=== PATIENT | female | born 2000 | race Caucasian/White ===

== ENCOUNTER 2021-08-20 14:26 | Outpatient (CLI) | payer OTHER, SELFPAY ==
--- NOTE | ~2021-08-20 | US_ITS ---
US breast LT complete INDICATION: Left breast lump TECHNIQUE: Dedicated complete left breast ultrasound including all 4 quadrants in the subareolar loca tion COMPARISON: No prior studies for comparison FINDINGS: The left breast is composed of normal heterogeneous echotexture without focal solid or cyst ic mass. IMPRESSION: 1: Normal left breast ultrasound. BI-RADS CATEGORY 1 - NEGATIVE Reviewed, dictated and finalized at location A.
== END 2021-08-20 14:27 ==
PROVIDERS: PCP Pediatrics; Visit Provider Nurse Practitioner Obstetrics & Gynecology
DX: N63.20 Unspecified lump in the left breast, unspecified quadrant (principal)
CPT/HCPCS: 76641

== ENCOUNTER 2021-12-15 11:55 | Emergency (ER) | payer OTHER, SELFPAY ==
--- NOTE | ~2021-12-15 | XR_ITS ---
EXAMINATION: XR foot RT min 3V DATE: 12/15/2021 12:15 INDICATION: Great toe injury. TECHNIQUE: 4 views of right foot were obtained. COMPARISON: None. FINDINGS: Bone alignment is normal. No fracture. Joint spaces are well maintained. IMPRESSION: 1. No fracture. Reviewed, dictated and finalized at location A. IMPRESSION: 1. No fracture.
--- NOTE | 2021-12-15 11:56 | ED.LOWEXIN ---
HPI - Extremity Injury (Lower) General Chief Complaint: Extremity Injury, Lower Stated Complaint: Right foot injury Time Seen by Provider: 12/15/21 12:06 Source: patient Mode of arrival: ambulatory Limitations: no limitations History of Present Illness HPI Narrative: Ms. Hunter is a 21-year-old female patient presenting to clinic today with complaints of right foot pain. She reports 2 weeks ago she dropped a heavy grill on the top of her foot. She complains of pain to great toe and to the first metatarsal. No bruising or swelling noted Related Data Home Medications Medication Instructions Recorded Confirmed medroxyprogesterone 150 mg/mL 150 mg IM DIRECTED 12/15/21 12/15/21 intramuscular syringe Allergies Allergy/AdvReac Type Severity Reaction Status Date / Time No Known Allergies Allergy Verified 12/15/21 11:58 Review of Systems Review of Systems: Pertinent positives per HPI. Patient denies any fever, chills, rash, headache, visual changes, dizziness, cough, runny nose, sore throat, shortness of breath, chest pain, palpitations, nausea, vomiting, diarrhea, constipation, abdominal pain, or any urinary issues. PMFSH Comments At the time of my signature, I reviewed and agree with the nursing past medical, surgical, social, and family history. There is no relevant family history pertinent to the patient complaint. Exam Narrative: General: Well-developed, well nourished, in no apparent distress Head: Normocephalic, atraumatic. Cardio: Regular rate and rhythm, s1 and s2 normal, no murmur appreciated. Resp: Clear to auscultation bilaterally, no rhonchi, rales, wheezing or rubs. Musculoskeletal: No deformity, mild tenderness to palpation over the left great toe and the left first metatarsal, pain with ambulation, grossly normal range of motion, muscle strength strong and equal, peripheral pulse strong, no edema, no cyanosis, normal gait and station Course Course Emergency Course: Portions of this record may have been created with voice recognition software. Level of Care: Express Care Visit Vital Signs Vital signs: Vital signs reviewed MDM - Extremity Injury (Lower) MDM Narrative Medical decision making narrative: At the time of visit patient is resting comfortably on exam table. X-ray was negative for any fracture or malalignment of the left foot. Supportive measures were discussed with the patient she voiced understanding of discharge instructions. Differential Diagnosis Differential diagnosis: Likely fracture of toe and other (Foot fracture, contusion, soft tissue injury) Discharge Plan Discharge Clinical Impression: Contusion of foot Patient Disposition: Home, Self-Care Condition: Stable Instructions: Antibiotic Form, Foot Contusion (ED) Additional Instructions: X-ray is negative for any fracture or malalignment of the left Rest, ice, and elevate left lower extremity Take Tylenol/Motrin as needed for pain May wrap with a loose Dereje wrap Follow-up with your PCP in 3 to 5 days if symptoms persist or sooner if they worsen Prescriptions: No Action medroxyprogesterone 150 mg/mL syringe 150 mg IM DIRECTED Rx Instructions: EVERY 3 MONTHS. Follow-up/Referrals: UNKNOWN,DOCTOR [Primary Care Provider] - Time of Disposition: 12:27 Quality NIHSS Nursing Documentation ED NIHSS nursing documentation: reviewed/agree
[2021-12-15 12:04] VITALS: BP 125/65; PULSE 99; RESP 16; TEMP 36.9; O2SAT 100
== END 2021-12-15 12:30 | disposition home or self-care (01) ==
PROVIDERS: Emergency Provider Nurse Practitioner Family
DX: S90.31XA Contusion of right foot, initial encounter (principal); W20.8XXA Other cause of strike by thrown, projected or falling object, initial encounter
CPT/HCPCS: 73630; 99213; G0463

== ENCOUNTER 2022-06-22 09:48 | Emergency (ER) | payer OTHER, SELFPAY ==
[2022-06-22 09:58] VITALS: BP 113/94; PULSE 107; RESP 16; TEMP 37.4; O2SAT 99
--- NOTE | 2022-06-22 10:31 | ED.WOUNDLAC ---
HPI - Wound/Laceration General Chief Complaint: Wound/Laceration Stated Complaint: spider bite Time Seen by Provider: 06/22/22 10:31 Source: patient Mode of arrival: ambulatory Limitations: no limitations History of Present Illness HPI narrative: 21-year-old female presenting for complaint of red tender wound to the right upper thigh, first noticed last night. States this started as an itchy area. She outlined the redness and states his spread a small amount. Endorses it is tender about 3 in surrounding the red area. She has concern for spider bite. She denies any other locations of skin changes. She denies changes to lotion, soap, detergent etc.. Related Data Home Medications Medication Instructions Recorded Confirmed medroxyprogesterone 150 mg/mL 150 mg IM DIRECTED 12/15/21 12/15/21 intramuscular syringe Allergies Allergy/AdvReac Type Severity Reaction Status Date / Time No Known Allergies Allergy Verified 06/22/22 10:00 Review of Systems Review of Systems: CONSTITUTIONAL: Denies body aches, fever, chills, or sweats. EYES: Denies visual changes, redness, or discharge. ENT: Denies rhinorrhea, congestion CARDIOVASCULAR: Denies chest pain, palpitations, or edema. RESPIRATORY: Denies cough or dyspnea. GASTROINTESTINAL: Denies abdominal pain, nausea, vomiting, or diarrhea. SKIN: Per HPI MUSCULOSKELETAL: Denies back pain, joint pain, or myalgia. NEUROLOGIC: Denies headache, numbness, tingling, or weakness. [facility] Past Medical History Medical History (Updated 06/22/22 @ 10:40 by Patsy Rudolph, JOSSELINE) No pertinent past medical history Comments At time of signature, I have reviewed and agree with nursing past medical, surgical, social and family history unless otherwise noted. Please see nursing chart for further information. There is no relevant family history pertinent to the presenting complaint Exam Narrative: GENERAL: Well-appearing HEAD: Normocephalic, atraumatic. EYES: conjunctivae clear, and EOMI. ENT: Mucous membranes moist. Oropharynx without edema, erythema or lesions. NECK: Supple. No lymphadenopathy CHEST: Clear to auscultation. HEART: Regular rate and rhythm. SKIN: Warm, dry. Right upper lateral thigh with irregular erythematous area approximately 3 cm, pinpoint white center. Site is firm and nonfluctuant, no active drainage; tender. NEURO: Alert and oriented x3. Course Course Emergency Course: Patient is aware of diagnosis, understands and agrees to treatment plan. Anticipatory guidance given. Patient agrees to follow-up as directed and is aware of reasons to seek care at the emergency department. Portions of this record may have been created with voice recognition software Level of Care: Express Care Visit Vital Signs Vital signs: Vital Signs Temperature 99.4 F 06/22/22 09:58 Pulse Rate 107 H 06/22/22 09:58 Respiratory Rate 16 06/22/22 09:58 Blood Pressure 113/94 H 06/22/22 09:58 Pulse Oximetry 99 06/22/22 09:58 Oxygen Delivery Room Air 06/22/22 09:58 Temperature 99.4 F 06/22/22 09:58 Pulse Rate 107 H 06/22/22 09:58 Respiratory Rate 16 06/22/22 09:58 Blood Pressure 113/94 H 06/22/22 09:58 Pulse Oximetry 99 06/22/22 09:58 Oxygen Delivery Room Air 06/22/22 09:58 Reviewed MDM - Wound/Laceration MDM Narrative Medical decision making narrative: Erythematous area to the right upper thigh is nonfluctuant, and at this time is unable to I&D. Patient understands, she will take antibiotics as directed. Advised supportive measures and signs/symptoms to go to the ER. Pt is appropriate for outpt treatment and f/u. Differential Diagnosis Differential diagnosis: Likely abscess, avulsion of skin and other (cellulitis, dermatitis, eczematous rash) Discharge Plan Discharge Clinical Impression: Abscess Patient Disposition: Home, Self-Care Condition: Stable Instructions: Antibiotic Form, Folliculitis (ED), Abscess (ED
== END 2022-06-22 10:39 | disposition home or self-care (01) ==
PROVIDERS: Emergency Provider Nurse Practitioner Family; PCP Pediatrics
DX: L02.415 Cutaneous abscess of right lower limb (principal)
CPT/HCPCS: 99213; G0463

== ENCOUNTER 2022-08-22 18:00 | Emergency (ER) | payer OTHER, SELFPAY ==
--- NOTE | ~2022-08-22 | CT_ITS ---
EXAMINATION: CT brain wo con DATE: 08/22/2022 20:44 INDICATION: Migraine headache. Tingling in the arms. TECHNIQUE: Computed tomography (CT) of the head was performed without intravenous contrast. The mA wa s adjusted according to patient size. Iterative reconstruction technique was employed. The dose-lengt h product was 605.33 mGy-cm. COMPARISON: None FINDINGS: There is no intracranial hemorrhage, acute infarction, or abnormal intracranial mass lesion . The ventricles are normal in size. There is mild mucosal thickening in frontal sinus. The orbits ar e normal. The mastoid air cells are normal. IMPRESSION: 1. Normal brain. Reviewed, dictated and finalized at location E. IMPRESSION: 1. Normal brain.
[2022-08-22 18:35] VITALS: BP 111/92; PULSE 84; RESP 16; TEMP 36.9; O2SAT 100
[2022-08-22 19:36] VITALS: BP 129/65; PULSE 77; RESP 18; O2SAT 98
--- NOTE | 2022-08-22 20:13 | PC.NURSE ---
Pt reports migraine onset 1600 today. She's had atypical migraines in the past. She describes experiencing numbness/tingling in her arms and legs, nausea, sensitivity to light, and dizziness. She c/o those symptoms today, but she also has pain across her forehead which is unusual for her migraines. Pain rated 5/10 at this time. She took ibuprofen at 1800.
--- NOTE | 2022-08-22 20:40 | ED.HA ---
HPI - Headache General Chief Complaint: Headache Stated Complaint: migraine and jessika arm tingling Time Seen by Provider: 08/22/22 19:59 Source: patient Mode of arrival: ambulatory Limitations: no limitations History of Present Illness HPI Narrative: Patient is a 21-year-old female who presents ED with report of migraine headache. Patient reports she has a history of migraines, which consist of disorientation, tingling of her extremities, aura of either white spots in her vision or tunnel vision. She states she has migraines when she is stressed, dehydrated, when she tries to quit vaping, or after receiving her Depo-Provera shot. She noticed some slight tingling in her left arm yesterday, but did not think much of it. Today around 4:30 PM while at work, she noticed white spots in her vision and began having pain in her head. She states she does not usually have a headache associated with her definition of migraines. She does report photophobia and difficulty focusing, denies any vision loss or blurry vision. Reports nausea, but denies vomiting. Denies dizziness, weakness, abdominal pain, fevers, neck pain. Related Data Home Medications Medication Instructions Recorded Confirmed medroxyprogesterone 150 mg/mL 150 mg IM DIRECTED 12/15/21 12/15/21 intramuscular syringe Allergies Allergy/AdvReac Type Severity Reaction Status Date / Time No Known Allergies Allergy Verified 08/22/22 18:38 Review of Systems Review of Systems: CONSTITUTIONAL: Denies fever, chills, or sweats. EYES: See HPI. CARDIOVASCULAR: Denies chest pain. RESPIRATORY: Denies dyspnea. GASTROINTESTINAL: See HPI. GENITOURINARY: Denies dysuria or hematuria. SKIN: Denies rash or itching. MUSCULOSKELETAL: Denies back pain, neck pain. NEUROLOGIC: See HPI. All systems reviewed & are unremarkable except as noted in HPI and below PMFSH Past Medical History Medical History Migraines Surgical History Surgical History (Updated 08/22/22 @ 20:43 by Sona Rocha PA-C) No pertinent past surgical history Social History Social History (Updated 08/23/22 @ 01:33 by Sona Rocha PA-C) Smoking status: Current every day smoker Tobacco type: e-cigarettes/vaping Exam Narrative: GENERAL: Well appearing, well-nourished, non-toxic, in no acute distress. HEAD: Normocephalic, atraumatic. EYES: PERRLA/EOMI, conjunctiva clear. No nystagmus. NECK: Supple. No adenopathy, no masses. No meningeal signs. RESPIRATORY: Airway patent, respirations nonlabored. Clear to auscultation bilaterally, no rales, rhonchi, wheezing. CARDIOVASCULAR: Regular rate and rhythm without murmurs, rubs, or gallops. Radial pulses 2+ and equal bilaterally. ABDOMINAL: Soft, nontender, nondistended, no hepatosplenomegaly. Normoactive BS. MUSCULOSKELETAL: Moves all extremities. Strength/ROM intact without gross deformities. SKIN: Warm, dry, normal color. No rashes. NEURO: A&O X3. Speech clear. Cranial nerves II-XII grossly intact. Steady gait. No ataxic movements. 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 No focal deficits. Sensation intact to upper extremities. PSYCHIATRIC: Appropriate mood and affect. Normal interaction. Course Vital Signs Vital signs: Vital Signs Temperature 98.4 F 08/22/22 18:35 Pulse Rate 84 08/22/22 18:35 Respiratory Rate 16 08/22/22 18:35 Blood Pressure 111/92 H 08/22/22 18:35 Pulse Oximetry 100 08/22/22 18:35 Oxygen Delivery Room Air 08/22/22 18:35 Temperature 98.4 F 08/22/22 18:35 Pulse Rate 85 08/22/22 22:11 Respiratory Rate 16 08/22/22 22:11 Blood Pressure 116/76 08/22/22 22:11 Pulse Oximetry 98 08/22/22 22:11 Oxygen Delivery Room Air 08/22/22 18:35 MDM - Headache MDM Narrative Medical decision making narrative: Patient's headache was not sudden in onset or maximal in severity. There are no focal neurological deficits on exam.
[2022-08-22] MEDS: diphenhydrAMINE HCl INJ 50 MG/ML VIAL 25 MG IV PUSH (20:51)
[2022-08-22] MEDS: SODIUM CHLORIDE 0.9% IV 1,000 ML 999 ML IV CONT (20:51)
[2022-08-22] MEDS: METOCLOPRAMIDE HCL INJ 10 MG/2 ML VIAL IV PUSH (20:51)
[2022-08-22] MEDS: KETOROLAC 30 MG/ML VIAL (*BKC) IV PUSH (20:51)
--- NOTE | 2022-08-22 21:10 | PC.NURSE ---
Pt reports feeling very anxious after receiving reglan. Reassured pt that this is a temporary side effect and should resolve soon. Pt states I feel better, I just want to go home . Asked if she wanted the decadron and pt refused. Sona GODDARD notified.
--- NOTE | 2022-08-22 21:24 | PC.NURSE ---
Anxiety has resolved and pt feels better. Sona GODDARD at bedside.
[2022-08-22 22:11] VITALS: BP 116/76; PULSE 85; RESP 16; O2SAT 98
== END 2022-08-22 22:12 | disposition home or self-care (01) ==
PROVIDERS: Emergency Provider Physician Assistant
DX: G43.909 Migraine, unspecified, not intractable, without status migrainosus (principal); R20.2 Paresthesia of skin; F17.290 Nicotine dependence, other tobacco product, uncomplicated
CPT/HCPCS: 70450; 96365; 96375; 99284; J0131; J1200; J1885; J2765; J7030

== ENCOUNTER 2024-01-18 17:57 | Emergency (ER) | payer OTHER, SELFPAY ==
--- NOTE | ~2024-01-18 | CT_ITS ---
CT of the Abdomen and Pelvis: Indication: Pelvic pain Technique: 2.5 mm axial scans were obtained through the abdomen and pelvis following intravenous adm inistration of 100 cc of Omnipaque 350. Dose reduction technique was used on this scan by utilizing a utomated exposure control and iterative reconstruction technique. The dose-length product (DLP) was 8 47.14 mGy-cm. Findings: Scans through the lung bases are unremarkable. The liver, spleen, pancreas, gallbladder, adrenals and kidneys are within normal limits. No evidence of aortic aneurysm. No lymphadenopathy. No bowel obstruction or bowel wall thickening. There is no evidence to suggest acute appendicitis. Images through the pelvis were performed. Urinary bladder unremarkable. No pelvic mass evident. No as cites. Impression: No significant abnormalities seen. Reviewed, dictated and finalized at location . Impression: No significant abnormalities seen.
[2024-01-18 18:13] VITALS: BP 136/75; PULSE 89; RESP 18; TEMP 36.5; O2SAT 100
[2024-01-18 18:41] LABS: Basophils Percent Auto 0.4 % (0.2-1.2); Eosinophils Absolute Auto 0.1 K/mm3 (0-0.3); Eosinophils Percent Auto 0.9 % (0-4.4); Hematocrit 43.4 % (37.0-47.0); Hemoglobin 14.7 g/dL (12.0-15.0); Immature Granulocyte Absolute 0.02 K/mm3 (0.00-0.031); Immature Granulocyte Percent A 0.2 % (0-0.5); Lymphocytes Absolute Auto 3.04 K/mm3 (0.9-3.2); Lymphocytes Percent Auto 29.3 % (18.3-44.2); Mean Corpuscular HGB Conc 33.9 g/dl (32-36); Mean Corpuscular Volume 85.6 fl (80-100); Mean Platelet Volume 10.3 fl (7.4-10.4); Monocytes Absolute Auto 0.8 K/mm3 (0.1-0.6); Monocytes Percent Auto 7.5 % (2.6-8.5); Neutrophils Absolute Auto 6.4 K/mm3 (1.3-6.7); Neutrophils Percent Auto 61.7 % (45.5-73.1); Platelet Count Result 278 k/mm3 (150-375); Red Blood Count 5.07 M/mm3 (4.2-5.4); Red Cell Distribution Width 12.7 % (11.5-14.5); White Blood Count 10.4 K/mm3 (4.5-10.0)
[2024-01-18 18:48] LABS: Add Urine Microscopic? NO; Appearance Urine Clear (Clear); Bilirubin Urine Negative (Negative); Blood Urine Negative (Negative); Color Urine Yellow (Yellow); Glucose Urine UA Negative (Negative); Ketones Urine Negative (Negative); Leukocyte Esterase Ur Negative LEU/UL (Negative); Nitrate Urine Negative (Negative); Protein Urine Negative (Negative); Specific Grav Ur 1.013 (1.001-1.035); Urobilinogen Urine 0.2 mg/dL (<2.0); pH Urine 7.5 (5.0-9.0)
[2024-01-18 18:51] LABS: Alanine Aminotransferase 23 U/L (6-35); Albumin Level 4.5 g/dL (3.5-5.1); Alkaline Phosphatase 91 U/L (38-126); Anion Gap 11 mmol/L (4-12); Aspartate Amino Transferase 27 U/L (14-36); Bilirubin,Total 0.3 mg/dL (0.2-1.3); Blood Urea Nitrogen 10 mg/dL (7-17); Calcium 9.4 mg/dL (8.4-10.2); Carbon Dioxide 21 mmol/L (22-30); Chloride 107 mmol/L (98-107); Estimated CRCL calculation 133 ml/min; Estimated Glomerular Filt Rate > 60; Glucose 94 mg/dL (65-110); Lipase 56 U/L (23-300); Potassium 3.8 mmol/L (3.4-5.0); Sodium 139 mmol/L (137-145)
[2024-01-18 20:42] VITALS: BP 127/81; PULSE 90; RESP 18; O2SAT 100
[2024-01-18 21:00] LABS: Pregnancy On Board Control Positive; Urine Pregnancy Test Negative
--- NOTE | 2024-01-18 23:35 | ED.GENADULT ---
HPI - General Adult General Chief complaint: Abdominal Pain Stated complaint: abd pain Time Seen by Provider: 01/18/24 20:41 History of Present Illness HPI narrative: Patient is a 23-year-old female who presents emergency department with chief complaint right lower quadrant abdominal pain. The patient reports that she has pain worse with movement reports that it started after she was having intercourse. The patient reports no vomiting reports the pain is worse with movement improved with rest. Related Data Home Medications Medication Instructions Recorded Confirmed drospirenone 3 mg-estetrol 14.2 mg 1 tablet PO 01/18/24 (28) tablet (Nextstellis) Allergies Allergy/AdvReac Type Severity Reaction Status Date / Time No Known Allergies Allergy Verified 08/22/22 18:38 Review of Systems Review of Systems: A 10 system review of systems was completed on the patient and is negative except for what is stated in the HPI. Nursing and ancillary documentation was reviewed. PMFSH Past Medical History Medical History Migraines Surgical History Surgical History No pertinent past surgical history Social History Social History Smoking status: Current every day smoker Tobacco type: e-cigarettes/vaping Exam Narrative: GENERAL: Well-appearing, well-nourished, and in no acute distress. HEAD: Normocephalic, atraumatic. EYES: PERRLA and EOMI. ENT: Nares clear, no rhinorrhea or epistaxis. Mucous membranes moist. NECK: Supple. CHEST: Clear to auscultation. No respiratory distress. HEART: Regular rate and rhythm. No murmur heard. Normal peripheral pulses. ABDOMEN: Soft, mild tenderness to palpation throughout the abdomen, no guarding no rebound, nondistended, normal active bowel sounds. EXTREMITIES: Normal range of motion. No edema. SKIN: Warm, dry, no rash. NEURO: No focal deficits. Alert and oriented x3. PSYCH: Normal mood and affect. Course Vital Signs Vital signs: Vital Signs Temperature 36.5 C 01/18/24 18:13 Pulse Rate 89 01/18/24 18:13 Respiratory Rate 18 01/18/24 18:13 Blood Pressure 136/75 01/18/24 18:13 Pulse Oximetry 100 01/18/24 18:13 Temperature 36.6 C 01/19/24 01:26 Pulse Rate 80 01/19/24 01:26 Respiratory Rate 18 01/19/24 01:26 Blood Pressure 130/80 01/19/24 01:26 Pulse Oximetry 97 01/19/24 01:26 Medical Decision Making MDM Narrative Medical decision making narrative: Differential diagnosis includes appendicitis, diverticulitis, colitis, ruptured ovarian cyst, urinary tract infection, pyelonephritis, ureterolithiasis, constipation Laboratory studies were obtained on the patient showed a normal CBC normal CMP urinalysis showed no evidence UTI CT scan of the abdomen pelvis showed evidence of constipation Vital Signs Vital Signs: Vital Signs Temperature 36.5 C 01/18/24 18:13 Pulse Rate 89 01/18/24 18:13 Respiratory Rate 18 01/18/24 18:13 Blood Pressure 136/75 01/18/24 18:13 Pulse Oximetry 100 01/18/24 18:13 Temperature 36.6 C 01/19/24 01:26 Pulse Rate 80 01/19/24 01:26 Respiratory Rate 18 01/19/24 01:26 Blood Pressure 130/80 01/19/24 01:26 Pulse Oximetry 97 01/19/24 01:26 Lab Data 01/18/24 18:30 01/18/24 18:30 Labs: Lab Results 01/18/24 Range/Units 18:30 WBC 10.4 H (4.5-10.0) K/mm3 RBC 5.07 (4.2-5.4) M/mm3 Hgb 14.7 (12.0-15.0) g/dL Hct 43.4 (37.0-47.0) % MCV 85.6 (80-100) fl MCH 29.0 (26-34) pg MCHC 33.9 (32-36) g/dl RDW 12.7 (11.5-14.5) % Plt Count 278 (150-375) k/mm3 MPV 10.3 (7.4-10.4) fl Immature Gran % (Auto) 0.2 (0-0.5) % Neut % (Auto) 61.7 (45.5-73.1) % Lymph % (Auto) 29.3 (18.3-44.2) % [place] % (Auto) 7.5 (2.6-8.5)
[2024-01-19 01:26] VITALS: BP 130/80; PULSE 80; RESP 18; TEMP 36.6; O2SAT 97
== END 2024-01-19 02:40 | disposition home or self-care (01) ==
PROVIDERS: Emergency Medicine; Emergency Provider Emergency Medicine
DX: R10.31 Right lower quadrant pain (principal); K59.00 Constipation, unspecified; F17.290 Nicotine dependence, other tobacco product, uncomplicated
CPT/HCPCS: 36415; 74177; 80053; 81003; 81025; 83690; 85025; 99284; Q9967

== ENCOUNTER 2024-03-05 08:41 | Emergency (ER) | payer OTHER, SELFPAY ==
--- NOTE | ~2024-03-05 | XR_ITS ---
EXAMINATION: XR chest 2V DATE: 03/05/2024 09:28 INDICATION: Chest congestion. Fever. TECHNIQUE: Frontal and lateral views of the chest were obtained. COMPARISON: CT abdomen and pelvis 01/18/2024 FINDINGS: There is no pneumonia, pleural effusion, or pneumothorax. The heart size is normal. IMPRESSION: 1. No acute cardiopulmonary disease. Reviewed, dictated and finalized at location A. LUTE PROFESSIONAL
--- NOTE | 2024-03-05 08:56 | ED_ITS ---
HPI - URI/Sore Throat General Chief Complaint: Upper Respiratory Infection Stated Complaint: Congestion Time Seen by Provider: 03/05/24 08:58 Source: patient, RN notes reviewed and old records reviewed Mode of arrival: ambulatory Limitations: no limitations History of Present Illness HPI Narrative: 23-year-old female to Express Care with complaint of nasal congestion, headache, bilateral jaw discomfort and fever up to 100.4? since yesterday. Patient denies shortness of breath, difficulty swallowing, dental fractures, carries, pain , allergies, pertinent medical history. Patient able to tolerate fluids by mouth. Patient has not attempted to treat symptoms at home. 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 Patient is sitting comfortably in exam room in no acute distress. Respirations even and nonlabored. Related Data Home Medications Medication Instructions Recorded Confirmed No Home Medications 03/05/24 03/05/24 Allergies Allergy/AdvReac Type Severity Reaction Status Date / Time No Known Allergies Allergy Verified 03/05/24 09:00 Review of Systems Review of Systems: All systems reviewed & are unremarkable except as noted in HPI and below Constitutional: Constitutional: Reports as per HPI, Reports fever(s) and Reports headache(s) Eyes: Eyes: Reports no additional eye complaints ENT: Reports as per HPI, Reports facial pain ( Bilateral jaw) and Reports nasal congestion Cardiovascular: Cardiovascular: Reports no additional cardiovascular complaints, Denies chest pain and Denies dyspnea Respiratory: Respiratory: Reports no additional respiratory complaints, Denies cough and Denies dyspnea Musculoskeletal: Musculoskeletal: Reports no additional musculoskeletal complaints Neurologic: Reports system reviewed and no additional complaints, except as documented Psychiatric: Psychiatric: Reports no additional psychiatric complaints [facility] Past Medical History Medical History Migraines Surgical History Surgical History No pertinent past surgical history Social History Social History Smoking status: Current every day smoker Tobacco type: e-cigarettes/vaping Comments At the time of my signature, I reviewed and agree with the nursing past medical, surgical, social, and family history. There is no relevant family history pertinent to the patient complaint. Exam Const: General: cooperative, healthy appearing, no acute distress, alert, tired appearing and well nourished Nutritional Appearance: well nourished Orientation/consciousness: patient oriented x3 Limitations: no limitations HENMT: Head: normal to inspection Ears: external ears normal Face/Nose/Sinus: Normal external nose present, Normal nares present, normal facial exam, No erythema and No edema Face and sinus: normal facial exam, no erythema and no edema Mouth: Yes Normal oral and palatal mucosa present Eyes: General: appearance normal, both eyes and all related structures Neck: Neck: normal visual inspection, full ROM and no meningeal signs Lymphatic: no lymphadenopathy noted and no lymphedema noted Chest: Chest palpation & inspection: normal inspection of the chest Resp: Effort & Inspection: normal respiratory effort and able to speak in complete sentences Auscultation: clear to auscultation bilaterally Cardio: Jugular venous distension: no JVD Rate: regular rate Rhythm: regular rhythm Back/Spine/Pelvis: Cervical Spine: cervical ROM normal Skin: General skin exam: normal color, no rashes or lesions noted and turgor normal Neuro: General: patient oriented x3, gait normal, moves all extremities and no meningeal signs Speech: normal speech Gait exam (Neuro): Normal gait present Extrem: General: normal to inspection, full ROM and capillary refill normal Psych: Appearance: grossly normal and well kempt Course Course Emergency Course: Some parts of this dictation were generated by voice recognition software and may contain typographical and/or grammatical inaccuracies. Level of Care: Express Care Visit Vital Signs Vital signs: Vital Signs Temperature 37.1 C 03/05/24 09:03 Pulse Rate 99 03/05/24 09:03 Respiratory Rate 18 03/05/24 09:03 Blood Pressure 133/84 03/05/24 09:03 Pulse Oximetry 99 03/05/24 09:03 Oxygen Delivery Room Air 03/05/24 09:03 Temperature 37.1 C 03/05/24 09:03 Pulse Rate 99 03/05/24 09:03 Respiratory Rate 18 03/05/24 09:03 Blood Pressure 133/84 03/05/24 09:03 Pulse Oximetry 99 03/05/24 09:03 Oxygen Delivery Room Air 03/05/24 09:03 reviewed MDM - URI/Sore Throat MDM Narrative Medical decision making narrative: 23-year-old female to Express Care with complaint of nasal congestion, headache, bilateral jaw discomfort and fever up to 100.4? since yesterday. Patient denies shortness of breath, difficulty swallowing, dental fractures, carries, pain , allergies, pertinent medical history. Patient able to tolerate fluids by mouth. Patient has not attempted to treat symptoms at home. 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 Patient is sitting comfortably in exam room in no acute distress. Respirations even and nonlabored. on exam, patient appears tired. Physical exam otherwise negative. Patient tested negative for influenza and COVID in clinic. Patient is sitting comfortably in exam room nontoxic in appearance. Patient appropriate for outpatient treatment and follow-up. Discharge instructions reviewed with patient, as well as provided in writing per nursing staff. The instructions also include specific and strict return/GO TO THE ER as well as f/u information. All questions have been answered, and the patient deny any further questions with discharge and discharge plan. Some parts of this dictation were generated by voice recognition software and may contain typographical and/or grammatical inaccuracies. Differential Diagnosis Differential diagnosis: Likely upper respiratory infection, croup, otitis media, sinusitis, viral infection, bronchitis, influenza and pharyngitis Lab Data Labs: Lab Results 03/05/24 Range/Units 09:17 POC Influenza A Ag Negative (Negative) POC Influenza B Ag Negative (Negative) POC SARS CoV-2 Ag Negative (Negative) Discharge Plan Discharge Clinical Impression: Viral infection Patient Disposition: Home, Self-Care Condition: Stable Instructions: Viral Syndrome (ED) Additional Instructions: Your rapid strep swab was negative today at [facility]. A throat culture will be sent to the laboratory for further testing. If the test is positive, you will receive a phone call within 48 hours and an appropriate antibiotic will be initiated at that time. Your symptoms are likely due to a viral illness, which is not treated with antibiotics. Viral symptoms can be present for up to a few weeks. -Alternate Tylenol and Motrin per package directions for fever or pain. -Antihistamine medication such as Benadryl at night and Zyrtec/Claritin/Yareli during the day can help improve symptoms. -Use Flonase twice a day for 5 days then daily to help reduce the inflammation and dry up your sinuses. -You can also use Sudafed or Mucinex. Be sure to drink plenty of water with these medications at least 8 ounces with every dose and it is important to drink 8 to 10 glasses of water per day. Water is a natural decongestant -Eat and drink things that are easy to swallow, like tea or soup, or popsicles. -Oral rinses such as: Salt water gargles and/or may use topical anesthetic (eg. Chloraseptic spray) or lozenges to relieve dryness or throat pain). -Frequent hand washing or hand clinical statistics manager is one of the best ways to prevent spread of infection. -Using a vaporizer or humidifier at night will also help thin secretions and help with coughing up phlegm. -Follow up with primary care provider in 2-3 days if condition is not improving; or seek ER visit if you have trouble breathing, cannot drink enough fluids, have muffled voice, difficulty opening your mouth, or severe swelling. Prescriptions: No Action No Home Medications Follow-up/Referrals: UNKNOWN,DOCTOR [Primary Care Provider] - Stand Alone Forms: Work/School Release IP
[2024-03-05 09:03] VITALS: BP 133/84; PULSE 99; RESP 18; TEMP 37.1; O2SAT 99
[2024-03-05 09:19] LABS: EDCOVIDSCREEN Negative (Negative); EDINFLUASCREEN Negative (Negative); EDINFLUBSCREEN Negative (Negative)
== END 2024-03-05 09:54 | disposition home or self-care (01) ==
PROVIDERS: Emergency Provider Nurse Practitioner Family
DX: B34.9 Viral infection, unspecified (principal); Z20.822 Contact with and (suspected) exposure to COVID-19; F17.290 Nicotine dependence, other tobacco product, uncomplicated
CPT/HCPCS: 71046; 87426; 87804; 99213; G0463

== ENCOUNTER 2025-01-27 10:33 | Outpatient (RCR) | payer OTHER, SELFPAY ==
[2025-01-27 10:45] VITALS: BMI 35.9
--- NOTE | 2025-01-27 13:18 | PCDIET ---
MNT consult completed due to GDM. Note faxed to referring provider.
== END 2025-04-25 12:40 | disposition home or self-care (01) ==
LOC: ANHDMC 10:33
PROVIDERS: Visit Provider Obstetrics & Gynecology
DX: O24.410 Gestational diabetes mellitus in pregnancy, diet controlled (principal); Z3A.00 Weeks of gestation of pregnancy not specified; Z71.3 Dietary counseling and surveillance
CPT/HCPCS: 97802

== ENCOUNTER 2025-03-18 15:04 | Outpatient (RCR) | payer OTHER, SELFPAY ==
[2025-03-10 16:15] VITALS: BP 126/72; PULSE 98
--- NOTE | ~2025-03-18 | US_ITS ---
EXAMINATION: US OB follow up w BPP DATE: 03/10/2025 16:21 INDICATION: Maternal gestational diabetes during third trimester . TECHNIQUE: Real-time pelvic ultrasound was performed. The interpreting radiologist was not present for the study. COMPARISON: None. FINDINGS: There is a single living fetus in vertex presentation. The placenta is anterior and not low-lying. heart rate is 136 beats per minute (bpm). Normal amniotic fluid index of 16.6 cm (5th%-95%: 7.9-24.9 cm at 35 weeks estimated gestational age). The following biometric data were obtained: BPD: 8.3 cm -> 33 weeks 2 days Head circumference: 33.3 cm -> 38 weeks 0 days Abdominal circumference: 31.1 cm -> 35 weeks 0 days Femur length: 6.6 cm -> 33 weeks 6 days Dolichocephaly with decreased cephalic index of 66.2 (normal range 70-86). These measurements are otherwise concordant. Head circumference to abdominal circumference ratio: 1.07 (normal range 0.93-1.11). Estimated weight: 2530 g (+/-) 380 g, 5 lbs 9 oz (+/-) 13oz Biophysical profile performed by the technologist: breathing (30 sec sustained breathing in 30 minutes): 2 out of 2 movement (3 gross body movements in 30 minutes): 2 out of 2 tone (one episode of qjamary-ybqbbuapg-wmupvzy limb movement): 2 out of 2 Amniotic fluid pocket (2 cm): 2 out of 2 Total score: 8 out of 8 IMPRESSION: 1. Single living fetus in vertex presentation with heart rate of 136 bpm. 2. Biophysical profile 8 out of 8. 3. Normal amniotic fluid index of 16.6 cm 4. Gestational age by ultrasound of 35 weeks 0 day(s) +/- 2 weeks and 3 days with ultrasound estimated date of delivery (RUDY) of 04/14/2025. Estimated weight is 42nd percentile by Hadlock criteria when 04/14/2025 is used as the RUDY. Please correlate with clinical information or earlier ultrasounds for most accurate URDY. 5. Dolichocephaly with decreased cephalic index of 66.2 Reviewed, dictated and finalized at location A. ER DEVELOPMENT SPECIALIST IMPRESSION: 1. Single living fetus in vertex presentation with heart rate of 136 bpm. 2. Biophysical profile 8 out of 8. 3. Normal amniotic fluid index of 16.6 cm 4. Gestational age by ultrasound of 35 weeks 0 day(s) +/- 2 weeks and 3 days wi th ultrasound estimated date of delivery (RUYD) of 04/14/2025. Estimated w eight is 42nd percentile by Hadlock criteria when 04/14/2025 is used as the RUDY . Please correlate with clinical information or earlier ultrasounds for most ac curate RUDY. 5. Dolichocephaly with decreased cephalic index of 66.2
--- NOTE | ~2025-03-18 | US_ITS ---
EXAM/PROCEDURE: US OB BPP wo non-stress HISTORY: BPP, TANESHA, decels in the office, COMPARISON: March 10, 2025 TECHNIQUE: Directed biophysical profile score performed. FINDINGS: A single viable intrauterine gestation is present with heart rate of 141 bpm. Presentation: Breech Placenta: Anterior with no gross previa or abruption. TANESHA: 13.04 cm. EGA by dates 36 weeks 1 day EDC by dates: April 14, 2025 BIOPHYSICAL PROFILE SCORE: 8/8. IMPRESSION: Directed exam demonstrating single viable intrauterine gestation with heart rate of 141 bpm. Biophysical profile score is 8/8. Reviewed, dictated and finalized at location A. INE RIVETER IMPRESSION: Directed exam demonstrating single viable intrauterine gestation with heart rat e of 141 bpm. Biophysical profile score is 8/8.
[2025-03-18 16:33] VITALS: BP 125/72; PULSE 105
== END 2025-04-16 11:37 | disposition other institution (70) ==
LOC: ANHOBOP 15:04
PROVIDERS: Visit Provider Obstetrics & Gynecology
DX: O24.419 Gestational diabetes mellitus in pregnancy, unspecified control (principal); Z3A.35 35 weeks gestation of pregnancy; Z3A.36 36 weeks gestation of pregnancy
CPT/HCPCS: 59025; 76816; 76819

== ENCOUNTER 2025-04-07 08:41 | Outpatient (CLI) | payer OTHER, SELFPAY ==
[2025-04-07 09:12] LABS: Hematocrit 42.2 % (37.0-47.0); Hemoglobin 13.8 g/dL (12.0-15.0); Mean Corpuscular HGB Conc 32.7 g/dl (32-36); Mean Corpuscular Hemoglobin 28.2 pg (26-34); Mean Corpuscular Volume 86.1 fl (80-100); Platelet Count Result 278 k/mm3 (150-375); Red Blood Count 4.90 M/mm3 (4.2-5.4); White Blood Count 11.2 K/mm3 (4.5-10.0)
[2025-04-07 10:07] LABS: Syphilis IgG/IgM Antibody Non-Reactive (Nonreactive)
== END 2025-04-07 08:42 | disposition home or self-care (01) ==
PROVIDERS: Visit Provider Obstetrics & Gynecology
DX: Z01.818 Encounter for other preprocedural examination (principal)
CPT/HCPCS: 36415; 85027; 86593; 86850; 86900; 86901

== ENCOUNTER 2025-04-08 09:29 | Inpatient (IN) | payer OTHER, SELFPAY ==
[2025-04-08] VITALS (69 sets, daily range): BP systolic 110–134; BP diastolic 48–84; PULSE 61–114; RESP 14–20; TEMP 36.6–37.1; O2SAT 95–100; BMI 35.9
[2025-04-08] MEDS: ACETAMINOPHEN 500 MG TABLET 1000 MG PO ×3 (09:51→22:13)
[2025-04-08] MEDS: LACTATED RINGERS 1,000 ML 125 ML IV CONT ×3 (09:55→13:09)
--- NOTE | 2025-04-08 10:06 | LDADM ---
This patient, Norma Hunter, was admitted to Labor/Delivery/Recovery 119 on 04/08/25 at 09:29. Plans for labor, pain management and were discussed with patient. Patient/family oriented to hospital policies and general routines including ID bracelet, bed and alarms, visiting hours, pain management, procedures, bathroom and other care routines, personal items, smoking policy, room service/diet and guest tray routines, infant security routines, and visiting hours. Patient/Family are encouraged to report perceived risks to care and to ask questions if they do not understand what they are told or what they should do. See OBIX for further documentation.
[2025-04-08 10:29] LABS: Alanine Aminotransferase 30 U/L (6-35); Albumin Level 3.4 g/dL (3.5-5.1); Alkaline Phosphatase 156 U/L (38-126); Anion Gap 5 mmol/L (4-12); Aspartate Amino Transferase 25 U/L (14-36); Bilirubin,Total 0.4 mg/dL (0.2-1.3); Blood Urea Nitrogen 6 mg/dL (7-17); Calcium 9.0 mg/dL (8.4-10.2); Carbon Dioxide 18 mmol/L (22-30); Chloride 112 mmol/L (98-107); Estimated CRCL calculation 160 ml/min; Estimated Glomerular Filt Rate > 60; Glucose 179 mg/dL (65-110); Potassium 3.7 mmol/L (3.4-5.0); Sodium 135 mmol/L (137-145); Total Protein 6.8 g/dL (6.3-8.2)
--- NOTE | 2025-04-08 10:35 | WPDANESEPPF ---
Anes - Initial Pre Proc Eval Procedure: Operation Date: 04/08/25 11:30 Proposed Procedures p Section - Jama Park MD Date/Time: 04/08/25 10:35 Surgeon: Jama Park MD Pre Op Diagnosis: C Section Patient Data Age: 24 Gender: F Height: 1.63 m Weight: 95 kg Last Vital Signs Temp 37.0 C 04/08/25 09:51 Pulse 91 04/08/25 10:30 BP 122/69 04/08/25 10:30 Pulse Ox 99 04/08/25 10:33 O2 Del Method Room Air 04/08/25 10:06 Allergies Allergy/AdvReac Type Severity Reaction Status Date / Time No Known Allergies Allergy Verified 04/08/25 10:06 Home Medications ?Medication ?Instructions ?Recorded ?Confirmed ?Type famotidine 20 mg tablet (Pepcid) 20 mg PO BID PRN heartburn 03/10/25 04/08/25 History vit no.95-ferrous 1 tablet PO DAILY 03/10/25 04/08/25 History fumarate 28 mg-folic acid 800 mcg tablet () Laboratory Tests 04/08/25 04/08/25 09:41 09:53 Sodium 135 L mmol/L (137-145) Potassium 3.7 mmol/L (3.4-5.0) Chloride 112 H mmol/L (98-107) Carbon Dioxide 18 L mmol/L (22-30) Anion Gap 5 mmol/L (4-12) BUN 6 L mg/dL (7-17) Creatinine 0.51 L mg/dL (0.7-1.0) Estim Creat Clear Calc 160 ml/min Estimated GFR > 60 (59 - ) Glucose 179 H mg/dL (65-110) Calcium 9.0 mg/dL (8.4-10.2) Total Bilirubin 0.4 mg/dL (0.2-1.3) AST 25 U/L (14-36) ALT 30 U/L (6-35) Alkaline Phosphatase 156 H U/L (38-126) Total Protein 6.8 g/dL (6.3-8.2) Albumin 3.4 L g/dL (3.5-5.1) HIV 1&2 Ab/P24 Ag 4thGn Pending Results Review: All pre-operative results and documents have been reviewed as part of the pre-operative evaluation. [facility] Past Medical History Medical History Migraines Surgical History Surgical History No pertinent past surgical history Family History Family History (Updated 03/18/25 @ 13:37 by Jennifer Lancaster RN) Father Hypertension Acute myocardial infarction Social History Social History Smoking status: Former smoker Tobacco type: e-cigarettes/vaping Second hand tobacco smoke exposure: No Smoking end date: 06/26/24 Substance use: never Lack of Transportation: No Lack of Food: Never True Current Housing: I Have Housing Concerned About Future Housing: No Difficulty Paying Gas/Electric Bills: No Difficulty Paying for Meds: No Currently Unemployed: No Education: High School Diploma/GED Difficulty w/ Childcare or Family Care: No Spiritual care concerns: No Anes - Eval Final PreProcedure Day of Procedure 04/08/25 10:35 Patient weight: obese Heart: regular rate and rhythm Lungs: clear to auscultation and normal air movement Airway: Mallampati scale class II Neurological: alert and oriented Last oral intake: >/= 8 hours ASA classification: III Emergent: no Anesthetic plan: proceed Anesthesia type and monitoring: regional spinal and standard monitoring Results Review: All pre-operative results and documents have been reviewed as part of the pre-operative evaluation. Informed Consent: The patient's anesthetic plan and its attendant risks and benefits were discussed with the patient/family/POA. Questions were solicited and answers provided to the satisfaction of the patient/family/POA.
[2025-04-08] MEDS: FAMOTIDINE 20 MG/2 ML VIAL IV PUSH (11:06)
[2025-04-08] MEDS: ONDANSETRON INJ 4 MG/2 ML VIAL IV PUSH (11:06)
[2025-04-08 11:08] LABS: HIV 1/2 Ab P24 Ag Result Negative (Negative)
--- NOTE | 2025-04-08 11:53 | P.HP_ITS ---
H&P: HPI History of Present Illness Date/Time: 04/08/25 11:53 Chief Complaint: Term Narrative: This was a 24-year-old primiparous female at term with a breech . We have agreed to perform delivery. She understands risks, benefits, and alternatives. She has completed informed consent process is ready to proceed. The patient understands the details of the procedure. The procedure has been explained in detail. She understands the risks. She understands that injuries may occur that result in hospitalization, more surgery, and severe illness. She understands risk of hemorrhage and infection. She denies any chest pain or shortness of breath. She denies any nausea, vomiting, fever, chills. Review of Systems Review of Systems: All systems reviewed & are unremarkable except as noted in HPI and below Constitutional: Constitutional: Denies chills, Denies fatigue, Denies fever(s) and Denies weakness Eyes: Eyes: Denies blurry vision, Denies change in vision, Denies loss of peripheral vision, Denies loss of vision, Denies other visual disturbances and Denies eye pain ENT: Denies vertigo, Denies dizziness, Denies hearing loss, Denies mouth pain, Denies nasal obstruction, Denies neck mass and Denies neck pain Cardiovascular: Cardiovascular: Denies chest pain, Denies diaphoresis, Denies syncope, Denies leg edema and Denies dyspnea Respiratory: Respiratory: Denies chest congestion, Denies cough, Denies hemoptysis, Denies dyspnea and Denies wheezing Gastrointestinal: Gastrointestinal: Denies abdominal pain, Denies constipation, Denies diarrhea, Denies nausea and Denies vomiting Genitourinary: Genitourinary: Denies hematuria, Denies change in libido, Denies nocturia, Denies genital lesions, Denies flank pain and Denies urinary urgency Musculoskeletal: Musculoskeletal: Denies abnormal gait, Denies back pain, Denies myalgias, Denies arthralgias, Denies joint swelling, Denies muscle weakness and Denies neck pain Integumentary/Breasts: Skin/Breast: Denies swelling, Denies breast pain, Denies breast mass, Denies dry skin, Denies nipple discharge, Denies unusual bruising and Denies jaundice Neurologic: Denies Neuro-related abnormal movements, Denies Abnormal speech present, Denies abnormal gait, Denies behavioral changes, Denies confusion, Denies vertigo, Denies dizziness, Denies syncope, Denies loss of vision, Denies memory loss, Denies convulsions and Denies weakness Psychiatric: Psychiatric: Denies abnormal sleep pattern, Denies behavioral changes, Denies change in libido, Denies confusion, Denies depression, Denies anhedonia and Denies memory loss Endocrine: Endocrine: Reports no additional endocrine complaints, Denies change in libido and Denies fatigue Hematologic/Lymphatic: Hematologic/Lymphatic: Reports no additional hematologic/lymphatic complaints Allergic/Immunologic: Allergic/Immunologic: Reports no additional allergic/immunologic complaints and Denies wheezing PMFSH Past Medical History Medical History Migraines Surgical History Surgical History No pertinent past surgical history Family History Family History (Updated 03/18/25 @ 13:37 by Jennifer Lancaster RN) Father Hypertension Acute myocardial infarction Social History Social History Smoking status: Former smoker Tobacco type: e-cigarettes/vaping Second hand tobacco smoke exposure: No Smoking end date: 06/26/24 Substance use: never Lack of Transportation: No Lack of Food: Never True Current Housing: I Have Housing Concerned About Future Housing: No Difficulty Paying Gas/Electric Bills: No Difficulty Paying for Meds: No Currently Unemployed: No Education: High School Diploma/GED Difficulty w/ Childcare or Family Care: No Spiritual care concerns: No Meds Home Medications and Allergies Home Medications ?Medication ?Instructions ?Recorded ?Confirmed ?Type famotidine 20 mg tablet (Pepcid) 20 mg PO BID PRN hear tburn 03/10/25 04/08/25 History vit no.95-ferrous 1 tablet PO DAILY 03/10/25 04/08/25 History fumarate 28 mg-folic acid 800 mcg tablet () Allergies Allergy/AdvReac Type Severity Reaction Status Date / Time No Known Allergies Allergy Verified 04/08/25 10:06 Vital Signs Vital Signs - 24 hr 04/08/25 09:42 04/08/25 09:45 04/08/25 09:47 Temperature 98.6 F Pulse Rate Blood Pressure Pulse Oximetry 97 97 Oxygen Delivery 04/08/25 09:50 04/08/25 09:51 04/08/25 09:54 Temperature 98.6 F Pulse Rate 100 Blood Pressure 134/75 Pulse Oximetry 99 Oxygen Delivery 04/08/25 09:55 04/08/25 10:00 04/08/25 10:05 Temperature Pulse Rate 102 H Blood Pressure 128/84 Pulse Oximetry 98 97 99 Oxygen Delivery 04/08/25 10:06 04/08/25 10:10 04/08/25 10:15 Temperature Pulse Rate 100 Blood Pressure 127/69 Pulse Oximetry 99 99 Oxygen Delivery Room Air 04/08/25 10:15 04/08/25 10:20 04/08/25 10:23 Temperature Pulse Rate Blood Pressure Pulse Oximetry 97 98 98 Oxygen Delivery 04/08/25 10:28 04/08/25 10:30 04/08/25 10:33 Temperature Pulse Rate 91 Blood Pressure 122/69 Pulse Oximetry 99 99 Oxygen Delivery 04/08/25 10:38 Temperature Pulse Rate Blood Pressure Pulse Oximetry 98 Oxygen Delivery Exam Const: General: cooperative, healthy appearing, comfortable and no acute distress Orientation/consciousness: oriented to person, oriented to place and oriented to time HENMT: Head: normal to inspection Ears: external ears normal Face/Nose/Sinus: Normal external nose present and normal facial exam Face and sinus: normal facial exam Eyes: General: appearance normal, both eyes and all related structures Neck: Neck: normal visual inspection, trachea midline and supple Resp: Auscultation: clear to auscultation bilaterally, no crackles, no rales, no rhonchi and no wheezes Cardio: Rate: regular rate Rhythm: regular rhythm Heart sounds: no click, no murmurs and no rubs GI: GI Palp: No abdominal tenderness, No Soft to palpation, No Tenderness to palpation present (GI) and No Palpable mass present Auscultation: normal bowel sounds Skin: General skin exam: normal color and no rashes or lesions noted Neuro: General: oriented to person, oriented to place and oriented to time Extrem: General: normal to inspection, no joint enlargement, no clubbing, cyanosis or edema, no pedal edema and no calf tenderness Psych: Appearance: grossly normal Mental Status: mental status grossly normal Speech and movement: Normal speech and movement present Results Labs Labs: [facility] 04/08/25 09:41 Sodium 135 L Potassium 3.7 Chloride 112 H Carbon Dioxide 18 L BUN 6 L Creatinine 0.51 L Glucose 179 H Calcium 9.0 Liver Function 04/08/25 Range/Units 09:41 Total Bilirubin 0.4 (0.2-1.3) mg/dL AST 25 (14-36) U/L ALT 30 (6-35) U/L Alkaline Phosphatase 156 H (38-126) U/L Albumin 3.4 L (3.5-5.1) g/dL Assessment and Plan Assessment and plan (1) Breech presentation: Code(s): O32.1XX0 - Maternal care for breech presentation, not applicable or unspecified Status: Acute (2) Term : Code(s): Z34.90 - Encounter for supervision of normal , unspecified, unspecified trimester Status: Acute Plan This was a 24-year-old primiparous female at term with a breech . We have agreed to perform delivery. She understands risks, benefits, and alternatives. She has completed informed consent process is ready to proceed.
[2025-04-08] MEDS: ceFAZolin 2 GM in SODIUM CHLORIDE 0.9% IV 50 ML 100 ML IVPB (11:55)
--- NOTE | 2025-04-08 11:56 | WPDHPUPDATE1 ---
History and Physical Update Update Date/Time: 04/08/25 11:56 History and Physical has been reviewed, including an updated exam of the patient. There are NO changes in the patient's condition. Risks, benefits, and alternatives have been discussed and questions answered. Patient agrees to proceed with procedure.
--- NOTE | 2025-04-08 12:49 | W.PM.OBCSD ---
OB - Delivery Note Procedure Delivery date: 04/08/25 Pre-op diagnosis: Breech Presentation Post-op Diagnosis: Same Procedure Performed: Primary Surgeon: Jama Park MD Anesthesia type: Spinal Description of Procedure/Findings: The patient was taken the operating room.? She was prepped and draped in dorsal supine position with a leftward tilt.? This was done after spinal anesthetic was applied.? A low-transverse skin incision was made and carried down till of the fascia with the knife.? The fascial incision was made with the knife.? The fascial incision was extended laterally with Maki scissors.? The fascia was tented upward superiorly and inferiorly the rectus muscles were dissected off bluntly.? The rectus muscles were the midline.? The preperitoneal fat and peritoneum were dissected open bluntly at the superior aspect of the rectus muscles.? The peritoneal incision was extended superior and inferior with good position of bladder.? The uterine incision was made with a scalpel down to the level of the amniotic cavity.? The amniotic cavity was entered bluntly.? The was delivered.? The cord was clamped and cut and the infant was handed off to waiting pediatric staff.? Cord bloods were obtained.? The placenta was removed manually.? The uterus was exteriorized.? The uterus was cleared of all clots, debris and membranes.? The uterus was closed in 0 Vicryl running lock fashion.? An imbricating over a was placed along the incision line as well.? The uterus was returned to the abdomen.? The gutters were cleared of all clots and debris.? The fascia was closed with 0 Vicryl running fashion.? The subcutaneous tissue was irrigated pinpoint bleeders were cauterized.? The skin was closed with subcuticular absorbable dewayne.? The skin incision line was covered with glue.? The patient tolerated the procedure well.? She has taken recovery room in stable condition.? Sponge lap and needle counts were correct x2.? Estimated Blood Loss: 140 Complications: No immediate complications Condition: Stable Disposition: Floor
[2025-04-08] MEDS: OXYTOCIN 30 UNITS/NS 500 ML 30 UNITS/500 ML BAG 125 UNITS IV CONT (13:32)
--- NOTE | 2025-04-08 15:23 | PC.NURSE ---
Patient transferred to post room #288 via stretcher. Support person present. Oriented to unit, room, information board, rooming in, admission packet and security measures. Patient verbalizes understanding.
[2025-04-08] MEDS: DOCUSATE SODIUM 100 MG CAPSULE PO (16:43)
[2025-04-08] MEDS: SIMETHICONE 80 MG TAB.CHEW PO (16:43)
[2025-04-08] MEDS: KETOROLAC 15 MG/ML VIAL (*BKC) IV PUSH ×2 (16:44→22:13)
[2025-04-08] MEDS: DEXTROSE 5%/0.45% SOD CHL 1,000 ML 125 ML IV CONT (19:30)
[2025-04-08] MEDS: LIDOCAINE 5% PATCH 1 PATCH TRANSDERM (20:37)
[2025-04-09] MEDS: ACETAMINOPHEN 500 MG TABLET 1000 MG PO ×4 (04:10→22:44)
[2025-04-09] MEDS: KETOROLAC 15 MG/ML VIAL (*BKC) IV PUSH (04:10)
[2025-04-09 04:48] VITALS: BP 115/74; PULSE 92; RESP 18; TEMP 36.9; O2SAT 100
[2025-04-09 05:15] LABS: Hematocrit 35.9 % (37.0-47.0); Hemoglobin 12.0 g/dL (12.0-15.0); Immature Granulocyte Percent A 0.4 % (0-0.5); Lymphocytes Absolute Auto 1.97 K/mm3 (0.9-3.2); Mean Corpuscular HGB Conc 33.4 g/dl (32-36); Mean Corpuscular Hemoglobin 28.9 pg (26-34); Mean Corpuscular Volume 86.5 fl (80-100); Nucleated Red Blood Cells Absolute Auto 0.000 K/mm3 (0.0-0.012); Nucleated Red Blood Cells Perc 0.0 % (0.0-0.2); Platelet Count Result 216 k/mm3 (150-375); Red Blood Count 4.15 M/mm3 (4.2-5.4); White Blood Count 11.3 K/mm3 (4.5-10.0)
[2025-04-09] MEDS: MULTIVIT/MIN/PREN/FOL AC/IRON TABLET 1 TAB PO ×2 (08:15)
[2025-04-09] MEDS: DOCUSATE SODIUM 100 MG CAPSULE PO ×2 (08:15→16:43)
[2025-04-09] MEDS: SIMETHICONE 80 MG TAB.CHEW PO ×2 (08:15→16:43)
[2025-04-09] MEDS: IBUPROFEN 600 MG TABLET PO ×3 (10:00→22:44)
[2025-04-09 12:00] VITALS: BP 118/86; PULSE 89; RESP 18; TEMP 36.6; O2SAT 99
--- NOTE | 2025-04-09 14:12 | P.PNOB_ITS ---
OB - PN: Subj Subjective Date/time seen: 04/09/25 14:12 Patient comments: no complaints, pain well controlled, tolerating diet and flatus present OB - PN: Obj Data Labs 04/09/25 04:56 04/08/25 09:41 Labs: Laboratory Results - last 24 hr 04/09/25 04:56 WBC 11.3 H RBC 4.15 L Hgb 12.0 Hct 35.9 L MCV 86.5 MCH 28.9 MCHC 33.4 RDW 13.9 Plt Count 216 MPV 10.9 H Immature Gran % (Auto) 0.4 Neut % (Auto) 72.7 Lymph % (Auto) 17.5 L Whitman % (Auto) 8.8 H Eos % (Auto) 0.4 Baso % (Auto) 0.2 Lymph # (Auto) 1.97 Whitman # (Auto) 1.0 H Eos # (Auto) 0.1 Baso # (Auto) 0.0 Abs Immat Gran (auto) 0.05 H Absolute Neuts (auto) 8.2 H Absolute Nucleated RBC 0.000 Nucleated RBC % 0.0 OB - PN A/P Plan day: 1 Comments: Post Op LTCS - no problems, routine recovery Time Spent With Patient Time: Total time spent is greater than 50% in coordination of care (as documented) at patient's floor/unit and/or counseling patient: Exam 2 Const: General: cooperative, healthy appearing, comfortable and no acute distress Resp: Auscultation: no crackles, no rales, no rhonchi and no wheezes Cardio: Rhythm: regular rhythm Heart sounds: no click and no murmurs GI: Inspection: non-distended Auscultation: normal bowel sounds Extrem: General: normal to inspection, no pedal edema and no calf tenderness
--- NOTE | 2025-04-09 14:13 | PM.OBPNVD ---
OB - PN: Subj Subjective Date/time seen: 04/09/25 14:13 Patient comments: no complaints, pain well controlled, incisional pain, tolerating diet and flatus present OB - PN: Obj Data Labs 04/09/25 04:56 04/08/25 09:41 Labs: Laboratory Results - last 24 hr 04/09/25 04:56 WBC 11.3 H RBC 4.15 L Hgb 12.0 Hct 35.9 L MCV 86.5 MCH 28.9 MCHC 33.4 RDW 13.9 Plt Count 216 MPV 10.9 H Immature Gran % (Auto) 0.4 Neut % (Auto) 72.7 Lymph % (Auto) 17.5 L Florence % (Auto) 8.8 H Eos % (Auto) 0.4 Baso % (Auto) 0.2 Lymph # (Auto) 1.97 [place] # (Auto) 1.0 H Eos # (Auto) 0.1 Baso # (Auto) 0.0 Abs Immat Gran (auto) 0.05 H Absolute Neuts (auto) 8.2 H Absolute Nucleated RBC 0.000 Nucleated RBC % 0.0 OB - PN A/P Plan day: 2 Plan: routine care Comments: POD#2 LTCS - no problems, Time Spent With Patient Time: Total time spent is greater than 50% in coordination of care (as documented) at patient's floor/unit and/or counseling patient: Exam Const: General: comfortable, no acute distress and alert Resp: Effort & Inspection: normal respiratory effort Auscultation: no crackles, no rales and no rhonchi Cardio: Rate: regular rate Heart sounds: no click, no murmurs and no rubs GI: Inspection: non-distended Auscultation: normal bowel sounds Other: Incision - CDI Extrem: General: normal to inspection, no pedal edema and no calf tenderness
--- NOTE | 2025-04-09 16:16 | WPDANLDPN2 ---
Anes-Prog Note L&D Date/Time: 04/09/25 16:16 Comfortable throughout: section Neuraxial method: spinal Epidural/Spinal procedure site: clean & non-tender Neuro status: Neuro function grossly intact. Cardiovascular status: normal Respiratory status: normal Airway patency: baseline Mental status: baseline Post-Op hydration status: normal Vital Signs: Last Vital Signs Temp 97.9 F 04/09/25 12:00 Pulse 89 04/09/25 12:00 Resp 18 04/09/25 12:00 BP 118/86 04/09/25 12:00 Pulse Ox 99 04/09/25 12:00 O2 Del Method Room Air 04/08/25 19:30 Pain score (VAS): 0 I/O: Intake & Output 04/09/25 04/09/25 04/09/25 07:59 15:59 23:59 Intake Total 1300 640 Output Total 675 800 Balance 625 -160 Post-procedural complaints: pruritis moderate, treatment effective Patient feedback: Patient satisfied with anesthetic care.
--- NOTE | 2025-04-09 16:17 | WPDANLDNPN2 ---
Anes-Prog Note L&D-Neuraxial Date/Time: 04/09/25 16:17 Neuraxial medications: intrathecal PF morphine Opiod-related complaints: pruritis Patient feedback: Patient satisfied with post-operative pain management.
--- NOTE | 2025-04-09 17:04 | PC.NURSE ---
1700. Patient with a scant amount of oozing from incision site after shower. Abd pad applied and taped. Ice pack applied. Mom resting comfortably in bed.
[2025-04-09 20:20] VITALS: BP 127/78; PULSE 88; RESP 16; TEMP 36.8; O2SAT 99
[2025-04-09] MEDS: LIDOCAINE 5% PATCH 1 PATCH TRANSDERM (20:30)
[2025-04-09 22:46] VITALS: BP 130/86; PULSE 92; RESP 16; O2SAT 98
[2025-04-09 23:21] VITALS: TEMP 36.8
[2025-04-10] MEDS: IBUPROFEN 600 MG TABLET PO ×2 (04:40→10:40)
[2025-04-10] MEDS: ACETAMINOPHEN 500 MG TABLET 1000 MG PO ×2 (04:41→10:40)
[2025-04-10 09:45] VITALS: BP 129/87; PULSE 90; RESP 16; TEMP 36.5; O2SAT 98
[2025-04-10] MEDS: DOCUSATE SODIUM 100 MG CAPSULE PO (09:45)
[2025-04-10] MEDS: SIMETHICONE 80 MG TAB.CHEW PO (09:45)
[2025-04-10] MEDS: MULTIVIT/MIN/PREN/FOL AC/IRON TABLET 1 TAB PO (09:45)
--- NOTE | 2025-04-10 12:53 | P.PNOB_ITS ---
OB - PN: Subj Subjective Date/time seen: 04/10/25 12:53 Patient comments: no complaints, pain well controlled and tolerating diet OB - PN: Obj Data Labs 04/09/25 04:56 04/08/25 09:41 OB - PN A/P Plan day: 2 Plan: routine care and discharge home Time Spent With Patient Time: Total time spent is greater than 50% in coordination of care (as documented) at patient's floor/unit and/or counseling patient: Exam 2 Const: General: comfortable and no acute distress Resp: Effort & Inspection: normal respiratory effort Auscultation: no rales, no rhonchi and no wheezes Cardio: Rate: regular rate Heart sounds: no click, no murmurs and no rubs GI: GI Palp: Yes Soft to palpation and No Tenderness to palpation present (GI) Auscultation: normal bowel sounds Extrem: General: normal to inspection, no pedal edema and no calf tenderness
--- NOTE | 2025-04-10 12:53 | PM.OBDSVD ---
DS: Admitting Diagnosis Discharge Date 04/10/2025 Admitting Diagnosis Term DS: Discharge Diagnosis Discharge Diagnosis (1) Term delivered: Code(s): O80 - Encounter for full-term uncomplicated delivery Status: Acute OB - DS: Summary OB Procedures : None OB Procedures Intrapartum: OB Procedures: : None Peripartum Data Procedures: Procedures Operation Date: 04/08/25 11:30 Actual Procedure Side Surgeon p Section Jama Park MD Time Spent with Patient Time attestation: Total time spent providing and/or coordinating discharge services: Discharge Plan Discharge Discharging Clinician: Jama Park Patient Disposition: Home Activity: pelvic rest Diet: regular Patient Instructions: Antibiotic Form Patient Language: Montenegrin Stand Alone Forms: General Discharge Information Follow-up/Referrals: Jama Park MD [Physician, GRAPHIC COORDINATOR] Discharge Medications: New hydrocodone-acetaminophen 5-325 mg tablet 1 tablet PO Q4H PRN (Reason: pain) Qty: 25 0RF Continued PNV no.95-ferrous fumarate-FA [] 28 mg iron- 800 mcg tablet 1 tablet PO DAILY famotidine [Pepcid] 20 mg tablet 20 mg PO BID PRN (Reason: heartburn) Date of admission: 04/08/25 09:29 Primary Care Provider: UNKNOWN,DOCTOR Admitting Provider: Jama Park Attending physician on admission: Jama Park Condition: Stable
== END 2025-04-10 13:30 | disposition home or self-care (01) | DRG 788 ==
LOC: ANHLDR 09:33 → ANHOB2 15:25
PROVIDERS: Admitting Provider Obstetrics & Gynecology; Referring Provider Advanced Practice Midwife; Visit Provider Obstetrics & Gynecology
PROC: 10D00Z1 Extraction of Products of Conception, Low, Open Approach (ICD-10-PCS; CPT 59514; principal; 2025-04-08 11:30)
DX: O32.1XX0 Maternal care for breech presentation, not applicable or unspecified (principal); Z3A.39 39 weeks gestation of pregnancy; Z37.0 Single live birth; O77.0 Labor and delivery complicated by meconium in amniotic fluid; O69.81X0 Labor and delivery complicated by cord around neck, without compression, not applicable or unspecified; O24.429 Gestational diabetes mellitus in childbirth, unspecified control
CPT/HCPCS: 36415; 80053; 82948; 85025; 86703; J0690; A9270; G0432; J1200; J1885; J2274; J2405; J2590; J7120

== ENCOUNTER 2025-04-15 19:33 | Outpatient (CLI) | payer OTHER, SELFPAY ==
[2025-04-15] VITALS (12 sets, daily range): BP systolic 126–134; BP diastolic 77–86; PULSE 59–72; RESP 18; TEMP 37.1; O2SAT 96–98; BMI 34.7
--- OUTSIDE RECORDS SUMMARY | 2025-04-15 19:41 | XMS_ITS | Continuity of Care Document ---
Author Organization [facility] Address [address] [place] [address] [place] [address] Care Team Providers Care Professor Of Art Name Role Phone ENDY HONORIO Primary Care Provider [phone] Assessment No assessment recorded. Plan of Treatment Reminders Order Date Submit Date Provider Last Modified By Organization Details Last Modified Time Details Appointments SURG POST OP 2024 01:15P Khloe MORENO MD Not available Not available Not available POST 2025 01:00P Khloe MORENO MD Not available Not available Not available Lab None recorded. Referral None recorded. Procedures None recorded. Surgeries None recorded. Imaging US, obstetric , follow-up 2024 [address], [address], [place], [address], 04/01/2025 20:42:37 US, obstetric , biophysic al profile + non-stres s test 2024 [address], [address], [place], [address], 04/01/2025 20:42:37 Medication Orders None recorded. Patient TargetsNo targets recorded. Patient InstructionsNo instructions recorded. Reason for Referral None Reported. Results Created Date Observation Date Name Description Value Unit Range Abnormal Flag Note LastModifiedBy Organization Detail LastModifiedTime 10/15/19 25 10/14/2024 [UNIT Y] ANEUP LOIDY NIPT fraction 7.0% normal Not Available [facility] [address], [place], [address], 10/14/2024 19:59:38 10/15/19 25 10/14/2024 [UNIT Y] ANEUP LOIDY NIPT 22Q11.2 microdeletio n LOW RISK <1 in 10,000 normal Not Available [facility] [address], [place], [address], 10/14/2024 19:59:38 10/15/19 25 10/14/2024 [UNIT Y] ANEUP LOIDY NIPT sex chromosome aneuploidy NOT DETECT ED normal Not Available [facility] [address], [place], [address], 10/14/2024 19:59:38 10/15/19 25 10/14/2024 [UNIT Y] 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 in 10,000 normal Not Available [facility] [address], [place], [address], 10/14/2024 19:59:38 10/15/19 25 10/14/2024 [UNIT Y] ANEUP LOIDY NIPT trisomy 13 LOW RISK <1 in 10,000 normal Not Available [facility] [address], [place], [address], 10/14/2024 19:59:38 10/15/19 25 10/14/2024 [UNIT Y] ANEUP LOIDY NIPT trisomy 18 LOW RISK <1 in 10,000 normal Not Available [facility] [address], [place], [address], 10/14/2024 19:59:38 10/15/19 25 10/14/2024 [UNIT Y] ANEUP LOIDY NIPT trisomy 21 LOW RISK <1 in 10,000 normal Not Available [facility] [address], [place], [address], 10/14/2024 19:59:38 10/15/19 25 10/14/2024 [UNIT Y] ANEUP LOIDY NIPT sex MALE normal Not Available [facility] [address], [place], [address], 10/14/2024 19:59:38 10/15/19 25 10/14/2024 [UNIT Y] ANEUP LOIDY NIPT gestation SINGLE TON normal Not Available [facility] [address], [place], [address], 10/14/2024 19:59:38 10/15/19 25 10/14/2024 [UNIT Y] ANEUP LOIDY NIPT for detailed report, see pdf See PDF normal Not Available [facility] [address], [place], [address], 10/14/2024 19:59:38 10/20/19 25 10/19/2024 [UNIT Y] ESPINOZA [place] sickle cell disease/beta -thalassemia /hemoglobino pathies carrier screen NEGATI VE normal Not Available [facility] [address], [place], [address], 10/19/2024 14:09:36 10/20/19 25 10/19/2024 [UNIT Y] ESPINOZA [place] alpha-thalas semia carrier screen NEGATI VE normal Not Available [facility] [address], [place], [address], 10/19/2024 14:09:36 10/20/19 25 10/19/2024 [UNIT Y] ESPINOZA [place] cystic fibrosis carrier screen NEGATI VE normal Not Available [facility] [address], [place], [address], 10/19/2024 14:09:36 10/20/19 25 10/19/2024 [UNIT Y] ESPINOZA [place] spinal muscular atrophy carrier screen NEGATI VE 2 SMN1 copies , SNP not presen t normal Not Available [facility] [address] [place], [address], 10/19/2024 14:09:36 10/20/19 25 10/19/2024 [UNIT Y] ESPINOZA NGUYỄN Miroslava for detailed report, see pdf See PDF normal Not Available [facility] [address], [place], [address], 10/19/2024 14:09:36 10/09/19 25 10/08/2024 CULTU RE: URINE result report SEE RESULT S BELOW Test: Cultu re: Urine Speci men Sourc e: Urine Voide d Speci men Type: Urine Speci men Date: 2024 1320 Resul t Date: 2024 0400 Resul t Statu s: Final resul t Abnor mal: No Resul ting Lab: [facility] [address] [facility] [place] [address] Tel: CULTU RE ----- ----- ----- --- No growt h in 1 day (dete ction level of 10,00 0 colon ies / ml.) Not Available [facility] (Lab) [address] [facility], [place], [address], 10/10/2024 05:04:31 10/09/19 25 10/08/2024 CBC W/DIF F WBC 9.1 10'3/ uL 3.5-10 .5 Not Available [facility] (Lab) [address] [facility], [place], [address], 10/11/2024 20:50:49 10/09/19 25 10/08/2024 CBC W/DIF F RBC 5.20 10'6/ uL (based on docume nted legal sex) 3.80-5 .20 Not Available [facility] (Lab) [address] [facility], [place], [address], 10/11/2024 20:50:49 10/09/19 25 10/08/2024 CBC W/DIF F HGB 14.7 g/dL (based on docume nted legal sex) 11.6-1 5.4 Not Available [facility] (Lab) [address], [place], [address], 10/11/2024 20:50:49 10/09/19 25 10/08/2024 CBC W/DIF F HCT 45.2 % (based on docume nted legal sex) 34.0-4 5.0 high Not Available [facility] (Lab) [address], [place], [address], 10/11/2024 20:50:49 10/09/19 25 10/08/2024 CBC W/DIF F MCV 86.9 fL 80.0-9 9.0 Not Available [facility] (Lab) [address], [place], [address], 10/11/2024 20:50:49 10/09/19 25 10/08/2024 CBC W/DIF F MCH 28.3 pg 27.0-3 4.0 Not Available [facility] (Lab) [address], [place], [address], 10/11/2024 20:50:49 10/09/19 25 10/08/2024 CBC W/DIF F MCHC 32.5 g/dL 32.0-3 5.5 Not Available [facility] (Lab) [address], [place], [address], 10/11/2024 20:50:49 10/09/19 25 10/08/2024 CBC W/DIF F RDW 13.2 % 11.0-1 5.0 Not Available [facility] (Lab) [address], [place], [address], 10/11/2024 20:50:49 10/09/19 25 10/08/2024 CBC W/DIF F plt 286 10'3/ uL 150-40 0 Not Available [facility] (Lab) [address], [place], [address], 10/11/2024 20:50:49 10/09/19 25 10/08/2024 CBC W/DIF F MPV 11.7 fL 8.8-12 .1 Not Available [facility] (Lab) [address] [facility], [place], [address], 10/11/2024 20:50:49 10/09/19 25 10/08/2024 CBC W/DIF F NRBC's 0.0 % 0.0 Not Available [facility] (Lab) [address] [facility], [place], [address], 10/11/2024 20:50:49 10/09/19 25 10/08/2024 CBC W/DIF F absolute NRBCs 0.0 10'3/ uL no refere nce range establ ished Not Available [facility] (Lab) [address] [facility], [place], [address], 10/11/2024 20:50:49 10/09/19 25 10/08/2024 CBC W/DIF F neutrophils 67.1 % 34.0-7 3.0 Not Available [facility] (Lab) [address] [facility], [place], [address], 10/11/2024 20:50:49 10/09/19 25 10/08/2024 CBC W/DIF F lymphocytes 25.1 % 15.0-5 0.0 Not Available [facility] (Lab) [address] [facility], [place], [address], 10/11/2024 20:50:49 10/09/19 25 10/08/2024 CBC W/DIF F monocytes 6.4 % 1.0-15 .0 Not Available [facility] (Lab) [address] [facility], [place], [address], 10/11/2024 20:50:49 10/09/19 25 10/08/2024 CBC W/DIF F eosinophils 0.9 % 0.0-8. 0 Not Available [facility] (Lab) [address], [place], [address], 10/11/2024 20:50:49 10/09/19 25 10/08/2024 CBC W/DIF F basophils 0.3 % 0.0-2. 0 Not Available [facility] (Lab) [address] [facility], [place], [address], 10/11/2024 20:50:49 10/09/19 25 10/08/2024 CBC W/DIF F immature granulocytes 0.2 % no define d refere nce range Immat ure Granu locyt es (IG) repre sents autom ated enume ratio n of Metam yeloc ytes, Myelo cytes and Promy elocy yenni when IG is < 5%. Blast s are not inclu ded in IG and repor adela separ ately if prese nt. Not Available [facility] (Lab) [address] [facility], [place], [address], 10/11/2024 20:50:49 10/09/19 25 10/08/2024 CBC W/DIF F absolute neutrophils 6.1 10'3/ uL 1.5-8. 0 Not Available [facility] (Lab) [address] [facility], [place], [address], 10/11/2024 20:50:49 10/09/19 25 10/08/2024 CBC W/DIF F absolute lymphocytes 2.3 10'3/ uL 1.0-4. 0 Not Available [facility] (Lab) [address] [facility], [place], [address], 10/11/2024 20:50:49 10/09/19 25 10/08/2024 CBC W/DIF F absolute monocytes 0.6 10'3/ uL 0.2-1. 0 Not Available [facility] (Lab) [address] [facility], [place], [address], 10/11/2024 20:50:49 10/09/19 25 10/08/2024 CBC W/DIF F absolute eosinophils 0.1 10'3/ uL 0.0-0. 6 Not Available [facility] (Lab) [address] [facility], [place], [address], 10/11/2024 20:50:49 10/09/1910/08/2024 CBC W/DIF F absolute basophils 0.0 10'3/ uL 0.0-0. 3 Not Available [facility] (Lab) [address] [facility], [place], [address], 10/11/2024 20:50:49 10/09/1910/08/2024 CBC W/DIF F absolute immature granulocytes 0.0 10'3/ uL 0.00-0 .10 Refer ence range s for nonbi nary/ inter sex or unspe cifie d gende r patie nts have not been estab lishe d. Pleas e refer to the follo wing table for range s estab lishe d for cisge nder patie nts and evalu ate in the clini hussein ej xt of the indiv idual patie nt: https ://lily and book. nm.or g/gen derx Not Available [facility] (Lab) [address] [facility], [place], [address], 10/11/2024 20:50:49 10/09/1910/08/2024 HIV 1/2 ANTIG EN/AN TIBOD Y, REFLE X CONFI RMATI ON HIV antigen/anti body Nonrea ctive nonrea ctive HIV-1 antig en and HIV-1 /HIV- 2 antib odies were not detec adela. No labor atory evide nce of HIV infec tion. Not Available [facility] (Lab) [address] [facility], [place], [address], 10/11/2024 20:50:49 10/09/1910/08/2024 HEPAT ITIS B SURFA CE ANTIG EN hepatitis B surface antigen Non-re active non-re active This assay was perfo rmed using [employer] ratio n reage nts and test kits. Value s obtai charles with other assay metho ds or kits canno t be used inter emanuel eably . Not Available [facility] (Lab) [address] [facility], [place], [address], 10/11/2024 20:50:50 10/09/19 25 10/08/2024 HEPAT ITIS C ANTIB NITA SCREE N, REFLE X TO CONFI RMATI ON hepatitis C antibody Non-re active non-re active Antib odies to HCV Not Detec adela, does not exclu de the possi bilit y of expos ure to HCV. Not Available [facility] (Lab) [address] [facility], [place], [address], 10/11/2024 20:50:50 10/09/19 25 10/08/2024 RUBEL LA IGG ANTIB NITA, QUANT rubella antibodies, IgG Reacti ve reacti ve Not Available [facility] (Lab) [address] [facility], [place], [address], 10/11/2024 20:50:50 10/09/19 25 10/08/2024 RUBEL LA IGG ANTIB NITA, QUANT rubella antibodies, IgG quant 24.1 IU/mL >=10 Non-r eacti ve (Non- Immun e) <10 IU/mL React alejandra (Immu ne) > or = 10 IU/mL Not Available [facility] (Lab) [address] [facility], [place], [address], 10/11/2024 20:50:50 10/09/19 25 10/08/2024 TYPE/ RH/SC REEN ABO/Rh type A POS Not Available [facility] (Lab) [address] [facility], [place], [address], 10/11/2024 20:50:51 10/09/1910/08/2024 TYPE/ RH/SC REEN antibody screen NEG Not Available [facility] (Lab) [address] [facility], [place], [address], 10/11/2024 20:50:51 10/09/19 25 10/08/2024 TYPE/ RH/SC REEN exp date 2024 23:59 Not Available [facility] (Lab) [address] [facility], [place], [address], 10/11/2024 20:50:51 10/09/19 25 10/08/2024 HEMOG LOBIN A1C hemoglobin A1C 5.2 % 4.0-5. 6 The Ameri can Diabe yenni [employer] iatio n recom mends that a prima ry goal of thera py shoul d be a HBA1C of < 7% and that physi cians shoul d reeva luate the treat ment regim en in patie nts with HBA1C value s consi stent ly > 8%. <5.7% Khloe l 5.7 - 6.4% Incre ased risk for diabe yenni >=6.5 % Diagn ostic of diabe yenni <7.0% Goal of thera py >8.0% Actio n sugge sted Not Available [facility] (Lab) [address], [place], [address], 10/11/2024 20:50:51 10/09/19 25 10/08/2024 RPR SCREE N, REFLE X TITER /CONF IRMAT ION RPR qualitative Nonrea ctive nonrea ctive Not Available [facility] (Lab) [address] [facility], [place], [address], 10/11/2024 20:50:51 10/09/19 25 10/08/2024 drug scree n, urine Amphetamines : negati ve Not Available [facility] [address], [place], [address], 10/08/2024 13:34:18 10/09/19 25 10/08/2024 drug scree n, urine Cannabinoids : negati ve Not Available [facility] [address], [place], [address], 10/08/2024 13:34:18 10/09/19 25 10/08/2024 drug scree n, urine Cocaine: negati ve Not Available [facility] [address], [place], [address], 10/08/2024 13:34:18 10/09/19 25 10/08/2024 drug scree n, urine Opiates: negati ve Not Available [facility] [address], [place], [address], 10/08/2024 13:34:18 10/09/19 25 10/08/2024 drug scree n, urine Barbiturates : negati ve Not Available [facility] [address], [place], [address], 10/08/2024 13:34:18 10/09/19 25 10/08/2024 drug scree n, urine Benzodiazepi dino: negati ve Not Available [facility] [address], [place], [address], 10/08/2024 13:34:18 01/22/20 25 01/21/2025 GTT - GESTA MARYANA L SCREE N, ACOG OB glucose, 1 hour screen 210 mg/dL 70-135 high Not Available [facility] (Lab) [address] [facility], [place], [address], 01/22/2025 12:46:27 01/22/20 25 01/21/2025 HIV 1/2 ANTIG EN/AN TIBOD Y, REFLE X CONFI RMATI ON HIV antigen/anti body Nonrea ctive nonrea ctive HIV-1 antig en and HIV-1 /HIV- 2 antib odies were not detec adela. No labor atory evide nce of HIV infec tion. Not Available [facility] (Lab) [address] [facility], [place], [address], 01/22/2025 12:46:28 01/22/20 25 01/21/2025 HEMOG LOBIN (HGB) HGB 13.3 g/dL (based on docume nted legal sex) 11.6-1 5.4 Not Available [facility] (Lab) [address] [facility], [place], [address], 01/22/2025 12:46:28 01/22/20 25 01/21/2025 HEMAT OCRIT (HCT) HCT 40.3 % (based on docume nted legal sex) 34.0-4 5.0 Not Available [facility] (Lab) [address] [facility], [place], [address], 01/22/2025 12:46:28 01/22/20 25 01/21/2025 RPR SCREE N, REFLE X TITER /CONF IRMAT ION RPR qualitative Nonrea ctive nonrea ctive Not Available [facility] (Lab) [address] [facility], [place], [address], 01/22/2025 12:46:28 03/23/20 25 03/23/2025 CULTU RE: GROUP B STREP SCREE N, REFLE X SUSCE PTIBI LITY result report SEE RESULT S BELOW Test: Cultu re: Group B Strep , Refle x Susce ptibi lity ([facility]/ [facility] ) Speci men Sourc e: Vagin a/Rec jenny Speci men Type: Vagin al/Re ctal Speci men Date: 03/23 1715 Resul t Date: 03/26 1307 Resul t Statu s: Final resul t Abnor mal: No Resul ting Lab: [facility] [address] [facility] [place] [address] Tel: CULTU RE ----- ----- ----- --- No Group B strep isola adela at 2 days (byron ctive broth enhan cemen t) Not Available [facility] (Lab) [address] [facility], [place], [address], 03/26/2025 14:10:51 10/09/19 25 10/08/2024 US, obste tric, nucha l trans lucen cy No observ ation record ed. [facility] [address], [place], [address], 10/08/2024 18:39:08 10/09/1910/08/2024 US, obste tric, nucha l trans lucen cy No observ ation record ed. [facility] [address], [place], [address], 10/09/2024 23:09:07 11/25/19 25 11/24/2024 US, obste tric, 2nd or 3rd trime ster No observ ation record ed. [email or web address] [facility] [address], [place], [address], 12/01/2024 11:58:43 11/25/19 25 11/25/2024 US, obste tric, 2nd or 3rd trime ster No observ ation record ed. [email or web address], [place], [address], 11/25/2024 12:49:42 12/25/19 25 12/24/2024 US, obste tric, follo w-up No observ ation record ed. ELIN [facility] [address], [place], [address], 01/01/2025 17:08:59 12/25/19 25 12/24/2024 US, obste tric, follo w-up No observ ation record ed. [facility] [address], [place], [address], 12/24/2024 13:46:21 02/05/20 25 02/04/2025 US, obste tric, follo w-up No observ ation record ed. [facility] [address], [place], [address], 02/04/2025 13:02:03 1002/04/2025 US, obste tric, follo w-up No observ ation record ed. [email or web address] [facility] [address], [place], [address], 02/07/2025 16:14:11 03/03/20 25 03/03/2025 US, obste tric, follo w-up No observ ation record ed. [email or web address] [facility] [address], [place], [address], 03/03/2025 15:11:00 03/03/20 25 03/03/2025 US, obste tric, follo w-up No observ ation record ed. [email or web address] [facility] [address], [place], [address], 03/04/2025 12:00:47 03/10/20 25 03/10/2025 non-s tress test No observ ation record ed. [address], [place], [address], 03/14/2025 11:36:31 03/10/20 25 03/10/2025 US, obste tric, follo w-up No observ ation record ed. [email or web address], [place], [address], 03/11/2025 08:40:14 03/18/20 25 03/18/2025 non-s tress test No observ ation record ed. [facility] [address], [place], [address], 03/28/2025 10:44:01 03/18/20 25 03/18/2025 non-s tress test No observ ation record ed. [address], [place], [address], 04/15/2025 10:36:55 03/18/20 25 03/18/2025 US, obste tric, bioph ysica l profi le No observ ation record ed. [address], [place], [address], 03/23/2025 16:26:00 03/18/20 25 03/18/2025 US, obste tric, bioph ysica l profi le No observ ation record ed. [address], [place], [address], 03/23/2025 16:25:42 03/18/20 25 03/18/2025 non-s tress test No observ ation record ed. [address], [place], [address], 03/28/2025 11:00:24 03/23/20 25 03/23/2025 US, obste tric, bioph ysica l profi le + non-s tress test No observ ation record ed. [email or web address] [facility] [address], [place], [address], 03/23/2025 18:22:09 03/23/20 25 03/23/2025 US, obste tric, bioph ysica l profi le + non-s tress test No observ ation record ed. [email or web address] [facility] [address], [place], [address], 03/30/2025 11:20:06 03/23/2003/23/2025 non-s tress test No observ ation record ed. [facility] [address], [place], [address], 03/23/2025 17:56:30 03/23/20 non-s tress test No observ ation record ed. [facility] [address], [place], [address], 03/23/2025 17:23:26 04/01/20 25 04/01/2025 US, obste tric, follo w-up No observ ation record ed. [facility] [address], [place], [address], 04/01/2025 14:56:59 04/01/20 25 04/01/2025 US, obste tric, bioph ysica l profi le + non-s tress test No observ ation record ed. [facility] [address], [place], [address], 04/01/2025 14:57:12 04/01/20 25 04/01/2025 US, obste tric, follo w-up No observ ation record ed. [email or web address] [facility] [address], [place], [address], 04/04/2025 12:34:31 04/01/20 25 04/01/2025 non-s tress test No observ ation record ed. [address], [place], [address], 04/01/2025 16:35:28 04/01/20 non-s tress test No observ ation record ed. [email or web address] [place] [address] [address], [place], [address], 04/01/2025 16:40:02 Result Notes None recorded. Problems Name Problem SNOMED Code Status Onset Date Resolution Date Notes Provider Name and Address Organization Details Recorded Time SNOMED CT Concept Completed 201701/23/2021 Encntr for operations support professionals exam (general ) (routine ) w/o abn findings ;Practic e ID: 0001 Mile rasheed [place] - [facility] 17:28:[address] Concept Completed 201701/23/2021 Encntr for routine child health exam w/o abnormal findings ;Recorde d Elsewher e: No Locat ion: [facility] S ource: EHR Educational Programming Director junior: N Practi ce ID: [id number] Con lable Time: 01:00:00 PM Mile rasheed, [facility] 17:28:33 Surveill ance of contrace ption Completed 201701/23/2021 Encounte r for surveill ance of contrace ptives, unspecif ied;[place] rded Elsewher e: No Locat ion: [facility] S ource: EHR Educational Programming Director junior: N Practi ce ID: [id number] Con lable Time: 02:00:00 PM Mile rasheed, [facility] 17:28:49 Clinical finding Completed 201701/23/2021 Presence of (intraut erine) contrace ptive device;R ecorded Elsewher e: No Locat ion: [facility] S ource: EHR Educational Programming Director junior: N Practi ce ID: [id number] Con lable Time: 08:00:00 AM Mile rasheed, [facility] 17:28:39 Insertio n of intraute rine contrace ptive device Completed 201701/23/2021 Encounte r for insertio n of intraute rine contrace ptive device;R ecorded Elsewher e: No Locat ion: [facility] S ource: EHR Educational Programming Director junior: N Practi ce ID: [id number] Con lable Time: 08:00:00 AM Mile rasheed, [facility] 17:28:46 Pregnanc y test negative [id number] Completed 201701/23/2021 Encounte r for pregnanc y test, result negative ;Practic e ID: 0001 Mile rasheed, [facility] 17:28:25 Contrace ptive sheath status [id number] Completed 201701/23/2021 Encounte r for routine checking of intraute rine contrace p dev;Prac marco ID: 0001 [facility] 17:28:19 Pelvic and perineal pain [id number] Completed 201701/23/2021 Pelvic pain;Rec orded Elsewher e: No Locat ion: [facility] S ource: EHR Educational Programming Director junior: N Practi ce ID: [id number] Con lable Time: 04:00:00 PM Mile rasheed [facility] 17:28:31 Syphilis test finding [id number] Completed 201701/23/2021 Encntr screen for infectio ns w sexl mode of transmis s;Practi ce ID: 0001 Mile rasheed [facility] 17:28:42 Infectio n screenin g Completed 201701/23/2021 Encounte r for screenin g for oth infec/pa rastc diseases ;Practic e ID: [id number] Mile rasheed [facility] 17:27:55 Contrace ption care manageme nt Completed 201801/23/2021 Encounte r for contrace ptive manageme nt, unspecif ied;[place]in[place] rded Elsewher e: No Locat ion: [facility] S ource: EHR Educational Programming Director junior: N Practi ce ID: [id number] Con lable Time: 10:45:00 AM Mile rasheed [facility] 17:28:44 Blood leukocyt e number above referenc e range [id number] Completed 201801/23/2021 Elevated white blood cell count, unspecif ied;Prac marco ID: [id number] Mile rasheed [facility] 17:28:45 Acute vaginiti s [id number] Completed 201801/23/2021 Acute vaginiti s;Record ed Elsewher e: No [facility] S ource: EHR Educational Programming Director junior: N Marissati ce ID: [id number] Con lable Time: 10:45:00 AM Mile Paredes [facility] 17:28:21 Increase d frequenc y of urinatio n [id number] Completed 201801/23/2021 Urinary frequenc y;Record ed Elsewher e: No Locat ion: [facility] S ource: EHR Educational Programming Director junior: N Practi ce ID: [id number] Con lable Time: 10:45:00 AM Mile [facility] 17:27:54 Uses combined oral contrace ption [id number] Completed 201801/23/2021 Encounte r for initial prescrip tion of contrace ptive pills;Pr actice ID: [address] [facility] 17:28:27 Removal of intraute rine device Completed 201801/23/2021 Encounte r for removal of intraute rine contrace ptive device;P ractice ID: [address] [facility] 17:28:48 Pregnanc y [id number] Completed 202404/15/[address] [facility] 14:35:49 Gestatio nal diabetes mellitus 66984743 Completed 2024 Checking bs QID , serial growth us - DT referral faxed to [facility] 01/[address] [facility] 13:08:13 Breech presenta tion [id number] Completed 2024 Jama Moreno MD [address] [place], [address], [facility] 5 12:37:19 Problem Notes None recorded. Procedures Surgical History Date Name Laterality Status Provider Name and Address Organization Details Recorded Time 5 SECTION (SURG) completed Not Available [facility] 04/08/2025 13:53:03 4 Date of Last Pap Smear completed Zainab Weston [facility] 09/06/2024 12:53:25 1 extraction of wisdom tooth completed Leida Duenas [facility] 08/19/2023 16:44:18 Imaging Results None recorded. Procedure Notes None recorded. Medical Equipment None Reported. Allergies No known drug allergies Medications Name Sig Start Date Stop Date Status Note LastModified by Organization Details LastModified Time amoxicill in 500 mg capsule TAKE 1 CAPSULE BY MOUTH EVERY 8 HOURS UNTIL FINISHED 01/25 completed Not Available Not Available Not Available Mirena 21 mcg/24 hr (up to 8 years) 52 mg intrauter ine device 11/24 completed Prescrib ed Elsewher e: Yes Loca tion: Hilaria javier [facility] odify By: Encount er DateTime : 09/10/19 03:30:00 PM Not Available Not Available Not Available famotidin e 10 mg tablet Take 1 tablet every day by oral route. active Not Available Not Available No t Available benzonata te 200 mg capsule TAKE 1 CAPSULE BY MOUTH THREE TIMES A DAY NEEDED FOR COUGH 05/30 completed Not Available Not Available Not Available hydrocodo ne 5 mg-acetam inophen 325 mg tablet Take 1 tablet every 6 hours by oral route. 2024 active Not Available Not Available Not Avai lable sulfameth oxazole 800 mg-trimet hoprim 160 mg tablet TAKE 1 TABLET BY MOUTH EVERY 12 HOURS WITH MEALS FOR 5 DAYS 05/30 completed Not Available Not Available Not Available amoxicill in 500 mg tablet take 1 tablet by oral route 3 times every day for 10 days 12/17 completed Prescrib ed Elsewher e: No [facility] By: bchappel l Kolby archuleta DateTime : 12/09/19 11:49:30 AM Not Available Not Available Not Available Metrogel Vaginal 0.75 % (37.5 mg/5 gram) insert 1 applicat orful by vaginal route for 5 nights at bedtime 09/09 completed Prescrib ed Elsewher e: No [facility] odify By: amkjuhi morrisunter DateTime : 05/19/19 18 10:59:56 AM Not Available Not Available Not Available OneTouch Ultra Test strips TEST BLOOD SUGAR FOUR TIMES DAILY active Not Available Not Available No t Available phenazopy ridine 100 mg tablet TAKE 1 TABLET BY MOUTH THREE TIMES A DAY FOR 7 DAYS 05/30 completed Not Available Not Available Not Available cephalexi n 500 mg capsule TAKE 1 CAPSULE EVERY 12 HOURS FOR 5 DAYS 05/30 completed Not Available Not Available Not Available mupirocin 2 % topical ointment 1 APPLICAT ION TOPICALL Y TWICE A DAY FOR 14 DAYS 05/30 completed Not Available Not Available Not Available polyethyl marcela glycol 3350 17 gram/dose oral powder MIX 17GM IN LIQUID & DRINK EVERY DAY FOR 3 DAYS 03/23 completed Not Available Not Available Not Available methylpre dnisolone 4 mg tablets in a dose pack TAKE 6 TABLETS ON DAY 1 DIRECTED ON PACKAGE AND DECREASE BY 1 TAB EACH DAY FOR A TOTAL OF 6 DAYS 05/30 completed Not Available Not Available Not Available sertralin e 50 mg tablet take 1 tablet by oral route every day 01/23 completed Prescrib ed Elsewher e: Yes Loca tion: [facility]ilar[facility] odify By: serenity Javier ncounter DateTime : 05/14/19 18 01:00:00 PM Not Available Not Available Not Available medroxypr ogesteron e 150 mg/mL intramusc ular suspensio n INJECT 1 ML EVERY 3 MONTHS BY INTRAMUS CULAR ROUTE DIRECTED FOR 90 DAYS. 05/30 completed Not Available Not Available Not Available naproxen 500 mg tablet TAKE 1 TABLET BY MOUTH TWICE DAILY NEEDED 05/30 completed Not Available Not Available Not Available medroxypr ogesteron e 150 mg/mL intramusc ular syringe INJECT 1 ML INTRAMUS CULARLY EVERY 3 MONTHS 05/30 completed Not Available Not Available Not Available metaxalon e 800 mg tablet TAKE 1 TABLET BY MOUTH THREE TIMES DAILY NEEDED 05/30 completed Not Available Not Available Not Available nitrofura ntoin monohydra te/macroc rystals 100 mg capsule TAKE 1 CAPSULE BY MOUTH EVERY 12 HOURS FOR 7 DAYS 09/06 completed Not Available Not Available Not Available L norgest/E estradiol -E estrad 0.15 mg-30 mcg (84)/10 mcg(7) tabs,3mos 08/15 completed Not Available Not Available Not Available Lo Loestrin Fe 1 mg-10 mcg (24)/10 mcg (2) tablet take 1 tablet by oral route every day 09/09 completed Prescrib jennifer Mendez e: No Locat ion: Kathleentonio javier [facility] odify By: katelynn morrisuntanahi DateTime : 05/14/19 01:00:00 PM Not Available Not Available Not Available + DHA 2024 active Not Available Not Available Not Avai lable OneTouch Ultra2 Meter USE TO TEST BLOOD SUGAR active Not Available Not Available No t Available OneTouch Delica Plus Lancet 30 gauge TEST BLOOD SUGAR FOUR TIMES DAILY active Not Available Not Available No t Available EluRyng 0.12 mg-0.015 mg/24 hr vaginal ring INSERT 1 RING VAGINALL Y, LEAVE IN FOR 3 WEEKS THEN REMOVE FOR 1 WEEK 08/15 completed Not Available Not Available Not Available ID NOW COVID-19 Test Kit TEST DIRECTED TODAY 05/30 completed Not Available Not Available Not Available Nextstell is 3 mg-14.2 mg (28) tablet Take 1 tablet every day by oral route with meal(s) for 90 days. 03/23 completed Not Available Not Available Not Available Vitals Date Recorded Body weight Body mass index (BMI) Body height Body height Body mass index (BMI) Body weight Systolic And Diastolic Systolic And Diastolic Provider Name and Address Organization Details Last Updated DateTime 5 76625.8 0533 g 36.4 kg/m2 161.29 cm 161.29 cm 36.4 kg/m2 57380.8 1 g 134/83 mm[Hg] 134/83 mm[Hg] Bibidiane Buckner [facility] 16:27:23 Social History Question Answer Notes LastModified by Organizat ion Details LastModified Time Tobacco Smoking Status Never Smoker Zainab Enrico rasheed, [facility] 10/31/2022 17:02:19 Do You Have An Advance Directive? No Information n ot available 10/31/2022 Are You Blind Or Do You Have Difficulty Seeing? No Information n ot available 08/15/2021 What Is Your Level Of Caffeine Consumption? Moderate Information not available 08/15/2021 In The 14 Days Before Symptom Onset, Have You Had Close Contact With A Laboratory-confirm ed COVID-19 While That Case Was Ill? No Information n ot available 10/31/2022 In The 14 Days Before Symptom Onset, Have You Had Close Contact With A Person Who Is Under Investigation For COVID-19 While That Person Was Ill? No Information not available 10/31/2022 Have You Been To An Area Known To Be High Risk For COVID-19? No Information not available 10/31/2022 Are You Deaf Or Do You Have Serious Difficulty Hearing? No Information not available 08/15/2021 What Type Of Diet Are You Following? REGULAR Information n ot available 08/15/2021 What Is The Highest Grade Or Level Of School You Have Completed Or The Highest Degree You Have Received? KS36198-1 [email or web address] Information not available 02/17/2024 Are There Any Guns Present In Your Home? Yes [email or web address] Information not available 02/17/2024 Do You Use Protection During Sex? No Information not available 02/17/2024 Do You Use Your Seat Belt Or Car Seat Routinely? Yes Information not available 08/15/2021 Are You Sexually Active? Yes [email or web address] Information not available 02/04/2025 Do You Have Smoke And Carbon Monoxide Detectors In Your Home? Yes Information not available 08/15/2021 How Much Tobacco Do You Smoke? No Information not available 09/11/2021 Do You Use Sunscreen Routinely? Yes Information not available 08/15/2021 Has Tobacco Cessation Counseling Been Provided? No [email or web address] Information not available 02/04/2025 Have You Used IV Drugs? No Information not available 09/11/2021 Do You Have Difficulty Walking Or Climbing Stairs? No Information not available 10/31/2022 Sex: Unknown Functional Status Question Answer Note LastModified by Organizat ion Details LastModified Time Do you use any illicit or recreational drugs? No Information not available 08/15/2021 Do you or have you ever used any other forms of tobacco or nicotine? No [email or web address] Information not available 02/04/2025 What is your level of alcohol consumption? None [email or web address] Information not available 02/17/2024 Are you currently employed? Yes [email or web address] Information not available 02/04/2025 Are you able to walk independently without assistance or assistive devices? [email or web address] Information not available 08/15/2021 Are you able to care for yourself independently? 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 No Information not available 10/31/2022 What is your exercise level? Occasional [email or web address] Information not available 12/08/2019 Mental Status Question Answer Note LastModified by Organization D etails LastModified Time Do you feel stressed (tense, restless, nervous, or anxious, or unable to sleep at night)? [id number] Information not available 08/15/2021 Family History Relationship Description Onset Age of this Age Resolved Age Notes LastModified by Organization Details LastModified Time Maternal Grandmother Congenital heart disease [email or web address] Not available 2019 14:32:40 Medical History Condition Response Allergies (Food, seasonal, environmental ) N Other N Drug/Latex Allergies/Reactions N Breast Cancer N Blood Transfusion N Lung Disease N Dermatologic Disorders N Defects or Inherited Disease N Breast Problem N Gestational Diabetes N Hematologic disorders N Anesthesia Complications N History of STI N Deep Vein Thrombosis N Polycystic ovary syndrome N Anxiety Disorder N Autoimmune disease N Arthritis N Polyps N Infertility N History of abnormal pap N Acid Reflux (GERD) N Cancer N Varicosities N Stroke N Neurologic/Epilepsy N Endometriosis N High Cholesterol N Headaches N Fibromyalgia N Kidney Disease N Heart Problems N Thyroid Problems N Kidney or Bladder Problems N GI Problems N Eating Disorder N Anemia N Art (IVF or FET) N Psychiatric Illness N Ovarian Cancer N Diabetes N Pulmonary (TB, Asthma) N Hepatitis/Liver Disease N No Past Medical History N Eczema N Urinary Tract Infection N Abuse/Domestic Violence N Asthma N Trauma/Violence N Depression/ depression N Heart Disease N Pre-Eclampsia N Hypertension N Osteoporosis N Thrombophilias N Gynecological History Statement/Question Response Abnormal Pap N Date of Last Mammogram Flow Moderate Date of LMP 07/08/2024 Was last menstrual period normal Y STIs/STDs N HPV Vaccine N Duration of Flow (days) 5 Current Control Method None Are cycles usually normal Y Sexually Active? Y Menses Monthly Y Date of DEXA bone scan Age of first menstrual cycle 13 Date of Last Pap Smear 03/23/2024 Sexual Problems? N Desired Control Method N/A LMP Definite Obstetrics History GPAL:G 1 P 1 0 0 1 Type Value Full Term 1 Living 1 Total 1 Immunizations Vaccine Type Date Status Note Provider Nam e and Address Organization Details Recorded Time COVID-19, mRNA, LNP-S, PF, 30 mcg/0.3 mL dose, filippo-sucrose 06/05/2021 [facility]/15/2021 12:28:36 Past Encounters Encounter ID Performer Location Encounter Start Date Encounter Closed Date Diagnosis/Indication Diagnosis SNOMED-CT Code Diagnosis ICD10 Code Diagnosis IMO Codes Diagnosis Note [id number] Jama Moreno MD [facility] [address] [address] 03/03/2025 11:27:34 03/03/2025 12:15:05 Gestational diabetes mellitus 05553963 O24.410 Z3A.34 20604697 [id number] Jama Moreno MD [facility] [address] [place] [address] 03/03/2025 11:28:18 03/03/2025 13:32:46 Third trimester 86932468 Z34.03 [id number] Jama Moreno MD [facility] [address],[place] [address] 03/10/2025 17:29:33 03/11/2025 08:32:23 Third trimester 38640665 Z34.03 [id number] Bertha Alfonso [facility] [address],[place] [address] 03/18/2025 15:08:37 03/18/2025 16:25:03 Breech presentation [id number] O32.1XX0 [id number] Bertha Alfonso [facility] [address],[place] [address] 03/18/2025 15:09:06 03/18/2025 16:00:32 Gestation period, 36 weeks 64309508 Z3A.36 [id number] Jama Moreno MD [facility] [address],[place] [address] 03/23/2025 14:18:49 03/23/2025 15:00:55 Gestational diabetes mellitus 13527164 O24.410 Z3A.36 [id number] Bertha Alfonso [facility] [address],[place] [address] 03/23/2025 14:19:55 03/23/2025 17:36:35 Breech presentation [id number] O32.1XX0 [id number] Bertha Alfonso [facility] [address],[place] [address] 03/23/2025 14:20:05 03/23/2025 16:00:30 Gestation period, 36 weeks 84889141 Z3A.36 [id number] Breech presentation [id number] O32.1XX0 [id number] Jama Moreno MD [facility] [address],[place] [address] 04/01/2025 14:12:43 04/01/2025 15:22:59 Gestational diabetes mellitus 53624485 O24.410 Z3A.38 [id number] Bertha Alfonso CNM [facility] [address],[facility] [place] [address] 04/01/2025 14:14:05 04/01/2025 16:37:02 Breech presentation [id number] O32.1XX0 [id number] Bertha Alfonso CNM [facility] [address],[facility] [place] [address] 04/01/2025 14:14:19 04/01/2025 16:22:31 Gestation period, 38 weeks 30708670 Z3A.38 [id number] Health Concerns Section Related Observation LastModified by Organization Detai ls LastModified Time None Recorded Concern Status LastModified by Organization Details LastModified Time None Recorded Payers Encounter Date Sequence Insurance Name Policy Number Policy Young Covered Member ID Young Member ID Guarantor Name 04/01/2025 1 [facility] [id number] Norma Hunter [id number] Ninoska Hunter 04/01/2025 2 [facility] [id number] Ninoska Hunter [id number] Ninoska Hunter Notes Date Note Type Note Provider Name and Address Organization Details Recorded Time 04/01/2025 text/html Generic HPI TemplateReported by Patient Bertha Alfonso CNM [address], [place], [address], [place] [facility] 04/01/2025 15:49:51 OBGyn Episode Ob Episode Information Episode Created Date Number of Fetuses Patient Bloodtype Patient rh Status Prepregnancy Weight lbs Domestic Partner Domestic Partner Phone Father Name Manager Patient Status 10/09/19 25 1 A Positive 203 Adilson Wheat son CLOSED Fetus Data First Name Last Name Admitted to NICU Weight (g) Sex Living Outcome Pediatric Complications Fetus ID Race Codes Race Delivery Type true 3288.54 2 M true Full Term [id number] Primary Problems Problem Notes Problem Name Start Date End Date Resolution Snomed Code Not e Gestational diabetes mellitus 01/24/2025 [id number] Checking bs QID , serial growth us - DT referral faxed to [facility] 01/24 Breech presentation 03/03/2025 [id number] Boa Calculation Initial Bao Date Initial Exam Date Initial Exam Provider Initial Ultrasound Date Last Menstrual Period Date Ultra Sound Weeks Gestation 10/08/2024 09/06/2024 07/08/2024 8 Eighteen To Twenty Week Bao Update Ultra Sound Date Fundal Height At Umbil Quickening Date Ultra Sound Latest Weeks Gestation Final Bao Confirmed By Final Bao Confirmed Date Final Bao Date Ultra Sound Latest Days Gestation 0 04/14/20 25 0 Pre- Flowsheet Flowsheet Date 10/08/2024 Brown Score Blood Edema Fundus Height Fundus Units Glucose Ketones Leukocytes Nitrite Labor Signs Protein Cervic Dilation Cervic Effacement Cervic Station Type Weight in lbs Pre/Post Dialysis Refused Weight 195.516520543987 BP Diastolic BP Location Tested BP Systolic BP Type 86 L arm 122 sitting Fetus Heart Rate Present A Present Fetus Movement Comments Patient presents to [facility]. otherwise uncomplicated. No nausea or cramping. NT/NB wnl today, desires NIPT. Will draw today with new OB labs. RTC 4 weeks for routine care. Flowsheet Date 11/05/2024 Brown Score Blood Edema Fundus Height Fundus Units Glucose Ketones Leukocytes Nitrite Labor Signs Protein Cervic Dilation Cervic Effacement Cervic Station Type Weight in lbs Pre/Post Dialysis Refused 196.615257282376 BP Diastolic BP Location Tested BP Systolic BP Type 67 L arm 133 sitting Fetus Heart Rate Present Fetus Movement A No Comments doing well +FM, education an d precautions, gender reveal f/u 3 weeks anatomy Flowsheet Date 11/24/2024 Brown Score Blood Edema Fundus Height Fundus Units Glucose Ketones Leukocytes Nitrite Labor Signs Protein Cervic Dilation Cervic Effacement Cervic Station Type Weight in lbs Pre/Post Dialysis Refused BP Diastolic BP Location Tested BP Systolic BP Type Fetus Heart Rate Present Fetus Movement Comments Flowsheet Date 11/24/2024 Brown Score Blood Edema Fundus Height Fundus Units Glucose Ketones Leukocytes Nitrite Labor Signs Protein Cervic Dilation Cervic Effacement Cervic Station Type Weight in lbs Pre/Post Dialysis Refused 198.745096004962 BP Diastolic BP Location Tested BP Systolic BP Type 79 L arm 118 sitting Fetus Heart Rate Present Fetus Movement Comments anatomy incomplete precautio ns and education f/u 4 weeks +FM Flowsheet Date 12/24/2024 Brown Score Blood Edema Fundus Height Fundus Units Glucose Ketones Leukocytes Nitrite Labor Signs Protein Cervic Dilation Cervic Effacement Cervic Station Type Weight in lbs Pre/Post Dialysis Refused BP Diastolic BP Location Tested BP Systolic BP Type Fetus Heart Rate Present Fetus Movement Comments Flowsheet Date 12/24/2024 Brown Score Blood Edema Fundus Height Fundus Units Glucose Ketones Leukocytes Nitrite Labor Signs Protein Cervic Dilation Cervic Effacement Cervic Station Type Weight in lbs Pre/Post Dialysis Refused Weight 202.032552002277 BP Diastolic BP Location Tested BP Systolic BP Type 78 L arm 108 sitting Fetus Heart Rate Present Fetus Movement A Yes Comments +FM, f/u us reviewed efw 30% , plan gct at next visit discussed tdap after 28 weeks precautions and education f/u 4 weeks Flowsheet Date 01/21/2025 Brown Score Blood Edema Fundus Height Fundus Units Glucose Ketones Leukocytes Nitrite Labor Signs Protein Cervic Dilation Cervic Effacement Cervic Station Type Weight in lbs Pre/Post Dialysis Refused 207.372044742618 BP Diastolic BP Location Tested BP Systolic BP Type 89 L arm 140 sitting Fetus Heart Rate Present A 142 Present Fetus Movement A Yes Comments no complaints, no problems, routine care, no contractions, no vaginal bleeding, no loss of fluid, no cramping Flowsheet Date 02/04/2025 Brown Score Blood Edema Fundus Height Fundus Units Glucose Ketones Leukocytes Nitrite Labor Signs Protein Cervic Dilation Cervic Effacement Cervic Station Type Weight in lbs Pre/Post Dialysis Refused BP Diastolic BP Location Tested BP Systolic BP Type Fetus Heart Rate Present Fetus Movement Comments Flowsheet Date 02/04/2025 Brown Score Blood Edema Fundus Height Fundus Units Glucose Ketones Leukocytes Nitrite Labor Signs Protein Cervic Dilation Cervic Effacement Cervic Station Type Weight in lbs Pre/Post Dialysis Refused Weight 200.786123322196 BP Diastolic BP Location Tested BP Systolic BP Type 80 L arm 112 sitting Fetus Heart Rate Present Fetus Movement A Yes Comments doing well +FM, reviewed bs, borderline fastings call if they continue to go up. efw 26% ac 31% RX For rsv flu and tdap given, precautions and education f/u 2 weeks Flowsheet Date 02/18/2025 Brown Score Blood Edema Fundus Height Fundus Units Glucose Ketones Leukocytes Nitrite Labor Signs Protein Cervic Dilation Cervic Effacement Cervic Station Type Weight in lbs Pre/Post Dialysis Refused Weight 204.788153299893 BP Diastolic BP Location Tested BP Systolic BP Type 84 L arm 131 sitting Fetus Heart Rate Present A 154 Present Fetus Movement A Yes Comments doing well +FM, needs note f or sitting at work, will place copy in chart, call for preadmit, education and precautions f/u 2 weeks Flowsheet Date 03/03/2025 Brown Score Blood Edema Fundus Height Fundus Units Glucose Ketones Leukocytes Nitrite Labor Signs Protein Cervic Dilation Cervic Effacement Cervic Station Type Weight in lbs Pre/Post Dialysis Refused BP Diastolic BP Location Tested BP Systolic BP Type Fetus Heart Rate Present Fetus Movement Comments Flowsheet Date 03/03/2025 Brown Score Blood Edema Fundus Height Fundus Units Glucose Ketones Leukocytes Nitrite Labor Signs Protein Cervic Dilation Cervic Effacement Cervic Station Type Weight in lbs Pre/Post Dialysis Refused 207.433427758326 BP Diastolic BP Location Tested BP Systolic BP Type 83 L arm 126 sitting Fetus Heart Rate Present Fetus Movement A Yes Comments no complaints, no problems, routine care, no contractions, no vaginal bleeding, no loss of fluid, no cramping to start testing Weekly, did not have blood glucose records. To bring next week. She did resect some of her numbers. They seem pretty good. No fastings over 100, no post prandials over 140 Flowsheet Date 03/10/2025 Brown Score Blood Edema Fundus Height Fundus Units Glucose Ketones Leukocytes Nitrite Labor Signs Protein Cervic Dilation Cervic Effacement Cervic Station Type Weight in lbs Pre/Post Dialysis Refused Weight 208.437022212763 BP Diastolic BP Location Tested BP Systolic BP Type 86 L arm 128 sitting Fetus Heart Rate Present A 143 Fetus Movement A Yes Comments no complaints, no problems, routine care, no contractions, no vaginal bleeding, no loss of fluid, no cramping Flowsheet Date 03/18/2025 Brown Score Blood Edema Fundus Height Fundus Units Glucose Ketones Leukocytes Nitrite Labor Signs Protein Cervic Dilation Cervic Effacement Cervic Station Type Weight in lbs Pre/Post Dialysis Refused Weight 210.191264777590 BP Diastolic BP Location Tested BP Systolic BP Type 82 L arm 142 sitting Fetus Heart Rate Present Fetus Movement A Yes Comments Flowsheet Date 03/18/2025 Brown Score Blood Edema Fundus Height Fundus Units Glucose Ketones Leukocytes Nitrite Labor Signs Protein Cervic Dilation Cervic Effacement Cervic Station Type Weight in lbs Pre/Post Dialysis Refused BP Diastolic BP Location Tested BP Systolic BP Type Fetus Heart Rate Present Fetus Movement Comments to ld for monitoring, 3 min decel during nst Flowsheet Date 03/23/2025 Brown Score Blood Edema Fundus Height Fundus Units Glucose Ketones Leukocytes Nitrite Labor Signs Protein Cervic Dilation Cervic Effacement Cervic Station Type Weight in lbs Pre/Post Dialysis Refused BP Diastolic BP Location Tested BP Systolic BP Type Fetus Heart Rate Present Fetus Movement Comments Flowsheet Date 03/23/2025 Brown Score Blood Edema Fundus Height Fundus Units Glucose Ketones Leukocytes Nitrite Labor Signs Protein Cervic Dilation Cervic Effacement Cervic Station Type Weight in lbs Pre/Post Dialysis Refused Weight 208.210407535848 BP Diastolic BP Location Tested BP Systolic BP Type 89 L arm 135 sitting Fetus Heart Rate Present Fetus Movement A Yes Comments Flowsheet Date 03/23/2025 Brown Score Blood Edema Fundus Height Fundus Units Glucose Ketones Leukocytes Nitrite Labor Signs Protein Cervic Dilation Cervic Effacement Cervic Station Type Weight in lbs Pre/Post Dialysis Refused Weight [id number] BP Diastolic BP Location Tested BP Systolic BP Type 84 L arm 135 sitting Fetus Heart Rate Present Fetus Movement A Yes Comments reviewed blood sugars wnl, d oing well, breech, discussed ext version vs pt would like , will have dr moreno schedule precautions and education f/u one week gbs collected Flowsheet Date 04/01/2025 Brown Score Blood Edema Fundus Height Fundus Units Glucose Ketones Leukocytes Nitrite Labor Signs Protein Cervic Dilation Cervic Effacement Cervic Station Type Weight in lbs Pre/Post Dialysis Refused BP Diastolic BP Location Tested BP Systolic BP Type Fetus Heart Rate Present Fetus Movement Comments Flowsheet Date 04/01/2025 Brown Score Blood Edema Fundus Height Fundus Units Glucose Ketones Leukocytes Nitrite Labor Signs Protein Cervic Dilation Cervic Effacement Cervic Station Type Weight in lbs Pre/Post Dialysis Refused Weight 209.469368332226 BP Diastolic BP Location Tested BP Systolic BP Type 83 L arm 134 sitting Fetus Heart Rate Present Fetus Movement A Yes Comments Flowsheet Date 04/01/2025 Brown Score Blood Edema Fundus Height Fundus Units Glucose Ketones Leukocytes Nitrite Labor Signs Protein Cervic Dilation Cervic Effacement Cervic Station Type Weight in lbs Pre/Post Dialysis Refused [id number] BP Diastolic BP Location Tested BP Systolic BP Type 83 L arm 134 sitting Fetus Heart Rate Present Fetus Movement A Yes Comments bpp 10, doing well, revie wed process, recovery, call for blood sugars, education and precautions f/u c/s as scheduled Flowsheet Date 04/08/2025 Brown Score Blood Edema Fundus Height Fundus Units Glucose Ketones Leukocytes Nitrite Labor Signs Protein Cervic Dilation Cervic Effacement Cervic Station Type Weight in lbs Pre/Post Dialysis Refused BP Diastolic BP Location Tested BP Systolic BP Type Fetus Heart Rate Present Fetus Movement Comments Flowsheet Date 04/15/2025 Brown Score Blood Edema Fundus Height Fundus Units Glucose Ketones Leukocytes Nitrite Labor Signs Protein Cervic Dilation Cervic Effacement Cervic Station Type Weight in lbs Pre/Post Dialysis Refused Weight 201.648439335888 BP Diastolic BP Location Tested BP Systolic BP Type 94 L arm 141 sitting Fetus Heart Rate Present Fetus Movement Comments Menstrual History Last Menstrual Date Menses Monthly On Bcp Conception Prior Menses Frequency Hcg Plus Date Menarche Onset Age 0307/08/2024 Delivery Information Delivery Date Delivery Type Labor Anesthesia Weeks Gestation Incision Type Labor Labor Length Hrs Delivered By Post Complications Tubal Sterilization Discharge Date Comments 5 39.3 Low Transvers e false Discharge Information Feeding Method Contraceptive Method Maternal HG B and HCT Levels
--- OUTSIDE RECORDS SUMMARY | 2025-04-15 19:41 | XMS_ITS | Continuity of Care Document ---
Author Organization [facility] Address [address] [place] [address] [place] [address] Care Team Providers Care Barrel Marker Name Role Phone DEANDREDarlyn BARBARASHANTIPRINCE Primary Care Provider [phone] Assessment No assessment recorded. Plan of Treatment Reminders Order Date Submit Date Provider Last Modified By Organization Details Last Modified Time Details Appointments SURG POST OP 2024 01:15P Khloe PARK MD Not available Not available Not available POST 2025 01:00P Khloe PARK MD Not available Not available Not available Lab None recorded . Referral None recorded . Procedures None recorded . Surgeries None recorded . Imaging US, obstetri c, follow-u p 2024 025 [email or web address] [facility] [place], [facility] [address], [place], [address], 03/03/2025 16:21:32 Medication Orders None recorded . Patient TargetsNo targets recorded. Patient InstructionsNo instructions recorded. Reason for Referral None Reported. Results Created Date Observation Date Name Description Value Unit Range Abnormal Flag Note LastModifiedBy Organization Detail LastModifiedTime 10/15/1910/14/2024 [UNIT Y] ANEUP LOIDY NIPT fraction 7.0% normal Not Available [facility] [address], [place], [address], 10/14/2024 19:59:38 10/15/19 25 10/14/2024 [UNIT Y] ANEUP LOIDY NIPT 22Q11.2 microdeletio n LOW RISK <1 in 10,000 normal Not Available [facility] [address], [place], [address], 10/14/2024 19:59:38 10/15/19 25 10/14/2024 [UNIT Y] ANEUP LOIDY NIPT sex chromosome aneuploidy NOT DETECT ED normal Not Available [facility] [address], [place], [address], 10/14/2024 19:59:38 10/15/19 25 10/14/2024 [UNIT Y] 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 in 10,000 normal Not Available [facility] [address], [place], [address], 10/14/2024 19:59:38 10/15/19 25 10/14/2024 [UNIT Y] ANEUP LOIDY NIPT trisomy 13 LOW RISK <1 in 10,000 normal Not Available [facility] [address], [place], [address], 10/14/2024 19:59:38 10/15/19 25 10/14/2024 [UNIT Y] ANEUP LOIDY NIPT trisomy 18 LOW RISK <1 in 10,000 normal Not Available [facility] [address], [place], [address], 10/14/2024 19:59:38 10/15/19 25 10/14/2024 [UNIT Y] ANEUP LOIDY NIPT trisomy 21 LOW RISK <1 in 10,000 normal Not Available [facility] [address], [place], [address], 10/14/2024 19:59:38 10/15/19 25 10/14/2024 [UNIT Y] ANEUP LOIDY NIPT sex MALE normal Not Available [facility] [address], [place], [address], 10/14/2024 19:59:38 10/15/19 25 10/14/2024 [UNIT Y] ANEUP LOIDY NIPT gestation SINGLE TON normal Not Available [facility] [address], [place], [address], 10/14/2024 19:59:38 10/15/19 25 10/14/2024 [UNIT Y] ANEUP LOIDY NIPT for detailed report, see pdf See PDF normal Not Available [facility] [address], [place], [address], 10/14/2024 19:59:38 10/20/19 25 10/19/2024 [UNIT Y] ESPINO[place] sickle cell disease/beta -thalassemia /hemoglobino pathies carrier screen NEGATI VE normal Not Available [facility] [address], [place], [address], 10/19/2024 14:09:36 10/20/19 25 10/19/2024 [UNIT Y] ESP[place] alpha-thalas semia carrier screen NEGATI VE normal Not Available [facility] [address], [place], [address], 10/19/2024 14:09:36 10/20/19 25 10/19/2024 [UNIT Y] ESP[place] cystic fibrosis carrier screen NEGATI VE normal Not Available [facility] [address], [place], [address], 10/19/2024 14:09:36 10/20/19 25 10/19/2024 [UNIT Y] ESP[place] spinal muscular atrophy carrier screen NEGATI VE 2 SMN1 copies , SNP not presen t normal Not Available [facility] [address], [place], [address], 10/19/2024 14:09:36 10/20/19 25 10/19/2024 [UNIT Y] ESPINO[place] for detailed report, see pdf See PDF normal Not Available [facility] [address], [place], [address], 10/19/2024 14:09:36 10/09/1910/08/2024 CULTU RE: URINE result report SEE RESULT S BELOW Test: Cultu re: Urine Speci men Sourc e: Urine Voide d Speci men Type: Urine Speci men Date: 2024 1320 Resul t Date: 2024 0400 Resul t Statu s: Final resul t Abnor mal: No Resul ting Lab: [facility] [address] [facility] [address] Tel: [phone] CULTU RE ----- ----- ----- --- No growt h in 1 day (dete ction level of 10,00 0 colon ies / ml.) Not Available [facility] (Lab) [address] [place], [address], 10/10/2024 05:04:31 10/09/1910/08/2024 CBC W/DIF F WBC 9.1 10'3/ uL 3.5-10 .5 Not Available [facility] (Lab) [address] [facility], [place], [address], 10/11/2024 20:50:49 10/09/19 25 10/08/2024 CBC W/DIF F RBC 5.20 10'6/ uL (based on docume nted legal sex) 3.80-5 .20 Not Available [facility] (Lab) [address] [facility], [place], [address], 10/11/2024 20:50:49 10/09/19 25 10/08/2024 CBC W/DIF F HGB 14.7 g/dL (based on docume nted legal sex) 11.6-1 5.4 Not Available [facility] (Lab) [address] [facility], [place], [address], 10/11/2024 20:50:49 10/09/19 25 10/08/2024 CBC W/DIF F HCT 45.2 % (based on docume nted legal sex) 34.0-4 5.0 high Not Available [facility] (Lab) [address], [place], [address], 10/11/2024 20:50:49 10/09/19 25 10/08/2024 CBC W/DIF F MCV 86.9 fL 80.0-9 9.0 Not Available [facility] (Lab) [address], [place], [address], 10/11/2024 20:50:49 10/09/19 25 10/08/2024 CBC W/DIF F MCH 28.3 pg 27.0-3 4.0 Not Available [facility] (Lab) [address], [place], [address], 10/11/2024 20:50:49 10/09/19 25 10/08/2024 CBC W/DIF F MCHC 32.5 g/dL 32.0-3 5.5 Not Available [facility] (Lab) [address], [place], [address], 10/11/2024 20:50:49 10/09/19 25 10/08/2024 CBC W/DIF F RDW 13.2 % 11.0-1 5.0 Not Available [facility] (Lab) [address], [place], [address], 10/11/2024 20:50:49 10/09/19 25 10/08/2024 CBC W/DIF F plt 286 10'3/ uL 150-40 0 Not Available [facility] (Lab) [address], [place], [address], 10/11/2024 20:50:49 10/09/19 25 10/08/2024 CBC W/DIF F MPV 11.7 fL 8.8-12 .1 Not Available [facility] (Lab) [address], [place], [address], 10/11/2024 20:50:49 10/09/19 25 10/08/2024 CBC W/DIF F NRBC's 0.0 % 0.0 Not Available [facility] (Lab) [address] [facility], [place], [address], 10/11/2024 20:50:49 10/09/19 25 10/08/2024 CBC W/DIF F absolute NRBCs 0.0 10'3/ uL no refere nce range establ ished Not Available [facility] (Lab) [address] [facility], [place], [address], 10/11/2024 20:50:49 10/09/19 25 10/08/2024 CBC W/DIF F neutrophils 67.1 % 34.0-7 3.0 Not Available [facility] (Lab) [address] [facility], [place], [address], 10/11/2024 20:50:49 10/09/19 25 10/08/2024 CBC W/DIF F lymphocytes 25.1 % 15.0-5 0.0 Not Available [facility] (Lab) [address] [facility], [place], [address], 10/11/2024 20:50:49 10/09/19 25 10/08/2024 CBC W/DIF F monocytes 6.4 % 1.0-15 .0 Not Available [facility] (Lab) [address] [facility], [place], [address], 10/11/2024 20:50:49 10/09/19 25 10/08/2024 CBC W/DIF F eosinophils 0.9 % 0.0-8. 0 Not Available [facility] (Lab) [address] [place], [address], 10/11/2024 20:50:49 10/09/19 25 10/08/2024 CBC W/DIF F basophils 0.3 % 0.0-2. 0 Not Available [facility] (Lab) [address] [facility], [place], [address], 10/11/2024 20:50:49 10/09/19 25 10/08/2024 CBC W/DIF [...] separ ately if prese nt. Not Available [facility] (Lab) [address], [place], [address], 10/11/2024 20:50:49 10/09/19 25 10/08/2024 CBC W/DIF F absolute neutrophils 6.1 10'3/ uL 1.5-8. 0 Not Available [facility] (Lab) [address] [facility], [place], [address], 10/11/2024 20:50:49 10/09/19 25 10/08/2024 CBC W/DIF F absolute lymphocytes 2.3 10'3/ uL 1.0-4. 0 Not Available [facility] (Lab) [address] [facility], [place], [address], 10/11/2024 20:50:49 10/09/19 25 10/08/2024 CBC W/DIF F absolute monocytes 0.6 10'3/ uL 0.2-1. 0 Not Available [facility] (Lab) [address] [facility], [place], [address], 10/11/2024 20:50:49 10/09/19 25 10/08/2024 CBC W/DIF F absolute eosinophils 0.1 10'3/ uL 0.0-0. 6 Not Available [facility] (Lab) [address] [facility], [place], [address], 10/11/2024 20:50:49 10/09/19 25 10/08/2024 CBC W/DIF F absolute basophils 0.0 10'3/ uL 0.0-0. 3 Not Available [facility] (Lab) [address] [facility], [place], [address], 10/11/2024 20:50:49 10/09/1910/08/2024 CBC W/DIF F absolute immature granulocytes 0.0 10'3/ uL 0.00-0 .10 Refer ence range s for nonbi nary/ inter sex or unspe cifie d gende r patie nts have not been estab lishe d. [facility]as e [facility] for range s estab lishe d for cisge nder patie nts and evalu ate in the clini hussein ej xt of the indiv idual patie nt: https :[email or web address] emerson book. nm.or g/gen derx Not Available [facility] (Lab) [address] [facility], [place], [address], 10/11/2024 20:50:49 10/09/1910/08/2024 HIV 1/2 ANTIG EN/AN TIBOD Y, REFLE X CONFI RMATI ON HIV antigen/anti body Nonrea ctive nonrea ctive HIV-1 antig en and HIV-1 /HIV- 2 antib odies were not detec adela. No labor atory evide nce of HIV infec tion. Not Available [facility] (Lab) [address] [facility], [place], [address], 10/11/2024 20:50:49 10/09/1910/08/2024 HEPAT ITIS B SURFA CE ANTIG EN hepatitis B surface antigen Non-re active non-re active This assay was perfo rmed using [employer] ratio n reage nts and test kits. Value s obtai charles with other assay metho ds or kits canno t be used inter emanuel eably . Not Available [facility] (Lab) [address] [facility], [place], [address], 10/11/2024 20:50:50 10/09/1910/08/2024 HEPAT ITIS C ANTIB NITA SCREE N, REFLE X TO CONFI RMATI ON hepatitis C antibody Non-re active non-re active Antib odies to HCV Not Detec adela, does not exclu de the possi bilit y of expos ure to HCV. Not Available [facility] (Lab) [address] [facility], [place], [address], 10/11/2024 20:50:50 10/09/19 25 10/08/2024 RUBEL LA IGG ANTIB NITA, QUANT rubella antibodies, IgG Reacti ve reacti ve Not Available [facility] (Lab) [address] [facility], [place], [address], 10/11/2024 20:50:50 10/09/19 25 10/08/2024 RUBEL LA IGG ANTIB NITA, QUANT rubella antibodies, IgG quant 24.1 IU/mL >=10 Non-r eacti ve (Non- Immun e) <10 IU/mL React alejandra (Immu ne) > or = 10 IU/mL Not Available [facility] (Lab) [address] [facility], [place], [address], 10/11/2024 20:50:50 10/09/19 25 10/08/2024 TYPE/ RH/SC REEN ABO/Rh type A POS Not Available [facility] (Lab) [address] [facility], [place], [address], 10/11/2024 20:50:51 10/09/19 25 10/08/2024 TYPE/ RH/SC REEN antibody screen NEG Not Available [facility] (Lab) [address] [facility], [place], [address], 10/11/2024 20:50:51 10/09/1910/08/2024 TYPE/ RH/SC REEN exp date 2024 23:59 Not Available [facility] (Lab) [address] [facility], [place], [address], 10/11/2024 20:50:51 10/09/19 25 10/08/2024 HEMOG LOBIN A1C hemoglobin A1C 5.2 % 4.0-5. 6 The Ameri can Diabe yenni Assoc iatio n recom mends that a prima ry goal of thera py aneta d be a HBA1C of < 7% and that physi cians shoul d reeva luate the treat ment regim en in patie nts with HBA1C value s consi stent ly > 8%. <5.7% Khloe l 5.7 - 6.4% Incre ased risk for diabe yenni >=6.5 % Diagn ostic of diabe yenni <7.0% Goal of thera py >8.0% Actio n sugge sted Not Available [facility] (Lab) [address], [place], [address], 10/11/2024 20:50:51 10/09/19 25 10/08/2024 RPR SCREE N, REFLE X TITER /CONF IRMAT ION RPR qualitative Nonrea ctive nonrea ctive Not Available [facility] (Lab) [address], [place], [address], 10/11/2024 20:50:51 10/09/19 25 10/08/2024 drug scree n, urine Amphetamines : negati ve Not Available [facility] [address], [place], [address], 10/08/2024 13:34:18 10/09/19 25 10/08/2024 drug scree n, urine Cannabinoids : negati ve Not Available [facility] [address], [place], [address], 10/08/2024 13:34:18 10/09/19 25 10/08/2024 drug scree n, urine Cocaine: negati ve Not Available [facility] [address], [place], [address], 10/08/2024 13:34:18 10/09/19 25 10/08/2024 drug scree n, urine Opiates: negati ve Not Available [facility] [address], [place], [address], 10/08/2024 13:34:18 10/09/19 25 10/08/2024 drug scree n, urine Barbiturates : negati ve Not Available [facility] [address], [place], [address], 10/08/2024 13:34:18 10/09/19 25 10/08/2024 drug scree n, urine Benzodiazepi dino: negati ve Not Available [facility] [address], [place], [address], 10/08/2024 13:34:18 01/22/20 25 01/21/2025 GTT - GESTA MARYANA L SCREE N, ACOG OB glucose, 1 hour screen 210 mg/dL 70-135 high Not Available [facility] (Lab) [address], [place], [address], 01/22/2025 12:46:27 01/22/20 25 01/21/2025 HIV 1/2 ANTIG EN/AN TIBOD Y, REFLE X CONFI RMATI ON HIV antigen/anti body Nonrea ctive nonrea ctive HIV-1 antig en and HIV-1 /HIV- 2 antib odies were not detec adela. No labor atory evide nce of HIV infec tion. Not Available [facility] (Lab) [address] [place], [address], 01/22/2025 12:46:28 01/22/20 25 01/21/2025 HEMOG LOBIN (HGB) HGB 13.3 g/dL (based on docume nted legal sex) 11.6-1 5.4 Not Available [facility] (Lab) [address], [place], [address], 01/22/2025 12:46:28 01/22/20 25 01/21/2025 HEMAT OCRIT (HCT) HCT 40.3 % (based on docume nted legal sex) 34.0-4 5.0 Not Available [facility] (Lab) [address] [facility], [place], [address], 01/22/2025 12:46:28 01/22/20 25 01/21/2025 RPR SCREE N, REFLE X TITER /CONF IRMAT ION RPR qualitative Nonrea ctive nonrea ctive Not Available [facility] (Lab) [address] [facility], [place], [address], 01/22/2025 12:46:28 10/09/19 25 10/08/2024 US, obste tric, nucha l trans lucen cy No observ ation record ed. [email or web address] [facility] [address], [place], [address], 10/08/2024 18:39:08 10/09/19 25 10/08/2024 US, obste tric, nucha l trans lucen cy No observ ation record ed. [email or web address] [address], [place], [address], 10/09/2024 23:09:07 11/25/19 25 11/24/2024 US, obste tric, 2nd or 3rd trime ster No observ ation record ed. [email or web address] [address], [place], [address], 12/01/2024 11:58:43 11/25/19 25 11/25/2024 US, obste tric, 2nd or 3rd trime ster No observ ation record ed. [email or web address] [facility] [address], [place], [address], 11/25/2024 12:49:42 12/25/19 25 12/24/2024 US, obste tric, follo w-up No observ ation record ed. ELIN [address] [address], [place], [address], 01/01/2025 17:08:59 12/25/1912/24/2024 US, obste tric, follo w-up No observ ation record ed. [facility] [address], [place], [address], 12/24/2024 13:46:21 02/05/2002/04/2025 US, obste tric, follo w-up No observ ation record ed. [facility] [address], [place], [address], 02/04/2025 13:02:03 02/05/2002/04/2025 US, obste tric, follo w-up No observ ation record ed. [email or web address] [address], [place], [address], 02/07/2025 16:14:11 03/03/20 25 03/03/2025 US, obste tric, follo w-up No observ ation record ed. [email or web address] [facility] [address], [place], [address], 03/03/2025 15:11:00 03/03/20 25 03/03/2025 US, obste tric, follo w-up No observ ation record ed. [email or web address] [address] [address], [place], [address], 03/04/2025 12:00:47 03/10/2003/10/2025 non-s tress test No observ ation record ed. [address], [address], 03/14/2025 11:36:31 03/10/20 25 03/10/2025 US, obste tric, follo w-up No observ ation record ed. [email or web address] [place], [address], 03/11/2025 08:40:14 03/18/20 25 03/18/2025 non-s tress test No observ ation record ed. [facility] [address], [place], [address], 03/28/2025 10:44:01 03/18/20 25 03/18/2025 non-s tress test No observ ation record ed. [address], [place], [address], 04/15/2025 10:36:55 03/18/20 25 03/18/2025 US, obste tric, bioph ysica l profi le No observ ation record ed. [address] [facility], [place], [address], 03/23/2025 16:26:00 03/18/20 25 03/18/2025 US, obste tric, bioph ysica l profi le No observ ation record ed. [address] [facility], [place], [address], 03/23/2025 16:25:42 03/18/20 25 03/18/2025 non-s tress test No observ ation record ed. [address], [place], [address], 03/28/2025 11:00:24 03/23/20 25 03/23/2025 US, obste tric, bioph ysica l profi le + non-s tress test No observ ation record ed. [email or web address] [facility] [address], [place], [address], 03/23/2025 18:22:09 03/23/20 25 03/23/2025 US, obste tric, bioph ysica l profi le + non-s tress test No observ ation record ed. [email or web address] [facility] [address], [place], [address], 03/30/2025 11:20:06 03/23/20 25 03/23/2025 non-s tress test No observ ation record ed. [address], [place], [address], 03/23/2025 17:56:30 03/23/20 non-s tress test No observ ation record ed. [facility] [address], [place], [address], 03/23/2025 17:23:26 04/01/20 25 04/01/2025 US, paige tric, follo w-up No observ ation record ed. [facility] [address], [place], [address], 04/01/2025 14:56:59 04/01/20 25 04/01/2025 US, paige guerrero, bioph ysica l profi le + non-s tress test No observ ation record ed. [facility] [address], [place], [address], 04/01/2025 14:57:12 04/01/20 25 04/01/2025 US, paige tric, follo w-up No observ ation record ed. [email or web address] V[address], [place], [address], 04/04/2025 12:34:31 04/01/20 25 04/01/2025 non-s tress test No observ ation record ed. [address], [place], [address], 04/01/2025 16:35:28 04/01/20 non-s tress test No observ ation record ed. [email or web address] [facility] [address], [place], [address], 04/01/2025 16:40:02 Result Notes None recorded. 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:[address] Concept Completed 201701/23/2021 Encntr for routine child health exam w/o abnormal findings ;Recorde d Elsewher e: No Locat ion: [facility] S ource: [employer] Sales Representative junior: N Practi ce ID: [id number] Con lable Time: 01:00:00 PM Mile Paredes [facility] 17:28:33 Surveill ance of contrace ption Completed 201701/23/2021 Encounte r for surveill ance of contrace ptives, unspecif ied;Quincy rded Elsewher e: No Locat ion: [facility] S ource: [employer] Sales Representative junior: N Practi ce ID: [id number] Ocn lable Time: 02:00:00 PM Mile Paredes [facility] 17:28:49 Clinical finding Completed 201701/23/2021 Presence of (intraut erine) contrace ptive device;R ecorded Elsewher e: No Locat ion: [facility] S ource: [employer] Sales Representative junior: N Practi ce ID: [id number] Con lable Time: 08:00:00 AM [facility] 17:28:39 Insertio n of intraute rine contrace ptive device Completed 201701/23/2021 Encounte r for insertio n of intraute rine contrace ptive device;R ecorded Elsewher e: No Locat ion: [facility] S ource: [employer] Sales Representative junior: N Practi ce ID: [id number] Con lable Time: 08:00:00 AM Mile rasheed, [facility] 17:28:46 Pregnanc y test negative [id number] Completed 201701/23/2021 Encounte r for pregnanc y test, result negative ;Practic e ID: 0001 Mile rasheed, [facility] 17:28:25 Contrace ptive sheath status [id number] Completed 201701/23/2021 Encounte r for routine checking of intraute rine contrace p dev;Prac marco ID: 0001 Mile Paredes [facility], [facility] 17:28:19 Pelvic and perineal pain [id number] Completed 201701/23/2021 Pelvic pain;Rec orded Elsewher e: No Locat ion: [facility] S ource: [employer] Sales Representative junior: N Practi ce ID: [id number] Con lable Time: 04:00:00 PM Mile rasheed, [facility] 17:28:31 Syphilis test finding [id number] Completed 201701/23/2021 Encntr screen for infectio ns w sexl mode of transmis s;Practi ce ID: 0001 Mile rasheed, [facility] 17:28:42 Infectio n screenin g Completed 201701/23/2021 Encounte r for screenin g for oth infec/pa rastc diseases ;Practic e ID: 0001 Mile rasheed, [facility] 17:27:55 Contrace ption care manageme nt Completed 201801/23/2021 Encounte r for contrace ptive manageme nt, unspecif ied;Quincy rded Elsewher e: No [facility] [employer] Sales Representative junior: N Practi ce ID: [id number] Con lable Time: 10:45:00 AM Mile rasheed [facility] 17:28:44 Blood leukocyt e number above referenc e range [id number] Completed 201801/23/2021 Elevated white blood cell count, unspecif ied;Prac marco ID: 0001 Mile Paredes [facility] 17:28:45 Acute vaginiti s [id number] Completed 201801/23/2021 Acute vaginiti s;Record ed Elsewher e: No Locat ion: [facility] S ource: [employer] Sales Representative junior: N Practi ce ID: [id number] Con lable Time: 10:45:00 AM Mile Paredes [facility] 17:28:21 Increase d frequenc y of urinatio n [id number] Completed 201801/23/2021 Urinary frequenc y;Record ed Elsewher e: No Locat ion: [facility] S ource: [employer] Sales Representative junior: N Practi ce ID: [id number] Con lable Time: 10:45:00 AM Mile Paredes [facility] 17:27:54 Uses combined oral contrace ption [id number] Completed 201801/23/2021 Encounte r for initial prescrip tion of contrace ptive pills;Pr actice ID: [id number] Mile Paredes [facility] 17:28:27 Removal of intraute rine device Completed 201801/23/2021 Encounte r for removal of intraute rine contrace ptive device;P ractice ID: [id number] Mile rasheed, [facility] 1 17:28:48 Pregnanc y [id number] Completed 202404/15/2025 Zainab Weston [facility], [facility] 5 14:35:49 Gestatio nal diabetes mellitus [id number] Completed 2024 Checking bs QID , serial growth us - DT referral faxed to [facility] 01/24 Randi Aguiar [facility], [facility] 5 13:08:13 Breech presenta tion [id number] Completed 2024 Jama Park MD [address], [place], [address], [facility] 5 12:37:19 Problem Notes None recorded. Procedures Surgical History Date Name Laterality Status Provider Name and Address Organization Details Recorded Time 5 SECTION (SURG) completed Not Available [facility] 13:53:03 4 Date of Last Pap Smear completed Zainab Weston [facility] 09/06/2024 12:53:25 1 extraction of wisdom tooth completed Leida Duenas [facility] 08/19/2023 16:44:18 Imaging Results None recorded. [...] Elsewher e: Yes Loca tion: Hilaria javier [facility] M odify By: [email or web address] Encount er DateTime : 09/10/19 18 03:30:00 PM Not Available Not Available Not [...] Prescrib ed Elsewher e: No [facility] By: nadia archuleta DateTime : 12/09/19 18 11:49:30 AM Not Available Not Available Not Available Metrogel Vaginal 0.75 % (37.5 mg/5 gram) insert 1 applicat orful by vaginal route for 5 nights at bedtime 09/09 completed Prescrib ed Elsewher e: No Locat ion: [facility] odify By: katelynn hernandez DateTime : 05/19/19 18 10:59:56 AM Not [...] Prescrib ed Elsewher e: Yes Loca tion: [facility] odify By: serenity Javier ncounter DateTime [...] oral route every day 09/09 completed Prescrib ed Elsewher e: No Locat ion: [facility] odify By: [email or web address] Juan Miguel ncounter DateTime : 05/14/19 18 01:00:00 PM [...] Not Available Vitals Date Recorded Body weight Systolic And Diastolic Provider Name and Address Organization Details Last Updated DateTime 03/03/2025 00761.12981 g 126/83 mm[Hg] Zainab Weston [facility] 03/03/2025 12:21:26 Social History Question Answer Notes LastModified by Organizat ion Details LastModified Time Tobacco Smoking Status Never Smoker Zainab Weston [facility], [facility] 10/31/2022 17:02:19 Do You Have An [...] Or The Highest Degree You Have Received? [id number] [email or web address] Information not available 02/17/2024 Are There Any Guns Present In Your Home? Yes Information not available 02/17/2024 Do You Use Protection During Sex? No Information not available 02/17/2024 Do You Use Your Seat Belt Or Car Seat Routinely? Yes Information not available 08/15/2021 Are You Sexually Active? Yes [email or web address] Information not available 02/04/2025 Do You Have Smoke And Carbon Monoxide Detectors In Your Home? Yes Information not available 08/15/2021 How Much Tobacco Do You Smoke? No Information not available 09/11/2021 Do You Use Sunscreen Routinely? Yes Information not available 08/15/2021 Has Tobacco Cessation Counseling Been Provided? No [email or web address] Information not available 02/04/2025 Have You Used [...] other forms of tobacco or nicotine? No Information not available 02/04/2025 What is your level of alcohol consumption? None [email or web address] Information not available 02/17/2024 Are you currently employed? Yes [email or web address] Information not available 02/04/2025 Are you able to walk independently without assistance or assistive devices? [email or web address] Information not available 08/15/2021 Are you able to care for yourself independently? 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 No Information not available 10/31/2022 What is your exercise level? Occasional [email or web address] Information not available 12/08/2019 Mental Status Question Answer Note LastModified by Organization D etails LastModified Time Do you feel stressed (tense, restless, nervous, or anxious, or unable to sleep at night)? [id number] Information not available 08/15/2021 Family History Relationship Description Onset Age of this Age Resolved Age Notes LastModified by Organization Details LastModified Time Maternal Grandmother Congenital heart disease [email or web address] Not available 2019 14:32:40 Medical History Condition Response Allergies (Food, seasonal, environmental ) N Other N Drug/Latex Allergies/Reactions N Blood Transfusion N Breast Cancer N Dermatologic Disorders N Lung Disease N Defects or Inherited Disease N Breast Problem N Gestational Diabetes N Hematologic disorders N Anesthesia Complications N History of STI N Deep Vein Thrombosis N Polycystic ovary syndrome N Anxiety Disorder N Autoimmune disease N Arthritis N Polyps N Infertility N Acid Reflux (GERD) N History of abnormal pap N Cancer N Varicosities N Stroke N Neurologic/Epilepsy N Endometriosis N High Cholesterol N Fibromyalgia N Headaches N Kidney Disease N Heart Problems N [...] 30 mcg/0.3 mL dose, filippo-sucrose 06/05/2021 completed Olamide Shafer [facility] 08/15/2021 12:28:36 Past Encounters Encounter ID Performer Location Encounter Start Date Encounter Closed Date Diagnosis/Indication Diagnosis SNOMED-CT Code Diagnosis ICD10 Code Diagnosis IMO Codes Diagnosis Note [id number] Jama Park MD [facility] [address],[place] [address] 02/04/2025 12:11:20 02/04/2025 12:58:53 Gestational diabetes mellitus 51456073 O24.410 Z3A.[id number] [facility] [address],[place] [address] 02/04/2025 12:12:03 02/04/2025 14:24:39 Gestation period, 30 weeks 75189824 Z3A.30 [id number] Al[address]so [facility] [address],[place] [address] 02/18/2025 09:18:35 02/18/2025 09:53:48 Gestation period, 32 weeks 9257389 Z3A.32 [id number] Jama Park MD [facility] [address],[place] [address] 03/03/2025 11:27:34 03/03/2025 12:15:05 Gestational diabetes mellitus 87128039 O24.410 Z3A.34 [id number] Jama Park MD [facility] [address],[place] [address] 03/03/2025 11:28:18 03/03/2025 13:32:46 Third trimester 59445343 Z34.03 [id number] Health Concerns Section Related Observation LastModified by Organization Detai ls LastModified Time None Recorded Concern Status LastModified by Organization Details LastModified Time None Recorded Payers Encounter Date Sequence Insurance Name Policy Number Policy Young Covered Member ID Young Member ID Guarantor Name 03/03/2025 1 [facility] [id number] Norma Hunter [id number] Ninoska Hunter 03/03/2025 2 [facility] [id number] Ninoska Hunter [id number] Ninoska Hunter Notes Date Note Type Note Provider Name and Address Organization Details Recorded Time 03/03/2025 text/html Generic HPI TemplateReported by Patient Jama Park MD [address], [place], [address], [facility] 03/03/2025 13:19:35 OBGyn Episode Ob Episode Information Episode Created Date Number of Fetuses Patient Bloodtype Patient rh Status Prepregnancy Weight lbs Domestic Partner Domestic Partner Phone Father Name [employer] Consultant Status 10/09/19 25 1 A Positive 203 Adilson Wheat son CLOSED Fetus Data First Name Last Name Admitted to NICU Weight (g) Sex Living Outcome Pediatric Complications Fetus ID Race Codes Race Delivery Type true 3288.54 2 M true Full Term [id number] Primary Problems Problem Notes Problem Name Start Date End Date Resolution Snomed Code Not e Gestational diabetes mellitus 01/24/2025 [id number] Checking bs QID , serial growth us - DT referral faxed to [facility] 01/24 Breech presentation 03/03/2025 [id number] Bao Calculation Initial Bao Date Initial Exam Date [...] Latest Days Gestation 0 04/14/20 25 0 Pre-leonides Flowsheet Flowsheet Date 10/08/2024 Brown Score Blood Edema Fundus Height Fundus Units Glucose Ketones Leukocytes Nitrite Labor Signs Protein Cervic Dilation Cervic Effacement Cervic Station Type Weight in lbs Pre/Post Dialysis Refused Weight 195.291386653522 BP Diastolic BP Location Tested BP Systolic BP Type 86 L arm 122 sitting Fetus Heart Rate Present A Present Fetus Movement Comments Patient presents to [facility] care. otherwise uncomplicated. No nausea or cramping. NT/NB wnl today, desires NIPT. Will draw today with new OB labs. RTC 4 weeks for routine care. Flowsheet Date 11/05/2024 Brown Score Blood Edema Fundus Height Fundus Units Glucose Ketones Leukocytes Nitrite Labor Signs Protein Cervic Dilation Cervic Effacement Cervic Station Type Weight in lbs Pre/Post Dialysis Refused 196.070407993563 BP Diastolic BP Location Tested BP Systolic [...] Type Weight in lbs Pre/Post Dialysis Refused 198.479349953832 BP Diastolic BP Location Tested BP Systolic [...] Weight in lbs Pre/Post Dialysis Refused Weight 202.955467061518 BP Diastolic BP Location Tested BP Systolic [...] Type Weight in lbs Pre/Post Dialysis Refused 207.460058335757 BP Diastolic BP Location Tested BP Systolic [...] Weight in lbs Pre/Post Dialysis Refused Weight 200.821322190083 BP Diastolic BP Location Tested BP Systolic [...] Weight in lbs Pre/Post Dialysis Refused Weight 204.699465160632 BP Diastolic BP Location Tested BP Systolic [...] Type Weight in lbs Pre/Post Dialysis Refused 207.426276862895 BP Diastolic BP Location Tested BP Systolic [...] Weight in lbs Pre/Post Dialysis Refused Weight 208.300158980267 BP Diastolic BP Location Tested BP Systolic [...] Weight in lbs Pre/Post Dialysis Refused Weight 210.556316496461 BP Diastolic BP Location Tested BP Systolic [...] Weight in lbs Pre/Post Dialysis Refused Weight 208.400326784804 BP Diastolic BP Location Tested BP Systolic BP Type 89 L arm 135 sitting Fetus Heart Rate Present Fetus Movement A Yes Comments Flowsheet Date 03/23/2025 Brown Score Blood Edema Fundus Height Fundus Units Glucose Ketones Leukocytes Nitrite Labor Signs Protein Cervic Dilation Cervic Effacement Cervic Station Type Weight in lbs Pre/Post Dialysis Refused Weight 208.422530647075 BP Diastolic BP Location Tested BP Systolic BP Type 84 L arm 135 sitting Fetus Heart Rate Present Fetus Movement A Yes Comments reviewed blood sugars wnl, d oing well, breech, discussed ext version vs pt would like , will have dr beer schedule precautions and education f/u one week [...] Weight in lbs Pre/Post Dialysis Refused Weight 209.096707878007 BP Diastolic BP Location Tested BP Systolic BP Type 83 L arm 134 sitting Fetus Heart Rate Present Fetus Movement A Yes Comments Flowsheet Date 04/01/2025 Brown Score Blood Edema Fundus Height Fundus Units Glucose Ketones Leukocytes Nitrite Labor Signs Protein Cervic Dilation Cervic Effacement Cervic Station Type Weight in lbs Pre/Post Dialysis Refused 209.410567632185 BP Diastolic BP Location Tested BP Systolic BP Type 83 L arm 134 sitting Fetus Heart Rate Present Fetus Movement A Yes Comments bpp 10/10, doing well, revie wed process, recovery, call [...] Weight in lbs Pre/Post Dialysis Refused Weight 201.896534271286 BP Diastolic BP Location Tested BP Systolic [...]
--- OUTSIDE RECORDS SUMMARY | 2025-04-15 19:41 | XMS_ITS | Continuity of Care Document ---
Author Organization [facility] Address [address] [place] [address] Care Team Providers Care Accounting/Finance Tutor Name Role Phone HONORIO SCHUMACHER Primary Care Provider [phone] Assessment Encounter Date Assessment Date Assessment LastModified by Organization Details LastModified Time 02/04/2025 02/04/2025 Patient is 30___weeks . Discussed plan. Not available 02/04/2025 13:59:13 Plan of Treatment Reminders Order Date Submit Date Provider Last Modified By Organization Details Last Modified Time Details Appointments SURG POST OP 2024 01:15P Khloe MORENO MD Not available Not available Not available POST 2025 01:00P Khloe MORENO MD Not available Not available Not available Lab None recorded . Referral None recorded . Procedures None recorded . Surgeries None recorded . Imaging None recorded . Medication Orders None recorded . Patient TargetsNo targets recorded. Patient InstructionsNo instructions recorded. Reason for Referral None Reported. Results Created Date Observation Date Name Description Value Unit Range Abnormal Flag Note LastModifiedBy Organization Detail LastModifiedTime 10/15/1910/14/2024 [UNIT Y] ANEUP LOIDY NIPT fraction 7.0% normal Not Available [facility] [address], [place], [address], 10/14/2024 19:59:38 10/15/19 25 10/14/2024 [UNIT Y] ANEUP LOIDY NIPT 22Q11.2 microdeletio n LOW RISK <1 in 10,000 normal Not Available [facility] [address], [place], [address], 10/14/2024 19:59:38 10/15/19 25 10/14/2024 [UNIT Y] ANEUP LOIDY NIPT sex chromosome aneuploidy NOT DETECT ED normal Not Available [facility] [address], [place], [address], 10/14/2024 19:59:38 10/15/19 25 10/14/2024 [UNIT Y] 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 in 10,000 normal Not Available [facility] [address], [place], [address], 10/14/2024 19:59:38 10/15/19 25 10/14/2024 [UNIT Y] ANEUP LOIDY NIPT trisomy 13 LOW RISK <1 in 10,000 normal Not Available [facility] [address], [place], [address], 10/14/2024 19:59:38 10/15/19 25 10/14/2024 [UNIT Y] ANEUP LOIDY NIPT trisomy 18 LOW RISK <1 in 10,000 normal Not Available [facility] [address], [place], [address], 10/14/2024 19:59:38 10/15/19 25 10/14/2024 [UNIT Y] ANEUP LOIDY NIPT trisomy 21 LOW RISK <1 in 10,000 normal Not Available [facility] [address], [place], [address], 10/14/2024 19:59:38 10/15/19 25 10/14/2024 [UNIT Y] ANEUP LOIDY NIPT sex MALE normal Not Available [facility] [address], [place], [address], 10/14/2024 19:59:38 10/15/19 25 10/14/2024 [UNIT Y] ANEUP LOIDY NIPT gestation SINGLE TON normal Not Available [facility] [address], [place], [address], 10/14/2024 19:59:38 10/15/19 25 10/14/2024 [UNIT Y] ANEUP LOIDY NIPT for detailed report, see pdf See PDF normal Not Available [facility] [address], [place], [address], 10/14/2024 19:59:38 10/20/19 25 10/19/2024 [UNIT Y] ESP[place] sickle cell disease/beta -thalassemia /hemoglobino pathies carrier screen NEGATI VE normal Not Available [facility] [address], [place], [address], 10/19/2024 14:09:36 10/20/19 25 10/19/2024 [UNIT Y] ESP[place] alpha-thalas semia carrier screen NEGATI VE normal Not Available [facility] [address], [place], [address], 10/19/2024 14:09:36 10/20/19 25 10/19/2024 [UNIT Y] ESP[place] cystic fibrosis carrier screen NEGATI VE normal Not Available [facility] [address], [place], [address], 10/19/2024 14:09:36 10/20/19 25 10/19/2024 [UNIT Y] ESP[place] spinal muscular atrophy carrier screen NEGATI VE 2 SMN1 copies , SNP not presen t normal Not Available [facility] [address], [place], [address], 10/19/2024 14:09:36 10/20/19 25 10/19/2024 [UNIT Y] ESPINO[place] for detailed report, see pdf See PDF normal Not Available [facility] [address], [place], [address], 10/19/2024 14:09:36 10/09/1910/08/2024 CULTU RE: URINE result report SEE RESULT S BELOW Test: Cultu re: Urine Speci men Sourc e: Urine Voide d Speci men Type: Urine Speci men Date: 2024 1320 Resul t Date: 2024 0400 Resul t Statu s: Final resul t Abnor mal: No Resul ting Lab: [facility] [address] [facility] [address] Tel: CULTU RE ----- ----- ----- --- No growt h in 1 day (dete ction level of 10,00 0 colon ies / ml.) Not Available [facility] (Lab) [address] [facility], [place], [address], 10/10/2024 05:04:31 10/09/1910/08/2024 CBC W/DIF F WBC 9.1 10'3/ uL 3.5-10 .5 Not Available [facility] (Lab) [address] [place], [address], 10/11/2024 20:50:49 10/09/19 25 10/08/2024 CBC W/DIF F RBC 5.20 10'6/ uL (based on docume nted legal sex) 3.80-5 .20 Not Available [facility] (Lab) [address] [place], [address], 10/11/2024 20:50:49 10/09/19 25 10/08/2024 CBC W/DIF F HGB 14.7 g/dL (based on docume nted legal sex) 11.6-1 5.4 Not Available [facility] (Lab) [address] [place], [address], 10/11/2024 20:50:49 10/09/19 25 10/08/2024 CBC W/DIF F HCT 45.2 % (based on docume nted legal sex) 34.0-4 5.0 high Not Available [facility] (Lab) [address] [facility], [place], [address], 10/11/2024 20:50:49 10/09/19 25 10/08/2024 CBC W/DIF F MCV 86.9 fL 80.0-9 9.0 Not Available [facility] (Lab) [address] [facility], [place], [address], 10/11/2024 20:50:49 10/09/19 25 10/08/2024 CBC W/DIF F MCH 28.3 pg 27.0-3 4.0 Not Available [facility] (Lab) [address] [facility], [place], [address], 10/11/2024 20:50:49 10/09/19 25 10/08/2024 CBC W/DIF F MCHC 32.5 g/dL 32.0-3 5.5 Not Available [facility] (Lab) [address] [facility], [place], [address], 10/11/2024 20:50:49 10/09/19 25 10/08/2024 CBC W/DIF F RDW 13.2 % 11.0-1 5.0 Not Available [facility] (Lab) [address] [facility], [place], [address], 10/11/2024 20:50:49 10/09/19 25 10/08/2024 CBC W/DIF F plt 286 10'3/ uL 150-40 0 Not Available [facility] (Lab) [address] [facility], [place], [address], 10/11/2024 20:50:49 10/09/19 25 10/08/2024 CBC W/DIF F MPV 11.7 fL 8.8-12 .1 Not Available [facility] (Lab) [address] [facility], [place], [address], 10/11/2024 20:50:49 10/09/19 25 10/08/2024 CBC W/DIF F NRBC's 0.0 % 0.0 Not Available [facility] (Lab) [address] [facility], [place], [address], 10/11/2024 20:50:49 10/09/19 25 10/08/2024 CBC W/DIF F absolute NRBCs 0.0 10'3/ uL no refere nce range establ ished Not Available [facility] (Lab) [address] [facility], [place], [address], 10/11/2024 20:50:49 10/09/19 25 10/08/2024 CBC W/DIF F neutrophils 67.1 % 34.0-7 3.0 Not Available [facility] (Lab) [address] [facility], [place], [address], 10/11/2024 20:50:49 10/09/19 25 10/08/2024 CBC W/DIF F lymphocytes 25.1 % 15.0-5 0.0 Not Available [facility] (Lab) [address] [facility], [place], [address], 10/11/2024 20:50:49 10/09/19 25 10/08/2024 CBC W/DIF F monocytes 6.4 % 1.0-15 .0 Not Available [facility] (Lab) [address] [facility], [place], [address], 10/11/2024 20:50:49 10/09/19 25 10/08/2024 CBC W/DIF F eosinophils 0.9 % 0.0-8. 0 Not Available [facility] (Lab) [address] [facility], [place], [address], 10/11/2024 20:50:49 10/09/19 25 10/08/2024 CBC W/DIF F basophils 0.3 % 0.0-2. 0 Not Available [facility] (Lab) [address] [place], [address], 10/11/2024 20:50:49 10/09/19 25 10/08/2024 CBC W/DIF [...] separ ately if prese nt. Not Available [facility] (Lab) [address] [facility], [place], [address], 10/11/2024 20:50:49 10/09/19 25 10/08/2024 CBC W/DIF F absolute neutrophils 6.1 10'3/ uL 1.5-8. 0 Not Available [facility] (Lab) [address] [facility], [place], [address], 10/11/2024 20:50:49 10/09/19 25 10/08/2024 CBC W/DIF F absolute lymphocytes 2.3 10'3/ uL 1.0-4. 0 Not Available [facility] (Lab) [address] [facility], [place], [address], 10/11/2024 20:50:49 10/09/19 25 10/08/2024 CBC W/DIF F absolute monocytes 0.6 10'3/ uL 0.2-1. 0 Not Available [facility] (Lab) [address] [facility], [place], [address], 10/11/2024 20:50:49 10/09/19 25 10/08/2024 CBC W/DIF F absolute eosinophils 0.1 10'3/ uL 0.0-0. 6 Not Available [facility] (Lab) [address] [facility], [place], [address], 10/11/2024 20:50:49 10/09/19 25 10/08/2024 CBC W/DIF F absolute basophils 0.0 10'3/ uL 0.0-0. 3 Not Available [facility] (Lab) [address] [facility], [place], [address], 10/11/2024 20:50:49 10/09/1910/08/2024 CBC W/DIF F absolute immature granulocytes 0.0 10'3/ uL 0.00-0 .10 Refer ence range s for nonbi nary/ inter sex or unspe cifie d gende r patie nts have not been estab lishe d. Yael e refer to the mariaelenao wing table for range s estab lishe d for cisge nder patie nts and evalu ate in the clini hussein ej xt of the indiv idual patie nt: https ://la ki book. nm.or g/gen derx Not Available [facility] (Lab) [address] [facility], [place], [address], 10/11/2024 20:50:49 10/09/1910/08/2024 HIV 1/2 ANTIG EN/AN TIBOD Y, REFLE X CONFI RMATI ON HIV antigen/anti body Nonrea ctive nonrea ctive HIV-1 antig en and HIV-1 /HIV- 2 antib odies were not detec adela. No labor atory evide nce of HIV infec tion. Not Available [facility] (Lab) [address] [facility], [place], [address], 10/11/2024 20:50:49 10/09/1910/08/2024 HEPAT ITIS B SURFA CE ANTIG EN hepatitis B surface antigen Non-re active non-re active This assay was perfo rmed using [employer] ratio n reage nts and test kits. Value s obtai charles with other assay metho ds or kits canno t be used inter emanuel eably . Not Available [facility] (Lab) [address] [facility], [place], [address], 10/11/2024 20:50:50 10/09/19 25 10/08/2024 HEPAT ITIS C ANTIB NITA SCREE N, REFLE X TO CONFI RMATI ON hepatitis C antibody Non-re active non-re active Antib odies to HCV Not Detec adela, does not exclu de the possi bilit y of expos ure to HCV. Not Available [facility] (Lab) [address] [facility], [place], [address], 10/11/2024 20:50:50 10/09/19 25 10/08/2024 RUBEL LA IGG ANTIB NITA, QUANT rubella antibodies, IgG Reacti ve reacti ve Not Available [facility] (Lab) [address] [facility], [place], [address], 10/11/2024 20:50:50 10/09/19 25 10/08/2024 RUBEL LA IGG ANTIB NITA, QUANT rubella antibodies, IgG quant 24.1 IU/mL >=10 Non-r eacti ve (Non- Immun e) <10 IU/mL React alejandra (Immu ne) > or = 10 IU/mL Not Available [facility] (Lab) [address] [facility], [place], [address], 10/11/2024 20:50:50 10/09/19 25 10/08/2024 TYPE/ RH/SC REEN ABO/Rh type A POS Not Available [facility] (Lab) [address] [facility], [place], [address], 10/11/2024 20:50:51 10/09/19 25 10/08/2024 TYPE/ RH/SC REEN antibody screen NEG Not Available [facility] (Lab) [address] [facility], [place], [address], 10/11/2024 20:50:51 10/09/19 25 10/08/2024 TYPE/ RH/SC REEN exp date 2024 23:59 Not Available [facility] (Lab) [address] [facility], [place], [address], 10/11/2024 20:50:51 10/09/19 25 10/08/2024 HEMOG LOBIN A1C hemoglobin A1C 5.2 % 4.0-5. 6 The Ameri can [employer] [facility] [employer] iatio n recom mends that a prima ry goal of thera py aneta brooks be a HBA1C of < 7% and that physi cians shoul d reeva luate the treat ment regim en in patie nts with HBA1C value s consi stent ly > 8%. <5.7% Khloe l 5.7 - 6.4% Incre ased risk for diabe yenni >=6.5 % Diagn ostic of diabe yenni <7.0% Goal of thera py >8.0% Actio n sugge sted Not Available [facility] (Lab) [address], [place], [address], 10/11/2024 20:50:51 10/09/19 25 10/08/2024 RPR SCREE N, REFLE X TITER /CONF IRMAT ION RPR qualitative Nonrea ctive nonrea ctive Not Available [facility] (Lab) [address], [place], [address], 10/11/2024 20:50:51 10/09/19 25 10/08/2024 drug scree n, urine Amphetamines : negati ve Not Available [facility] [address], [place], [address], 10/08/2024 13:34:18 10/09/19 25 10/08/2024 drug scree n, urine Cannabinoids : negati ve Not Available [facility] [address], [place], [address], 10/08/2024 13:34:18 10/09/19 25 10/08/2024 drug scree n, urine Cocaine: negati ve Not Available [facility] [address], [place], [address], 10/08/2024 13:34:18 10/09/19 25 10/08/2024 drug scree n, urine Opiates: negati ve Not Available [facility] [address], [place], [address], 10/08/2024 13:34:18 10/09/19 25 10/08/2024 drug scree n, urine Barbiturates : negati ve Not Available [facility] [address], [place], [address], 10/08/2024 13:34:18 10/09/19 25 10/08/2024 drug scree n, urine Benzodiazepi dino: negati ve Not Available [facility] [address], [place], [address], 10/08/2024 13:34:18 01/22/20 25 01/21/2025 GTT - GESTA MARYANA L SCREE N, ACOG OB glucose, 1 hour screen 210 mg/dL 70-135 high Not Available [facility] (Lab) [address], [place], [address], 01/22/2025 12:46:27 01/22/20 25 01/21/2025 HIV 1/2 ANTIG EN/AN TIBOD Y, REFLE X CONFI RMATI ON HIV antigen/anti body Nonrea ctive nonrea ctive HIV-1 antig en and HIV-1 /HIV- 2 antib odies were not detec adela. No labor atory evide nce of HIV infec tion. Not Available [facility] (Lab) [address], [place], [address], 01/22/2025 12:46:28 01/22/20 25 01/21/2025 HEMOG LOBIN (HGB) HGB 13.3 g/dL (based on docume nted legal sex) 11.6-1 5.4 Not Available [facility] (Lab) [address], [place], [address], 01/22/2025 12:46:28 01/22/20 25 01/21/2025 HEMAT OCRIT (HCT) HCT 40.3 % (based on docume nted legal sex) 34.0-4 5.0 Not Available [facility] (Lab) [address], [place], [address], 01/22/2025 12:46:28 01/22/20 25 01/21/2025 RPR SCREE N, REFLE X TITER /CONF IRMAT ION RPR qualitative Nonrea ctive nonrea ctive Not Available [facility] (Lab) [address] [facility], [place], [address], 01/22/2025 12:46:28 10/09/19 25 10/08/2024 US, obste tric, nucha l trans lucen cy No observ ation [facility] ed. [facility] [address], [place], [address], 10/08/2024 18:39:08 10/09/19 25 10/08/2024 US, obste tric, nucha l trans lucen cy No observ ation record ed. [email or web address] [address], [place], [address], 10/09/2024 23:09:07 11/25/19 25 11/24/2024 US, obste tric, 2nd or 3rd trime ster No observ ation record ed. [email or web address] V[address]ana [address], [place], [address], 12/01/2024 11:58:43 11/25/19 25 11/25/2024 US, obste tric, 2nd or 3rd trime ster No observ ation record ed. [email or web address] [place] [address] [address], [place], [address], 11/25/2024 12:49:42 12/25/19 25 12/24/2024 US, obste tric, follo w-up No observ ation record ed. ELIN [facility], [place], [address], 01/01/2025 17:08:59 12/25/1912/24/2024 US, obste tric, follo w-up No observ ation record ed. [facility] [address], [place], [address], 12/24/2024 13:46:21 02/05/20 25 02/04/2025 US, obste tric, follo w-up No observ ation record ed. [facility] [address], [place], [address], 02/04/2025 13:02:03 02/05/2002/04/2025 US, obste tric, follo w-up No observ ation record ed. [email or web address] [facility], [place], [address], 02/07/2025 16:14:11 03/03/20 25 03/03/2025 US, obste tric, follo w-up No observ ation record ed. [email or web address] [facility] [address], [place], [address], 03/03/2025 15:11:00 03/03/20 25 03/03/2025 US, obste tric, follo w-up No observ ation record ed. [email or web address] [facility], [place], [address], 03/04/2025 12:00:47 03/10/20 25 03/10/2025 non-s tress test No observ ation record ed. [place] [id number] [facility] [address] [facility], [place], [address], 03/14/2025 11:36:31 03/10/20 25 03/10/2025 US, obste tric, follo w-up No observ ation record ed. [email or web address] [facility] [address], [place], [address], 03/11/2025 08:40:14 03/18/20 25 03/18/2025 non-s tress test No observ ation record ed. [email or web address] [facility] [address], [place], [address], 03/28/2025 10:44:01 03/18/20 25 03/18/2025 non-s tress test No observ ation record ed. [email or web address] [address], [place], [address], 04/15/2025 10:36:55 03/18/20 25 03/18/2025 US, obste tric, bioph ysica l profi le No observ ation record ed. [address] [facility], [place], [address], 03/23/2025 16:26:00 03/18/20 25 03/18/2025 US, obste tric, bioph ysica l profi le No observ ation record ed. [address] [facility], [place], [address], 03/23/2025 16:25:42 03/18/20 25 03/18/2025 non-s tress test No observ ation record ed. [address] [facility], [place], [address], 03/28/2025 11:00:24 03/23/20 25 03/23/2025 US, obste tric, bioph ysica l profi le + non-s tress test No observ ation record ed. [email or web address] [facility] [address], [place], [address], 03/23/2025 18:22:09 03/23/20 25 03/23/2025 US, obste tric, bioph ysica l profi le + non-s tress test No observ ation record ed. [email or web address] [address], [place], [address], 03/30/2025 11:20:06 03/23/2003/23/2025 non-s tress test No observ ation record ed. [address], [place], [address], 03/23/2025 17:56:30 03/23/20 non-s tress test No observ ation record ed. [address], [place], [address], 03/23/2025 17:23:26 04/01/2004/01/2025 US, paige tric, follo w-up No observ ation record ed. [facility] [address], [place], [address], 04/01/2025 14:56:59 04/01/20 25 04/01/2025 US, paige guerrero, bioph ysica l profi le + non-s tress test No observ ation record ed. [facility] [address], [place], [address], 04/01/2025 14:57:12 04/01/20 25 04/01/2025 US, paige tric, follo w-up No observ ation record ed. [email or web address] [address], [place], [address], 04/04/2025 12:34:31 04/01/20 25 04/01/2025 non-s tress test No observ ation record ed. [address], [place], [address], 04/01/2025 16:35:28 04/01/20 non-s tress test No observ ation record ed. [address], [place], [address], 04/01/2025 16:40:02 Result Notes None recorded. 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 17:28:[address] Concept Completed 201701/23/2021 Encntr for routine child health exam w/o abnormal findings ;Recorde d Elsewher e: No Locat ion: [facility] S ource: EHR Associate Counsel junior: N Practi ce ID: [id number] Con lable Time: 01:00:00 PM Mile Paredes [facility] 17:28:33 Surveill ance of contrace ption Completed 201701/23/2021 Encounte r for surveill ance of contrace ptives, unspecif ied;[place]cy rded Elsewher e: No Locat ion: [facility] S ource: EHR Associate Counsel junior: N Practi ce ID: [id number] Con lable Time: 02:00:00 PM Mile rasheed [facility] 17:28:49 Clinical finding Completed 201701/23/2021 Presence of (intraut erine) contrace ptive device;R ecorded Elsewher e: No Locat ion: [facility] S ource: EHR Associate Counsel junior: N Practi ce ID: [id number] Con lable Time: 08:00:00 AM [facility] 17:28:39 Insertio n of intraute rine contrace ptive device Completed 201701/23/2021 Encounte r for insertio n of intraute rine contrace ptive device;R ecorded Elsewher e: No Locat ion: [facility] S ource: EHR Associate Counsel junior: N Practi ce ID: [id number] Con lable Time: 08:00:00 AM Mile rasheed, [facility] 17:28:46 Pregnanc y test negative [id number] Completed 201701/23/2021 Encounte r for pregnanc y test, result negative ;Practic e ID: 0001 Mile rasheed, [facility] 17:28:25 Contrace ptive sheath status [id number] Completed 201701/23/2021 Encounte r for routine checking of intraute rine contrace p dev;Prac marco ID: 0001 Mile rasheed, [facility] 17:28:19 Pelvic and perineal pain [id number] Completed 201701/23/2021 Pelvic pain;Rec orded Elsewher e: No Locat ion: [facility] S ource: EHR Associate Counsel junior: N Practi ce ID: [id number] Con lable Time: 04:00:00 PM Mile rasheed, [facility] 17:28:31 Syphilis test finding [id number] Completed 201701/23/2021 Encntr screen for infectio ns w sexl mode of transmis s;Practi ce ID: 0001 Mile rasheed, [facility] 17:28:42 Infectio n screenin g Completed 201701/23/2021 Encounte r for screenin g for oth infec/pa rastc diseases ;Practic e ID: 0001 Mile rasheed, [facility] 17:27:55 Contrace ption care manageme nt Completed 201801/23/2021 Encounte r for contrace ptive manageme nt, unspecif ied;Quincy rded Elsewher e: No Locat ion: [facility] S ource: EHR Associate Counsel junior: N Practi ce ID: [id number] Con lable Time: 10:45:00 AM Mile rasheed [facility] 17:28:44 Blood leukocyt e number above referenc e range [id number] Completed 201801/23/2021 Elevated white blood cell count, unspecif ied;Prac marco ID: 0001 Mile Paredes [facility] 17:28:45 Acute vaginiti s [id number] Completed 201801/23/2021 Acute vaginiti s;Record ed Elsewher e: No Locat ion: [facility] S ource: EHR Associate Counsel junior: N Practi ce ID: [id number] Con lable Time: 10:45:00 AM Mile rasheed [facility] 17:28:21 Increase d frequenc y of urinatio n [id number] Completed 201801/23/2021 Urinary frequenc y;Record ed Elsewher e: No Locat ion: [facility] S ource: EHR Associate Counsel junior: N Practi ce ID: [id number] Con lable Time: 10:45:00 AM Mile rasheed [facility] 17:27:54 Uses combined oral contrace ption [id number] Completed 201801/23/2021 Encounte r for initial prescrip tion of contrace ptive pills;Pr actice ID: [id number] Mile Paredes [facility] 17:28:27 Removal of intraute rine device Completed 201801/23/2021 Encounte r for removal of intraute rine contrace ptive device;P ractice ID: [id number] Mile Paredes [facility] 1 17:28:48 Pregnanc y [id number] Completed 202404/15/2025 Zainab rasheed, [facility] 5 14:35:49 Gestatio nal diabetes mellitus [id number] Completed 2024 Checking bs QID , serial growth us - DT referral faxed to [facility] 01/24 Randi Cosme rasheed, [facility] 5 13:08:13 Breech presenta tion [id number] Completed 2024 Jama Moreno MD [address], [place], [address], [facility] 5 12:37:19 Problem Notes None recorded. Procedures Surgical History Date Name Laterality Status Provider Name and Address Organization Details Recorded Time 5 SECTION (SURG[facility] Not [facility] 13:53:03 4 Date of Last Pap Smear completed Zainab Weston [facility] 09/06/2024 12:53:25 1 extraction of wisdom tooth completed Leida Duenas [facility] 08/19/2023 16:44:18 Imaging Results None recorded. [...] ed Elsewher e: Yes Loca tion: [facility] M odify By: [email or web address] Encount er DateTime : 09/10/19 18 03:30:00 [...] Prescrib ed Elsewher e: No [facility]at [facility] odify By: nadia archuleta DateTime : 12/09/19 11:49:30 AM Not Available Not Available Not Available Metrogel Vaginal 0.75 % (37.5 mg/5 gram) insert 1 applicat orful by vaginal route for 5 nights at bedtime 09/09 completed Prescrib ed Elsewher e: No Locat ion: [facility] odify By: [email or web address] hernandez DateTime : 05/19/19 10:59:56 AM Not Available Not Available Not [...] Elsewher e: Yes Loca tion: [facility] odify By: serenity Javier ncounter DateTime : [...] Prescrib ed Elsewher e: No Locat ion: [facility] odify By: [email or web address] Juan Miguel ncounter DateTime [...] Available Not Available Vitals Date Recorded Body height Body mass index (BMI) Body weight Systolic And Diastolic Provider Name and Address Organization Details Last Updated DateTime 02/04/2025 161.29 cm 34.9 kg/m2 74169.47 g 112/80 mm[Hg] Lizett Huston [facility] 02/04/2025 13:08:55 Social History Question Answer Notes LastModified by Organizat ion Details LastModified Time Tobacco Smoking Status Never Smoker Zainab rasheed, [facility] 10/31/2022 17:02:19 Do You Have An [...] Or The Highest Degree You Have Received? FD17846-6 [email or web address] Information not available 02/17/2024 Are There Any Guns Present In Your Home? Yes Information not available 02/17/2024 Do You Use Protection During Sex? No [email or web address] Information not available 02/17/2024 Do You Use Your Seat Belt Or Car Seat Routinely? Yes Information not available 08/15/2021 Are You Sexually Active? Yes [email or web address] Information not available 02/04/2025 Do You Have Smoke And Carbon Monoxide Detectors In Your Home? Yes Information not available 08/15/2021 How Much Tobacco Do You Smoke? No Information not available 09/11/2021 Do You Use Sunscreen Routinely? Yes Information not available 08/15/2021 Has Tobacco Cessation Counseling Been Provided? No [email or web address] Information not available 02/04/2025 Have You Used [...] other forms of tobacco or nicotine? No [email or web address] Information not available 02/04/2025 What is your level of alcohol consumption? None [email or web address] Information not available 02/17/2024 Are you currently employed? Yes [email or web address] Information not available 02/04/2025 Are you able to walk independently without assistance or assistive devices? [email or web address] Information not available 08/15/2021 Are you able to care for yourself independently? 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 No Information not available 10/31/2022 What is your exercise level? Occasional [email or web address] Information not available 12/08/2019 Mental Status Question Answer Note LastModified by Organization D etails LastModified Time Do you feel stressed (tense, restless, nervous, or anxious, or unable to sleep at night)? [id number] Information not available 08/15/2021 Family History Relationship [...] mL dose, filippo-sucrose 06/05/2021 completed Olamide Shafer [facility] 08/15/2021 12:28:36 Past Encounters Encounter ID Performer Location Encounter Start Date Encounter Closed Date Diagnosis/Indication Diagnosis SNOMED-CT Code Diagnosis ICD10 Code Diagnosis IMO Codes Diagnosis Note [id number] Jama Moreno MD [facility] [address] [address] 01/21/2025 10:41:10 01/21/2025 15:27:22 Third trimester 01262875 Z34.03 [id number] Jama Moreno MD [facility] [address],[place] [address] 02/04/2025 12:11:20 02/04/2025 12:58:53 Gestational diabetes mellitus 72737144 O24.410 Z3A.30 [id number] Bertha Alfonso CNM [facility] [address],[place] [address] 02/04/2025 12:12:03 02/04/2025 14:24:39 Gestation period, 30 weeks 26424886 Z3A.30 2381177 Health Concerns Section Related Observation LastModified by Organization Detai ls LastModified Time None Recorded Concern Status LastModified by Organization Details LastModified Time None Recorded Payers Encounter Date Sequence Insurance Name Policy Number Policy Young Covered Member ID Young Member ID Guarantor Name 02/04/2025 1 [facility] [id number] Norma Hunter [id number] Ninoska Hunter 02/04/2025 2 [facility] [id number] Ninoska Hunter [id number] Ninoska Hunter Notes Date Note Type Note Provider Name and Address Organization Details Recorded Time 02/04/2025 text/html Generic HPI TemplateReported by Patient Bertha Alfonso CNM [address], [place], [address], [facility] 02/04/2025 14:16:34 OBGyn Episode Ob Episode Information Episode Created Date Number of Fetuses Patient Bloodtype Patient rh Status Prepregnancy Weight lbs Domestic Partner Domestic Partner Phone Father Name Animal Rescuer Status 10/09/19 25 1 A Positive 203 Adilson Wheat son CLOSED Fetus Data First Name Last Name Admitted to NICU Weight (g) Sex Living Outcome Pediatric Complications Fetus ID Race Codes Race Delivery Type true 3288.54 2 M true Full Term [id number] Primary Problems Problem Notes Problem Name Start Date End Date Resolution Snomed Code Not e Gestational diabetes mellitus 01/24/2025 23740141 Checking bs QID , serial growth us - DT referral faxed to [facility] 01/24 Breech presentation 03/03/2025 [id number] Bao Calculation Initial Bao Date Initial Exam [...] Weight in lbs Pre/Post Dialysis Refused Weight 195.842860752305 BP Diastolic BP Location Tested BP Systolic BP Type 86 L arm 122 sitting Fetus Heart Rate Present A Present Fetus Movement Comments Patient presents to [facility] care. otherwise uncomplicated. No nausea or cramping. NT/NB wnl today, desires NIPT. Will draw today with new OB labs. RTC 4 weeks for routine care. Flowsheet Date 11/05/2024 Brown Score Blood Edema Fundus Height Fundus Units Glucose Ketones Leukocytes Nitrite Labor Signs Protein Cervic Dilation Cervic Effacement Cervic Station Type Weight in lbs Pre/Post Dialysis Refused 196.794083602589 BP Diastolic BP Location Tested BP Systolic [...] Type Weight in lbs Pre/Post Dialysis Refused 198.621797280709 BP Diastolic BP Location Tested BP Systolic [...] Weight in lbs Pre/Post Dialysis Refused Weight 202.466674814939 BP Diastolic BP Location Tested BP Systolic [...] Type Weight in lbs Pre/Post Dialysis Refused 207.506684116064 BP Diastolic BP Location Tested BP Systolic [...] Weight in lbs Pre/Post Dialysis Refused Weight 200.247071126772 BP Diastolic BP Location Tested BP Systolic [...] Weight in lbs Pre/Post Dialysis Refused Weight 204.669352911123 BP Diastolic BP Location Tested BP Systolic [...] Type Weight in lbs Pre/Post Dialysis Refused 207.468331573586 BP Diastolic BP Location Tested BP Systolic [...] Weight in lbs Pre/Post Dialysis Refused Weight 208.127124046569 BP Diastolic BP Location Tested BP Systolic [...] Weight in lbs Pre/Post Dialysis Refused Weight 210.736568952586 BP Diastolic BP Location Tested BP Systolic [...] Weight in lbs Pre/Post Dialysis Refused Weight 208.524281557287 BP Diastolic BP Location Tested BP Systolic BP Type 89 L arm 135 sitting Fetus Heart Rate Present Fetus Movement A Yes Comments Flowsheet Date 03/23/2025 Brown Score Blood Edema Fundus Height Fundus Units Glucose Ketones Leukocytes Nitrite Labor Signs Protein Cervic Dilation Cervic Effacement Cervic Station Type Weight in lbs Pre/Post Dialysis Refused Weight 208.682567586824 BP Diastolic BP Location Tested BP Systolic [...] Weight in lbs Pre/Post Dialysis Refused Weight 209.055959515619 BP Diastolic BP Location Tested BP Systolic BP Type 83 L arm 134 sitting Fetus Heart Rate Present Fetus Movement A Yes Comments Flowsheet Date 04/01/2025 Brown Score Blood Edema Fundus Height Fundus Units Glucose Ketones Leukocytes Nitrite Labor Signs Protein Cervic Dilation Cervic Effacement Cervic Station Type Weight in lbs Pre/Post Dialysis Refused 209.992388168235 BP Diastolic BP Location Tested BP Systolic [...] Weight in lbs Pre/Post Dialysis Refused Weight 201.046756096264 BP Diastolic BP Location Tested BP Systolic [...]
--- OUTSIDE RECORDS SUMMARY | 2025-04-15 19:41 | XMS_ITS | Continuity of Care Document ---
Author Organization [facility] Address [address] [place] [address] Care Team Providers Care Policy Adviser Name Role Phone HONORIO SCHUMACHER Primary Care Provider [phone] Assessment Encounter Date Assessment Date Assessment LastModified by Organization Details LastModified Time 02/18/2025 02/18/2025 Patient is _32__weeks . Discussed plan. Not available 02/18/2025 09:51:24 Plan of Treatment Reminders Order Date Submit [...] Not Available [facility] [address], [place], [address], 10/14/2024 19:59:38 10/15/19 25 10/14/2024 [UNIT Y] ANEUP LOIDY NIPT 22Q11.2 microdeletio n LOW RISK <1 in 10,000 normal Not Available [facility] [address], [place], [address], 10/14/2024 19:59:38 10/15/19 25 10/14/2024 [UNIT Y] ANEUP LOIDY NIPT sex chromosome aneuploidy NOT DETECT ED normal Not Available [facility] [address], [place], [address], 10/14/2024 19:59:38 10/15/19 25 10/14/2024 [UNIT Y] 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 in 10,000 normal Not Available [facility] [address], [place], [address], 10/14/2024 19:59:38 10/15/19 25 10/14/2024 [UNIT Y] ANEUP LOIDY NIPT trisomy 13 LOW RISK <1 in 10,000 normal Not Available [facility] [address], [place], [address], 10/14/2024 19:59:38 10/15/19 25 10/14/2024 [UNIT Y] ANEUP LOIDY NIPT trisomy 18 LOW RISK <1 in 10,000 normal Not Available [facility] [address], [place], [address], 10/14/2024 19:59:38 10/15/19 25 10/14/2024 [UNIT Y] ANEUP LOIDY NIPT trisomy 21 LOW RISK <1 in 10,000 normal Not Available [facility] [address], [place], [address], 10/14/2024 19:59:38 10/15/19 25 10/14/2024 [UNIT Y] ANEUP LOIDY NIPT sex MALE normal Not Available [facility] [address], [place], [address], 10/14/2024 19:59:38 10/15/19 25 10/14/2024 [UNIT Y] ANEUP LOIDY NIPT gestation SINGLE TON normal Not Available [facility] [address], [place], [address], 10/14/2024 19:59:38 10/15/19 25 10/14/2024 [UNIT Y] ANEUP LOIDY NIPT for detailed report, see pdf See PDF normal Not Available [facility] [address], [place], [address], 10/14/2024 19:59:38 10/20/19 25 10/19/2024 [UNIT Y] ESPINOZA [place] sickle cell disease/beta -thalassemia /hemoglobino pathies carrier screen NEGATI VE normal Not Available [facility] [address], [place], [address], 10/19/2024 14:09:36 10/20/19 25 10/19/2024 [UNIT Y] ESPINOZA [place] alpha-thalas semia carrier screen NEGATI VE normal Not Available [facility] [address], [place], [address], 10/19/2024 14:09:36 10/20/19 25 10/19/2024 [UNIT Y] ESPINO[place] cystic fibrosis carrier screen NEGATI VE normal Not Available [facility] [address], [place], [address], 10/19/2024 14:09:36 10/20/19 25 10/19/2024 [UNIT Y] ESP[place] spinal muscular atrophy carrier screen NEGATI VE 2 SMN1 copies , SNP not presen t normal Not Available [facility] [address], [place], [address], 10/19/2024 14:09:36 10/20/19 25 10/19/2024 [UNIT Y] ESPINOZA [place] for detailed report, see pdf See PDF normal Not Available [facility] [address], [place], [address], 10/19/2024 14:09:36 10/09/1910/08/2024 CULTU RE: URINE result report SEE RESULT S BELOW Test: Cultu re: Urine Speci men Sourc e: Urine Voide d Speci men Type: Urine Speci men Date: 2024 1320 Resul t Date: 2024 0400 Resul t Statu s: Final resul t Abnor mal: No Resul ting Lab: [facility] [address] [facility] [address] Tel: CULTU RE ----- ----- ----- --- No growt h in 1 day (dete ction level of 10,00 0 colon ies / ml.) Not Available [facility] (Lab) [address] [facility], [place], [address], 10/10/2024 05:04:31 10/09/1910/08/2024 CBC W/DIF F WBC 9.1 10'3/ uL 3.5-10 .5 Not Available [facility] (Lab) [address] [place], [address], 10/11/2024 20:50:49 10/09/19 25 10/08/2024 CBC W/DIF F RBC 5.20 10'6/ uL (based on docume nted legal sex) 3.80-5 .20 Not Available [facility] (Lab) [address] [place], [address], 10/11/2024 20:50:49 10/09/19 25 10/08/2024 CBC W/DIF F HGB 14.7 g/dL (based on docume nted legal sex) 11.6-1 5.4 Not Available [facility] (Lab) [address] [place], [address], 10/11/2024 20:50:49 10/09/19 25 10/08/2024 CBC W/DIF F HCT 45.2 % (based on docume nted legal sex) 34.0-4 5.0 high Not Available [facility] (Lab) [address] [facility], [place], [address], 10/11/2024 20:50:49 10/09/19 25 10/08/2024 CBC W/DIF F MCV 86.9 fL 80.0-9 9.0 Not Available [facility] (Lab) [address] [facility], [place], [address], 10/11/2024 20:50:49 10/09/19 25 10/08/2024 CBC W/DIF F MCH 28.3 pg 27.0-3 4.0 Not Available [facility] (Lab) [address] [facility], [place], [address], 10/11/2024 20:50:49 10/09/19 25 10/08/2024 CBC W/DIF F MCHC 32.5 g/dL 32.0-3 5.5 Not Available [facility] (Lab) [address] [facility], [place], [address], 10/11/2024 20:50:49 10/09/19 25 10/08/2024 CBC W/DIF F RDW 13.2 % 11.0-1 5.0 Not Available [facility] (Lab) [address] [facility], [place], [address], 10/11/2024 20:50:49 10/09/19 25 10/08/2024 CBC W/DIF F plt 286 10'3/ uL 150-40 0 Not Available [facility] (Lab) [address] [facility], [place], [address], 10/11/2024 20:50:49 10/09/19 25 10/08/2024 CBC W/DIF F MPV 11.7 fL 8.8-12 .1 Not Available [facility] (Lab) [address] [facility], [place], [address], 10/11/2024 20:50:49 10/09/19 25 10/08/2024 CBC W/DIF F NRBC's 0.0 % 0.0 Not Available [facility] (Lab) [address] [facility], [place], [address], 10/11/2024 20:50:49 10/09/19 25 10/08/2024 CBC W/DIF F absolute NRBCs 0.0 10'3/ uL no refere nce range establ ished Not Available [facility] (Lab) [address] [facility], [place], [address], 10/11/2024 20:50:49 10/09/19 25 10/08/2024 CBC W/DIF F neutrophils 67.1 % 34.0-7 3.0 Not Available [facility] (Lab) [address] [facility], [place], [address], 10/11/2024 20:50:49 10/09/19 25 10/08/2024 CBC W/DIF F lymphocytes 25.1 % 15.0-5 0.0 Not Available [facility] (Lab) [address] [facility], [place], [address], 10/11/2024 20:50:49 10/09/19 25 10/08/2024 CBC W/DIF F monocytes 6.4 % 1.0-15 .0 Not Available [facility] (Lab) [address] [facility], [place], [address], 10/11/2024 20:50:49 10/09/19 25 10/08/2024 CBC W/DIF F eosinophils 0.9 % 0.0-8. 0 Not Available [facility] (Lab) [address] [facility], [place], [address], 10/11/2024 20:50:49 10/09/19 25 10/08/2024 CBC W/DIF F basophils 0.3 % 0.0-2. 0 Not Available [facility] (Lab) [address] [place], [address], 10/11/2024 20:50:49 10/09/19 25 10/08/2024 CBC W/DIF [...] separ ately if prese nt. Not Available [facility] (Lab) [address] [facility], [place], [address], 10/11/2024 20:50:49 10/09/19 25 10/08/2024 CBC W/DIF F absolute neutrophils 6.1 10'3/ uL 1.5-8. 0 Not Available [facility] (Lab) [address] [facility], [place], [address], 10/11/2024 20:50:49 10/09/19 25 10/08/2024 CBC W/DIF F absolute lymphocytes 2.3 10'3/ uL 1.0-4. 0 Not Available [facility] (Lab) [address] [facility], [place], [address], 10/11/2024 20:50:49 10/09/19 25 10/08/2024 CBC W/DIF F absolute monocytes 0.6 10'3/ uL 0.2-1. 0 Not Available [facility] (Lab) [address] [facility], [place], [address], 10/11/2024 20:50:49 10/09/19 25 10/08/2024 CBC W/DIF F absolute eosinophils 0.1 10'3/ uL 0.0-0. 6 Not Available [facility] (Lab) [address] [facility], [place], [address], 10/11/2024 20:50:49 10/09/19 25 10/08/2024 CBC W/DIF F absolute basophils 0.0 10'3/ uL 0.0-0. 3 Not Available [facility] (Lab) [address] [facility], [place], [address], 10/11/2024 20:50:49 10/09/1910/08/2024 CBC W/DIF F absolute [...] ki book. nm.or g/gen derx Not Available [facility] (Lab) [address] [facility], [place], [address], 10/11/2024 20:50:49 10/09/1910/08/2024 HIV 1/2 ANTIG EN/AN TIBOD Y, REFLE X CONFI RMATI ON HIV antigen/anti body Nonrea ctive nonrea ctive HIV-1 antig en and HIV-1 /HIV- 2 antib odies were not detec adela. No labor atory evide nce of HIV infec tion. Not Available [facility] (Lab) [address] [facility], [place], [address], 10/11/2024 20:50:49 10/09/1910/08/2024 HEPAT ITIS B SURFA CE ANTIG EN hepatitis B surface antigen Non-re active non-re active This assay was perfo rmed using [employer] ratio n reage nts and test kits. Value s obtai charles with other assay metho ds or kits canno t be used inter emanuel eably . Not Available [facility] (Lab) [address] [facility], [place], [address], 10/11/2024 20:50:50 10/09/19 25 10/08/2024 HEPAT ITIS C ANTIB NITA SCREE N, REFLE X TO CONFI RMATI ON hepatitis C antibody Non-re active non-re active Antib odies to HCV Not Detec adela, does not exclu de the possi bilit y of expos ure to HCV. Not Available [facility] (Lab) [address] [facility], [place], [address], 10/11/2024 20:50:50 10/09/19 25 10/08/2024 RUBEL LA IGG ANTIB NIAT, QUANT rubella antibodies, IgG Reacti ve reacti ve Not Available [facility] (Lab) [address] [facility], [place], [address], 10/11/2024 20:50:50 10/09/19 25 10/08/2024 RUBEL LA IGG ANTIB NITA, QUANT rubella antibodies, IgG quant 24.1 IU/mL >=10 Non-r eacti ve (Non- Immun e) <10 IU/mL React alejandra (Immu ne) > or = 10 IU/mL Not Available [facility] (Lab) [address] [facility], [place], [address], 10/11/2024 20:50:50 10/09/19 25 10/08/2024 TYPE/ RH/SC REEN ABO/Rh type A POS Not Available [facility] (Lab) [address] [facility], [place], [address], 10/11/2024 20:50:51 10/09/19 25 10/08/2024 TYPE/ RH/SC REEN antibody screen NEG Not Available [facility] (Lab) [address] [facility], [place], [address], 10/11/2024 20:50:51 10/09/19 25 10/08/2024 TYPE/ RH/SC REEN exp date 2024 23:59 Not Available [facility] (Lab) [address] [facility], [place], [address], 10/11/2024 20:50:51 10/09/19 25 10/08/2024 HEMOG LOBIN [...] >8.0% Actio n sugge sted Not Available [facility] (Lab) [address], [place], [address], 10/11/2024 20:50:51 10/09/19 25 10/08/2024 RPR SCREE N, REFLE X TITER /CONF IRMAT ION RPR qualitative Nonrea ctive nonrea ctive Not Available [facility] (Lab) [address], [place], [address], 10/11/2024 20:50:51 10/09/19 25 10/08/2024 drug scree n, urine Amphetamines : negati ve Not Available [facility] [address], [place], [address], 10/08/2024 13:34:18 10/09/19 25 10/08/2024 drug scree n, urine Cannabinoids : negati ve Not Available [facility] [address], [place], [address], 10/08/2024 13:34:18 10/09/19 25 10/08/2024 drug scree n, urine Cocaine: negati ve Not Available [facility] [address], [place], [address], 10/08/2024 13:34:18 10/09/19 25 10/08/2024 drug scree n, urine Opiates: negati ve Not Available [facility] [address], [place], [address], 10/08/2024 13:34:18 10/09/19 25 10/08/2024 drug scree n, urine Barbiturates : negati ve Not Available [facility] [address], [place], [address], 10/08/2024 13:34:18 10/09/19 25 10/08/2024 drug scree n, urine Benzodiazepi dino: negati ve Not Available [facility] [address], [place], [address], 10/08/2024 13:34:18 01/22/20 25 01/21/2025 GTT - GESTA MARYANA L SCREE N, ACOG OB glucose, 1 hour screen 210 mg/dL 70-135 high Not Available [facility] (Lab) [address], [place], [address], 01/22/2025 12:46:27 01/22/20 25 01/21/2025 HIV 1/2 ANTIG EN/AN TIBOD Y, REFLE X CONFI RMATI ON HIV antigen/anti body Nonrea ctive nonrea ctive HIV-1 antig en and HIV-1 /HIV- 2 antib odies were not detec adela. No labor atory evide nce of HIV infec tion. Not Available [facility] (Lab) [address], [place], [address], 01/22/2025 12:46:28 01/22/20 25 01/21/2025 HEMOG LOBIN (HGB) HGB 13.3 g/dL (based on docume nted legal sex) 11.6-1 5.4 Not Available [facility] (Lab) [address], [place], [address], 01/22/2025 12:46:28 01/22/20 25 01/21/2025 HEMAT OCRIT (HCT) HCT 40.3 % (based on docume nted legal sex) 34.0-4 5.0 Not Available [facility] (Lab) [address], [place], [address], 01/22/2025 12:46:28 01/22/20 25 01/21/2025 RPR SCREE N, REFLE X TITER /CONF IRMAT ION RPR qualitative Nonrea ctive nonrea ctive Not Available [facility] (Lab) [address] [facility], [place], [address], 01/22/2025 12:46:28 10/09/19 25 10/08/2024 US, obste tric, nucha l trans lucen cy No observ ation record ed. [email or web address] [address], [place], [address], 10/08/2024 18:39:08 10/09/19 25 10/08/2024 US, obste tric, nucha l trans lucen cy No observ ation record ed. Vandana [address], [place], [address], 10/09/2024 23:09:07 11/25/19 25 11/24/2024 US, obste tric, 2nd or 3rd trime ster No observ ation record ed. [email or web address] Vandana [address], [place], [address], 12/01/2024 11:58:43 11/25/19 25 11/25/2024 US, obste tric, 2nd or 3rd trime ster No observ ation record ed. [email or web address] [place] [address] [address], [place], [address], 11/25/2024 12:49:42 12/25/19 25 12/24/2024 US, obste tric, follo w-up No observ ation record ed. ELIN Vandana [address], [place], [address], 01/01/2025 17:08:59 12/25/1912/24/2024 US, obste tric, follo w-up No observ ation record ed. [facility] [address], [place], [address], 12/24/2024 13:46:21 02/05/20 25 02/04/2025 US, obste tric, follo w-up No observ ation record ed. [facility] [address], [place], [address], 02/04/2025 13:02:03 02/05/2002/04/2025 US, obste tric, follo w-up No observ ation record ed. [email or web address] Vandana [address], [place], [address], 02/07/2025 16:14:11 03/03/20 25 03/03/2025 US, obste tric, follo w-up No observ ation record ed. [email or web address] [facility] [address], [place], [address], 03/03/2025 15:11:00 03/03/20 25 03/03/2025 US, obste tric, follo w-up No observ ation record ed. [email or web address] Vandana [address], [place], [address], 03/04/2025 12:00:47 03/10/20 25 03/10/2025 non-s tress test No observ ation record ed. [place] [id number] [facility] [address] [facility], [place], [address], 03/14/2025 11:36:31 03/10/20 25 03/10/2025 US, obste tric, follo w-up No observ ation record ed. [email or web address] [facility] [address], [place], [address], 03/11/2025 08:40:14 03/18/20 25 03/18/2025 non-s tress test No observ ation record ed. [email or web address] [facility] [address], [place], [address], 03/28/2025 10:44:01 03/18/20 25 03/18/2025 non-s tress test No observ ation record ed. [email or web address] [address], [place], [address], 04/15/2025 10:36:55 03/18/20 25 03/18/2025 US, obste tric, bioph ysica l profi le No observ ation record ed. [address] [facility], [place], [address], 03/23/2025 16:26:00 03/18/20 25 03/18/2025 US, obste tric, bioph ysica l profi le No observ ation record ed. [address] [facility], [place], [address], 03/23/2025 16:25:42 03/18/20 25 03/18/2025 non-s tress test No observ ation record ed. [address] [facility], [place], [address], 03/28/2025 11:00:24 03/23/20 25 03/23/2025 US, obste tric, bioph ysica l profi le + non-s tress test No observ ation record ed. [email or web address] [facility] [place] [address], [place], [address], 03/23/2025 18:22:09 03/23/20 25 03/23/2025 US, obste tric, bioph ysica l profi le + non-s tress test No observ ation record ed. [email or web address] V[address]ana [address], [place], [address], 03/30/2025 11:20:06 03/23/2003/23/2025 non-s tress test No observ ation record ed. [address], [place], [address], 03/23/2025 17:56:30 03/23/20 non-s tress test No observ ation record ed. [address], [place], [address], 03/23/2025 17:23:26 04/01/2004/01/2025 US, paige tric, follo w-up No observ ation record ed. [facility] [address], [place], [address], 04/01/2025 14:56:59 04/01/20 25 04/01/2025 US, paige guerrero, bioph ysica l profi le + non-s tress test No observ ation record ed. [facility] [address], [place], [address], 04/01/2025 14:57:12 04/01/20 25 04/01/2025 US, paige tric, follo w-up No observ ation record ed. [email or web address] Vandana [address], [place], [address], 04/04/2025 12:34:31 04/01/20 25 04/01/2025 non-s tress test No observ ation record ed. [address], [place], [address], 04/01/2025 16:35:28 04/01/20 non-s tress test No observ ation record ed. [address], [place], [address], 04/01/2025 16:40:02 Result Notes None recorded. 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 17:28:[address] Concept Completed 201701/23/2021 Encntr for routine child health exam w/o abnormal findings ;Recorde d Elsewher e: No Locat ion: [facility] S ource: EHR Gamer junior: N Practi ce ID: [id number] Con lable Time: 01:00:00 PM Mile Paredes [facility] 17:28:33 Surveill ance of contrace ption Completed 201701/23/2021 Encounte r for surveill ance of contrace ptives, unspecif ied;[place]incy rded Elsewher e: No Locat ion: [facility] S ource: EHR Gamer junior: N Practi ce ID: [id number] Con lable Time: 02:00:00 PM Mile rasheed [facility] 17:28:49 Clinical finding Completed 201701/23/2021 Presence of (intraut erine) contrace ptive device;R ecorded Elsewher e: No Locat ion: [facility] S ource: EHR Gamer junior: N Practi ce ID: [id number] Con lable Time: 08:00:00 AM [facility] 17:28:39 Insertio n of intraute rine contrace ptive device Completed 201701/23/2021 Encounte r for insertio n of intraute rine contrace ptive device;R ecorded Elsewher e: No Locat ion: [facility] S ource: EHR Gamer junior: N Practi ce ID: [id number] Con lable Time: 08:00:00 AM Mile rasheed, [facility] 17:28:46 Pregnanc y test negative [id number] Completed 201701/23/2021 Encounte r for pregnanc y test, result negative ;Practic e ID: 0001 Mile rasheed, [facility] 17:28:25 Contrace ptive sheath status [id number] Completed 201701/23/2021 Encounte r for routine checking of intraute rine contrace p dev;Prac marco ID: 0001 Mile rasheed, [facility] 17:28:19 Pelvic and perineal pain [id number] Completed 201701/23/2021 Pelvic pain;Rec orded Elsewher e: No Locat ion: [facility] S ource: EHR Gamer junior: N Practi ce ID: [id number] Con lable Time: 04:00:00 PM Mile rasheed, [facility] 17:28:31 Syphilis test finding [id number] Completed 201701/23/2021 Encntr screen for infectio ns w sexl mode of transmis s;Practi ce ID: 0001 Mile rasheed, [facility] 17:28:42 Infectio n screenin g Completed 201701/23/2021 Encounte r for screenin g for oth infec/pa rastc diseases ;Practic e ID: 0001 Mile rasheed, [facility] 17:27:55 Contrace ption care manageme nt Completed 201801/23/2021 Encounte r for contrace ptive manageme nt, unspecif ied;Quincy rded Elsewher e: No Locat ion: [facility] S ource: EHR Gamer junior: N Practi ce ID: [id number] Con lable Time: 10:45:00 AM Mile rasheed [facility] 17:28:44 Blood leukocyt e number above referenc e range [id number] Completed 201801/23/2021 Elevated white blood cell count, unspecif ied;Prac marco ID: 0001 Mile Paredes [facility] 17:28:45 Acute vaginiti s [id number] Completed 201801/23/2021 Acute vaginiti s;Record ed Elsewher e: No Locat ion: [facility] S ource: EHR Gamer junior: N Practi ce ID: 0001 Con lable Time: 10:45:00 AM Mile rasheed [facility] 17:28:21 Increase d frequenc y of urinatio n [id number] Completed 201801/23/2021 Urinary frequenc y;Record ed Elsewher e: No Locat ion: [facility] S ource: EHR Gamer junior: N Practi ce ID: 0001 Con lable Time: 10:45:00 AM Mile rasheed [facility] 17:27:54 Uses combined oral contrace ption [id number] Completed 201801/23/2021 Encounte r for initial prescrip tion of contrace ptive pills;Pr actice ID: 0001 Mile Paredes [facility] 17:28:27 Removal of intraute rine device Completed 201801/23/2021 Encounte r for removal of intraute rine contrace ptive device;P ractice ID: 0001 Mile Paredes [facility] 1 17:28:48 Pregnanc y [id number] Completed 202404/15/2025 Zainab rasheed, [facility] 5 14:35:49 Gestatio nal diabetes mellitus [id number] Completed 2024 Checking bs QID , serial growth us - DT referral faxed to [facility] 01/24 Randi Cosme rasheed, [facility] 5 13:08:13 Breech presenta tion [id number] Completed 2024 Jama Moreno MD [address], [place], [address], [facility] 5 12:37:19 Problem Notes None recorded. Procedures Surgical History Date Name Laterality Status Provider Name and Address Organization Details Recorded Time 5 SECTION (SURG) completed Not Available [facility] 13:53:03 4 Date of Last Pap Smear completed Zainab Weston [facility] 09/06/2024 12:53:25 1 extraction of wisdom tooth completed Leida Duenas [facility] 08/19/2023 16:44:18 Imaging Results None recorded. [...] ed Elsewher e: Yes Loca tion: [facility] M odify By: [email or web address] Encount er DateTime : 09/10/19 18 03:30:00 [...] Prescrib ed Elsewher e: No [facility] By: nadia archuleta DateTime : 12/09/19 11:49:30 AM Not Available Not Available Not Available Metrogel Vaginal 0.75 % (37.5 mg/5 gram) insert 1 applicat orful by vaginal route for 5 nights at bedtime 09/09 completed Prescrib ed Elsewher e: No Locat ion: [facility] odify By: [email or web address] hernandez DateTime : 05/19/19 [...] Elsewher e: Yes Loca tion: [facility] odify By: serenity Javier ncounter DateTime [...] ed Elsewher e: No Locat ion: [facility] odify By: [email or web address] Juan Miguel ncounter [...] and Address Organization Details Last Updated DateTime 02/18/2025 161.29 cm 35.6 kg/m2 99608.84 g 131/84 mm[Hg] Zainab Weston [facility] 02/18/2025 09:36:34 Social History Question Answer Notes LastModified by Organizat ion Details LastModified Time Tobacco Smoking Status Never Smoker Zainab Weston [facility], [facility] 10/31/2022 17:02:19 Do You Have An [...] Or The Highest Degree You Have Received? [id number] [email or web address] Information not available 02/17/2024 Are There Any Guns Present In Your Home? Yes Information not available 02/17/2024 Do You Use Protection During Sex? No [email or web address] Information not available 02/17/2024 Do You Use Your Seat Belt Or Car Seat Routinely? Yes Information not available 08/15/2021 Are You Sexually Active? Yes Information not available 02/04/2025 Do You Have Smoke And Carbon Monoxide Detectors In Your Home? Yes Information not available 08/15/2021 How Much Tobacco Do You Smoke? No Information not available 09/11/2021 Do You Use Sunscreen Routinely? Yes Information not available 08/15/2021 Has Tobacco Cessation Counseling Been Provided? No [email or web address] Information not available 02/04/2025 Have You Used [...] other forms of tobacco or nicotine? No [email or web address] Information not available 02/04/2025 What is your level of alcohol consumption? None [email or web address] Information not available 02/17/2024 Are you currently employed? Yes [email or web address] Information not available 02/04/2025 Are you able to walk independently without assistance or assistive devices? [email or web address] Information not available 08/15/2021 Are you able to care for yourself independently? Yes Information not available 10/31/2022 What is your occupation? [employer] [email or web address] Information not available 02/17/2024 Do you have difficulty dressing, bathing, grooming, or toileting? No Information not available 10/31/2022 What is your exercise level? Occasional [email or web address] Information not available 12/08/2019 Mental Status Question Answer Note LastModified by Organization D etails LastModified Time Do you feel stressed (tense, restless, nervous, or anxious, or unable to sleep at night)? [id number] Information not available 08/15/2021 Family History Relationship [...] mL dose, filippo-sucrose 06/05/2021 completed Olamide Shafer [facility] 08/15/2021 12:28:36 Past Encounters Encounter ID Performer Location Encounter Start Date Encounter Closed Date Diagnosis/Indication Diagnosis SNOMED-CT Code Diagnosis ICD10 Code Diagnosis IMO Codes Diagnosis Note [id number] Jama Moreno MD [facility] [place] [address],[place] [address] 01/21/2025 10:41:10 01/21/2025 15:27:22 Third trimester 60833970 Z34.03 [id number] Jama Moreno MD [facility] [address],[place] [address] 02/04/2025 12:11:20 02/04/2025 12:58:53 Gestational diabetes mellitus 86717528 O24.410 Z3A.30 [id number] Bertha Alfonso CNM [facility] [address],[place] [address] 02/04/2025 12:12:03 02/04/2025 14:24:39 Gestation period, 30 weeks 90476946 Z3A.30 [id number] Bertha Alfonso CNM [facility] [place] [address],[place] [address] 02/18/2025 09:18:35 02/18/2025 09:53:48 Gestation period, 32 weeks 2083826 Z3A.32 [id number] Health Concerns Section Related Observation LastModified by Organization Detai ls LastModified Time None Recorded Concern Status LastModified by Organization Details LastModified Time None Recorded Payers Encounter Date Sequence Insurance Name Policy Number Policy Young Covered Member ID Young Member ID Guarantor Name 02/18/2025 1 [facility] [id number] Norma Hunter [id number] Ninoska Hunter 02/18/2025 2 [facility] [id number] Ninoska Hunter [id number] Ninoska Hunter Notes Date Note Type Note Provider Name and Address Organization Details Recorded Time 02/18/2025 text/html Generic HPI TemplateReported by Patient [address], [place], [address], [facility] 02/18/2025 09:51:42 OBGyn Episode Ob Episode Information Episode Created Date Number of Fetuses Patient Bloodtype Patient rh Status Prepregnancy Weight lbs Domestic Partner Domestic Partner Phone Father Name Operating Room Nurse Status 10/09/19 25 1 A Positive 203 Adilson Wheat son CLOSED Fetus Data First Name Last Name Admitted to NICU Weight (g) Sex Living Outcome Pediatric Complications Fetus ID Race Codes Race Delivery Type true 3288.54 2 M true Full Term [id number] Primary Problems Problem Notes Problem Name Start Date End Date Resolution Snomed Code Not e Gestational diabetes mellitus 01/24/2025 67049411 Checking bs QID , serial growth us - DT referral faxed to [facility] 01/24 Breech presentation 03/03/2025 [id number] Bao Calculation Initial Bao Date Initial Exam [...] Weight in lbs Pre/Post Dialysis Refused Weight 195.765323611590 BP Diastolic BP Location Tested BP Systolic BP Type 86 L arm 122 sitting Fetus Heart Rate Present A Present Fetus Movement Comments Patient presents to [facility] care. otherwise uncomplicated. No nausea or cramping. NT/NB wnl today, desires NIPT. Will draw today with new OB labs. RTC 4 weeks for routine care. Flowsheet Date 11/05/2024 Brown Score Blood Edema Fundus Height Fundus Units Glucose Ketones Leukocytes Nitrite Labor Signs Protein Cervic Dilation Cervic Effacement Cervic Station Type Weight in lbs Pre/Post Dialysis Refused 196.672507260756 BP Diastolic BP Location Tested BP Systolic [...] Type Weight in lbs Pre/Post Dialysis Refused 198.511844756950 BP Diastolic BP Location Tested BP Systolic [...] Weight in lbs Pre/Post Dialysis Refused Weight 202.069517079243 BP Diastolic BP Location Tested BP Systolic [...] Type Weight in lbs Pre/Post Dialysis Refused 207.817214544668 BP Diastolic BP Location Tested BP Systolic [...] Weight in lbs Pre/Post Dialysis Refused Weight 200.659841866451 BP Diastolic BP Location Tested BP Systolic [...] Weight in lbs Pre/Post Dialysis Refused Weight 204.627693963879 BP Diastolic BP Location Tested BP Systolic [...] Type Weight in lbs Pre/Post Dialysis Refused 207.772258760288 BP Diastolic BP Location Tested BP Systolic [...] Weight in lbs Pre/Post Dialysis Refused Weight 208.534179667292 BP Diastolic BP Location Tested BP Systolic [...] Weight in lbs Pre/Post Dialysis Refused Weight 210.697102631619 BP Diastolic BP Location Tested BP Systolic [...] Weight in lbs Pre/Post Dialysis Refused Weight 208.076275303607 BP Diastolic BP Location Tested BP Systolic BP Type 89 L arm 135 sitting Fetus Heart Rate Present Fetus Movement A Yes Comments Flowsheet Date 03/23/2025 Brown Score Blood Edema Fundus Height Fundus Units Glucose Ketones Leukocytes Nitrite Labor Signs Protein Cervic Dilation Cervic Effacement Cervic Station Type Weight in lbs Pre/Post Dialysis Refused Weight 208.442707034991 BP Diastolic BP Location Tested BP Systolic [...] Weight in lbs Pre/Post Dialysis Refused Weight 209.366157502300 BP Diastolic BP Location Tested BP Systolic BP Type 83 L arm 134 sitting Fetus Heart Rate Present Fetus Movement A Yes Comments Flowsheet Date 04/01/2025 Brown Score Blood Edema Fundus Height Fundus Units Glucose Ketones Leukocytes Nitrite Labor Signs Protein Cervic Dilation Cervic Effacement Cervic Station Type Weight in lbs Pre/Post Dialysis Refused 209.284001756973 BP Diastolic BP Location Tested BP Systolic BP Type 83 L arm 134 sitting Fetus Heart Rate Present Fetus Movement A Yes Comments bpp 02/04, doing well, revie wed process, recovery, call [...] Weight in lbs Pre/Post Dialysis Refused Weight 201.471564707795 BP Diastolic BP Location Tested BP Systolic [...]
--- OUTSIDE RECORDS SUMMARY | 2025-04-15 19:41 | XMS_ITS | Continuity of Care Document ---
Author Organization 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 Discussed plan. Not available 01/21/2025 10:56:06 Plan of Treatment Reminders Order Date Submit [...] Not Available [facility]per[facility] girard [address], [place], [address], 10/14/2024 19:59:38 10/15/19 25 10/14/2024 [UNIT Y] ANEUP LOIDY NIPT 22Q11.2 microdeletio n LOW RISK <1 in 10,000 normal Not Available [facility] [address], [place], [address], 10/14/2024 19:59:38 10/15/19 25 10/14/2024 [UNIT Y] ANEUP LOIDY NIPT sex chromosome aneuploidy NOT DETECT ED normal Not Available [facility] [address], [place], [address], 10/14/2024 19:59:38 10/15/19 25 10/14/2024 [UNIT Y] 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 in 10,000 normal Not Available [facility] [address], [place], [address], 10/14/2024 19:59:38 10/15/19 25 10/14/2024 [UNIT Y] ANEUP LOIDY NIPT trisomy 13 LOW RISK <1 in 10,000 normal Not Available [facility] [address], [place], [address], 10/14/2024 19:59:38 10/15/19 25 10/14/2024 [UNIT Y] ANEUP LOIDY NIPT trisomy 18 LOW RISK <1 in 10,000 normal Not Available [facility] [address], [place], [address], 10/14/2024 19:59:38 10/15/19 25 10/14/2024 [UNIT Y] ANEUP LOIDY NIPT trisomy 21 LOW RISK <1 in 10,000 normal Not Available [facility] [address], [place], [address], 10/14/2024 19:59:38 10/15/19 25 10/14/2024 [UNIT Y] ANEUP LOIDY NIPT sex MALE normal Not Available [facility] [address], [place], [address], 10/14/2024 19:59:38 10/15/19 25 10/14/2024 [UNIT Y] ANEUP LOIDY NIPT gestation SINGLE TON normal Not Available [facility] [address], [place], [address], 10/14/2024 19:59:38 10/15/19 25 10/14/2024 [UNIT Y] ANEUP LOIDY NIPT for detailed report, see pdf See PDF normal Not Available [facility] [address], [place], [address], 10/14/2024 19:59:38 10/20/19 25 10/19/2024 [UNIT Y] ESPINO[place] sickle cell disease/beta -thalassemia /hemoglobino pathies carrier screen NEGATI VE normal Not Available [facility] [address], [place], [address], 10/19/2024 14:09:36 10/20/19 25 10/19/2024 [UNIT Y] ESPINO[place] alpha-thalas semia carrier screen NEGATI VE normal Not Available [facility] [address], [place], [address], 10/19/2024 14:09:36 10/20/19 25 10/19/2024 [UNIT Y] ESPINO[place] cystic fibrosis carrier screen NEGATI VE normal Not Available [facility] [address], [place], [address], 10/19/2024 14:09:36 10/20/19 25 10/19/2024 [UNIT Y] ESP[place] spinal muscular atrophy carrier screen NEGATI VE 2 SMN1 copies , SNP not presen t normal Not Available [facility] [address], [place], [address], 10/19/2024 14:09:36 10/20/19 25 10/19/2024 [UNIT Y] ESPINOZA [place] for detailed report, see pdf See PDF normal Not Available [facility] [address], [place], [address], 10/19/2024 14:09:36 10/09/1910/08/2024 CULTU RE: URINE result report SEE RESULT S BELOW Test: Cultu re: Urine Speci men Sourc e: Urine Voide d Speci men Type: Urine Speci men Date: 2024 1320 Resul t Date: 2024 0400 Resul t Statu s: Final resul t Abnor mal: No Resul ting Lab: [facility] [address] [facility] [address] Tel: CULTU RE ----- ----- ----- --- No growt h in 1 day (dete ction level of 10,00 0 colon ies / ml.) Not Available [facility] (Lab) [address] [facility], [place], [address], 10/10/2024 05:04:31 10/09/1910/08/2024 CBC W/DIF F WBC 9.1 10'3/ uL 3.5-10 .5 Not Available [facility] (Lab) [address] [facility], [place], [address], 10/11/2024 20:50:49 10/09/19 25 10/08/2024 CBC W/DIF F RBC 5.20 10'6/ uL (based on docume nted legal sex) 3.80-5 .20 Not Available [facility] (Lab) [address] [place], [address], 10/11/2024 20:50:49 10/09/19 25 10/08/2024 CBC W/DIF F HGB 14.7 g/dL (based on docume nted legal sex) 11.6-1 5.4 Not Available [facility] (Lab) [address] [place], [address], 10/11/2024 20:50:49 10/09/19 25 10/08/2024 CBC W/DIF F HCT 45.2 % (based on docume nted legal sex) 34.0-4 5.0 high Not Available [facility] (Lab) [address] [facility], [place], [address], 10/11/2024 20:50:49 10/09/19 25 10/08/2024 CBC W/DIF F MCV 86.9 fL 80.0-9 9.0 Not Available [facility] (Lab) [address] [facility], [place], [address], 10/11/2024 20:50:49 10/09/19 25 10/08/2024 CBC W/DIF F MCH 28.3 pg 27.0-3 4.0 Not Available [facility] (Lab) [address] [facility], [place], [address], 10/11/2024 20:50:49 10/09/19 25 10/08/2024 CBC W/DIF F MCHC 32.5 g/dL 32.0-3 5.5 Not Available [facility] (Lab) [address] [facility], [place], [address], 10/11/2024 20:50:49 10/09/19 25 10/08/2024 CBC W/DIF F RDW 13.2 % 11.0-1 5.0 Not Available [facility] (Lab) [address] [facility], [place], [address], 10/11/2024 20:50:49 10/09/19 25 10/08/2024 CBC W/DIF F plt 286 10'3/ uL 150-40 0 Not Available [facility] (Lab) [address] [facility], [place], [address], 10/11/2024 20:50:49 10/09/19 25 10/08/2024 CBC W/DIF F MPV 11.7 fL 8.8-12 .1 Not Available [facility] (Lab) [address] [facility], [place], [address], 10/11/2024 20:50:49 10/09/19 25 10/08/2024 CBC W/DIF F NRBC's 0.0 % 0.0 Not Available [facility] (Lab) [address] [facility], [place], [address], 10/11/2024 20:50:49 10/09/19 25 10/08/2024 CBC W/DIF F absolute NRBCs 0.0 10'3/ uL no refere nce range establ ished Not Available [facility] (Lab) [address] [facility], [place], [address], 10/11/2024 20:50:49 10/09/19 25 10/08/2024 CBC W/DIF F neutrophils 67.1 % 34.0-7 3.0 Not Available [facility] (Lab) [address] [facility], [place], [address], 10/11/2024 20:50:49 10/09/19 25 10/08/2024 CBC W/DIF F lymphocytes 25.1 % 15.0-5 0.0 Not Available [facility] (Lab) [address] [facility], [place], [address], 10/11/2024 20:50:49 10/09/19 25 10/08/2024 CBC W/DIF F monocytes 6.4 % 1.0-15 .0 Not Available [facility] (Lab) [address] [facility], [place], [address], 10/11/2024 20:50:49 10/09/19 25 10/08/2024 CBC W/DIF F eosinophils 0.9 % 0.0-8. 0 Not Available [facility] (Lab) [address] [facility], [place], [address], 10/11/2024 20:50:49 10/09/19 25 10/08/2024 CBC W/DIF F basophils 0.3 % 0.0-2. 0 Not Available [facility] (Lab) [address] [facility], [place], [address], 10/11/2024 20:50:49 10/09/19 25 10/08/2024 CBC W/DIF [...] separ ately if prese nt. Not Available [facility] (Lab) [address] [facility], [place], [address], 10/11/2024 20:50:49 10/09/19 25 10/08/2024 CBC W/DIF F absolute neutrophils 6.1 10'3/ uL 1.5-8. 0 Not Available [facility] (Lab) [address] [facility], [place], [address], 10/11/2024 20:50:49 10/09/19 25 10/08/2024 CBC W/DIF F absolute lymphocytes 2.3 10'3/ uL 1.0-4. 0 Not Available [facility] (Lab) [address] [facility], [place], [address], 10/11/2024 20:50:49 10/09/19 25 10/08/2024 CBC W/DIF F absolute monocytes 0.6 10'3/ uL 0.2-1. 0 Not Available [facility] (Lab) [address] [facility], [place], [address], 10/11/2024 20:50:49 10/09/19 25 10/08/2024 CBC W/DIF F absolute eosinophils 0.1 10'3/ uL 0.0-0. 6 Not Available [facility] (Lab) [address] [facility], [place], [address], 10/11/2024 20:50:49 10/09/19 25 10/08/2024 CBC W/DIF F absolute basophils 0.0 10'3/ uL 0.0-0. 3 Not Available [facility] (Lab) [address] [facility], [place], [address], 10/11/2024 20:50:49 10/09/19 25 10/08/2024 CBC W/DIF F absolute immature granulocytes 0.0 [...] ki book. nm.or g/gen derx Not Available [facility] (Lab) [address] [facility], [place], [address], 10/11/2024 20:50:49 10/09/1910/08/2024 HIV 1/2 ANTIG EN/AN TIBOD Y, REFLE X CONFI RMATI ON HIV antigen/anti body Nonrea ctive nonrea ctive HIV-1 antig en and HIV-1 /HIV- 2 antib odies were not detec adela. No labor atory evide nce of HIV infec tion. Not Available [facility] (Lab) [address] [facility], [place], [address], 10/11/2024 20:50:49 10/09/1910/08/2024 HEPAT ITIS B SURFA CE ANTIG EN hepatitis B surface antigen Non-re active non-re active This assay was perfo rmed using [employer] ratio n reage nts and test kits. Value s obtai charles with other assay metho ds or kits canno t be used inter emanuel eably . Not Available [facility] (Lab) [address] [facility], [place], [address], 10/11/2024 20:50:50 10/09/19 25 10/08/2024 HEPAT ITIS C ANTIB NITA SCREE N, REFLE X TO CONFI RMATI ON hepatitis C antibody Non-re active non-re active Antib odies to HCV Not Detec adela, does not exclu de the possi bilit y of expos ure to HCV. Not Available [facility] (Lab) [address] [facility], [place], [address], 10/11/2024 20:50:50 10/09/19 25 10/08/2024 RUBEL LA IGG ANTIB NITA, QUANT rubella antibodies, IgG Reacti ve reacti ve Not Available [facility] (Lab) [address] [facility], [place], [address], 10/11/2024 20:50:50 10/09/19 25 10/08/2024 RUBEL LA IGG ANTIB NITA, QUANT rubella antibodies, IgG quant 24.1 IU/mL >=10 Non-r eacti ve (Non- Immun e) <10 IU/mL React alejandra (Immu ne) > or = 10 IU/mL Not Available [facility] (Lab) [address] [facility], [place], [address], 10/11/2024 20:50:50 10/09/19 25 10/08/2024 TYPE/ RH/SC REEN ABO/Rh type A POS Not Available [facility] (Lab) [address] [facility], [place], [address], 10/11/2024 20:50:51 10/09/19 25 10/08/2024 TYPE/ RH/SC REEN antibody screen NEG Not Available [facility] (Lab) [address] [facility], [place], [address], 10/11/2024 20:50:51 10/09/19 25 10/08/2024 TYPE/ RH/SC REEN exp date 2024 23:59 Not Available [facility] (Lab) [address] [facility], [place], [address], 10/11/2024 20:50:51 10/09/19 25 10/08/2024 HEMOG LOBIN [...] >8.0% Actio n sugge sted Not Available [facility] (Lab) [address], [place], [address], 10/11/2024 20:50:51 10/09/19 25 10/08/2024 RPR SCREE N, REFLE X TITER /CONF IRMAT ION RPR qualitative Nonrea ctive nonrea ctive Not Available [facility] (Lab) [address], [place], [address], 10/11/2024 20:50:51 10/09/19 25 10/08/2024 drug scree n, urine Amphetamines : negati ve Not Available [place] [address], [place], [address], 10/08/2024 13:34:18 10/09/19 25 10/08/2024 drug scree n, urine Cannabinoids : negati ve Not Available [place] [address], [place], [address], 10/08/2024 13:34:18 10/09/19 25 10/08/2024 drug scree n, urine Cocaine: negati ve Not Available [place] [address], [place], [address], 10/08/2024 13:34:18 10/09/19 25 10/08/2024 drug scree n, urine Opiates: negati ve Not Available [place] [address], [place], [address], 10/08/2024 13:34:18 10/09/19 25 10/08/2024 drug scree n, urine Barbiturates : negati ve Not Available [place] [address], [place], [address], 10/08/2024 13:34:18 10/09/19 25 10/08/2024 drug scree n, urine Benzodiazepi dino: negati ve Not Available [place] [address], [place], [address], 10/08/2024 13:34:18 01/22/20 25 01/21/2025 GTT - GESTA MARYANA L SCREE N, ACOG OB glucose, 1 hour screen 210 mg/dL 70-135 high Not Available [facility] (Lab) [address], [place], [address], 01/22/2025 12:46:27 01/22/20 25 01/21/2025 HIV 1/2 ANTIG EN/AN TIBOD Y, REFLE X CONFI RMATI ON HIV antigen/anti body Nonrea ctive nonrea ctive HIV-1 antig en and HIV-1 /HIV- 2 antib odies were not detec adela. No labor atory evide nce of HIV infec tion. Not Available [facility] (Lab) [address], [place], [address], 01/22/2025 12:46:28 01/22/20 25 01/21/2025 HEMOG LOBIN (HGB) HGB 13.3 g/dL (based on docume nted legal sex) 11.6-1 5.4 Not Available [facility] (Lab) [address], [place], [address], 01/22/2025 12:46:28 01/22/20 25 01/21/2025 HEMAT OCRIT (HCT) HCT 40.3 % (based on docume nted legal sex) 34.0-4 5.0 Not Available [facility] (Lab) [address], [place], [address], 01/22/2025 12:46:28 01/22/20 25 01/21/2025 RPR SCREE N, REFLE X TITER /CONF IRMAT ION RPR qualitative Nonrea ctive nonrea ctive Not Available [facility] (Lab) [address] [facility], [place], [address], 01/22/2025 12:46:28 10/09/19 25 10/08/2024 US, obste tric, nucha l trans lucen cy No observ ation record ed. [email or web address] [place] [address], [place], [address], 10/08/2024 18:39:08 10/09/19 25 10/08/2024 US, obste tric, nucha l trans lucen cy No observ ation record ed. [email or web address] V[address]ana [address], [place], [address], 10/09/2024 23:09:07 11/25/19 25 11/24/2024 US, obste tric, 2nd or 3rd trime ster No observ ation record ed. [email or web address] V[address]ana [address], [place], [address], 12/01/2024 11:58:43 11/25/19 25 11/25/2024 US, obste tric, 2nd or 3rd trime ster No observ ation record ed. [email or web address] [place] [address], [place], [address], 11/25/2024 12:49:42 12/25/19 25 12/24/2024 US, obste tric, follo w-up No observ ation record ed. ELIN V[address]ana [address], [place], [address], 01/01/2025 17:08:59 12/25/19 25 12/24/2024 US, obste tric, follo w-up No observ ation record ed. [facility] [address], [place], [address], 12/24/2024 13:46:21 02/05/20 25 02/04/2025 US, obste tric, follo w-up No observ ation record ed. [facility] [address], [place], [address], 02/04/2025 13:02:03 02/05/2002/04/2025 US, obste tric, follo w-up No observ ation record ed. [email or web address] Vandana [address], [place], [address], 02/07/2025 16:14:11 03/03/20 25 03/03/2025 US, obste tric, follo w-up No observ ation record ed. [email or web address] [place] [address], [place], [address], 03/03/2025 15:11:00 03/03/20 25 03/03/2025 US, obste tric, follo w-up No observ ation record ed. [email or web address] Vandana [address], [place], [address], 03/04/2025 12:00:47 03/10/20 25 03/10/2025 non-s tress test No observ ation record ed. [place] [id number] [facility] [address] [facility], [place], [address], 03/14/2025 11:36:31 03/10/20 25 03/10/2025 US, obste tric, follo w-up No observ ation record ed. [email or web address] [facility] [address], [place], [address], 03/11/2025 08:40:14 03/18/20 25 03/18/2025 non-s tress test No observ ation record ed. [email or web address] [place] [address], [place], [address], 03/28/2025 10:44:01 03/18/20 25 03/18/2025 non-s tress test No observ ation record ed. [email or web address] [address], [place], [address], 04/15/2025 10:36:55 03/18/20 25 03/18/2025 US, obste tric, bioph ysica l profi le No observ ation record ed. [address] [facility], [place], [address], 03/23/2025 16:26:00 03/18/20 25 03/18/2025 US, obste tric, bioph ysica l profi le No observ ation record ed. [address] [facility], [place], [address], 03/23/2025 16:25:42 03/18/20 25 03/18/2025 non-s tress test No observ ation record ed. [address] [facility], [place], [address], 03/28/2025 11:00:24 03/23/20 25 03/23/2025 US, obste tric, bioph ysica l profi le + non-s tress test No observ ation record ed. [email or web address] [place] [address], [place], [address], 03/23/2025 18:22:09 03/23/20 25 03/23/2025 US, obste tric, bioph ysica l profi le + non-s tress test No observ ation record ed. [email or web address] Vandana [address], [place], [address], 03/30/2025 11:20:06 03/23/20 25 03/23/2025 non-s tress test No observ ation record ed. [address], [place], [address], 03/23/2025 17:56:30 03/23/20 non-s tress test No observ ation record ed. [address], [place], [address], 03/23/2025 17:23:26 04/01/2004/01/2025 US, obstyaya tric, follo w-up No observ ation record ed. [facility] [address], [place], [address], 04/01/2025 14:56:59 04/01/20 25 04/01/2025 US, paige guerrero, bioph ysica l profi le + non-s tress test No observ ation record ed. [facility] [address], [place], [address], 04/01/2025 14:57:12 04/01/20 25 04/01/2025 US, obste tric, follo w-up No observ ation record ed. [email or web address] Vandana [address], [place], [address], 04/04/2025 12:34:31 04/01/20 25 04/01/2025 non-s tress test No observ ation record ed. [address], [place], [address], 04/01/2025 16:35:28 04/01/20 non-s tress test No observ ation record ed. [address], [place], [address], 04/01/2025 16:40:02 Result Notes None recorded. Problems Name Problem SNOMED Code Status Onset Date Resolution Date Notes Provider Name and Address Organization Details Recorded Time SNOMED CT Concept Completed 201701/23/2021 Encntr for manager credit collections exam (general ) (routine ) w/o abn findings ;Practic e ID: 0001 Mile rasheed [facility] 17:28:[address] Concept Completed 201701/23/2021 Encntr for routine child health exam w/o abnormal findings ;Recorde d Elsewher e: No Locat ion: [facility] S ource: EHR Surveyor [employer] junior: N Practi ce ID: [id number] Con lable Time: 01:00:00 PM Mile Paredes [facility] 17:28:33 Surveill ance of contrace ption Completed 201701/23/2021 Encounte r for surveill ance of contrace ptives, unspecif ied;Quincy rded Elsewher e: No Locat ion: [facility] S ource: EHR Surveyor [employer] junior: N Practi ce ID: [id number] Con lable Time: 02:00:00 PM Mile rasheed [facility] 17:28:49 Clinical finding Completed 201701/23/2021 Presence of (intraut erine) contrace ptive device;R ecorded Elsewher e: No Locat ion: [facility] S ource: EHR Surveyor [employer] junoir: N Practi ce ID: [id number] Con lable Time: 08:00:00 AM [facility] 17:28:39 Insertio n of intraute rine contrace ptive device Completed 201701/23/2021 Encounte r for insertio n of intraute rine contrace ptive device;R ecorded Elsewher e: No Locat ion: [facility] S ource: EHR Surveyor [employer] junior: N Practi ce ID: [id number] Con lable Time: 08:00:00 AM Mile rasheed, [facility] 17:28:46 Pregnanc y test negative [id number] Completed 201701/23/2021 Encounte r for pregnanc y test, result negative ;Practic e ID: 0001 Mile rasheed, [facility] 17:28:25 Contrace ptive sheath status [id number] Completed 201701/23/2021 Encounte r for routine checking of intraute rine contrace p dev;Prac marco ID: 0001 Mile rasheed, [facility] 17:28:19 Pelvic and perineal pain [id number] Completed 201701/23/2021 Pelvic pain;Rec orded Elsewher e: No Locat ion: [facility] S ource: EHR Surveyor [employer] junior: N Practi ce ID: [id number] Con lable Time: 04:00:00 PM Mile rasheed, [facility] 17:28:31 Syphilis test finding [id number] Completed 201701/23/2021 Encntr screen for infectio ns w sexl mode of transmis s;Practi ce ID: 0001 Mile rasheed, [facility] 17:28:42 Infectio n screenin g Completed 201701/23/2021 Encounte r for screenin g for oth infec/pa rastc diseases ;Practic e ID: 0001 Mile rasheed, [facility] 17:27:55 Contrace ption care manageme nt Completed 201801/23/2021 Encounte r for contrace ptive manageme nt, unspecif ied;Quincy rded Elsewher e: No Locat ion: [facility] S ource: EHR Surveyor [employer] junior: N Practi ce ID: [id number] Con lable Time: 10:45:00 AM Mile rasheed [facility] 17:28:44 Blood leukocyt e number above referenc e range [id number] Completed 201801/23/2021 Elevated white blood cell count, unspecif ied;Prac marco ID: 0001 Mile Paredes [facility] 17:28:45 Acute vaginiti s [id number] Completed 201801/23/2021 Acute vaginiti s;Record ed Elsewher e: No Locat ion: [facility] S ource: EHR Surveyor [employer] junior: N Practi ce ID: [id number] Con lable Time: 10:45:00 AM Mile rasheed [facility] 17:28:21 Increase d frequenc y of urinatio n [id number] Completed 201801/23/2021 Urinary frequenc y;Record ed Elsewher e: No Locat ion: [facility] S ource: EHR Surveyor [employer] junior: N Practi ce ID: [id number] Con lable Time: 10:45:00 AM Mile rasheed [facility] 17:27:54 Uses combined oral contrace ption [id number] Completed 201801/23/2021 Encounte r for initial prescrip tion of contrace ptive pills;Pr actice ID: 0001 Mile P[facility]es [facility] 17:28:27 Removal of intraute rine device Completed 201801/23/2021 Encounte r for removal of intraute rine contrace ptive device;P ractice ID: 0001 Mile Paredes [facility] 1 17:28:48 Pregnanc y [id number] Completed 202404/15/2025 Zainab rasheed, [facility] 5 14:35:49 Gestatio nal diabetes mellitus [id number] Completed 2024 Checking bs QID , serial growth us - DT referral faxed to [facility] 01/24 Randi Cosme rasheed, [facility] 5 13:08:13 Breech presenta tion [id number] Completed 2024 Jama Moreno MD [address], [place], [address], [facility] 5 12:37:19 Problem Notes None recorded. Procedures Surgical History Date Name Laterality Status Provider Name and Address Organization Details Recorded Time 5 SECTION (SURG) completed [facility] 13:53:03 4 Date of Last Pap Smear completed Zainab Weston [facility] 09/06/2024 12:53:25 1 extraction of wisdom tooth completed Leida Duenas [facility] 08/19/2023 16:44:18 Imaging Results None recorded. [...] Elsewher e: Yes Loca tion: Hilaria javier [facility] M odify By: [email or web address] Encount er DateTime : 09/10/19 18 03:30:00 [...] Prescrib ed Elsewher e: No [facility] By: nadia archuleta DateTime : 12/09/19 18 11:49:30 AM Not Available Not Available Not Available Metrogel Vaginal 0.75 % (37.5 mg/5 gram) insert 1 applicat orful by vaginal route for 5 nights at bedtime 09/09 completed Prescrib ed Elsewher e: No Locat ion: [facility]ilar[facility] odify By: [email or web address] hernandez DateTime : 05/19/19 18 10:59:56 AM [...] e: Yes Loca tion: Hilaria javier [facility] odify By: [email or web address] Javier ncounter DateTime [...] Elsewher e: No Locat ion: [facility]ilar[facility] odify By: [email or web address] Yaya ncounter DateTime : 05/14/19 18 01:00:00 PM [...] and Address Organization Details Last Updated DateTime 01/21/2025 88825.77422 g 140/89 mm[Hg] Zainab Weston [facility] 01/21/2025 10:56:38 Social History Question Answer Notes LastModified by Organizat ion Details LastModified Time Tobacco Smoking Status Never Smoker Zainab Weston [facility], [facility] 10/31/2022 17:02:19 Do You Have An [...] Or The Highest Degree You Have Received? IA71980-5 [email or web address] Information not available 02/17/2024 Are There Any Guns Present In Your Home? Yes [email or web address] Information not available 02/17/2024 Do You Use Protection During Sex? No [email or web address] Information not available 02/17/2024 Do You Use Your Seat Belt Or Car Seat Routinely? Yes Information not available 08/15/2021 Are You Sexually Active? Yes [email or web address] Information not available 02/04/2025 Do You Have Smoke And Carbon Monoxide Detectors In Your Home? Yes Information not available 08/15/2021 How Much Tobacco Do You Smoke? No Information not available 09/11/2021 Do You Use Sunscreen Routinely? Yes Information not available 08/15/2021 Has Tobacco Cessation Counseling Been Provided? No [email or web address] Information not available 02/04/2025 Have You Used [...] other forms of tobacco or nicotine? No [email or web address] Information not available 02/04/2025 What is your level of alcohol consumption? None [email or web address] Information not available 02/17/2024 Are you currently employed? Yes [email or web address] Information not available 02/04/2025 Are you able to walk independently without assistance or assistive devices? YESWOREST Information not available 08/15/2021 Are you able to care for yourself independently? 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 No Information not available 10/31/2022 What is your exercise level? Occasional [email or web address] Information not available 12/08/2019 Mental Status Question Answer Note LastModified by Organization D etails LastModified Time Do you feel stressed (tense, restless, nervous, or anxious, or unable to sleep at night)? [id number] Information not available 08/15/2021 Family History Relationship [...] mL dose, filippo-sucrose 06/05/2021 completed Olamide Shafer [facility] 08/15/2021 12:28:36 Past Encounters Encounter ID Performer Location Encounter Start Date Encounter Closed Date Diagnosis/Indication Diagnosis SNOMED-CT Code Diagnosis ICD10 Code Diagnosis IMO Codes Diagnosis Note [id number] Jama Moreno MD [place] [address] [address] 12/24/2024 10:57:09 12/24/2024 13:29:36 anatomy study 222013666 Z36.2 Z3A.24 [id number] Bertha Alfonso [facility] [address],[facility] [place] [address] 12/24/2024 10:58:25 12/24/2024 12:12:27 Gestation period, 24 weeks 234323406 Z3A.24 [id number] Jama Moreno MD [place] [address],[place] [address] 01/21/2025 10:41:10 01/21/2025 15:27:22 Third trimester 72247560 Z34.03 [id number] Health Concerns Section Related Observation LastModified by Organization Detai ls LastModified Time None Recorded Concern Status LastModified by Organization Details LastModified Time None Recorded Payers Encounter Date Sequence Insurance Name Policy Number Policy Young Covered Member ID Young Member ID Guarantor Name 01/21/2025 1 [facility] [id number] Norma Hunter [id number] Ninoska Hunter 01/21/2025 2 [facility] [id number] Ninoska Hunter [id number] Ninoska Hunter Notes Date Note Type Note Provider Name and Address Organization Details Recorded Time 01/21/2025 text/html Generic HPI TemplateReported by Patient Jama Moreno MD [address], [place], [address], [facility] 01/21/2025 15:23:35 OBGyn Episode Ob Episode Information Episode Created Date Number of Fetuses Patient Bloodtype Patient rh Status Prepregnancy Weight lbs Domestic Partner Domestic Partner Phone Father Name Dressmaker Helper Status 10/09/19 25 1 A Positive 203 Adilson Wheat son CLOSED Fetus Data First Name Last Name Admitted to NICU Weight (g) Sex Living Outcome Pediatric Complications Fetus ID Race Codes Race Delivery Type true 3288.54 2 M true Full Term [id number] Primary Problems Problem Notes Problem Name Start Date End Date Resolution Snomed Code Not e Gestational diabetes mellitus 01/24/2025 55097113 Checking bs QID , serial growth us - DT referral faxed to [facility] 01/24 Breech presentation 03/03/2025 [id number] Bao Calculation Initial Bao Date Initial Exam [...] Weight in lbs Pre/Post Dialysis Refused Weight 195.560723372730 BP Diastolic BP Location Tested BP Systolic BP Type 86 L arm 122 sitting Fetus Heart Rate Present A Present Fetus Movement Comments Patient presents to [facility] care. otherwise uncomplicated. No nausea or cramping. NT/NB wnl today, desires NIPT. Will draw today with new OB labs. RTC 4 weeks for routine care. Flowsheet Date 11/05/2024 Brown Score Blood Edema Fundus Height Fundus Units Glucose Ketones Leukocytes Nitrite Labor Signs Protein Cervic Dilation Cervic Effacement Cervic Station Type Weight in lbs Pre/Post Dialysis Refused 196.954706221618 BP Diastolic BP Location Tested BP Systolic [...] Type Weight in lbs Pre/Post Dialysis Refused 198.984754360978 BP Diastolic BP Location Tested BP Systolic [...] Weight in lbs Pre/Post Dialysis Refused Weight 202.141783369455 BP Diastolic BP Location Tested BP Systolic [...] Type Weight in lbs Pre/Post Dialysis Refused 207.524806427375 BP Diastolic BP Location Tested BP Systolic [...] Weight in lbs Pre/Post Dialysis Refused Weight 200.156741892743 BP Diastolic BP Location Tested BP Systolic [...] Weight in lbs Pre/Post Dialysis Refused Weight 204.416500893520 BP Diastolic BP Location Tested BP Systolic [...] Type Weight in lbs Pre/Post Dialysis Refused 207.696080179599 BP Diastolic BP Location Tested BP Systolic [...] Weight in lbs Pre/Post Dialysis Refused Weight 208.906355662885 BP Diastolic BP Location Tested BP Systolic [...] Weight in lbs Pre/Post Dialysis Refused Weight 210.798312450020 BP Diastolic BP Location Tested BP Systolic [...] Weight in lbs Pre/Post Dialysis Refused Weight 208.244572099527 BP Diastolic BP Location Tested BP Systolic BP Type 89 L arm 135 sitting Fetus Heart Rate Present Fetus Movement A Yes Comments Flowsheet Date 03/23/2025 Brown Score Blood Edema Fundus Height Fundus Units Glucose Ketones Leukocytes Nitrite Labor Signs Protein Cervic Dilation Cervic Effacement Cervic Station Type Weight in lbs Pre/Post Dialysis Refused Weight 208.543743496065 BP Diastolic BP Location Tested BP Systolic [...] Weight in lbs Pre/Post Dialysis Refused Weight 209.455990690641 BP Diastolic BP Location Tested BP Systolic BP Type 83 L arm 134 sitting Fetus Heart Rate Present Fetus Movement A Yes Comments Flowsheet Date 04/01/2025 Brown Score Blood Edema Fundus Height Fundus Units Glucose Ketones Leukocytes Nitrite Labor Signs Protein Cervic Dilation Cervic Effacement Cervic Station Type Weight in lbs Pre/Post Dialysis Refused 209.464354628627 BP Diastolic BP Location Tested BP Systolic [...] Weight in lbs Pre/Post Dialysis Refused Weight 201.122869827725 BP Diastolic BP Location Tested BP Systolic [...]
--- OUTSIDE RECORDS SUMMARY | 2025-04-15 19:42 | XMS_ITS | Continuity of Care Document ---
Author Organization [facility] [employer], [facility] Address [address] [place] [address] [place] [address] Care Team Providers Care Quality Control Analyst Name Role Phone DEANDREHONORIO Santizo Primary Care Provider [phone] Assessment No assessment recorded. Plan of Treatment [...] Surgeries None recorded. Imaging US, obstetric , biophysic al profile + non-stres s test 2024 025 [email or web address] [address], [address], [place], [address], 03/23/2025 15:26:36 Medication Orders None recorded. Patient TargetsNo targets recorded. Patient InstructionsNo instructions recorded. Reason for Referral None Reported. Results Created Date Observation Date Name Description Value Unit Range Abnormal Flag Note LastModifiedBy Organization Detail LastModifiedTime 10/15/1910/14/2024 [UNIT Y] ANEUP LOIDY NIPT fraction 7.0% normal Not Available [facility] [address], [place], [address], 10/14/2024 19:59:38 10/15/19 25 10/14/2024 [UNIT Y] ANEUP LOIDY NIPT 22Q11.2 microdeletio n LOW RISK <1 in 10,000 normal Not Available [facility] [address], [place], [address], 10/14/2024 19:59:38 10/15/19 25 10/14/2024 [UNIT Y] ANEUP LOIDY NIPT sex chromosome aneuploidy NOT DETECT ED normal Not Available [facility] [address], [place], [address], 10/14/2024 19:59:38 10/15/19 25 10/14/2024 [UNIT Y] 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 in 10,000 normal Not Available [facility] [address], [place], [address], 10/14/2024 19:59:38 10/15/19 25 10/14/2024 [UNIT Y] ANEUP LOIDY NIPT trisomy 13 LOW RISK <1 in 10,000 normal Not Available [facility] [address], [place], [address], 10/14/2024 19:59:38 10/15/19 25 10/14/2024 [UNIT Y] ANEUP LOIDY NIPT trisomy 18 LOW RISK <1 in 10,000 normal Not Available [facility] [address], [place], [address], 10/14/2024 19:59:38 10/15/19 25 10/14/2024 [UNIT Y] ANEUP LOIDY NIPT trisomy 21 LOW RISK <1 in 10,000 normal Not Available [facility] [address], [place], [address], 10/14/2024 19:59:38 10/15/19 25 10/14/2024 [UNIT Y] ANEUP LOIDY NIPT sex MALE normal Not Available [facility] [address], [place], [address], 10/14/2024 19:59:38 10/15/19 25 10/14/2024 [UNIT Y] ANEUP LOIDY NIPT gestation SINGLE TON normal Not Available [facility] [address], [place], [address], 10/14/2024 19:59:38 10/15/19 25 10/14/2024 [UNIT Y] ANEUP LOIDY NIPT for detailed report, see pdf See PDF normal Not Available [facility] [address], [place], [address], 10/14/2024 19:59:38 10/20/19 25 10/19/2024 [UNIT Y] ESP[place] sickle cell disease/beta -thalassemia /hemoglobino pathies carrier screen NEGATI VE normal Not Available [facility] [address], [place], [address], 10/19/2024 14:09:36 10/20/19 25 10/19/2024 [UNIT Y] ESP[place] alpha-thalas semia carrier screen NEGATI VE normal Not Available [facility] [address], [place], [address], 10/19/2024 14:09:36 10/20/19 25 10/19/2024 [UNIT Y] ESP[place] cystic fibrosis carrier screen NEGATI VE normal Not Available [facility] [address], [place], [address], 10/19/2024 14:09:36 10/20/19 25 10/19/2024 [UNIT Y] [place] spinal muscular atrophy carrier screen NEGATI VE 2 SMN1 copies , SNP not presen t normal Not Available [facility] [address], [place], [address], 10/19/2024 14:09:36 10/20/19 25 10/19/2024 [UNIT Y] ESP[place] for detailed report, see pdf See PDF normal Not Available [facility] [address], [place], [address], 10/19/2024 14:09:36 10/09/1910/08/2024 CULTU RE: URINE result report SEE RESULT S BELOW Test: Cultu re: Urine Speci men Sourc e: Urine Voide d Speci men Type: Urine Speci men Date: 2024 1320 Resul t Date: 2024 0400 Resul t Statu s: Final resul t Abnor mal: No Resul ting Lab: [facility] [address] [facility] [address] Tel: [phone] CULTU RE ----- ----- ----- --- No growt h in 1 day (dete ction level of 10,00 0 colon ies / ml.) Not Available [facility] (Lab) [address] [facility], [place], [address], 10/10/2024 05:04:31 10/09/1910/08/2024 CBC W/DIF F WBC 9.1 10'3/ uL 3.5-10 .5 Not Available [facility] (Lab) [address] [place], [address], 10/11/2024 20:50:49 10/09/19 25 10/08/2024 CBC W/DIF F RBC 5.20 10'6/ uL (based on docume nted legal sex) 3.80-5 .20 Not Available [facility] (Lab) [address] [place], [address], 10/11/2024 20:50:49 10/09/19 25 10/08/2024 CBC W/DIF F HGB 14.7 g/dL (based on docume nted legal sex) 11.6-1 5.4 Not Available [facility] (Lab) [address] [place], [address], 10/11/2024 20:50:49 10/09/19 25 10/08/2024 CBC W/DIF F HCT 45.2 % (based on docume nted legal sex) 34.0-4 5.0 high Not Available [facility] (Lab) [address], [place], [address], 10/11/2024 20:50:49 10/09/19 25 10/08/2024 CBC W/DIF F MCV 86.9 fL 80.0-9 9.0 Not Available [facility] (Lab) [address], [place], [address], 10/11/2024 20:50:49 10/09/19 25 10/08/2024 CBC W/DIF F MCH 28.3 pg 27.0-3 4.0 Not Available [facility] (Lab) [address], [place], [address], 10/11/2024 20:50:49 10/09/19 25 10/08/2024 CBC W/DIF F MCHC 32.5 g/dL 32.0-3 5.5 Not Available [facility] (Lab) [address], [place], [address], 10/11/2024 20:50:49 10/09/19 25 10/08/2024 CBC W/DIF F RDW 13.2 % 11.0-1 5.0 Not Available [facility] (Lab) [address], [place], [address], 10/11/2024 20:50:49 10/09/19 25 10/08/2024 CBC W/DIF F plt 286 10'3/ uL 150-40 0 Not Available [facility] (Lab) [address], [place], [address], 10/11/2024 20:50:49 10/09/19 25 10/08/2024 CBC W/DIF F MPV 11.7 fL 8.8-12 .1 Not Available [facility] (Lab) [address], [place], [address], 10/11/2024 20:50:49 10/09/19 25 10/08/2024 CBC W/DIF F NRBC's 0.0 % 0.0 Not Available [facility] (Lab) [address] [facility], [place], [address], 10/11/2024 20:50:49 10/09/19 25 10/08/2024 CBC W/DIF F absolute NRBCs 0.0 10'3/ uL no refere nce range establ ished Not Available [facility] (Lab) [address] [facility], [place], [address], 10/11/2024 20:50:49 10/09/19 25 10/08/2024 CBC W/DIF F neutrophils 67.1 % 34.0-7 3.0 Not Available [facility] (Lab) [address] [facility], [place], [address], 10/11/2024 20:50:49 10/09/19 25 10/08/2024 CBC W/DIF F lymphocytes 25.1 % 15.0-5 0.0 Not Available [facility] (Lab) [address] [facility], [place], [address], 10/11/2024 20:50:49 10/09/19 25 10/08/2024 CBC W/DIF F monocytes 6.4 % 1.0-15 .0 Not Available [facility] (Lab) [address] [place], [address], 10/11/2024 20:50:49 10/09/19 25 10/08/2024 CBC W/DIF F eosinophils 0.9 % 0.0-8. 0 Not Available [facility] (Lab) [address] [place], [address], 10/11/2024 20:50:49 10/09/19 25 10/08/2024 CBC W/DIF F basophils 0.3 % 0.0-2. 0 Not Available [facility] (Lab) [address] [facility] [place], [address], 10/11/2024 20:50:49 10/09/19 25 10/08/2024 CBC W/DIF [...] separ ately if prese nt. Not Available [facility] (Lab) [address] [facility], [place], [address], 10/11/2024 20:50:49 10/09/19 25 10/08/2024 CBC W/DIF F absolute neutrophils 6.1 10'3/ uL 1.5-8. 0 Not Available [facility] (Lab) [address] [facility], [place], [address], 10/11/2024 20:50:49 10/09/19 25 10/08/2024 CBC W/DIF F absolute lymphocytes 2.3 10'3/ uL 1.0-4. 0 Not Available [facility] (Lab) [address] [facility], [place], [address], 10/11/2024 20:50:49 10/09/19 25 10/08/2024 CBC W/DIF F absolute monocytes 0.6 10'3/ uL 0.2-1. 0 Not Available [facility] (Lab) [address] [facility], [place], [address], 10/11/2024 20:50:49 10/09/19 25 10/08/2024 CBC W/DIF F absolute eosinophils 0.1 10'3/ uL 0.0-0. 6 Not Available [facility] (Lab) [address] [facility], [place], [address], 10/11/2024 20:50:49 10/09/19 25 10/08/2024 CBC W/DIF F absolute basophils 0.0 10'3/ uL 0.0-0. 3 Not Available [facility] (Lab) [address] [facility], [place], [address], 10/11/2024 20:50:49 10/09/1910/08/2024 CBC W/DIF F absolute immature granulocytes 0.0 10'3/ uL 0.00-0 .10 Refer ence range s for nonbi nary/ inter sex or unspe cifie d gende r patie nts have not been estab lishe d. [facility]as e [facility] for range s estab lishe d for cisge nder patie nts and evalu ate in the clini hussein ej xt of the indiv idual patie nt: https ://lily emerson book. nm.or g/gen derx Not Available [facility] (Lab) [address] [facility], [place], [address], 10/11/2024 20:50:49 10/09/1910/08/2024 HIV 1/2 ANTIG EN/AN TIBOD Y, REFLE X CONFI RMATI ON HIV antigen/anti body Nonrea ctive nonrea ctive HIV-1 antig en and HIV-1 /HIV- 2 antib odies were not detec adela. No labor atory evide nce of HIV infec tion. Not Available [facility] (Lab) [address] [facility], [place], [address], 10/11/2024 20:50:49 10/09/1910/08/2024 HEPAT ITIS B SURFA CE ANTIG EN hepatitis B surface antigen Non-re active non-re active This assay was perfo rmed using [employer] ratio n reage nts and test kits. Value s obtai charles with other assay metho ds or kits canno t be used inter emanuel eably . Not Available [facility] (Lab) [address] [facility], [place], [address], 10/11/2024 20:50:50 06/13/20 25 10/08/2024 HEPAT ITIS C ANTIB NITA SCREE N, REFLE X TO CONFI RMATI ON hepatitis C antibody Non-re active non-re active Antib odies to HCV Not Detec adela, does not exclu de the possi bilit y of expos ure to HCV. Not Available [facility] (Lab) [address] [facility], [place], [address], 10/11/2024 20:50:50 10/09/19 25 10/08/2024 RUBEL LA IGG ANTIB NITA, QUANT rubella antibodies, IgG Reacti ve reacti ve Not Available [facility] (Lab) [address] [facility], [place], [address], 10/11/2024 20:50:50 10/09/19 25 10/08/2024 RUBEL LA IGG ANTIB NITA, QUANT rubella antibodies, IgG quant 24.1 IU/mL >=10 Non-r eacti ve (Non- Immun e) <10 IU/mL React alejandra (Immu ne) > or = 10 IU/mL Not Available [facility] (Lab) [address] [facility], [place], [address], 10/11/2024 20:50:50 10/09/19 25 10/08/2024 TYPE/ RH/SC REEN ABO/Rh type A POS Not Available [facility] (Lab) [address] [facility], [place], [address], 10/11/2024 20:50:51 10/09/19 25 10/08/2024 TYPE/ RH/SC REEN antibody screen NEG Not Available [facility] (Lab) [address] [facility], [place], [address], 10/11/2024 20:50:51 10/09/1910/08/2024 TYPE/ RH/SC REEN exp date 2024 23:59 Not Available [facility] (Lab) [address] [facility], [place], [address], 10/11/2024 20:50:51 10/09/19 25 10/08/2024 HEMOG LOBIN [...] >8.0% Actio n sugge sted Not Available [facility] (Lab) [address] , [place], [address], 10/11/2024 20:50:51 10/09/19 25 10/08/2024 RPR SCREE N, REFLE X TITER /CONF IRMAT ION RPR qualitative Nonrea ctive nonrea ctive Not Available [facility] (Lab) [address], [place], [address], 10/11/2024 20:50:51 10/09/19 25 10/08/2024 drug scree n, urine Amphetamines : negati ve Not Available [facility] [address], [place], [address], 10/08/2024 13:34:18 10/09/19 25 10/08/2024 drug scree n, urine Cannabinoids : negati ve Not Available [facility] [address], [place], [address], 10/08/2024 13:34:18 10/09/19 25 10/08/2024 drug scree n, urine Cocaine: negati ve Not Available [facility] [address], [place], [address], 10/08/2024 13:34:18 10/09/19 25 10/08/2024 drug scree n, urine Opiates: negati ve Not Available [facility] [address], [place], [address], 10/08/2024 13:34:18 10/09/19 25 10/08/2024 drug scree n, urine Barbiturates : negati ve Not Available [facility] [address], [place], [address], 10/08/2024 13:34:18 10/09/19 25 10/08/2024 drug scree n, urine Benzodiazepi dino: negati ve Not Available [facility] [address], [place], [address], 10/08/2024 13:34:18 01/22/20 25 01/21/2025 GTT - GESTA MARYANA L SCREE N, ACOG OB glucose, 1 hour screen 210 mg/dL 70-135 high Not Available [facility] (Lab) [address], [place], [address], 01/22/2025 12:46:27 01/22/20 25 01/21/2025 HIV 1/2 ANTIG EN/AN TIBOD Y, REFLE X CONFI RMATI ON HIV antigen/anti body Nonrea ctive nonrea ctive HIV-1 antig en and HIV-1 /HIV- 2 antib odies were not detec adela. No labor atory evide nce of HIV infec tion. Not Available [facility] (Lab) [address], [place], [address], 01/22/2025 12:46:28 01/22/20 25 01/21/2025 HEMOG LOBIN (HGB) HGB 13.3 g/dL (based on docume nted legal sex) 11.6-1 5.4 Not Available [facility] (Lab) [address], [place], [address], 01/22/2025 12:46:28 01/22/20 25 01/21/2025 HEMAT OCRIT (HCT) HCT 40.3 % (based on docume nted legal sex) 34.0-4 5.0 Not Available [facility] (Lab) [address] [facility], [place], [address], 01/22/2025 12:46:28 01/22/20 25 01/21/2025 RPR SCREE N, REFLE X TITER /CONF IRMAT ION RPR qualitative Nonrea ctive nonrea ctive Not Available [facility] (Lab) [address] [facility], [place], [address], 01/22/2025 12:46:28 03/23/20 25 03/23/2025 CULTU RE: [...] t Abnor mal: No Resul ting Lab: [facility] [address] [facility] [address] Tel: CULTU RE ----- ----- ----- --- No Group B strep isola adela at 2 days (byron ctive broth enhan cemen t) Not Available [facility] (Lab) [address] [facility], [place], [address], 03/26/2025 14:10:51 10/09/19 25 10/08/2024 US, obste tric, nucha l trans lucen cy No observ ation record ed. [facility] [address], [place], [address], 10/08/2024 18:39:08 10/09/19 25 10/08/2024 US, obste tric, nucha l trans lucen cy No observ ation record ed. [email or web address] V[facility] [address], [place], [address], 10/09/2024 23:09:07 11/25/19 25 11/24/2024 US, obste tric, 2nd or 3rd trime ster No observ ation record ed. [email or web address] [facility], [place], [address], 12/01/2024 11:58:43 11/25/19 25 11/25/2024 US, obste tric, 2nd or 3rd trime ster No observ ation record ed. [email or web address], [place], [address], 11/25/2024 12:49:42 12/25/19 25 12/24/2024 US, obste tric, follo w-up No observ ation record ed. ELIN [facility] [address], [place], [address], 01/01/2025 17:08:59 12/25/19 25 12/24/2024 US, obste tric, follo w-up No observ ation record ed. [facility] [address], [place], [address], 12/24/2024 13:46:21 02/05/20 25 02/04/2025 US, obste tric, follo w-up No observ ation record ed. [facility] [address], [place], [address], 02/04/2025 13:02:03 02/05/20 25 02/04/2025 US, obste tric, follo w-up No observ ation record ed. [email or web address] [facility] [address], [place], [address], 02/07/2025 16:14:11 03/03/20 25 03/03/2025 US, obste tric, follo w-up No observ ation record ed. [email or web address] [facility] [address], [place], [address], 03/03/2025 15:11:00 03/03/20 25 03/03/2025 US, obste tric, follo w-up No observ ation record ed. [email or web address] [facility] [address], [place], [address], 03/04/2025 12:00:47 03/10/2003/10/2025 non-s tress test No observ ation record ed. [facility] [address] [facility] [address], [place], [address], 03/14/2025 11:36:31 03/10/20 25 03/10/2025 US, obste tric, follo w-up No observ ation record ed. [email or web address] [facility] [address], [place], [address], 03/11/2025 08:40:14 03/18/20 25 03/18/2025 non-s tress test No observ ation record ed. [facility] [address], [place], [address], 03/28/2025 10:44:01 03/18/20 25 03/18/2025 non-s tress test No observ ation record ed. [email or web address] [facility] [address], [place], [address], 04/15/2025 10:36:55 03/18/20 25 03/18/2025 US, obste tric, bioph ysica l profi le No observ ation record ed. [address] [facility] [address], [place], [address], 03/23/2025 16:26:00 03/18/20 25 03/18/2025 US, obste tric, bioph ysica l profi le No observ ation record ed. [address], [place], [address], 03/23/2025 16:25:42 03/18/20 25 03/18/2025 non-s tress test No observ ation record ed. [facility] [address] [facility] [address], [place], [address], 03/28/2025 11:00:24 03/23/20 25 03/23/2025 US, obste tric, bioph ysica l profi le + non-s tress test No observ ation record ed. [email or web address] [facility] [address], [place], [address], 03/23/2025 18:22:09 03/23/20 25 03/23/2025 US, obste tric, bioph ysica l profi le + non-s tress test No observ ation record ed. [email or web address] [facility] [address], [place], [address], 03/30/2025 11:20:06 03/23/20 25 03/23/2025 non-s tress test No observ ation record ed. [email or web address] [facility] [address], [place], [address], 03/23/2025 17:56:30 03/23/20 non-s tress test No observ ation record ed. [email or web address] [facility] [address], [place], [address], 03/23/2025 17:23:26 04/01/20 25 04/01/2025 US, paige guerrero, follo w-up No observ ation record ed. [facility] [address], [place], [address], 04/01/2025 14:56:59 04/01/20 25 04/01/2025 US, obste tric, bioph ysica l profi le + non-s tress test No observ ation record ed. [email or web address] [facility] [address], [place], [address], 04/01/2025 14:57:12 04/01/20 25 04/01/2025 US, obste tric, follo w-up No observ ation record ed. [email or web address] [facility] [address], [place], [address], 04/04/2025 12:34:31 04/01/20 25 04/01/2025 non-s tress test No observ ation record ed. [address], [place], [address], 04/01/2025 16:35:28 04/01/20 non-s tress test No observ ation record ed. [email or web address] [place] [address] [address], [place], [address], 04/01/2025 16:40:02 Result Notes None recorded. 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 17:28:[address] Concept Completed 201701/23/2021 Encntr for routine child health exam w/o abnormal findings ;Recorde d Elsewher e: No Locat ion: Hilaria javier [facility] S ource: EHR Belt Line Feeder junior: N Practi ce ID: [id number] Con lable Time: 01:00:00 PM Mile rasheed [facility] 17:28:33 Surveill ance of contrace ption Completed 201701/23/2021 Encounte r for surveill ance of contrace ptives, unspecif ied;[place] rded Elsewher e: No Locat ion: [facility] S ource: EHR Belt Line Feeder junior: N Practi ce ID: [id number] Con lable Time: 02:00:00 PM [facility] 17:28:49 Clinical finding Completed 201701/23/2021 Presence of (intraut erine) contrace ptive device;R ecorded Elsewher e: No Locat ion: [facility] S ource: EHR Belt Line Feeder juinor: N Practi ce ID: [id number] Con lable Time: 08:00:00 AM Mile rasheed, [facility] 17:28:39 Insertio n of intraute rine contrace ptive device Completed 201701/23/2021 Encounte r for insertio n of intraute rine contrace ptive device;R ecorded Elsewher e: No Locat ion: [facility] S ource: EHR Belt Line Feeder junior: N Practi ce ID: [id number] Con lable Time: 08:00:00 AM Mile rasheed, [facility] 17:28:46 Pregnanc y test negative [id number] Completed 201701/23/2021 Encounte r for pregnanc y test, result negative ;Practic e ID: 0001 Mile rasheed, [facility] 17:28:25 Contrace ptive sheath status [id number] Completed 201701/23/2021 Encounte r for routine checking of intraute rine contrace p dev;Prac marco ID: 0001 Mile rasheed, [facility] 17:28:19 Pelvic and perineal pain [id number] Completed 201701/23/2021 Pelvic pain;Rec orded Elsewher e: No Locat ion: Hilaria javier [facility] S ource: EHR Belt Line Feeder junior: N Practi ce ID: [id number] Con lable Time: 04:00:00 PM Mile rasheed, [facility] 17:28:31 Syphilis test finding [id number] Completed 201701/23/2021 Encntr screen for infectio ns w sexl mode of transmis s;Practi ce ID: 0001 Mile rasheed, [facility] 17:28:42 Infectio n screenin g Completed 201701/23/2021 Encounte r for screenin g for oth infec/pa rastc diseases ;Practic e ID: 0001 Mile rasheed, [facility] 17:27:55 Contrace ption care manageme nt Completed 201801/23/2021 Encounte r for contrace ptive manageme nt, unspecif ied;[place] rded Elsewher e: No Locat ion: Hilaria javier [facility] S ource: EHR Belt Line Feeder junior: N Practi ce ID: [id number] Con lable Time: 10:45:00 AM Mile rasheed, [facility] 17:28:44 Blood leukocyt e number above referenc e range [id number] Completed 201801/23/2021 Elevated white blood cell count, unspecif ied;Prac marco ID: 0001 Mile rasheed, [facility] 17:28:45 Acute vaginiti s [id number] Completed 201801/23/2021 Acute vaginiti s;Record ed Elsewher e: No Locat ion: Rigoberto yaya [facility] S ource: EHR Belt Line Feeder junior: N Practi ce ID: [id number] Con lable Time: 10:45:00 AM Mile [place] [facility]:28:21 Increase d frequenc y of urinatio n [id number] Completed 201801/23/2021 Urinary frequenc y;Record ed Elsewher e: No Locat ion: Kathleenvitaly yaya [facility] S ource: EHR Belt Line Feeder junior: N Practi ce ID: [id number] Con lable Time: 10:45:00 AM [facility] 17:27:54 Uses combined oral contrace ption [id number] Completed 201801/23/2021 Encounte r for initial prescrip tion of contrace ptive pills;Pr actice ID: [id number] Mile Paredes [facility] 17:28:27 Removal of intraute rine device Completed 201801/23/2021 Encounte r for removal of intraute rine contrace ptive device;P ractice ID: [id number] Mile Doran [facility] 17:28:48 Pregnanc y [id number] Completed 202404/15/2025 Zainab Arringtoner [facility] 5 14:35:49 Gestatio nal diabetes mellitus [id number] Completed 2024 Checking bs QID , serial growth us - DT referral faxed to [facility] 01/24 Randi Cosme [facility] 5 13:08:13 Breech presenta tion [id number] Completed 2024 Jama Moreno MD [address], [place], [address], [facility] 5 12:37:19 Problem Notes None recorded. Procedures Surgical History Date Name Laterality Status Provider Name and Address Organization Details Recorded Time 5 SECTION (SURG) completed Not Available [facility] 04/08/2025 13:53:03 4 Date of Last Pap Smear completed Zainab Weston [facility] 09/06/2024 12:53:25 1 extraction of wisdom tooth completed Leida Duenas [facility] 08/19/2023 16:44:18 Imaging Results None [...] Prescrib ed Elsewher e: Yes Loca tion: [facility] odify By: Encount er DateTime : [...] Prescrib ed Elsewher e: No Locat ion: [facility] [facility] By: nadia archuleta DateTime : 12/09/19 11:49:30 AM Not Available Not Available Not Available Metrogel Vaginal 0.75 % (37.5 mg/5 gram) insert 1 applicat orful by vaginal route for 5 nights at bedtime 09/09 completed Prescrib ed Elsewher e: No Locat ion: [facility] M odify By: [email or web address] Javier ncounter DateTime : 05/19/19 18 10:59:56 AM Not [...] Prescrib ed Elsewher e: Yes Loca tion: [facility] M odify By: serenity Javier ncounter DateTime : [...] route every day 09/09 completed Prescrib ed Andrea e: No Locat ion: Hilaria javier [facility] M odify By: katelynn hernandez DateTime : 05/14/19 01:00:00 PM Not Available [...] and Address Organization Details Last Updated DateTime 03/23/2025 161.29 cm 36.3 kg/m2 99683.21 g 135/89 mm[Hg] Bibi Buckner [facility] [employer] 03/23/2025 17:21:30 Date Recorded Body height Body mass index (BMI) Body weight Systolic And Diastolic Provider Name and Address Organization Details Last Updated DateTime 03/23/2025 161.29 cm 36.3 kg/m2 70093.21 g 135/84 mm[Hg] RUSTAM DANIELS [facility] 03/23/2025 15:41:45 Social History Question Answer Notes LastModified by Organizat ion Details LastModified Time Tobacco Smoking Status Never Smoker Zainab Weston kathya, [facility] 10/31/2022 17:02:19 Do You Have [...] Or The Highest Degree You Have Received? [id number] [email or web address] Information not available 02/17/2024 Are There Any Guns Present In Your Home? Yes [email or web address] Information not available 02/17/2024 Do You Use Protection During Sex? No Information not available 02/17/2024 Do You Use Your Seat Belt Or Car Seat Routinely? Yes Information not available 08/15/2021 Are You Sexually Active? Yes [email or web address] Information not available 02/04/2025 Do You Have Smoke And Carbon Monoxide Detectors In Your Home? Yes Information not available 08/15/2021 How Much Tobacco Do You Smoke? No Information not available 09/11/2021 Do You Use Sunscreen Routinely? Yes Information not available 08/15/2021 Has Tobacco Cessation Counseling Been Provided? No Information not available 02/04/2025 Have You Used [...] other forms of tobacco or nicotine? No [email or web address] Information not available 02/04/2025 What is your level of alcohol consumption? None [email or web address] Information not available 02/17/2024 Are you currently employed? Yes [email or web address] Information not available 02/04/2025 Are you able to walk independently without assistance or assistive devices? [email or web address] Information not available 08/15/2021 Are you able to care for yourself independently? 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 No Information not available 10/31/2022 What is your exercise level? Occasional [email or web address] Information not available 12/08/2019 Mental Status Question Answer Note LastModified by Organization D etails LastModified Time Do you feel stressed (tense, restless, nervous, or anxious, or unable to sleep at night)? [id number] Information not available 08/15/2021 Family History Relationship Description Onset Age of this Age Resolved Age Notes LastModified by Organization Details LastModified Time Maternal Grandmother Congenital heart disease [email or web address] Not available 2019 14:32:40 Medical History Condition Response Allergies (Food, seasonal, environmental ) N Other N Breast Cancer N Drug/Latex Allergies/Reactions N Blood Transfusion N Lung Disease N [...] N Kidney Disease N Heart Problems N Kidney or Bladder Problems N Thyroid Problems N GI Problems N Eating Disorder [...] mL dose, filippo-sucrose 06/05/2021 completed Olamide Shafer [facility] [employer] 08/15/2021 12:28:36 Past Encounters Encounter ID Performer Location Encounter Start Date Encounter Closed Date Diagnosis/Indication Diagnosis SNOMED-CT Code Diagnosis ICD10 Code Diagnosis IMO Codes Diagnosis Note [id number] Jama Moreno MD [facility] [address],[place] [address] 03/03/2025 11:27:34 03/03/2025 12:15:05 Gestational diabetes mellitus 29289448 O24.410 Z3A.34 34320595 [id number] Jama Moreno MD [facility] [address],[place] [address] 03/03/2025 11:28:18 03/03/2025 13:32:46 Third trimester 31752258 Z34.03 [id number] Jama Moreno MD [facility] [address],[place] [address] 03/10/2025 17:29:33 03/11/2025 08:32:23 Third trimester 44004847 Z34.03 [id number] Bertha Alfonso [facility] [address],[place] [address] 03/18/2025 15:08:37 03/18/2025 16:25:03 Breech presentation 9432134 O32.1XX0 [id number] Bertha Alfonso [facility] [address],[place] [address] 03/18/2025 15:09:06 03/18/2025 16:00:32 Gestation period, 36 weeks 60159451 Z3A.36 [id number] Jama Moreno MD [facility] [address],[place] [address] 03/23/2025 14:18:49 03/23/2025 15:00:55 Gestational diabetes mellitus 83135803 O24.410 Z3A.36 [id number] Bertha Alfonso [facility] [address],[place] [address] 03/23/2025 14:19:55 03/23/2025 17:36:35 Breech presentation [id number] O32.1XX0 [id number] Bertha Alfonso [facility] [address],[place] [address] 03/23/2025 14:20:05 03/23/2025 16:00:30 Gestation period, 36 weeks 02319701 Z3A.36 [id number] Breech presentation 6096 002 O32.1XX0 [id number] Health Concerns Section Related Observation LastModified by Organization Detai ls LastModified Time None Recorded Concern Status LastModified by Organization Details LastModified Time None Recorded Payers Encounter Date Sequence Insurance Name Policy Number Policy Young Covered Member ID Young Member ID Guarantor Name 03/23/2025 1 [facility] [id number] Norma Hunter [id number] Ninoska Hunter 03/23/2025 2 [facility] [id number] Ninoska Valenzuela Dale [id number] Ninoska Dale Notes Date Note Type Note Provider Name and Address Organization Details Recorded Time 03/23/2025 text/html Generic HPI TemplateReported by Patient RUSTAM FRANCES rasheed [facility] [employer] 03/23/2025 17:54:07 OBGyn Episode Ob Episode Information Episode Created Date Number of Fetuses Patient Bloodtype Patient rh Status Prepregnancy Weight lbs Domestic Partner Domestic Partner Phone Father Name Supervisor Roving Status 10/09/19 25 1 A Positive 203 Adilson Wheat son CLOSED Fetus Data First Name Last Name Admitted to NICU Weight (g) Sex Living Outcome Pediatric Complications Fetus ID Race Codes Race Delivery Type true 3288.54 2 M true Full Term [id number] Primary Problems Problem Notes Problem Name Start Date End Date Resolution Snomed Code Not e Gestational diabetes mellitus 01/24/2025 23308818 Checking bs QID , serial growth us - DT referral faxed to [facility] 01/24 Breech presentation 03/03/2025 [id number] Bao Calculation Initial Bao Date Initial Exam [...] Weight in lbs Pre/Post Dialysis Refused Weight 195.207330507017 BP Diastolic BP Location Tested BP Systolic BP Type 86 L arm 122 sitting Fetus Heart Rate Present A Present Fetus Movement Comments Patient presents to [facility] care. otherwise uncomplicated. No nausea or cramping. NT/NB wnl today, desires NIPT. Will draw today with new OB labs. RTC 4 weeks for routine care. Flowsheet Date 11/05/2024 Brown Score Blood Edema Fundus Height Fundus Units Glucose Ketones Leukocytes Nitrite Labor Signs Protein Cervic Dilation Cervic Effacement Cervic Station Type Weight in lbs Pre/Post Dialysis Refused 196.201697941905 BP Diastolic BP Location Tested BP Systolic [...] Type Weight in lbs Pre/Post Dialysis Refused 198.340854536675 BP Diastolic BP Location Tested BP Systolic [...] Weight in lbs Pre/Post Dialysis Refused Weight 202.564784710181 BP Diastolic BP Location Tested BP Systolic [...] Type Weight in lbs Pre/Post Dialysis Refused 207.787964708926 BP Diastolic BP Location Tested BP Systolic [...] Weight in lbs Pre/Post Dialysis Refused Weight 200.781519736527 BP Diastolic BP Location Tested BP Systolic [...] Weight in lbs Pre/Post Dialysis Refused Weight 204.016703922589 BP Diastolic BP Location Tested BP Systolic [...] Type Weight in lbs Pre/Post Dialysis Refused 207.470017456970 BP Diastolic BP Location Tested BP Systolic [...] Weight in lbs Pre/Post Dialysis Refused Weight 208.205833460696 BP Diastolic BP Location Tested BP Systolic [...] Weight in lbs Pre/Post Dialysis Refused Weight 210.474724273153 BP Diastolic BP Location Tested BP Systolic [...] Weight in lbs Pre/Post Dialysis Refused Weight 208.028925398575 BP Diastolic BP Location Tested BP Systolic BP Type 89 L arm 135 sitting Fetus Heart Rate Present Fetus Movement A Yes Comments Flowsheet Date 03/23/2025 Brown Score Blood Edema Fundus Height Fundus Units Glucose Ketones Leukocytes Nitrite Labor Signs Protein Cervic Dilation Cervic Effacement Cervic Station Type Weight in lbs Pre/Post Dialysis Refused Weight 208.668842003552 BP Diastolic BP Location Tested BP Systolic [...] Weight in lbs Pre/Post Dialysis Refused Weight 209.526210930825 BP Diastolic BP Location Tested BP Systolic BP Type 83 L arm 134 sitting Fetus Heart Rate Present Fetus Movement A Yes Comments Flowsheet Date 04/01/2025 Brown Score Blood Edema Fundus Height Fundus Units Glucose Ketones Leukocytes Nitrite Labor Signs Protein Cervic Dilation Cervic Effacement Cervic Station Type Weight in lbs Pre/Post Dialysis Refused 209.117112968674 BP Diastolic BP Location Tested BP Systolic [...] Weight in lbs Pre/Post Dialysis Refused Weight 201.530053961678 BP Diastolic BP Location Tested BP Systolic [...]
--- OUTSIDE RECORDS SUMMARY | 2025-04-15 19:42 | XMS_ITS | Continuity of Care Document ---
Author Organization [facility] Address [address] [place] [address] Care Team Providers Care Systems Programmer Name Role Phone HONORIO SCHUMACHER Primary Care Provider [phone] Assessment Encounter Date Assessment Date Assessment LastModified by Organization Details LastModified Time 03/10/2025 03/10/2025 Patient is ___weeks . Discussed plan. 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 in 10,000 normal Not Available [facility] [address], [place], [address], 10/14/2024 19:59:38 10/15/19 25 10/14/2024 [UNIT Y] ANEUP LOIDY NIPT trisomy 13 LOW RISK <1 in 10,000 normal Not Available [facility] [address], [place], [address], 10/14/2024 19:59:38 10/15/19 25 10/14/2024 [UNIT Y] ANEUP LOIDY NIPT trisomy 18 LOW RISK <1 in 10,000 normal Not Available [facility] [address], [place], [address], 10/14/2024 19:59:38 10/15/19 25 10/14/2024 [UNIT Y] ANEUP LOIDY NIPT trisomy 21 LOW RISK <1 in 10,000 normal Not Available [facility] [address], [place], [address], 10/14/2024 19:59:38 10/15/19 25 10/14/2024 [UNIT Y] ANEUP LOIDY NIPT sex MALE normal Not Available [facility] [address], [place], [address], 10/14/2024 19:59:38 10/15/19 25 10/14/2024 [UNIT Y] ANEUP LOIDY NIPT gestation SINGLE TON normal Not Available [facility] [address], [place], [address], 10/14/2024 19:59:38 10/15/19 25 10/14/2024 [UNIT Y] ANEUP LOIDY NIPT for detailed report, see pdf See PDF normal Not Available [facility] [address], [place], [address], 10/14/2024 19:59:38 10/20/19 25 10/19/2024 [UNIT Y] ESPINOZA [place] sickle cell disease/beta -thalassemia /hemoglobino pathies carrier screen NEGATI VE normal Not Available [facility] [address], [place], [address], 10/19/2024 14:09:36 10/20/19 25 10/19/2024 [UNIT Y] ESPINOZA [place] alpha-thalas semia carrier screen NEGATI VE normal Not Available [facility] [address], [place], [address], 10/19/2024 14:09:36 10/20/19 25 10/19/2024 [UNIT Y] ESPINO[place] cystic fibrosis carrier screen NEGATI VE normal Not Available [facility] [address], [place], [address], 10/19/2024 14:09:36 10/20/19 25 10/19/2024 [UNIT Y] ESP[place] spinal muscular atrophy carrier screen NEGATI VE 2 SMN1 copies , SNP not presen t normal Not Available [facility] [address], [place], [address], 10/19/2024 14:09:36 10/20/19 25 10/19/2024 [UNIT Y] ESPINOZA [place] for detailed report, see pdf See PDF normal Not Available [facility] [address], [place], [address], 10/19/2024 14:09:36 10/09/1910/08/2024 CULTU RE: URINE result report SEE RESULT S BELOW Test: Cultu re: Urine Speci men Sourc e: Urine Voide d Speci men Type: Urine Speci men Date: 2024 1320 Resul t Date: 2024 0400 Resul t Statu s: Final resul t Abnor mal: No Resul ting Lab: [facility] [address] [facility] [address] Tel: CULTU RE ----- ----- ----- --- No growt h in 1 day (dete ction level of 10,00 0 colon ies / ml.) Not Available [facility] (Lab) [address] [facility], [place], [address], 10/10/2024 05:04:31 10/09/1910/08/2024 CBC W/DIF F WBC 9.1 10'3/ uL 3.5-10 .5 Not Available [facility] (Lab) [address] [facility] [facility], [place], [address], 10/11/2024 20:50:49 10/09/19 25 10/08/2024 CBC W/DIF F RBC 5.20 10'6/ uL (based on docume nted legal sex) 3.80-5 .20 Not Available [facility] (Lab) [address] [place], [address], 10/11/2024 20:50:49 10/09/19 25 10/08/2024 CBC W/DIF F HGB 14.7 g/dL (based on docume nted legal sex) 11.6-1 5.4 Not Available [facility] (Lab) [address] [place], [address], 10/11/2024 20:50:49 10/09/19 25 10/08/2024 CBC W/DIF F HCT 45.2 % (based on docume nted legal sex) 34.0-4 5.0 high Not Available [facility] (Lab) [address] [facility], [place], [address], 10/11/2024 20:50:49 10/09/19 25 10/08/2024 CBC W/DIF F MCV 86.9 fL 80.0-9 9.0 Not Available [facility] (Lab) [address] [facility], [place], [address], 10/11/2024 20:50:49 10/09/19 25 10/08/2024 CBC W/DIF F MCH 28.3 pg 27.0-3 4.0 Not Available [facility] (Lab) [address] [facility], [place], [address], 10/11/2024 20:50:49 10/09/19 25 10/08/2024 CBC W/DIF F MCHC 32.5 g/dL 32.0-3 5.5 Not Available [facility] (Lab) [address] [facility], [place], [address], 10/11/2024 20:50:49 10/09/19 25 10/08/2024 CBC W/DIF F RDW 13.2 % 11.0-1 5.0 Not Available [facility] (Lab) [address] [facility], [place], [address], 10/11/2024 20:50:49 10/09/19 25 10/08/2024 CBC W/DIF F plt 286 10'3/ uL 150-40 0 Not Available [facility] (Lab) [address] [facility], [place], [address], 10/11/2024 20:50:49 10/09/19 25 10/08/2024 CBC W/DIF F MPV 11.7 fL 8.8-12 .1 Not Available [facility] (Lab) [address] [facility], [place], [address], 10/11/2024 20:50:49 10/09/19 25 10/08/2024 CBC W/DIF F NRBC's 0.0 % 0.0 Not Available [facility] (Lab) [address] [facility] [facility], [place], [address], 10/11/2024 20:50:49 10/09/19 25 10/08/2024 CBC W/DIF F absolute NRBCs 0.0 10'3/ uL no refere nce range establ ished Not Available [facility] (Lab) [address] [facility], [place], [address], 10/11/2024 20:50:49 10/09/19 25 10/08/2024 CBC W/DIF F neutrophils 67.1 % 34.0-7 3.0 Not Available [facility] (Lab) [address] [facility] [facility], [place], [address], 10/11/2024 20:50:49 10/09/19 25 10/08/2024 CBC W/DIF F lymphocytes 25.1 % 15.0-5 0.0 Not Available [facility] (Lab) [address] [facility] [facility], [place], [address], 10/11/2024 20:50:49 10/09/19 25 10/08/2024 CBC W/DIF F monocytes 6.4 % 1.0-15 .0 Not Available [facility] (Lab) [address] [facility], [place], [address], 10/11/2024 20:50:49 10/09/19 25 10/08/2024 CBC W/DIF F eosinophils 0.9 % 0.0-8. 0 Not Available [facility] (Lab) [address] [facility], [place], [address], 10/11/2024 20:50:49 10/09/19 25 10/08/2024 CBC W/DIF F basophils 0.3 % 0.0-2. 0 Not Available [facility] (Lab) [address] [facility] [facility], [place], [address], 10/11/2024 20:50:49 10/09/19 25 10/08/2024 CBC W/DIF [...] separ ately if prese nt. Not Available [facility] (Lab) [address] [facility] [facility], [place], [address], 10/11/2024 20:50:49 10/09/19 25 10/08/2024 CBC W/DIF F absolute neutrophils 6.1 10'3/ uL 1.5-8. 0 Not Available [facility] (Lab) [address] [facility] [facility], [place], [address], 10/11/2024 20:50:49 10/09/19 25 10/08/2024 CBC W/DIF F absolute lymphocytes 2.3 10'3/ uL 1.0-4. 0 Not Available [facility] (Lab) [address] [facility], [place], [address], 10/11/2024 20:50:49 10/09/19 25 10/08/2024 CBC W/DIF F absolute monocytes 0.6 10'3/ uL 0.2-1. 0 Not Available [facility] (Lab) [address] [facility] [facility], [place], [address], 10/11/2024 20:50:49 10/09/19 25 10/08/2024 CBC W/DIF F absolute eosinophils 0.1 10'3/ uL 0.0-0. 6 Not Available [facility] (Lab) [address] [facility] [facility], [place], [address], 10/11/2024 20:50:49 10/09/19 25 10/08/2024 CBC W/DIF F absolute basophils 0.0 10'3/ uL 0.0-0. 3 Not Available [facility] (Lab) [address] [facility] [facility], [place], [address], 10/11/2024 20:50:49 10/09/19 25 10/08/2024 CBC W/DIF [...] ki book. nm.or g/gen derx Not Available [facility] (Lab) [address] [facility] [facility], [place], [address], 10/11/2024 20:50:49 10/09/1910/08/2024 HIV 1/2 ANTIG EN/AN TIBOD Y, REFLE X CONFI RMATI ON HIV antigen/anti body Nonrea ctive nonrea ctive HIV-1 antig en and HIV-1 /HIV- 2 antib odies were not detec adela. No labor atory evide nce of HIV infec tion. Not Available [facility] (Lab) [address] [facility] [facility], [place], [address], 10/11/2024 20:50:49 10/09/1910/08/2024 HEPAT ITIS B SURFA CE ANTIG EN hepatitis B surface antigen Non-re active non-re active This assay was perfo rmed using [employer] ratio n reage nts and test kits. Value s obtai charles with other assay metho ds or kits canno t be used inter emanuel eably . Not Available [facility] (Lab) [address] [facility] [facility], [place], [address], 10/11/2024 20:50:50 10/09/19 25 10/08/2024 HEPAT ITIS C ANTIB NITA SCREE N, REFLE X TO CONFI RMATI ON hepatitis C antibody Non-re active non-re active Antib odies to HCV Not Detec adela, does not exclu de the possi bilit y of expos ure to HCV. Not Available [facility] (Lab) [address] [facility] [facility], [place], [address], 10/11/2024 20:50:50 10/09/19 25 10/08/2024 RUBEL LA IGG ANTIB NITA, QUANT rubella antibodies, IgG Reacti ve reacti ve Not Available [facility] (Lab) [address] [facility] [facility], [place], [address], 10/11/2024 20:50:50 10/09/19 25 10/08/2024 RUBEL LA IGG ANTIB NITA, QUANT rubella antibodies, IgG quant 24.1 IU/mL >=10 Non-r eacti ve (Non- Immun e) <10 IU/mL React alejandra (Immu ne) > or = 10 IU/mL Not Available [facility] (Lab) [address] [facility] [facility], [place], [address], 10/11/2024 20:50:50 10/09/19 25 10/08/2024 TYPE/ RH/SC REEN ABO/Rh type A POS Not Available [facility] (Lab) [address], [place], [address], 10/11/2024 20:50:51 10/09/19 25 10/08/2024 TYPE/ RH/SC REEN antibody screen NEG Not Available [facility] (Lab) [address] [facility], [place], [address], 10/11/2024 20:50:51 10/09/19 25 10/08/2024 TYPE/ RH/SC REEN exp date 2024 23:59 Not Available [facility] (Lab) [address] [facility] [facility], [place], [address], 10/11/2024 20:50:51 10/09/19 25 10/08/2024 HEMOG LOBIN [...] >8.0% Actio n sugge sted Not Available [facility] (Lab) [address], [place], [address], 10/11/2024 20:50:51 10/09/19 25 10/08/2024 RPR SCREE N, REFLE X TITER /CONF IRMAT ION RPR qualitative Nonrea ctive nonrea ctive Not Available [facility] (Lab) [address], [place], [address], 10/11/2024 20:50:51 10/09/19 25 10/08/2024 drug scree n, urine Amphetamines : negati ve Not Available [facility] [address], [place], [address], 10/08/2024 13:34:18 10/09/19 25 10/08/2024 drug scree n, urine Cannabinoids : negati ve Not Available [facility] [address], [place], [address], 10/08/2024 13:34:18 10/09/19 25 10/08/2024 drug scree n, urine Cocaine: negati ve Not Available [facility] [address], [place], [address], 10/08/2024 13:34:18 10/09/19 25 10/08/2024 drug scree n, urine Opiates: negati ve Not Available [facility] [address], [place], [address], 10/08/2024 13:34:18 10/09/19 25 10/08/2024 drug scree n, urine Barbiturates : negati ve Not Available [facility] [address], [place], [address], 10/08/2024 13:34:18 10/09/19 25 10/08/2024 drug scree n, urine Benzodiazepi dino: negati ve Not Available [facility] [address], [place], [address], 10/08/2024 13:34:18 01/22/20 25 01/21/2025 GTT - GESTA MARYANA L SCREE N, ACOG OB glucose, 1 hour screen 210 mg/dL 70-135 high Not Available [facility] (Lab) [address], [place], [address], 01/22/2025 12:46:27 01/22/20 25 01/21/2025 HIV 1/2 ANTIG EN/AN TIBOD Y, REFLE X CONFI RMATI ON HIV antigen/anti body Nonrea ctive nonrea ctive HIV-1 antig en and HIV-1 /HIV- 2 antib odies were not detec adela. No labor atory evide nce of HIV infec tion. Not Available [facility] (Lab) [address], [place], [address], 01/22/2025 12:46:28 01/22/20 25 01/21/2025 HEMOG LOBIN (HGB) HGB 13.3 g/dL (based on docume nted legal sex) 11.6-1 5.4 Not Available [facility] (Lab) [address], [place], [address], 01/22/2025 12:46:28 01/22/20 25 01/21/2025 HEMAT OCRIT (HCT) HCT 40.3 % (based on docume nted legal sex) 34.0-4 5.0 Not Available [facility] (Lab) [address], [place], [address], 01/22/2025 12:46:28 01/22/20 25 01/21/2025 RPR SCREE N, REFLE X TITER /CONF IRMAT ION RPR qualitative Nonrea ctive nonrea ctive Not Available [facility] (Lab) [address] [facility] [facility], [place], [address], 01/22/2025 12:46:28 10/09/19 25 10/08/2024 US, obste tric, nucha l trans lucen cy No observ ation record ed. [email or web address] [facility] [address], [place], [address], 10/08/2024 18:39:08 10/09/19 25 10/08/2024 US, obste tric, nucha l trans lucen cy No observ ation record ed. [email or web address] [address], [place], [address], 10/09/2024 23:09:07 11/25/19 25 11/24/2024 US, obste tric, 2nd or 3rd trime ster No observ ation record ed. [email or web address] [address], [place], [address], 12/01/2024 11:58:43 11/25/19 25 11/25/2024 US, obste tric, 2nd or 3rd trime ster No observ ation record ed. [email or web address] [facility] [address], [place], [address], 11/25/2024 12:49:42 12/25/19 25 12/24/2024 US, obste tric, follo w-up No observ ation record ed. ELIN [address], [place], [address], 01/01/2025 17:08:59 12/25/19 25 12/24/2024 US, obste tric, follo w-up No observ ation record ed. [facility] [address], [place], [address], 12/24/2024 13:46:21 02/05/20 25 02/04/2025 US, obste tric, follo w-up No observ ation record ed. [facility] [address], [place], [address], 02/04/2025 13:02:03 02/05/2002/04/2025 US, obste tric, follo w-up No observ ation record ed. [email or web address] [address], [place], [address], 02/07/2025 16:14:11 03/03/20 25 03/03/2025 US, obste tric, follo w-up No observ ation record ed. [email or web address] [facility] [address], [place], [address], 03/03/2025 15:11:00 03/03/20 25 03/03/2025 US, obste tric, follo w-up No observ ation record ed. [email or web address] [address], [place], [address], 03/04/2025 12:00:47 03/10/20 25 03/10/2025 non-s tress test No observ ation record ed. [place] [id number] [facility] [address] [facility], [place], [address], 03/14/2025 11:36:31 03/10/20 25 03/10/2025 US, obste tric, follo w-up No observ ation record ed. [email or web address] [facility] [address], [place], [address], 03/11/2025 08:40:14 03/18/20 25 03/18/2025 non-s tress test No observ ation record ed. [email or web address] [facility] [address], [place], [address], 03/28/2025 10:44:01 03/18/20 25 03/18/2025 non-s tress test No observ ation record ed. [email or web address] [address], [place], [address], 04/15/2025 10:36:55 03/18/20 25 03/18/2025 US, obste tric, bioph ysica l profi le No observ ation record ed. [address] [facility], [place], [address], 03/23/2025 16:26:00 03/18/20 25 03/18/2025 US, obste tric, bioph ysica l profi le No observ ation record ed. [address] [facility], [place], [address], 03/23/2025 16:25:42 03/18/20 25 03/18/2025 non-s tress test No observ ation record ed. [address] [facility], [place], [address], 03/28/2025 11:00:24 03/23/20 25 03/23/2025 US, obste tric, bioph ysica l profi le + non-s tress test No observ ation record ed. [email or web address] [facility] [address], [place], [address], 03/23/2025 18:22:09 03/23/20 25 03/23/2025 US, obste tric, bioph ysica l profi le + non-s tress test No observ ation record ed. [email or web address] [address], [place], [address], 03/30/2025 11:20:06 03/23/20 25 03/23/2025 non-s tress test No observ ation record ed. [address], [place], [address], 03/23/2025 17:56:30 03/23/20 non-s tress test No observ ation record ed. [address], [place], [address], 03/23/2025 17:23:26 04/01/2004/01/2025 US, obstyaya tric, follo w-up No observ ation record ed. [facility] [address], [place], [address], 04/01/2025 14:56:59 04/01/20 25 04/01/2025 US, paige guerrero, bioph ysica l profi le + non-s tress test No observ ation record ed. [facility] [address], [place], [address], 04/01/2025 14:57:12 04/01/20 25 04/01/2025 US, obste tric, follo w-up No observ ation record ed. [email or web address] [address], [place], [address], 04/04/2025 12:34:31 04/01/20 25 04/01/2025 non-s tress test No observ ation record ed. [address], [place], [address], 04/01/2025 16:35:28 04/01/20 non-s tress test No observ ation record ed. [address], [place], [address], 04/01/2025 16:40:02 Result Notes None recorded. 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 17:28:[address] Concept Completed 201701/23/2021 Encntr for routine child health exam w/o abnormal findings ;Recorde d Elsewher e: No Locat ion: [facility] S ource: EHR [employer] Cream Grader junior: N Practi ce ID: [id number] Con lable Time: 01:00:00 PM Mile Paredes [facility] 17:28:33 Surveill ance of contrace ption Completed 201701/23/2021 Encounte r for surveill ance of contrace ptives, unspecif ied;[place]incy rded Elsewher e: No Locat ion: [facility] S ource: EHR [employer] Grader junior: N Practi ce ID: [id number] Con lable Time: 02:00:00 PM Mile rasheed [facility] 17:28:49 Clinical finding Completed 201701/23/2021 Presence of (intraut erine) contrace ptive device;R ecorded Elsewher e: No Locat ion: [facility] S ource: EHR [employer] Grader junior: N Practi ce ID: [id number] Con lable Time: 08:00:00 [facility] 17:28:39 Insertio n of intraute rine contrace ptive device Completed 201701/23/2021 Encounte r for insertio n of intraute rine contrace ptive device;R ecorded Elsewher e: No Locat ion: [facility] S ource: EHR [employer] Grader junior: N Practi ce ID: [id number] Con lable Time: 08:00:00 AM Mile rasheed, [facility] 17:28:46 Pregnanc y test negative [id number] Completed 201701/23/2021 Encounte r for pregnanc y test, result negative ;Practic e ID: 0001 Mile rasheed, [facility] 17:28:25 Contrace ptive sheath status [id number] Completed 201701/23/2021 Encounte r for routine checking of intraute rine contrace p dev;Prac marco ID: 0001 Mile rasheed, [facility] 17:28:19 Pelvic and perineal pain [id number] Completed 201701/23/2021 Pelvic pain;Rec orded Elsewher e: No Locat ion: [facility] S ource: EHR [employer] Grader junior: N Practi ce ID: 0001 Con lable Time: 04:00:00 PM Mile rasheed, [facility] 17:28:31 Syphilis test finding [id number] Completed 201701/23/2021 Encntr screen for infectio ns w sexl mode of transmis s;Practi ce ID: 0001 Mile rasheed, [facility] 17:28:42 Infectio n screenin g Completed 201701/23/2021 Encounte r for screenin g for oth infec/pa rastc diseases ;Practic e ID: 0001 Mile rasheed, [facility] 17:27:55 Contrace ption care manageme nt Completed 201801/23/2021 Encounte r for contrace ptive manageme nt, unspecif ied;Quincy rded Elsewher e: No Locat ion: [facility] S ource: EHR Milk [employer] Cream Grader junior: N Practi ce ID: [id number] Con lable Time: 10:45:00 AM Mile rasheed [facility] 17:28:44 Blood leukocyt e number above referenc e range [id number] Completed 201801/23/2021 Elevated white blood cell count, unspecif ied;Prac marco ID: 0001 Mile Paredes [facility] 17:28:45 Acute vaginiti s [id number] Completed 201801/23/2021 Acute vaginiti s;Record ed Elsewher e: No Locat ion: [facility] S ource: EHR Milk And Cream Grader junior: N Practi ce ID: [id number] Con lable Time: 10:45:00 AM Mile rasheed [facility] 17:28:21 Increase d frequenc y of urinatio n [id number] Completed 201801/23/2021 Urinary frequenc y;Record ed Elsewher e: No Locat ion: [facility] S ource: EHR Milk And Cream Grader junior: N Practi ce ID: [id number] Con lable Time: 10:45:00 AM Mile rasheed [facility] 17:27:54 Uses combined oral contrace ption [id number] Completed 201801/23/2021 Encounte r for initial prescrip tion of contrace ptive pills;Pr actice ID: 0001 Mile Paredes [facility] 17:28:27 Removal of intraute rine device Completed 201801/23/2021 Encounte r for removal of intraute rine contrace ptive device;P ractice ID: 0001 Mile Paredes [facility] 1 17:28:48 Pregnanc y [id number] Completed 202404/15/2025 Zainab rasheed, [facility] 5 14:35:49 Gestatio nal diabetes mellitus [id number] Completed 2024 Checking bs QID , serial growth us - DT referral faxed to [facility] 01/24 Randi Cosme rasheed, [facility] 5 13:08:13 Breech presenta tion [id number] Completed 2024 Jama Moreno MD [address], [place], [address], [facility] 5 12:37:19 Problem Notes None recorded. Procedures Surgical History Date Name Laterality Status Provider Name and Address Organization Details Recorded Time 5 SECTION (SURG) completed Not Available [facility] 04/08/2025 13:53:03 4 Date of Last Pap Smear completed Zainab Weston [facility] 09/06/2024 12:53:25 1 extraction of wisdom tooth completed Leida Duenas [facility] 08/19/2023 16:44:18 Imaging Results None recorded. [...] Elsewher e: Yes Loca tion: Hilaria javier [facility] M odify By: [email or web address] Encount er DateTime : 09/10/19 18 03:30:00 [...] Prescrib ed Elsewher e: No [facility]at [facility] odify By: nadia archuleta DateTime : 12/09/19 18 11:49:30 AM Not Available Not Available Not Available Metrogel Vaginal 0.75 % (37.5 mg/5 gram) insert 1 applicat orful by vaginal route for 5 nights at bedtime 09/09 completed Prescrib ed Elsewher e: No Locat ion: [facility] odify By: [email or web address] hernandez DateTime : 05/19/19 [...] Elsewher e: Yes Loca tion: Hilaria javier [facility] odify By: serenity Javier ncounter DateTime [...] ed Elsewher e: No Locat ion: [facility] odify By: [email or web address] Yaya ncounter DateTime : [...] and Address Organization Details Last Updated DateTime 03/10/2025 161.29 cm 36.3 kg/m2 27442.21 g 128/86 mm[Hg] Zainab Weston [facility] 03/10/2025 17:49:53 Social History Question Answer Notes LastModified by Organizat ion Details LastModified Time Tobacco Smoking Status Never Smoker Zainab Weston [facility], [facility] 10/31/2022 17:02:19 Do You Have An [...] Or The Highest Degree You Have Received? [id number] [email or web address] Information not available 02/17/2024 Are There Any Guns Present In Your Home? Yes [email or web address] Information not available 02/17/2024 Do You Use Protection During Sex? No [email or web address] Information not available 02/17/2024 Do You Use Your Seat Belt Or Car Seat Routinely? Yes Information not available 08/15/2021 Are You Sexually Active? Yes [email or web address] Information not available 02/04/2025 Do You Have Smoke And Carbon Monoxide Detectors In Your Home? Yes Information not available 08/15/2021 How Much Tobacco Do You Smoke? No Information not available 09/11/2021 Do You Use Sunscreen Routinely? Yes Information not available 08/15/2021 Has Tobacco Cessation Counseling Been Provided? No [email or web address] Information not available 02/04/2025 Have You Used [...] other forms of tobacco or nicotine? No [email or web address] Information not available 02/04/2025 What is your level of alcohol consumption? None [email or web address] Information not available 02/17/2024 Are you currently employed? Yes [email or web address] Information not available 02/04/2025 Are you able to walk independently without assistance or assistive devices? [email or web address] Information not available 08/15/2021 Are you able to care for yourself independently? 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 No Information not available 10/31/2022 What is your exercise level? Occasional [email or web address] Information not available 12/08/2019 Mental Status Question Answer Note LastModified by Organization D etails LastModified Time Do you feel stressed (tense, restless, nervous, or anxious, or unable to sleep at night)? [id number] Information not available 08/15/2021 Family History Relationship [...] mL dose, filippo-sucrose 06/05/2021 completed Olamide Shafer [facility] 08/15/2021 12:28:36 Past Encounters Encounter ID Performer Location Encounter Start Date Encounter Closed Date Diagnosis/Indication Diagnosis SNOMED-CT Code Diagnosis ICD10 Code Diagnosis IMO Codes Diagnosis Note [id number] Bertha Alfonso CNM [facility] [address],[facility] [address] 02/18/2025 09:18:35 02/18/2025 09:53:48 Gestation period, 32 weeks 0919742 Z3A.32 [id number] Jama Moreno MD [facility] [address],[place] [address] 03/03/2025 11:27:34 03/03/2025 12:15:05 Gestational diabetes mellitus 33911241 O24.410 Z3A.34 [id number] Jama Moreno MD [facility] [address],[place] [address] 03/03/2025 11:28:18 03/03/2025 13:32:46 Third trimester 05639562 Z34.03 [id number] Jama Moreno MD [facility] [address],[place] [address] 03/10/2025 17:29:33 03/11/2025 08:32:23 Third trimester 11683805 Z34.03 [id number] Health Concerns Section Related Observation LastModified by Organization Detai ls LastModified Time None Recorded Concern Status LastModified by Organization Details LastModified Time None Recorded Payers Encounter Date Sequence Insurance Name Policy Number Policy Young Covered Member ID Young Member ID Guarantor Name 03/10/2025 1 [employer] [id number] Norma Hunter [id number] Ninoska Hunter 03/10/2025 2 [id number] Ninoska Hunter [id number] Ninoska Hunter Notes Date Note Type Note Provider Name and Address Organization Details Recorded Time 03/10/2025 text/html Generic HPI TemplateReported by Patient Jama Moreno MD [address], [place], [address], [facility] 03/10/2025 18:31:45 OBGyn Episode Ob Episode Information Episode Created Date Number of Fetuses Patient Bloodtype Patient rh Status Prepregnancy Weight lbs Domestic Partner Domestic Partner Phone Father Name Supervisor [employer] Status 10/09/19 25 1 A Positive 203 Adilson Wheat son CLOSED Fetus Data First Name Last Name Admitted to NICU Weight (g) Sex Living Outcome Pediatric Complications Fetus ID Race Codes Race Delivery Type true 3288.54 2 M true Full Term [id number] Primary Problems Problem Notes Problem Name Start Date End Date Resolution Snomed Code Not e Gestational diabetes mellitus 01/24/2025 [id number] Checking bs QID , serial growth us - DT referral faxed to [facility] 01/24 Breech presentation 03/03/2025 [id number] Bao Calculation Initial Bao Date Initial Exam [...] Weight in lbs Pre/Post Dialysis Refused Weight 195.752740901160 BP Diastolic BP Location Tested BP Systolic BP Type 86 L arm 122 sitting Fetus Heart Rate Present A Present Fetus Movement Comments Patient presents to [facility] care. otherwise uncomplicated. No nausea or cramping. NT/NB wnl today, desires NIPT. Will draw today with new OB labs. RTC 4 weeks for routine care. Flowsheet Date 11/05/2024 Brown Score Blood Edema Fundus Height Fundus Units Glucose Ketones Leukocytes Nitrite Labor Signs Protein Cervic Dilation Cervic Effacement Cervic Station Type Weight in lbs Pre/Post Dialysis Refused 196.283289978957 BP Diastolic BP Location Tested BP Systolic [...] Type Weight in lbs Pre/Post Dialysis Refused 198.626770322454 BP Diastolic BP Location Tested BP Systolic [...] Weight in lbs Pre/Post Dialysis Refused Weight 202.695987577860 BP Diastolic BP Location Tested BP Systolic [...] Type Weight in lbs Pre/Post Dialysis Refused 207.166218350307 BP Diastolic BP Location Tested BP Systolic [...] Weight in lbs Pre/Post Dialysis Refused Weight 200.502616839986 BP Diastolic BP Location Tested BP Systolic [...] Weight in lbs Pre/Post Dialysis Refused Weight 204.033690261946 BP Diastolic BP Location Tested BP Systolic [...] Type Weight in lbs Pre/Post Dialysis Refused 207.101173757738 BP Diastolic BP Location Tested BP Systolic [...] Weight in lbs Pre/Post Dialysis Refused Weight 208.984693719359 BP Diastolic BP Location Tested BP Systolic [...] Weight in lbs Pre/Post Dialysis Refused Weight 210.724712437670 BP Diastolic BP Location Tested BP Systolic [...] Weight in lbs Pre/Post Dialysis Refused Weight 208.297517671527 BP Diastolic BP Location Tested BP Systolic BP Type 89 L arm 135 sitting Fetus Heart Rate Present Fetus Movement A Yes Comments Flowsheet Date 03/23/2025 Brown Score Blood Edema Fundus Height Fundus Units Glucose Ketones Leukocytes Nitrite Labor Signs Protein Cervic Dilation Cervic Effacement Cervic Station Type Weight in lbs Pre/Post Dialysis Refused Weight 208.529059467970 BP Diastolic BP Location Tested BP Systolic [...] Weight in lbs Pre/Post Dialysis Refused Weight 209.859679005973 BP Diastolic BP Location Tested BP Systolic BP Type 83 L arm 134 sitting Fetus Heart Rate Present Fetus Movement A Yes Comments Flowsheet Date 04/01/2025 Brown Score Blood Edema Fundus Height Fundus Units Glucose Ketones Leukocytes Nitrite Labor Signs Protein Cervic Dilation Cervic Effacement Cervic Station Type Weight in lbs Pre/Post Dialysis Refused 209.411193657921 BP Diastolic BP Location Tested BP Systolic [...] Weight in lbs Pre/Post Dialysis Refused Weight 201.526411575177 BP Diastolic BP Location Tested BP Systolic [...]
--- OUTSIDE RECORDS SUMMARY | 2025-04-15 19:42 | XMS_ITS | Continuity of Care Document ---
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 Discussed plan. Not available 03/23/2025 15:57:51 Plan of Treatment Reminders Order Date Submit [...] Not Available [facility] [address], [place], [address], 10/14/2024 19:59:38 10/15/19 25 10/14/2024 [UNIT Y] ANEUP LOIDY NIPT 22Q11.2 microdeletio n LOW RISK <1 in 10,000 normal Not Available [facility] [address], [place], [address], 10/14/2024 19:59:38 10/15/19 25 10/14/2024 [UNIT Y] ANEUP LOIDY NIPT sex chromosome aneuploidy NOT DETECT ED normal Not Available [facility] [address], [place], [address], 10/14/2024 19:59:38 10/15/19 25 10/14/2024 [UNIT Y] 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 in 10,000 normal Not Available [facility] [address], [place], [address], 10/14/2024 19:59:38 10/15/19 25 10/14/2024 [UNIT Y] ANEUP LOIDY NIPT trisomy 13 LOW RISK <1 in 10,000 normal Not Available [facility] [address], [place], [address], 10/14/2024 19:59:38 10/15/19 25 10/14/2024 [UNIT Y] ANEUP LOIDY NIPT trisomy 18 LOW RISK <1 in 10,000 normal Not Available [facility] [address], [place], [address], 10/14/2024 19:59:38 10/15/19 25 10/14/2024 [UNIT Y] ANEUP LOIDY NIPT trisomy 21 LOW RISK <1 in 10,000 normal Not Available [facility] [address], [place], [address], 10/14/2024 19:59:38 10/15/19 25 10/14/2024 [UNIT Y] ANEUP LOIDY NIPT sex MALE normal Not Available [facility] [address], [place], [address], 10/14/2024 19:59:38 10/15/19 25 10/14/2024 [UNIT Y] ANEUP LOIDY NIPT gestation SINGLE TON normal Not Available [facility] [address], [place], [address], 10/14/2024 19:59:38 10/15/19 25 10/14/2024 [UNIT Y] ANEUP LOIDY NIPT for detailed report, see pdf See PDF normal Not Available [facility] [address], [place], [address], 10/14/2024 19:59:38 10/20/19 25 10/19/2024 [UNIT Y] ESPINOZA [place] sickle cell disease/beta -thalassemia /hemoglobino pathies carrier screen NEGATI VE normal Not Available [facility] [address], [place], [address], 10/19/2024 14:09:36 10/20/19 25 10/19/2024 [UNIT Y] ESPINOZA [place] alpha-thalas semia carrier screen NEGATI VE normal Not Available [facility] [address], [place], [address], 10/19/2024 14:09:36 10/20/19 25 10/19/2024 [UNIT Y] ESPINO[place] cystic fibrosis carrier screen NEGATI VE normal Not Available [facility] [address], [place], [address], 10/19/2024 14:09:36 10/20/19 25 10/19/2024 [UNIT Y] ESP[place] spinal muscular atrophy carrier screen NEGATI VE 2 SMN1 copies , SNP not presen t normal Not Available [facility] [address], [place], [address], 10/19/2024 14:09:36 10/20/19 25 10/19/2024 [UNIT Y] ESPINOZA [place] for detailed report, see pdf See PDF normal Not Available [facility] [address], [place], [address], 10/19/2024 14:09:36 10/09/1910/08/2024 CULTU RE: URINE result report SEE RESULT S BELOW Test: Cultu re: Urine Speci men Sourc e: Urine Voide d Speci men Type: Urine Speci men Date: 2024 1320 Resul t Date: 2024 0400 Resul t Statu s: Final resul t Abnor mal: No Resul ting Lab: [facility] [address] [facility] [place] [address] Tel: CULTU RE ----- ----- ----- --- No growt h in 1 day (dete ction level of 10,00 0 colon ies / ml.) Not Available [facility] (Lab) [address], [place], [address], 10/10/2024 05:04:31 10/09/1910/08/2024 CBC W/DIF F WBC 9.1 10'3/ uL 3.5-10 .5 Not Available [facility] (Lab) [address] [place], [address], 10/11/2024 20:50:49 10/09/19 25 10/08/2024 CBC W/DIF F RBC 5.20 10'6/ uL (based on docume nted legal sex) 3.80-5 .20 Not Available [facility] (Lab) [address] [place], [address], 10/11/2024 20:50:49 10/09/19 25 10/08/2024 CBC W/DIF F HGB 14.7 g/dL (based on docume nted legal sex) 11.6-1 5.4 Not Available [facility] (Lab) [address] [place], [address], 10/11/2024 20:50:49 10/09/19 25 10/08/2024 CBC W/DIF F HCT 45.2 % (based on docume nted legal sex) 34.0-4 5.0 high Not Available [facility] (Lab) [address], [place], [address], 10/11/2024 20:50:49 10/09/19 25 10/08/2024 CBC W/DIF F MCV 86.9 fL 80.0-9 9.0 Not Available [facility] (Lab) [address], [place], [address], 10/11/2024 20:50:49 10/09/19 25 10/08/2024 CBC W/DIF F MCH 28.3 pg 27.0-3 4.0 Not Available [facility] (Lab) [address], [place], [address], 10/11/2024 20:50:49 10/09/19 25 10/08/2024 CBC W/DIF F MCHC 32.5 g/dL 32.0-3 5.5 Not Available [facility] (Lab) [address], [place], [address], 10/11/2024 20:50:49 10/09/19 25 10/08/2024 CBC W/DIF F RDW 13.2 % 11.0-1 5.0 Not Available [facility] (Lab) [address], [place], [address], 10/11/2024 20:50:49 10/09/19 25 10/08/2024 CBC W/DIF F plt 286 10'3/ uL 150-40 0 Not Available [facility] (Lab) [address], [place], [address], 10/11/2024 20:50:49 10/09/19 25 10/08/2024 CBC W/DIF F MPV 11.7 fL 8.8-12 .1 Not Available [facility] (Lab) [address], [place], [address], 10/11/2024 20:50:49 10/09/19 25 10/08/2024 CBC W/DIF F NRBC's 0.0 % 0.0 Not Available [facility] (Lab) [address], [place], [address], 10/11/2024 20:50:49 10/09/19 25 10/08/2024 CBC W/DIF F absolute NRBCs 0.0 10'3/ uL no refere nce range establ ished Not Available [facility] (Lab) [address], [place], [address], 10/11/2024 20:50:49 10/09/19 25 10/08/2024 CBC W/DIF F neutrophils 67.1 % 34.0-7 3.0 Not Available [facility] (Lab) [address], [place], [address], 10/11/2024 20:50:49 10/09/19 25 10/08/2024 CBC W/DIF F lymphocytes 25.1 % 15.0-5 0.0 Not Available [facility] (Lab) [address], [place], [address], 10/11/2024 20:50:49 10/09/19 25 10/08/2024 CBC W/DIF F monocytes 6.4 % 1.0-15 .0 Not Available [facility] (Lab) [address], [place], [address], 10/11/2024 20:50:49 10/09/19 25 10/08/2024 CBC W/DIF F eosinophils 0.9 % 0.0-8. 0 Not Available [facility] (Lab) [address], [place], [address], 10/11/2024 20:50:49 10/09/19 25 10/08/2024 CBC W/DIF F basophils 0.3 % 0.0-2. 0 Not Available [facility] (Lab) [address] [place], [address], 10/11/2024 20:50:49 10/09/19 25 10/08/2024 CBC W/DIF [...] separ ately if prese nt. Not Available [facility] (Lab) [address], [place], [address], 10/11/2024 20:50:49 10/09/19 25 10/08/2024 CBC W/DIF F absolute neutrophils 6.1 10'3/ uL 1.5-8. 0 Not Available [facility] (Lab) [address], [place], [address], 10/11/2024 20:50:49 10/09/19 25 10/08/2024 CBC W/DIF F absolute lymphocytes 2.3 10'3/ uL 1.0-4. 0 Not Available [facility] (Lab) [address], [place], [address], 10/11/2024 20:50:49 10/09/19 25 10/08/2024 CBC W/DIF F absolute monocytes 0.6 10'3/ uL 0.2-1. 0 Not Available [facility] (Lab) [address], [place], [address], 10/11/2024 20:50:49 10/09/19 25 10/08/2024 CBC W/DIF F absolute eosinophils 0.1 10'3/ uL 0.0-0. 6 Not Available [facility] (Lab) [address], [place], [address], 10/11/2024 20:50:49 10/09/19 25 10/08/2024 CBC W/DIF F absolute basophils 0.0 10'3/ uL 0.0-0. 3 Not Available [facility] (Lab) [address], [place], [address], 10/11/2024 20:50:49 10/09/1910/08/2024 CBC W/DIF F absolute [...] ki book. nm.or g/gen derx Not Available [facility] (Lab) [address], [place], [address], 10/11/2024 20:50:49 10/09/1910/08/2024 HIV 1/2 ANTIG EN/AN TIBOD Y, REFLE X CONFI RMATI ON HIV antigen/anti body Nonrea ctive nonrea ctive HIV-1 antig en and HIV-1 /HIV- 2 antib odies were not detec adela. No labor atory evide nce of HIV infec tion. Not Available [facility] (Lab) [address], [place], [address], 10/11/2024 20:50:49 10/09/1910/08/2024 HEPAT ITIS B SURFA CE ANTIG EN hepatitis B surface antigen Non-re active non-re active This assay was perfo rmed using [employer] ratio n reage nts and test kits. Value s obtai charles with other assay metho ds or kits canno t be used inter emanuel eably . Not Available [facility] (Lab) [address], [place], [address], 10/11/2024 20:50:50 10/09/19 25 10/08/2024 HEPAT ITIS C ANTIB NITA SCREE N, REFLE X TO CONFI RMATI ON hepatitis C antibody Non-re active non-re active Antib odies to HCV Not Detec adela, does not exclu de the possi bilit y of expos ure to HCV. Not Available [facility] (Lab) [address], [place], [address], 10/11/2024 20:50:50 10/09/19 25 10/08/2024 RUBEL LA IGG ANTIB NITA, QUANT rubella antibodies, IgG Reacti ve reacti ve Not Available [facility] (Lab) [address], [place], [address], 10/11/2024 20:50:50 10/09/19 25 10/08/2024 RUBEL LA IGG ANTIB NITA, QUANT rubella antibodies, IgG quant 24.1 IU/mL >=10 Non-r eacti ve (Non- Immun e) <10 IU/mL React alejandra (Immu ne) > or = 10 IU/mL Not Available [facility] (Lab) [address], [place], [address], 10/11/2024 20:50:50 10/09/19 25 10/08/2024 TYPE/ RH/SC REEN ABO/Rh type A POS Not Available [facility] (Lab) [address], [place], [address], 10/11/2024 20:50:51 10/09/19 25 10/08/2024 TYPE/ RH/SC REEN antibody screen NEG Not Available [facility] (Lab) [address], [place], [address], 10/11/2024 20:50:51 10/09/19 25 10/08/2024 TYPE/ RH/SC REEN exp date 2024 23:59 Not Available [facility] (Lab) [address], [place], [address], 10/11/2024 20:50:51 10/09/19 25 10/08/2024 HEMOG LOBIN [...] >8.0% Actio n sugge sted Not Available [facility] (Lab) [address], [place], [address], 10/11/2024 20:50:51 10/09/19 25 10/08/2024 RPR SCREE N, REFLE X TITER /CONF IRMAT ION RPR qualitative Nonrea ctive nonrea ctive Not Available [facility] (Lab) [address], [place], [address], 10/11/2024 20:50:51 10/09/19 25 10/08/2024 drug scree n, urine Amphetamines : negati ve Not Available [facility] [address], [place], [address], 10/08/2024 13:34:18 10/09/19 25 10/08/2024 drug scree n, urine Cannabinoids : negati ve Not Available [facility] [address], [place], [address], 10/08/2024 13:34:18 10/09/19 25 10/08/2024 drug scree n, urine Cocaine: negati ve Not Available [facility] [address], [place], [address], 10/08/2024 13:34:18 10/09/19 25 10/08/2024 drug scree n, urine Opiates: negati ve Not Available [facility] [address], [place], [address], 10/08/2024 13:34:18 10/09/19 25 10/08/2024 drug scree n, urine Barbiturates : negati ve Not Available [facility] [address], [place], [address], 10/08/2024 13:34:18 10/09/19 25 10/08/2024 drug scree n, urine Benzodiazepi dino: negati ve Not Available [facility] [address], [place], [address], 10/08/2024 13:34:18 01/22/20 25 01/21/2025 GTT - GESTA MARYANA L SCREE N, ACOG OB glucose, 1 hour screen 210 mg/dL 70-135 high Not Available [facility] (Lab) [address], [place], [address], 01/22/2025 12:46:27 01/22/20 25 01/21/2025 HIV 1/2 ANTIG EN/AN TIBOD Y, REFLE X CONFI RMATI ON HIV antigen/anti body Nonrea ctive nonrea ctive HIV-1 antig en and HIV-1 /HIV- 2 antib odies were not detec adela. No labor atory evide nce of HIV infec tion. Not Available [facility] (Lab) [address], [place], [address], 01/22/2025 12:46:28 01/22/20 25 01/21/2025 HEMOG LOBIN (HGB) HGB 13.3 g/dL (based on docume nted legal sex) 11.6-1 5.4 Not Available [facility] (Lab) [address], [place], [address], 01/22/2025 12:46:28 01/22/20 25 01/21/2025 HEMAT OCRIT (HCT) HCT 40.3 % (based on docume nted legal sex) 34.0-4 5.0 Not Available [facility] (Lab) [address], [place], [address], 01/22/2025 12:46:28 01/22/20 25 01/21/2025 RPR SCREE N, REFLE X TITER /CONF IRMAT ION RPR qualitative Nonrea ctive nonrea ctive Not Available [facility] (Lab) [address], [place], [address], 01/22/2025 12:46:28 03/23/20 25 03/23/2025 CULTU RE: [...] LAB [address] [facility] [place] [address] Tel: CULTU RE ----- ----- ----- --- No Group B strep isola adela at 2 days (byron ctive broth enhan cemen t) Not Available [facility] (Lab) [address], [place], [address], 03/26/2025 14:10:51 10/09/19 25 10/08/2024 US, obste tric, nucha l trans lucen cy No observ ation record ed. [facility] [address], [place], [address], 10/08/2024 18:39:08 10/09/19 25 10/08/2024 US, obste tric, nucha l trans lucen cy No observ ation record ed. [email or web address] Vandana [address], [place], [address], 10/09/2024 23:09:07 11/25/19 25 11/24/2024 US, obste tric, 2nd or 3rd trime ster No observ ation record ed. [email or web address] Vandana [address], [place], [address], 12/01/2024 11:58:43 11/25/19 25 11/25/2024 US, obste tric, 2nd or 3rd trime ster No observ ation record ed. [email or web address] [facility] [address], [place], [address], 11/25/2024 12:49:42 12/25/19 25 12/24/2024 US, obste tric, follo w-up No observ ation record ed. ELIN V[address]ana [address], [place], [address], 01/01/2025 17:08:59 12/25/19 25 12/24/2024 US, obste tric, follo w-up No observ ation record ed. [facility] [address], [place], [address], 12/24/2024 13:46:21 02/05/20 25 02/04/2025 US, obste tric, follo w-up No observ ation record ed. [facility] [address], [place], [address], 02/04/2025 13:02:03 02/05/20 25 02/04/2025 US, obste tric, follo w-up No observ ation record ed. [email or web address] Vandana [address], [place], [address], 02/07/2025 16:14:11 03/03/20 25 03/03/2025 US, obste tric, follo w-up No observ ation record ed. [email or web address] [facility] [address], [place], [address], 03/03/2025 15:11:00 03/03/20 25 03/03/2025 US, obste tric, follo w-up No observ ation record ed. [email or web address] Vandana [address], [place], [address], 03/04/2025 12:00:47 03/10/20 25 03/10/2025 non-s tress test No observ ation record ed. [email or web address] [facility], [place], [address], 03/14/2025 11:36:31 03/10/20 25 03/10/2025 US, obste tric, follo w-up No observ ation record ed. [email or web address] [address] [facility], [place], [address], 03/11/2025 08:40:14 03/18/20 25 03/18/2025 non-s tress test No observ ation record ed. [email or web address] [facility] [address], [place], [address], 03/28/2025 10:44:01 03/18/20 25 03/18/2025 non-s tress test No observ ation record ed. [email or web address] [address] [facility], [place], [address], 04/15/2025 10:36:55 03/18/20 25 03/18/2025 paige VELIZ, bioph ysica l profi le No observ ation record ed. [email or web address] [address] [facility], [place], [address], 03/23/2025 16:26:00 03/18/20 25 03/18/2025 paige VELIZ, bioph ysica l profi le No observ ation record ed. [address], [place], [address], 03/23/2025 16:25:42 03/18/20 25 03/18/2025 non-s tress test No observ ation record ed. [facility] [address], [place], [address], 03/28/2025 11:00:24 03/23/20 25 03/23/2025 US, obste tric, bioph ysica l profi le + non-s tress test No observ ation record ed. [email or web address] [facility] [address], [place], [address], 03/23/2025 18:22:09 03/23/20 25 03/23/2025 US, obste tric, bioph ysica l profi le + non-s tress test No observ ation record ed. [email or web address] Vandana [address], [place], [address], 03/30/2025 11:20:06 03/23/20 25 03/23/2025 non-s tress test No observ ation record ed. [email or web address] [facility] [address], [place], [address], 03/23/2025 17:56:30 03/23/20 non-s tress test No observ ation record ed. [email or web address] [facility] [address], [place], [address], 03/23/2025 17:23:26 04/01/20 25 04/01/2025 US, obstyaya tric, follo w-up No observ ation record ed. [facility] [address], [place], [address], 04/01/2025 14:56:59 04/01/20 25 04/01/2025 US, obste tric, bioph ysica l profi le + non-s tress test No observ ation record ed. [email or web address] [facility] [address], [place], [address], 04/01/2025 14:57:12 04/01/20 25 04/01/2025 US, obste tric, follo w-up No observ ation record ed. [email or web address] Vandana [address], [place], [address], 04/04/2025 12:34:31 04/01/20 25 04/01/2025 non-s tress test No observ ation record ed. [address], [place], [address], 04/01/2025 16:35:28 04/01/20 non-s tress test No observ ation record ed. [email or web address], [place], [address], 04/01/2025 16:40:02 Result Notes None recorded. 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 17:28:[address] Concept Completed 201701/23/2021 Encntr for routine child health exam w/o abnormal findings ;Recorde d Elsewher e: No Locat ion: Hilaria javier [facility] S ource: EHR Large Engine Assembler junior: N Practi ce ID: [id number] Con lable Time: 01:00:00 PM Mile rasheed [facility] 17:28:33 Surveill ance of contrace ption Completed 201701/23/2021 Encounte r for surveill ance of contrace ptives, unspecif ied;Quincy rded Elsewher e: No Locat ion: [facility] S ource: EHR Large Engine Assembler junior: N Marissati ce ID: [id number] Con lable Time: 02:00:00 PM Mile rasheed, [facility] 17:28:49 Clinical finding Completed 201701/23/2021 Presence of (intraut erine) contrace ptive device;R ecorded Elsewher e: No Locat ion: [facility] S ource: EHR Large Engine Assembler junior: N Practi ce ID: [id number] Con lable Time: 08:00:00 AM Mile rasheed, [facility] 17:28:39 Insertio n of intraute rine contrace ptive device Completed 201701/23/2021 Encounte r for insertio n of intraute rine contrace ptive device;R ecorded Elsewher e: No Locat ion: [facility] S ource: EHR Large Engine Assembler junior: N Practi ce ID: [id number] Con lable Time: 08:00:00 AM Mile rasheed, [facility] 17:28:46 Pregnanc y test negative [id number] Completed 201701/23/2021 Encounte r for pregnanc y test, result negative ;Practic e ID: 0001 Mile rasheed, [facility] 17:28:25 Contrace ptive sheath status [id number] Completed 201701/23/2021 Encounte r for routine checking of intraute rine contrace p dev;Prac marco ID: 0001 Mile rasheed, [facility] 17:28:19 Pelvic and perineal pain [id number] Completed 08/08/ 2018 01/23/2021 Pelvic pain;Rec orded Elsewher e: No Locat ion: Hilaria yaya [facility] S ource: EHR Large Engine Assembler junior: N Practi ce ID: [id number] Con lable Time: 04:00:00 PM Mile rasheed [facility] 17:28:31 Syphilis test finding [id number] Completed 201701/23/2021 Encntr screen for infectio ns w sexl mode of transmis s;Practi ce ID: 0001 Mile rasheed, [facility] 17:28:42 Infectio n screenin g Completed 201701/23/2021 Encounte r for screenin g for oth infec/pa rastc diseases ;Practic e ID: 0001 Mile rasheed, [facility] 17:27:55 Contrace ption care manageme nt Completed 201801/23/2021 Encounte r for contrace ptive manageme nt, unspecif ied;Quincy rded Elsewher e: No [facility] EHR Large Engine Assembler junior: N Practi ce ID: [id number] Con lable Time: 10:45:00 AM Mile rasheed [facility] 17:28:44 Blood leukocyt e number above referenc e range [id number] Completed 201801/23/2021 Elevated white blood cell count, unspecif ied;Prac marco ID: 0001 Mile rasheed [facility] 17:28:45 Acute vaginiti s [id number] Completed 201801/23/2021 Acute vaginiti s;Record ed Elsewher e: No [facility]: EHR Large Engine Assembler junior: N Practi ce ID: [id number] Con lable Time: 10:45:00 AM Mile rasheed [facility] 17:28:21 Increase d frequenc y of urinatio n [id number] Completed 201801/23/2021 Urinary frequenc y;Record ed Elsewher e: No Locat ion: Kathleenvitaly yaya [facility] S ource: EHR Large Engine Assembler junior: N Francesco ce ID: [id number] Con lable Time: 10:45:00 AM Mile rasheed [facility] 17:27:54 Uses combined oral contrace ption [id number] Completed 201801/23/2021 Encounte r for initial prescrip tion of contrace ptive pills;Pr actice ID: 0001 Mile rasheed [facility] 17:28:27 Removal of intraute rine device Completed 201801/23/2021 Encounte r for removal of intraute rine contrace ptive device;P ractice ID: 0001 Mile Paredes [facility], [facility] 17:28:48 Pregnanc y [id number] Completed 202404/15/2025 Zainab Weston [facility] 14:35:49 Gestatio nal diabetes mellitus [id number] Completed 2024 Checking bs QID , serial growth us - DT referral faxed to [facility] 01/24 Randi Aguiar [facility] 13:08:13 Breech presenta tion [id number] Completed 2024 Jama Moreno MD [address], [place], [address], , P.C. 12:37:19 Problem Notes None recorded. Procedures Surgical History Date Name Laterality Status Provider Name and Address Organization Details Recorded Time 5 SECTION (SURG) completed Not Available [facility] 13:53:03 4 Date of Last Pap Smear completed Zainab Weston [facility] 09/06/2024 12:53:25 1 extraction of wisdom tooth completed Leida Duenas [facility] 08/19/2023 16:44:18 Imaging Results None [...] Prescrib ed Elsewher e: Yes [facility] By: [email or web address] Encount er DateTime : 09/10/19 03:30:00 PM [...] Prescrib ed Elsewher e: No [facility] By: nadia archuleta DateTime : 12/09/19 11:49:30 AM Not Available Not Available Not Available Metrogel Vaginal 0.75 % (37.5 mg/5 gram) insert 1 applicat orful by vaginal route for 5 nights at bedtime 09/09 completed Prescrib ed Elsewher e: No [facility] By: [email or web address] Yaya ncohoraceer DateTime : 05/19/19 18 10:59:56 AM Not [...] Prescrib ed Elsewher e: Yes Loca tion: [facility] odify By: serenity Javier ncohoraceer DateTime : 05/14/19 18 01:00:00 PM Not [...] Prescrib jennifer Mendez e: No Locat ion: Hilaria javier [facility] M odify By: [email or web address] Javier ncounter DateTime : 05/14/19 01:00:00 PM Not Available [...] Updated DateTime 03/23/2025 161.29 cm 36.3 kg/m2 14170.21 g 135/89 mm[Hg] Bibi Buckner [facility] 03/23/2025 17:21:30 Date Recorded Body height Body mass index (BMI) Body weight Systolic And Diastolic Provider Name and Address Organization Details Last Updated DateTime 03/23/2025 161.29 cm 36.3 kg/m2 59627.21 g 135/84 mm[Hg] RUSTAM DANIELS [facility] 03/23/2025 15:41:45 Social History Question Answer Notes LastModified by Organizat ion Details LastModified Time Tobacco Smoking Status Never Smoker Zainab Enrico rasheed, [facility] 10/31/2022 17:02:19 Do You Have [...] Or The Highest Degree You Have Received? [id number] [email or web address] Information not available 02/17/2024 Are There Any Guns Present In Your Home? Yes [email or web address] Information not available 02/17/2024 Do You Use Protection During Sex? No Information not available 02/17/2024 Do You Use Your Seat Belt Or Car Seat Routinely? Yes Information not available 08/15/2021 Are You Sexually Active? Yes [email or web address] Information not available 02/04/2025 Do You Have [...] other forms of tobacco or nicotine? No [email or web address] Information not available 02/04/2025 What is your level of alcohol consumption? None [email or web address] Information not available 02/17/2024 Are you currently employed? Yes [email or web address] Information not available 02/04/2025 Are you able to walk independently without assistance or assistive devices? [email or web address] Information not available 08/15/2021 Are you able to care for yourself independently? 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 No Information not available 10/31/2022 What is your exercise level? Occasional [email or web address] Information not available 12/08/2019 Mental Status Question Answer Note LastModified by Organization D etails LastModified Time Do you feel stressed (tense, restless, nervous, or anxious, or unable to sleep at night)? [id number] Information not available 08/15/2021 Family History Relationship [...] 30 mcg/0.3 mL dose, filippo-sucrose 06/05/2021 completed [facility] 08/15/2021 12:28:36 Past Encounters Encounter ID Performer Location Encounter Start Date Encounter Closed Date Diagnosis/Indication Diagnosis SNOMED-CT Code Diagnosis ICD10 Code Diagnosis IMO Codes Diagnosis Note [id number] Jama Moreno MD [facility] [address],[facility] [place] [address] 03/03/2025 11:27:34 03/03/2025 12:15:05 Gestational diabetes mellitus 90822127 O24.410 Z3A.34 [id number] Jama Morneo MD [facility] [address],[facility] [place] [address] 03/03/2025 11:28:18 03/03/2025 13:32:46 Third trimester 72574725 Z34.03 [id number] Jama Moreno MD [facility] [address] [address] 03/10/2025 17:29:33 03/11/2025 08:32:23 Third trimester 26345268 Z34.03 [id number] Bertha Alfonso [facility] [address],[place] [address] 03/18/2025 15:08:37 03/18/2025 16:25:03 Breech presentation 6403495 O32.1XX0 [id number] Bertha Alfonso [facility] [address],[place] [address] 03/18/2025 15:09:06 03/18/2025 16:00:32 Gestation period, 36 weeks 87949460 Z3A.36 3385340 [id number] Jama Moreno MD [facility] [address],[place] [address] 03/23/2025 14:18:49 03/23/2025 15:00:55 Gestational diabetes mellitus 69962618 O24.410 Z3A.36 [id number] Bertha Alfonso [facility] [address],[place] [address] 03/23/2025 14:19:55 03/23/2025 17:36:35 Breech presentation [id number] O32.1XX0 [id number] Bertha Alfonso [facility] [address],[place] [address] 03/23/2025 14:20:05 03/23/2025 16:00:30 Gestation period, 36 weeks 44131751 Z3A.36 [id number] Breech presentation 6096 002 O32.1XX0 [id number] Health Concerns Section Related Observation LastModified by Organization Detai ls LastModified Time None Recorded Concern Status LastModified by Organization Details LastModified Time None Recorded Payers Encounter Date Sequence Insurance Name Policy Number Policy Young Covered Member ID Young Member ID Guarantor Name 03/23/2025 1 [facility] [id number] Norma Hunter [id number] Ninoska Hunter 03/23/2025 2 [facility] [id number] Ninoska Hunter [id number] Ninoska Hunter Notes Date Note Type Note Provider Name and Address Organization Details Recorded Time 03/23/2025 text/html Generic HPI TemplateReported by Patient RUSTAM rasheed [facility] 03/23/2025 17:54:07 OBGyn Episode Ob Episode Information Episode Created Date Number of Fetuses Patient Bloodtype Patient rh Status Prepregnancy Weight lbs Domestic Partner Domestic Partner Phone Father Name Collections Representative Status 10/09/19 25 1 A Positive 203 Adilson Wheat son CLOSED Fetus Data First Name Last Name Admitted to NICU Weight (g) Sex Living Outcome Pediatric Complications Fetus ID Race Codes Race Delivery Type true 3288.54 2 M true Full Term [id number] Primary Problems Problem Notes Problem Name Start Date End Date Resolution Snomed Code Not e Gestational diabetes mellitus 01/24/2025 22020275 Checking bs QID , serial growth us - DT referral faxed to [facility] 01/24 Breech presentation 03/03/2025 [id number] Bao Calculation Initial Bao Date Initial Exam [...] Weight in lbs Pre/Post Dialysis Refused Weight 195.891948914999 BP Diastolic BP Location Tested BP Systolic BP Type 86 L arm 122 sitting Fetus Heart Rate Present A Present Fetus Movement Comments Patient presents to [facility] care. otherwise uncomplicated. No nausea or cramping. NT/NB wnl today, desires NIPT. Will draw today with new OB labs. RTC 4 weeks for routine care. Flowsheet Date 11/05/2024 Brown Score Blood Edema Fundus Height Fundus Units Glucose Ketones Leukocytes Nitrite Labor Signs Protein Cervic Dilation Cervic Effacement Cervic Station Type Weight in lbs Pre/Post Dialysis Refused 196.493763546369 BP Diastolic BP Location Tested BP Systolic [...] Type Weight in lbs Pre/Post Dialysis Refused 198.993155932288 BP Diastolic BP Location Tested BP Systolic [...] Weight in lbs Pre/Post Dialysis Refused Weight 202.613821948251 BP Diastolic BP Location Tested BP Systolic [...] Type Weight in lbs Pre/Post Dialysis Refused 207.667369791254 BP Diastolic BP Location Tested BP Systolic [...] Weight in lbs Pre/Post Dialysis Refused Weight 200.771248928208 BP Diastolic BP Location Tested BP Systolic [...] Weight in lbs Pre/Post Dialysis Refused Weight 204.440412544686 BP Diastolic BP Location Tested BP Systolic [...] Type Weight in lbs Pre/Post Dialysis Refused 207.879384969456 BP Diastolic BP Location Tested BP Systolic [...] Weight in lbs Pre/Post Dialysis Refused Weight 208.698973731236 BP Diastolic BP Location Tested BP Systolic [...] Weight in lbs Pre/Post Dialysis Refused Weight 210.023909742841 BP Diastolic BP Location Tested BP Systolic [...] Weight in lbs Pre/Post Dialysis Refused Weight 208.780397506191 BP Diastolic BP Location Tested BP Systolic BP Type 89 L arm 135 sitting Fetus Heart Rate Present Fetus Movement A Yes Comments Flowsheet Date 03/23/2025 Brown Score Blood Edema Fundus Height Fundus Units Glucose Ketones Leukocytes Nitrite Labor Signs Protein Cervic Dilation Cervic Effacement Cervic Station Type Weight in lbs Pre/Post Dialysis Refused Weight 208.374896793811 BP Diastolic BP Location Tested BP Systolic [...] Weight in lbs Pre/Post Dialysis Refused Weight 209.713654215944 BP Diastolic BP Location Tested BP Systolic BP Type 83 L arm 134 sitting Fetus Heart Rate Present Fetus Movement A Yes Comments Flowsheet Date 04/01/2025 Brown Score Blood Edema Fundus Height Fundus Units Glucose Ketones Leukocytes Nitrite Labor Signs Protein Cervic Dilation Cervic Effacement Cervic Station Type Weight in lbs Pre/Post Dialysis Refused 209.865631783223 BP Diastolic BP Location Tested BP Systolic [...] Weight in lbs Pre/Post Dialysis Refused Weight 201.854900283696 BP Diastolic BP Location Tested BP Systolic [...]
--- OUTSIDE RECORDS SUMMARY | 2025-04-15 19:42 | XMS_ITS | Data Portability ---
Author Organization [facility] Address [address] [place] [address] [place] [address] Care Team Providers Care Snubber Name Role Phone HONORIO SCHUMACHER Primary Care Provider [phone] Assessment Encounter Date Assessment Date Assessment LastModified by Organization Details LastModified Time 04/01/2025 04/01/2025 Patient is _38_weeks . Discussed plan. Not available 04/01/2025 15:49:30 Plan of Treatment Reminders Order Date Submit Date Provider Last Modified By Organization Details Last Modified Time Details Appointments SURG POST OP 2024 01:15P Khloe MORENO MD Not available Not available Not available POST 2025 01:00P Khloe MORENO MD Not available Not available Not available Lab None recorded. Referral None recorded. Procedures None recorded. Surgeries None recorded. Imaging non-stres s test 2024 025 [email or web address] 2 [place] [facility] [address], [address], [place], [address], 04/01/2025 16:37:02 US, obstetric , follow-up [email or web address], [address], [place], [address], 04/01/2025 20:42:37 US, obstetric , biophysic al profile + non-stres s test [email or web address], [address], [place], [address], 04/01/2025 20:42:37 Medication Orders None recorded. Patient TargetsNo targets recorded. Patient InstructionsNo instructions recorded. Reason for Referral None Reported. Results Created Date Observation Date Name Description Value Unit Range Abnormal Flag Note LastModifiedBy Organization Detail LastModifiedTime 03/23/2003/23/2025 CULTU RE: GROUP B STREP SCREE N, [...] Resul ting Lab: [facility] [address] [facility] [address] Tel: CULTU RE ----- ----- ----- --- No Group B strep isola adela at 2 days (byron ctive broth enhan cemen t) Not Available [facility] (Lab) [address] [facility], [place], [address], 03/26/2025 14:10:51 03/03/20 25 03/03/2025 US, renetta bond w-up No observ ation record ed. [email or web address] [place] [address], [place], [address], 03/03/2025 15:11:00 03/03/20 25 03/03/2025 , renetta bond w-up No observ ation record ed. [email or web address] [place] [address], [place], [address], 03/04/2025 12:00:47 03/10/20 25 03/10/2025 non-s tress test No observ ation record ed. [address], [place], [address], 03/14/2025 11:36:31 03/10/2003/10/2025 US, obste tric, follo w-up No observ ation record ed. [address] [facility], [place], [address], 03/11/2025 08:40:14 03/18/2003/18/2025 non-s tress test No observ ation record ed. [email or web address] [place] [address], [place], [address], 03/28/2025 10:44:01 03/18/2003/18/2025 non-s tress test No observ ation record ed. [address] [facility], [place], [address], 04/15/2025 10:36:55 03/18/20 25 03/18/2025 US, obste tric, bioph ysica l profi le No observ ation record ed. [address] [address], [place], [address], 03/23/2025 16:26:00 03/18/20 25 03/18/2025 US, obste tric, bioph ysica l profi le No observ ation record ed. [address] [address], [place], [address], 03/23/2025 16:25:42 03/18/20 25 03/18/2025 non-s tress test No observ ation record ed. [address], [place], [address], 03/28/2025 11:00:24 03/23/20 25 03/23/2025 US, obste tric, bioph ysica l profi le + non-s tress test No observ ation record ed. [email or web address] [place] [address], [place], [address], 03/23/2025 18:22:09 03/23/20 25 03/23/2025 US, paige tric, bioph ysica l profi le + non-s tress test No observ ation record ed. [email or web address] [place] [address], [place], [address], 03/30/2025 11:20:06 03/23/20 25 03/23/2025 non-s tress test No observ ation record ed. [email or web address] [place] [address], [place], [address], 03/23/2025 17:56:30 03/23/20 non-s tress test No observ ation record ed. [email or web address] [place] [address], [place], [address], 03/23/2025 17:23:26 04/01/20 25 04/01/2025 US, paige guerrero follo w-up No observ ation record ed. [facility] [address], [place], [address], 04/01/2025 14:56:59 04/01/20 25 04/01/2025 US, paige guerrero, bioph ysica l profi le + non-s tress test No observ ation record ed. [facility] [address], [place], [address], 04/01/2025 14:57:12 04/01/20 25 04/01/2025 US, obste tric, follo w-up No observ ation record ed. [email or web address] [place] [address], [place], [address], 04/04/2025 12:34:31 04/01/20 04/01/2025 non-s tress test No observ ation record ed. [email or web address] [place] [address], [place], [address], 04/01/2025 16:35:28 04/01/20 non-s tress test No observ ation record ed. [email or web address] [place] [address], [place], [address], 04/01/2025 16:40:02 Result Notes None recorded. 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 17:28:[address] Concept Completed 201701/23/2021 Encntr for routine child health exam w/o abnormal findings ;Recorde d Elsewher e: No Locat ion: [facility] S ource: [employer] junior: N Marissati ce ID: 0001 Con lable Time: 01:00:00 PM Mile Reggie [facility] 17:28:33 Surveill ance of contrace ption Completed 201701/23/2021 Encounte r for surveill ance of contrace ptives, unspecif ied;Quincy rded Elsewher e: No Locat ion: [facility] S ource: [employer] junior: N Practi ce ID: 0001 Con lable Time: 02:00:00 PM Mile Reggie [facility] 17:28:49 Clinical finding Completed 201701/23/2021 Presence of (intraut erine) contrace ptive device;R ecorded Elsewher e: No Locat ion: [facility] Practi ce ID: 0001 Con lable Time: 08:00:00 AM Mile rasheed [facility] 17:28:39 Insertio n of intraute rine contrace ptive device Completed 201701/23/2021 Encounte r for insertio n of intraute rine contrace ptive device;R ecorded Elsewher e: No Locat ion: [facility]: N Practi ce ID: 0001 Con lable Time: 08:00:00 AM Mile rasheed, [facility] 17:28:46 Pregnanc y test negative [id number] Completed 201701/23/2021 Encounte r for pregnanc y test, result negative ;Practic e ID: 0001 Mile rasheed, [facility] 17:28:25 Contrace ptive sheath status 094312558 Completed 201701/23/2021 Encounte r for routine checking of intraute rine contrace p dev;Prac marco ID: 0001 Mile rasheed, [facility] 17:28:19 Pelvic and perineal pain 468062952 Completed 201701/23/2021 Pelvic pain;Rec orded Elsewher e: No Locat ion: [facility] S ource: [facility] junior: N Practi ce ID: 0001 Con lable Time: 04:00:00 PM Mile rasheed [facility] 17:28:31 Syphilis test finding 443316564 Completed 201701/23/2021 Encntr screen for infectio ns w sexl mode of transmis s;Practi ce ID: 0001 Mile rasheed [facility] 17:28:42 Infectio n screenin g Completed 201701/23/2021 Encounte r for screenin g for oth infec/pa rastc diseases ;Practic e ID: 0001 [facility] 17:27:55 Contrace ption care manageme nt Completed 201801/23/2021 Encounte r for contrace ptive manageme nt, unspecif ied;Quincy rded Elsewher e: No Locat ion: [facility] S ource: [employer] junior: N Practi ce ID: 0001 Con lable Time: 10:45:00 AM Mile Paredes [facility] 17:28:44 Blood leukocyt e number above referenc e range [id number] Completed 201801/23/2021 Elevated white blood cell count, unspecif ied;Prac marco ID: 0001 Mile Paredes [facility] 17:28:45 Acute vaginiti s 05709598 Completed 201801/23/2021 Acute vaginiti s;Record ed Elsewher e: No Locat ion: [facility] S ource: [employer] junior: N Practi ce ID: 0001 Con lable Time: 10:45:00 AM Mile Paredes [facility] 17:28:21 Increase d frequenc y of urinatio n 897484350 Completed 201801/23/2021 Urinary frequenc y;Record ed Elsewher e: No Locat ion: [facility] S ource: [employer] junior: N Practi ce ID: 0001 Con lable Time: 10:45:00 AM Mile Paredes [facility] 17:27:54 Uses combined oral contrace ption 373935603 Completed 201801/23/2021 Encounte r for initial prescrip tion of contrace ptive pills;Pr actice ID: 0001 Mile Paredes [facility], [facility] 17:28:27 Removal of intraute rine device Completed 201801/23/2021 Encounte r for removal of intraute rine contrace ptive device;P ractice ID: 0001 Mile Paredes [facility], [facility] 17:28:48 Pregnanc y 67828208 Completed 202404/15/2025 Zainab Weston [facility], [facility] 5 14:35:49 Gestatio nal diabetes mellitus 78747374 Completed 2024 Checking bs QID , serial growth us - DT referral faxed to [facility] 01/24 Randi Cosme [facility] 5 13:08:13 Breech presenta tion 0465251 Completed 2024 Jama Moreno MD [address], [place], [address], [facility] 12:37:19 Problem Notes None recorded. Procedures Surgical History Date Name Laterality Status Provider Name and Address Organization Details Recorded Time 5 SECTION (SURG) completed Not Available [facility] 04/08/2025 13:53:03 4 Date of Last Pap Smear completed Zainab Weston [facility] 09/06/2024 12:53:25 1 extraction of wisdom tooth completed Leida Duenas [facility] 08/19/2023 16:44:18 Imaging Results None [...] Yes Loca tion: Hilaria javier [facility] odify By: [email or web address] Encount er DateTime : 09/10/19 18 03:30:00 [...] Prescrib ed Elsewher e: No Locat ion: [facility] odify By: nadia archuleta DateTime : 12/09/19 18 11:49:30 AM Not Available Not Available Not Available Metrogel Vaginal 0.75 % (37.5 mg/5 gram) insert 1 applicat orful by vaginal route for 5 nights at bedtime 09/09 completed Prescrib ed Elsewher e: No Locat ion: [facility] odify By: [email or web address] hernandez DateTime : 05/19/19 18 10:59:56 AM [...] Prescrib ed Elsewher e: Yes [facility] By: serenity Javier ncounter DateTime : [...] Prescrib ed Elsewher e: No [facility] od[facility] By: [email or web address] Javier ncounter DateTime : 05/14/19 18 01:00:00 [...] Address Organization Details Last Updated DateTime 5 09558.8 0533 g 36.4 kg/m2 161.29 cm 161.29 cm 36.4 kg/m2 75429.8 1 g 134/83 mm[Hg] 134/83 mm[Hg] Bibi Buckner [facility] 5 16:27:23 Date Recorded Body height Body mass index (BMI) Body weight Systolic And Diastolic Provider Name and Address Organization Details Last Updated DateTime 04/15/2025 161.29 cm 35 kg/m2 19811.07 g 141/94 mm[Hg] Zainab Weston [facility] 04/15/2025 14:36:11 Social History Question Answer Notes LastModified by Organizat ion Details LastModified Time Tobacco Smoking Status Never Smoker Zainab Weston [facility] 10/31/2022 17:02:19 Do You Have An [...] Or The Highest Degree You Have Received? [id number] [email or web address] Information not available 02/17/2024 Are There Any Guns Present In Your Home? Yes [email or web address] Information not available 02/17/2024 Do You Use Protection During Sex? No [email or web address] Information not available 02/17/2024 Do You Use Your Seat Belt Or Car Seat Routinely? Yes Information not available 08/15/2021 Are You Sexually Active? Yes [email or web address] Information not available 02/04/2025 Do You Have Smoke And Carbon Monoxide Detectors In Your Home? Yes Information not available 08/15/2021 How Much Tobacco Do You Smoke? No Information not available 09/11/2021 Do You Use Sunscreen Routinely? Yes Information not available 08/15/2021 Has Tobacco Cessation Counseling Been Provided? No [email or web address] Information not available 02/04/2025 Have You Used [...] other forms of tobacco or nicotine? No [email or web address] Information not available 02/04/2025 What is your level of alcohol consumption? None [email or web address] Information not available 02/17/2024 Are you currently employed? Yes [email or web address] Information not available 02/04/2025 Are you able to walk independently without assistance or assistive devices? [email or web address] Information not available 08/15/2021 Are you able to care for yourself independently? Yes Information not available 10/31/2022 What is your occupation? [employer] [email or web address] Information not available 02/17/2024 Do you have difficulty dressing, bathing, grooming, or toileting? No Information not available 10/31/2022 What is your exercise level? Occasional [email or web address] Information not available 12/08/2019 Mental Status Question Answer Note LastModified by Organization D etails LastModified Time Do you feel stressed (tense, restless, nervous, or anxious, or unable to sleep at night)? [id number] Information not available 08/15/2021 Family History Relationship [...] Immunizations Vaccine Type Date Status Note Provider Terrence javier and Address Organization Details Recorded Time COVID-19, mRNA, LNP-S, PF, 30 mcg/0.3 mL dose, filippo-sucrose 06/05/2021 completed Olamide [facility] 08/15/2021 12:28:36 Past Encounters Encounter ID Performer Location Encounter Start Date Encounter Closed Date Diagnosis/Indication Diagnosis SNOMED-CT Code Diagnosis ICD10 Code Diagnosis IMO Codes Diagnosis Note [id number] [facility] [address] [address] 12/08/2019 10:50:05 12/08/2019 11:20:43 Gynecologic examination 33052601 Z01.419 Take Calcium with Vitamin D 1200mg daily if not receiving in daily diet. It is strongly advised to have an annual flu shot and up can obtain at most pharmacies . If you have not had a TDap shot in the last 10 years you should obtain one as well. Discussed with patient & provided with informatio n regarding Gardisil vaccine to prevent the 4 strains for HPV that cause cervical cancer. Encourage safe sexual practices, to use condoms and limit partners if not already in a monogamous relationsh ip. Do monthly self breast exams. BRCA testing is now available for patients with strong genetic history of female cancer. If interested contact the office. Engage in daily exercise of low impact aerobic exercise 45-60 minutes 4-5 times weekly. Avoid tobacco, illicit drugs, and alcohol. This lifestyle behavior pattern will lead to less health conditions and longer life span. If BMI greater than 25 weight watchers or dietary consult advised. Pap smear is not recommende d prior to the age of 21. If you have any concerns, pelvic, or vaginal problems we can discuss testing. Patient received above instructio ns, and questions have been answered. If you have any questions please call or respond to this email. Patient was made aware of the patient portal and may obtain a paper copy of today's plan if desired.natali Castillo ce of oral contraception [id number] Z30.41 Happy with ocp and would like to continue. Consent read and signed. [id number] [facility] [address],[place] [address] 01/25/2021 09:24:38 01/25/2021 10:22:24 Contraception care management 959615138 Z30.9 Discussed all contracept ion options. Pt is considerin g IUD or nuvaring. We have discussed both in great detail. Pt will let us know what she decides to proceed with. If nuvaring we will send out the RX. If IUD she will call on the first day of her cycle to schedule placement. [id number] [facility] [address],[place] [address] 08/15/2021 12:16:10 08/15/2021 13:01:46 Mass of left breast 5488749204 3978067 N63.20 N64.4 Today we agreed to update imaging of left breast since this area of concern has already been present x 4+wks and even after a menstrual cycle. Will call to schedule & we will await results for further plan of care. Time spent in visit is a total of 15 mins with at least 50% of visit consisting of counseling and review of plan of care. [id number] [facility] [address],[place] [address] 09/11/2021 13:20:58 09/11/2021 13:57:52 Contraception care management 621504348 Z30.9 Discussed all control options in depth and pt is interested in Nexplanon. Discussed all risks and benefits including irregular unschedule d bleeding. Pt verbalized understand ing and would like to proceed. She is aware that she needs to call us on the 1st day of her period to schedule placement. MUST CHECK WITH HER INSURANCE TO ENSURE THIS DEVICE IS COVERED.In surance has been fickle in it's coverage of her BC Rx's.DO NOT want her to get a large bill from nexplanon. She will make appt, call insurance, if covered, keep appt for placement. If not covered [facility].On day 4 a menses now.Will continue to abstain and place Friday as long as Insurance covers it/UPT is neg.Unders tanding verbalized . ALSO NEED STD SCREEN WHEN COMES FOR NEXPLANON INSERTION Time spent in visit is a total of 15 mins with at least 50% of visit consisting of counseling and review of plan of care. [id number] Jessica Morales [facility] [address],[place] [address] 09/18/2021 14:42:50 09/18/2021 20:12:04 [id number] Jessica Morales [place] [address],[place] [address] 09/18/2021 14:56:51 09/18/2021 15:22:00 Contraception care management [id number] Z30.9 [id number] Jessica Morales [place] [address],[place] [address] 12/05/2021 10:49:32 12/05/2021 16:43:40 Contraception care management 660433871 Z30.9 [id number] Jessica Morales [facility] [address],[place] [address] 02/12/2022 12:25:27 02/12/2022 13:18:44 Urinary symptoms 367048715 R39.9 [id number] Jessica Morales [facility] [address],[place] [address] 02/25/2022 16:15:52 02/25/2022 17:00:57 Contraception care management 170478965 Z30.9 [id number] Jessica Morales [facility] [address],[place] [address] 05/15/2022 10:46:54 05/15/2022 11:13:03 Contraception care management 962861210 Z30.9 [id number] Jessica Morales [facility] [address],[place] [address] 08/07/2022 11:14:14 08/07/2022 15:44:42 Contraception care management 659912111 Z30.9 [id number] Jessica Morales [facility] [address],[place] [address] 05/30/2023 10:55:11 05/30/2023 11:27:29 Contraception care management 567129881 Z30.9 Discussed all control options in great detail. Pt would like to start ocp. She is aware of the risks and benefits. She does not have any medical condition that is contraindi cated with the use of estrogen containing control. Pt will start her pills on the first friday following the start of her period. She is aware it is not effective for control the first month. She is also aware of the importance of taking at the same time every day. Encouraged use of condoms as the pill does not protect against STD's. Will return in 2.5-3 months for med check. Consent was read and signed. Pt verbalized understand ing.[facility] .Can also get samples until Insurance picks this BC up.UPT negSTD UpdatedOk to start BCP's. Time spent in visit is a total of 30 mins with at least 50% of visit consisting of counseling and review of plan of care. [id number] Jessica Morales [facility] [address],[place] [address] 08/19/2023 16:24:44 08/19/2023 16:57:31 Secondary dysmenorrhea 70577677 N94.5 Patient is here today for a medicaton check of control. She voices goals of therapy have been met with use of this therapy. She denies neg side effects. She is eating, drinking, sleeping well; moods are stable & periods are well regulated. Wishes to continue this method of BC. Appropriat e to continue this medication .Requested updated yearly lab work. Time spent in visit is a total of 21 mins with at least 50% of visit consisting of counseling and review of plan of care. [id number] Jama Moreno MD [place] [address],[place] [address] 03/23/2024 09:19:54 03/23/2024 09:46:29 Gynecologic examination 03648811 Z01.419 Annual gynecologi hussein exam performed. Patient will come back in a year unless there are new symptoms. Suggest Calcium with Vitamin D if not eating in diet. Patient advised to get annual flu shot. Recommend yearly physicals and perform monthly breast exams. Genetic testing is available for patients with family history of cancer. Engage in safe sexual practices, use condoms. Encouraged to have daily exercise. Avoid tobacco and illicit drugs, moderation of alcohol. If BMI greater than 25 dietary consult advised. If you have any questions please call or email. Pap smear- pap w/ HPV reflex laboratory evaluation - declined STI testing - declined Recommende d consistent condom use until trying to conceive; take PNV daily. [id number] Jama Moreno MD [place] [address],[place] [address] 05/10/2024 14:20:53 05/10/2024 15:08:47 Urinary symptoms 120261175 R39.9 Patient presents with symptoms of UTI. Advised to drink clear fluids, Tylenol for pain and take prescribed medication s as instructed . Patient encouraged to follow up within 1 week if not improving. Urine culture sent to confirm infection. [id number] Jama Moreno MD [place] [address],[place] [address] 09/06/2024 12:00:08 09/06/2024 12:24:20 [id number] Jama Moreno MD [place] [address],[place] [address] 09/06/2024 12:02:27 09/06/2024 14:22:09 Amenorrhea 23178571 N91.2 [id number] this patient is an 23-year-ol d female with amenorrhea . She has a positive test and ultrasound shows a viable intrauteri ne . We talked about early care. Talked about precaution s in that included comments about diet, exercise, over-the-c ounter medication s.. We talked about vaccines. Talked about genetic screening. Talked about her ultrasound today and your ultrasound at 12 weeks. She will begin routine care. We spent 20 minutes face-to-fa ce. More than 50% was counseling . [id number] DRE COHEN MD [place] [address],[place] [address] 10/08/2024 11:47:55 10/08/2024 12:34:31 screening 649226643 Z36.82 [id number] DRE COHEN MD [place] [address],[place] [address] 10/08/2024 11:48:29 10/08/2024 13:29:42 care status 124175831 Z34.90 [id number] First trim patrick 52156036 Z34.01 [id number] [facility] [address],[place] [address] 11/05/2024 11:44:22 11/05/2024 12:35:48 Gestation period, 17 weeks 73072003 Z3A.17 [id number] Jama Moreno MD [place] [address],[place] [address] 11/24/2024 16:58:33 11/25/2024 08:56:33 Ultrasound scan - obstetric 474248311 Z36.3 Z3A.19 [id number] [facility] [address],[place] [address] 11/24/2024 17:04:06 11/26/2024 10:21:51 Gestation period, 20 weeks 29834125 Z3A.20 [id number] Jama Moreno MD [place] [address],[place] [address] 12/24/2024 10:57:09 12/24/2024 13:29:36 anatomy study 913717099 Z36.2 Z3A.24 [id number] [facility] [address],[place] [address] 12/24/2024 10:58:25 12/24/2024 12:12:27 Gestation period, 24 weeks 514770125 Z3A.24 [id number] MD Danie Gan [address],[place] [address] 01/21/2025 10:41:10 01/21/2025 15:27:22 Third trimester 38631530 Z34.03 [id number] Jama Moreno MD [facility] [address],[place] [address] 02/04/2025 12:11:20 02/04/2025 12:58:53 Gestational diabetes mellitus [id number] O24.410 Z3A.30 [id number] [facility] [address],[place] [address] 02/04/2025 12:12:03 02/04/2025 14:24:39 Gestation period, 30 weeks [id number] Z3A.30 [id number] [facility] [address],[place] [address] 02/18/2025 09:18:35 02/18/2025 09:53:48 Gestation period, 32 weeks 6751996 Z3A.32 7104280 [id number] Jama Moreno MD [facility] [address],[place] [address] 03/03/2025 11:27:34 03/03/2025 12:15:05 Gestational diabetes mellitus 94120383 O24.410 Z3A.34 [id number] MD Danie Gan [address],[place] [address] 03/03/2025 11:28:18 03/03/2025 13:32:46 Third trimester 40262246 Z34.03 [id number] Jama Moreno MD [facility] [address],[place] [address] 03/10/2025 17:29:33 03/11/2025 08:32:23 Third trimester 48374548 Z34.03 [id number] [facility] [address],[place] [address] 03/18/2025 15:08:37 03/18/2025 16:25:03 Breech presentation 4800212 O32.1XX0 [id number] [facility] [address],[place] [address] 03/18/2025 15:09:06 03/18/2025 16:00:32 Gestation period, 36 weeks 27697379 Z3A.36 [id number] Jama Moreno MD [facility] [address],[place] [address] 03/23/2025 14:18:49 03/23/2025 15:00:55 Gestational diabetes mellitus 79044343 O24.410 Z3A.36 [id number] [facility] [address],[place] [address] 03/23/2025 14:19:55 03/23/2025 17:36:35 Breech presentation 3446687 O32.1XX0 [id number] [facility] [address],[place] [address] 03/23/2025 14:20:05 03/23/2025 16:00:30 Gestation period, 36 weeks 30746928 Z3A.36 [id number] Breech presentation 6096 002 O32.1XX0 06549166 [id number] Jama Moreno MD [facility] [address],[place] [address] 04/01/2025 14:12:43 04/01/2025 15:22:59 Gestational diabetes mellitus 89084704 O24.410 Z3A.38 [id number] Bertha [facility]fon[facility] CNM [place] [address],[place] [address] 04/01/2025 14:14:05 04/01/2025 16:37:02 Breech presentation 1219124 O32.1XX0 [id number] Ber[facility] CNM [place] [address],[facility] [place] [address] 04/01/2025 14:14:19 04/01/2025 16:22:31 Gestation period, 38 weeks 91256900 Z3A.38 [id number] Jama Moreno MD [facility] [address],[place] [address] 04/15/2025 14:08:25 04/15/2025 15:21:11 Postoperative state 81799061 Z98.890 [id number] This patient is a 24-year-ol d female who presents for postop follow-up. She is 1 week postop from a delivery. Her incision is clean dry and intact. She has no complaints . Her bleeding is minimal. She denies any nausea, vomiting, fever, chills. She denies any chest pain or shortness of breath. Her baby is doing well. Her mood is good. Health Concerns Section Related Observation LastModified by Organization Detai ls LastModified Time None Recorded Concern Status LastModified by Organization Details LastModified Time None Recorded Advance Directives Directive N: Payers Insurance Date Sequence Insurance Name Policy Number Policy Young Covered Member ID Young Member ID Guarantor Name 04/15/2025 1 [facility] [id number] Norma Hunter [id number] Ninoska Hunter 05/13/2022 1 [facility] [id number] Ninoska Hunter [id number] Ninoska Hunter 04/13/2025 2 [facility] [id number] Ninoska Hunter [id number] Ninoska Hunter 04/15/2025 1 [facility] [id number] Norma Hunter [id number] Ninoska Hunter Notes Date Note Type Note Provider Name and Address Organization Details Recorded Time 04/01/2025 text/html Generic HPI TemplateReported by Patient [address], [place], [address], [facility] 04/01/2025 15:49:51 04/15/2025 text/html This patient is a 24-year-old female who presents for postop follow-up. She is 1 week postop from a delivery. Her incision is clean dry and intact. She has no complaints. Her bleeding is minimal. She denies any nausea, vomiting, fever, chills. She denies any chest pain or shortness of breath. Her baby is doing well. Her mood is good. Jama Moreno MD [address], [place], [address], [facility] 04/15/2025 15:18:31 OBGyn Episode Ob Episode Information Episode Created Date Number of Fetuses Patient Bloodtype Patient rh Status Prepregnancy Weight lbs Domestic Partner Domestic Partner Phone Father Name Insurance Plan Specialist Status 10/09/19 25 1 A Positive 203 Adilson Wheat son CLOSED Fetus Data First Name Last Name Admitted to NICU Weight (g) Sex Living Outcome Pediatric Complications Fetus ID Race Codes Race Delivery Type true 3288.54 2 M true Full Term [id number] Primary Problems Problem Notes Problem Name Start Date End Date Resolution Snomed Code Not e Gestational diabetes mellitus 01/24/2025 03223051 Checking bs QID , serial growth us - DT referral faxed to [facility] 01/24 Breech presentation 03/03/2025 [id number] Bao Calculation Initial Bao Date Initial Exam [...] Weight in lbs Pre/Post Dialysis Refused Weight 195.795495479119 BP Diastolic BP Location Tested BP Systolic BP Type 86 L arm 122 sitting Fetus Heart Rate Present A Present Fetus Movement Comments Patient presents to [facility] care. otherwise uncomplicated. No nausea or cramping. NT/NB wnl today, desires NIPT. Will draw today with new OB labs. RTC 4 weeks for routine care. Flowsheet Date 11/05/2024 Brown Score Blood Edema Fundus Height Fundus Units Glucose Ketones Leukocytes Nitrite Labor Signs Protein Cervic Dilation Cervic Effacement Cervic Station Type Weight in lbs Pre/Post Dialysis Refused 196.034102813245 BP Diastolic BP Location Tested BP Systolic [...] Type Weight in lbs Pre/Post Dialysis Refused 198.890857884393 BP Diastolic BP Location Tested BP Systolic [...] Weight in lbs Pre/Post Dialysis Refused Weight 202.990706840838 BP Diastolic BP Location Tested BP Systolic [...] Type Weight in lbs Pre/Post Dialysis Refused 207.400514951933 BP Diastolic BP Location Tested BP Systolic [...] Weight in lbs Pre/Post Dialysis Refused Weight 200.645237904074 BP Diastolic BP Location Tested BP Systolic [...] Weight in lbs Pre/Post Dialysis Refused Weight 204.596565554094 BP Diastolic BP Location Tested BP Systolic [...] Type Weight in lbs Pre/Post Dialysis Refused 207.397017420330 BP Diastolic BP Location Tested BP Systolic [...] Weight in lbs Pre/Post Dialysis Refused Weight 208.792385523631 BP Diastolic BP Location Tested BP Systolic [...] Weight in lbs Pre/Post Dialysis Refused Weight 210.532874942468 BP Diastolic BP Location Tested BP Systolic [...] Heart Rate Present Fetus Movement Comments to for monitoring, 3 min decel during nst [...] Weight in lbs Pre/Post Dialysis Refused Weight 208.772924303762 BP Diastolic BP Location Tested BP Systolic BP Type 89 L arm 135 sitting Fetus Heart Rate Present Fetus Movement A Yes Comments Flowsheet Date 03/23/2025 Brown Score Blood Edema Fundus Height Fundus Units Glucose Ketones Leukocytes Nitrite Labor Signs Protein Cervic Dilation Cervic Effacement Cervic Station Type Weight in lbs Pre/Post Dialysis Refused Weight 208.361357491615 BP Diastolic BP Location Tested BP Systolic [...] Weight in lbs Pre/Post Dialysis Refused Weight 209.039656831658 BP Diastolic BP Location Tested BP Systolic BP Type 83 L arm 134 sitting Fetus Heart Rate Present Fetus Movement A Yes Comments Flowsheet Date 04/01/2025 Brown Score Blood Edema Fundus Height Fundus Units Glucose Ketones Leukocytes Nitrite Labor Signs Protein Cervic Dilation Cervic Effacement Cervic Station Type Weight in lbs Pre/Post Dialysis Refused 209.385977155569 BP Diastolic BP Location Tested BP Systolic BP Type 83 L arm 134 sitting Fetus Heart Rate Present Fetus Movement A Yes Comments bpp 10/, doing well, revie wed process, recovery, call [...] Weight in lbs Pre/Post Dialysis Refused Weight 201.738376387113 BP Diastolic BP Location Tested BP Systolic [...]
--- OUTSIDE RECORDS SUMMARY | 2025-04-15 19:42 | XMS_ITS | Continuity of Care Document ---
Author Organization [facility] Address [address] [place] [address] [place] [address] Care Team Providers Care Onion Tier Name Role Phone DEANDREDarlyn BARBARASHANTIPRINCE Primary Care Provider [phone] Assessment No assessment recorded. Plan of [...] obstetri c, follow-u p 2024 025 [email or web address] Cornelius, [facility] [address], [address], [place], [address], 02/06/2025 21:20:37 Medication Orders None recorded . Patient TargetsNo targets recorded. Patient InstructionsNo instructions recorded. Reason for Referral None Reported. Results Created Date Observation Date Name Description Value Unit Range Abnormal Flag Note LastModifiedBy Organization Detail LastModifiedTime 10/15/1910/14/2024 [UNIT Y] ANEUP LOIDY NIPT fraction 7.0% normal Not Available [facility] [address], [place], [address], 10/14/2024 19:59:38 10/15/19 25 10/14/2024 [UNIT Y] ANEUP LOIDY NIPT 22Q11.2 microdeletio n LOW RISK <1 in 10,000 normal Not Available [facility] [address], [place], [address], 10/14/2024 19:59:38 10/15/19 25 10/14/2024 [UNIT Y] ANEUP LOIDY NIPT sex chromosome aneuploidy NOT DETECT ED normal Not Available [facility] [address], [place], [address], 10/14/2024 19:59:38 10/15/19 25 10/14/2024 [UNIT Y] 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 in 10,000 normal Not Available [facility] [address], [place], [address], 10/14/2024 19:59:38 10/15/19 25 10/14/2024 [UNIT Y] ANEUP LOIDY NIPT trisomy 13 LOW RISK <1 in 10,000 normal Not Available [facility] [address], [place], [address], 10/14/2024 19:59:38 10/15/19 25 10/14/2024 [UNIT Y] ANEUP LOIDY NIPT trisomy 18 LOW RISK <1 in 10,000 normal Not Available [facility] [address], [place], [address], 10/14/2024 19:59:38 10/15/19 25 10/14/2024 [UNIT Y] ANEUP LOIDY NIPT trisomy 21 LOW RISK <1 in 10,000 normal Not Available [facility] [address], [place], [address], 10/14/2024 19:59:38 10/15/19 25 10/14/2024 [UNIT Y] ANEUP LOIDY NIPT sex MALE normal Not Available [facility] [address], [place], [address], 10/14/2024 19:59:38 10/15/19 25 10/14/2024 [UNIT Y] ANEUP LOIDY NIPT gestation SINGLE TON normal Not Available [facility] [address], [place], [address], 10/14/2024 19:59:38 10/15/19 25 10/14/2024 [UNIT Y] ANEUP LOIDY NIPT for detailed report, see pdf See PDF normal Not Available [facility] [address], [place], [address], 10/14/2024 19:59:38 10/20/19 25 10/19/2024 [UNIT Y] ESP[place] sickle cell disease/beta -thalassemia /hemoglobino pathies carrier screen NEGATI VE normal Not Available [facility] [address], [place], [address], 10/19/2024 14:09:36 10/20/19 25 10/19/2024 [UNIT Y] ESP[place] alpha-thalas semia carrier screen NEGATI VE normal Not Available [facility] [address], [place], [address], 10/19/2024 14:09:36 10/20/19 25 10/19/2024 [UNIT Y] ESP[place] cystic fibrosis carrier screen NEGATI VE normal Not Available [facility] [address], [place], [address], 10/19/2024 14:09:36 10/20/19 25 10/19/2024 [UNIT Y] ESP[place] spinal muscular atrophy carrier screen NEGATI VE 2 SMN1 copies , SNP not presen t normal Not Available [facility] [address], [place], [address], 10/19/2024 14:09:36 10/20/19 25 10/19/2024 [UNIT Y] ESP[place] for detailed report, see pdf See PDF normal Not Available [facility] [address], [place], [address], 10/19/2024 14:09:36 10/09/1910/08/2024 CULTU RE: URINE result report SEE RESULT S BELOW Test: Cultu re: Urine Speci men Sourc e: Urine Voide d Speci men Type: Urine Speci men Date: 2024 1320 Resul t Date: 2024 0400 Resul t Statu s: Final resul t Abnor mal: No Resul ting Lab: [facility] [address] [facility] [address] Tel: [phone] CULTU RE ----- ----- ----- --- No growt h in 1 day (dete ction level of 10,00 0 colon ies / ml.) Not Available [facility] (Lab) [address] [place], [address], 10/10/2024 05:04:31 10/09/1910/08/2024 CBC W/DIF F WBC 9.1 10'3/ uL 3.5-[address] [facility] (Lab) [address] [facility], [place], [address], 10/11/2024 20:50:49 10/09/19 25 10/08/2024 CBC W/DIF F RBC 5.20 10'6/ uL (based on docume nted legal sex) 3.80-[address] [facility] (Lab) [address] [facility], [place], [address], 10/11/2024 20:50:49 10/09/19 25 10/08/2024 CBC W/DIF F HGB 14.7 g/dL (based on docume nted legal sex) 11.6-[address] [facility] (Lab) [address] [facility], [place], [address], 10/11/2024 20:50:49 10/09/19 25 10/08/2024 CBC W/DIF F HCT 45.2 % (based on docume nted legal sex) 34.0-[address] [facility] (Lab) [address], [place], [address], 10/11/2024 20:50:49 10/09/19 25 10/08/2024 CBC W/DIF F MCV 86.9 fL 80.0-[address] [facility] (Lab) [address], [place], [address], 10/11/2024 20:50:49 10/09/19 25 10/08/2024 CBC W/DIF F MCH 28.3 pg 27.0-[address] [facility] (Lab) [address], [place], [address], 10/11/2024 20:50:49 10/09/19 25 10/08/2024 CBC W/DIF F MCHC 32.5 g/dL 32.0-[address] [facility] (Lab) [address], [place], [address], 10/11/2024 20:50:49 10/09/19 25 10/08/2024 CBC W/DIF F RDW 13.2 % 11.0-[address] [facility] (Lab) [address], [place], [address], 10/11/2024 20:50:49 10/09/19 25 10/08/2024 CBC W/DIF F plt 286 10'3/ uL 150-[address] [facility] (Lab) [address], [place], [address], 10/11/2024 20:50:49 10/09/19 25 10/08/2024 CBC W/DIF F MPV 11.7 fL 8.8-[address] [facility] (Lab) [address], [place], [address], 10/11/2024 20:50:49 10/09/19 25 10/08/2024 CBC W/DIF F NRBC's 0.0 % 0.[address] [facility] (Lab) [address] [facility], [place], [address], 10/11/2024 20:50:49 10/09/19 25 10/08/2024 CBC W/DIF F absolute NRBCs 0.0 10'3/ uL no refere nce range establ ished Not Available [facility] (Lab) [address] [facility], [place], [address], 10/11/2024 20:50:49 10/09/19 25 10/08/2024 CBC W/DIF F neutrophils 67.1 % 34.0-[address] [facility] (Lab) [address] [facility], [place], [address], 10/11/2024 20:50:49 10/09/19 25 10/08/2024 CBC W/DIF F lymphocytes 25.1 % 15.0-[address] [facility] (Lab) [address] [facility], [place], [address], 10/11/2024 20:50:49 10/09/19 25 10/08/2024 CBC W/DIF F monocytes 6.4 % 1.0-[address] [facility] (Lab) [address] [facility], [place], [address], 10/11/2024 20:50:49 10/09/19 25 10/08/2024 CBC W/DIF F eosinophils 0.9 % 0.0-8. [address] [facility] (Lab) [address] [place], [address], 10/11/2024 20:50:49 10/09/19 25 10/08/2024 CBC W/DIF F basophils 0.3 % 0.0-2. [address] [facility] (Lab) [address] [facility], [place], [address], 10/11/2024 20:50:49 10/09/19 25 10/08/2024 CBC W/DIF [...] separ ately if prese nt. Not Available [facility] (Lab) [address], [place], [address], 10/11/2024 20:50:49 10/09/19 25 10/08/2024 CBC W/DIF F absolute neutrophils 6.1 10'3/ uL 1.5-8. [address] [facility] (Lab) [address] [facility], [place], [address], 10/11/2024 20:50:49 10/09/19 25 10/08/2024 CBC W/DIF F absolute lymphocytes 2.3 10'3/ uL 1.0-4. [address] [facility] (Lab) [address] [facility], [place], [address], 10/11/2024 20:50:49 10/09/19 25 10/08/2024 CBC W/DIF F absolute monocytes 0.6 10'3/ uL 0.2-1. [address] [facility] (Lab) [address] [facility], [place], [address], 10/11/2024 20:50:49 10/09/19 25 10/08/2024 CBC W/DIF F absolute eosinophils 0.1 10'3/ uL 0.0-0. [address] [facility] (Lab) [address] [facility], [place], [address], 10/11/2024 20:50:49 10/09/19 25 10/08/2024 CBC W/DIF F absolute basophils 0.0 10'3/ uL 0.0-0. [address] [facility] (Lab) [address] [facility], [place], [address], 10/11/2024 20:50:49 10/09/1910/08/2024 CBC W/DIF F absolute immature granulocytes 0.0 10'3/ uL 0.00-0 .10 Refer ence range s for nonbi nary/ inter sex or unspe cifie d gende r patie nts have not been estab lishe d. Pleas e [facility] for range s estab lishe d for cisge nder patie nts and evalu ate in the clini hussein ej xt of the indiv idual patie nt: https ://lily emerson book. nm.or g/gen derx Not Available [facility] (Lab) [address] [facility], [place], [address], 10/11/2024 20:50:49 10/09/1910/08/2024 HIV 1/2 ANTIG EN/AN TIBOD Y, REFLE X CONFI RMATI ON HIV antigen/anti body Nonrea ctive nonrea ctive HIV-1 antig en and HIV-1 /HIV- 2 antib odies were not detec adela. No labor atory evide nce of HIV infec tion. Not Available [facility] (Lab) [address] [facility], [place], [address], 10/11/2024 20:50:49 10/09/1910/08/2024 HEPAT ITIS B SURFA CE ANTIG EN hepatitis B surface antigen Non-re active non-re active This assay was perfo rmed using [employer] ratio n reage nts and test kits. Value s obtai charles with other assay metho ds or kits canno t be used inter emanuel eably . Not Available [facility] (Lab) [address] [facility], [place], [address], 10/11/2024 20:50:50 10/09/1910/08/2024 HEPAT ITIS C ANTIB NITA SCREE N, REFLE X TO CONFI RMATI ON hepatitis C antibody Non-re active non-re active Antib odies to HCV Not Detec adela, does not exclu de the possi bilit y of expos ure to HCV. Not Available [facility] (Lab) [address] [facility], [place], [address], 10/11/2024 20:50:50 10/09/19 25 10/08/2024 RUBEL LA IGG ANTIB NITA, QUANT rubella antibodies, IgG Reacti ve reacti ve Not Available [facility] (Lab) [address] [facility], [place], [address], 10/11/2024 20:50:50 10/09/19 25 10/08/2024 RUBEL LA IGG ANTIB NITA, QUANT rubella antibodies, IgG quant 24.1 IU/mL >=10 Non-r eacti ve (Non- Immun e) <10 IU/mL React alejandra (Immu ne) > or = 10 IU/mL Not Available [facility] (Lab) [address] [facility], [place], [address], 10/11/2024 20:50:50 10/09/19 25 10/08/2024 TYPE/ RH/SC REEN ABO/Rh type A POS Not Available [facility] (Lab) [address] [facility], [place], [address], 10/11/2024 20:50:51 10/09/19 25 10/08/2024 TYPE/ RH/SC REEN antibody screen NEG Not Available [facility] (Lab) [address] [facility], [place], [address], 10/11/2024 20:50:51 10/09/1910/08/2024 TYPE/ RH/SC REEN exp date 2024 23:[address] [facility] (Lab) [address] [facility], [place], [address], 10/11/2024 20:50:51 10/09/19 25 10/08/2024 HEMOG LOBIN [...] >8.0% Actio n sugge sted Not Available [facility] (Lab) [address], [place], [address], 10/11/2024 20:50:51 10/09/19 25 10/08/2024 RPR SCREE N, REFLE X TITER /CONF IRMAT ION RPR qualitative Nonrea ctive nonrea ctive Not Available [facility] (Lab) [address], [place], [address], 10/11/2024 20:50:51 10/09/19 25 10/08/2024 drug scree n, urine Amphetamines : negati ve Not Available Cornelius [address], [place], [address], 10/08/2024 13:34:18 10/09/19 25 10/08/2024 drug scree n, urine Cannabinoids : negati ve Not Available Cornelius [address], [place], [address], 10/08/2024 13:34:18 10/09/19 25 10/08/2024 drug scree n, urine Cocaine: negati ve Not Available Cornelius [address], [place], [address], 10/08/2024 13:34:18 10/09/19 25 10/08/2024 drug scree n, urine Opiates: negati ve Not Available Cornelius [address], [place], [address], 10/08/2024 13:34:18 10/09/19 25 10/08/2024 drug scree n, urine Barbiturates : negati ve Not Available Cornelius [address], [place], [address], 10/08/2024 13:34:18 10/09/19 25 10/08/2024 drug scree n, urine Benzodiazepi dino: negati ve Not Available Cornelius [address], [place], [address], 10/08/2024 13:34:18 01/22/20 25 01/21/2025 GTT - GESTA MARYANA L SCREE N, ACOG OB glucose, 1 hour screen 210 mg/dL 70-135 high Not Available [facility] (Lab) [address], [place], [address], 01/22/2025 12:46:27 01/22/20 25 01/21/2025 HIV 1/2 ANTIG EN/AN TIBOD Y, REFLE X CONFI RMATI ON HIV antigen/anti body Nonrea ctive nonrea ctive HIV-1 antig en and HIV-1 /HIV- 2 antib odies were not detec adela. No labor atory evide nce of HIV infec tion. Not Available [facility] (Lab) [address] [place], [address], 01/22/2025 12:46:28 01/22/20 25 01/21/2025 HEMOG LOBIN (HGB) HGB 13.3 g/dL (based on docume nted legal sex) 11.6-[address] [facility] (Lab) [address], [place], [address], 01/22/2025 12:46:28 01/22/20 25 01/21/2025 HEMAT OCRIT (HCT) HCT 40.3 % (based on docume nted legal sex) 34.0-[address] [facility] (Lab) [address] [facility], [place], [address], 01/22/2025 12:46:28 01/22/20 25 01/21/2025 RPR SCREE N, REFLE X TITER /CONF IRMAT ION RPR qualitative Nonrea ctive nonrea ctive Not Available [facility] (Lab) [address] [facility], [place], [address], 01/22/2025 12:46:28 10/09/19 25 10/08/2024 US, obste tric, nucha l trans lucen cy No observ ation record ed. [email or web address] Cornelius [address], [place], [address], 10/08/2024 18:39:08 10/09/19 25 10/08/2024 US, obste tric, nucha l trans lucen cy No observ ation record ed. [email or web address] Vandana [address], [place], [address], 10/09/2024 23:09:07 11/25/19 25 11/24/2024 US, obste tric, 2nd or 3rd trime ster No observ ation record ed. [email or web address] Vandana [address], [place], [address], 12/01/2024 11:58:43 11/25/19 25 11/25/2024 US, obste tric, 2nd or 3rd trime ster No observ ation record ed. [email or web address] Cornelius [address], [place], [address], 11/25/2024 12:49:42 12/25/19 25 12/24/2024 US, obste tric, follo w-up No observ ation record ed. ELIN Vadnana [address], [place], [address], 01/01/2025 17:08:59 12/25/1912/24/2024 US, obste tric, follo w-up No observ ation record ed. [facility] [address], [place], [address], 12/24/2024 13:46:21 02/05/2002/04/2025 US, obste tric, follo w-up No observ ation record ed. [facility] [address], [place], [address], 02/04/2025 13:02:03 02/05/2002/04/2025 US, obste tric, follo w-up No observ ation record ed. [email or web address] Vandana [address], [place], [address], 02/07/2025 16:14:11 03/03/20 25 03/03/2025 US, obste tric, follo w-up No observ ation record ed. [email or web address] Cornelius [address], [place], [address], 03/03/2025 15:11:00 03/03/20 25 03/03/2025 US, obste tric, follo w-up No observ ation record ed. [email or web address] Vandana [address], [place], [address], 03/04/2025 12:00:47 03/10/2003/10/2025 non-s tress test No observ ation record ed. [address], [address], 03/14/2025 11:36:31 03/10/20 25 03/10/2025 US, obste tric, follo w-up No observ ation record ed. [email or web address] [place], [address], 03/11/2025 08:40:14 03/18/20 25 03/18/2025 non-s tress test No observ ation record ed. [email or web address] Cornelius [address], [place], [address], 03/28/2025 10:44:01 03/18/20 25 03/18/2025 non-s tress test No observ ation record ed. [address], [place], [address], 04/15/2025 10:36:55 03/18/20 25 03/18/2025 US, obste tric, bioph ysica l profi le No observ ation record ed. [address] [facility], [place], [address], 03/23/2025 16:26:00 03/18/20 25 03/18/2025 US, obste tric, bioph ysica l profi le No observ ation record ed. [address] [facility], [place], [address], 03/23/2025 16:25:42 03/18/20 25 03/18/2025 non-s tress test No observ ation record ed. [address], [place], [address], 03/28/2025 11:00:24 03/23/20 25 03/23/2025 US, obste tric, bioph ysica l profi le + non-s tress test No observ ation record ed. [email or web address] Cornelius [address], [place], [address], 03/23/2025 18:22:09 03/23/20 25 03/23/2025 US, obste tric, bioph ysica l profi le + non-s tress test No observ ation record ed. [email or web address] Vandana [address], [place], [address], 03/30/2025 11:20:06 03/23/20 25 03/23/2025 non-s tress test No observ ation record ed. [address], [place], [address], 03/23/2025 17:56:30 03/23/20 non-s tress test No observ ation record ed. [email or web address] Cornelius [address], [place], [address], 03/23/2025 17:23:26 04/01/20 25 04/01/2025 US, paige tric, follo w-up No observ ation record ed. [facility] [address], [place], [address], 04/01/2025 14:56:59 04/01/20 25 04/01/2025 US, paige guerrero, bioph ysica l profi le + non-s tress test No observ ation record ed. [facility] [address], [place], [address], 04/01/2025 14:57:12 04/01/20 25 04/01/2025 US, paige tric, follo w-up No observ ation record ed. [email or web address] Vandana [address], [place], [address], 04/04/2025 12:34:31 04/01/20 25 04/01/2025 non-s tress test No observ ation record ed. [address], [place], [address], 04/01/2025 16:35:28 04/01/20 non-s tress test No observ ation record ed. [email or web address] Cornelius [address], [place], [address], 04/01/2025 16:40:02 Result Notes None recorded. 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 17:28:33 Surveill ance of contrace ption Completed 201701/23/2021 Encounte r for surveill ance of contrace ptives, unspecif ied;[place] rded Elsewher e: No Locat ion: [facility] S ource: EHR Composition Weatherboard Installer junior: N Practi ce ID: [id number] Con lable Time: 02:00:00 PM Mile Paredes [facility] 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 17:28:39 Insertio n of intraute rine contrace ptive device Completed 201701/23/2021 Encounte r for insertio n of intraute rine contrace ptive device;R ecorded Elsewher e: No Locat ion: [facility] S ource: EHR Composition Weatherboard Installer junior: N Practi ce ID: [id number] Con lable Time: 08:00:00 AM Mile rasheed, [facility] 17:28:46 Pregnanc y test negative [id number] Completed 201701/23/2021 Encounte r for pregnanc y test, result negative ;Practic e ID: 0001 Mile rasheed, [facility] 17:28:25 Contrace ptive sheath status [id number] Completed 201701/23/2021 Encounte r for routine checking of intraute rine contrace p dev;Prac marco ID: 0001 Mile Paredes [facility], [facility] 17:28:19 Pelvic and perineal pain [id number] Completed 201701/23/2021 Pelvic pain;Rec orded Elsewher e: No Locat ion: [facility] S ource: EHR Composition Weatherboard Installer junior: N Practi ce ID: [id number] Con lable Time: 04:00:00 PM Mile rasheed, [facility] 17:28:31 Syphilis test finding [id number] Completed 201701/23/2021 Encntr screen for infectio ns w sexl mode of transmis s;Practi ce ID: 0001 Mile rasheed, [facility] 17:28:42 Infectio n screenin g Completed 201701/23/2021 Encounte r for screenin g for oth infec/pa rastc diseases ;Practic e ID: 0001 Mile rasheed, [facility] 17:27:55 Contrace ption care manageme nt Completed 201801/23/2021 Encounte r for contrace ptive manageme nt, unspecif ied;[place] rded Elsewher e: No [facility] E[facility] Composition Weatherboard Installer junior: N Practi ce ID: [id number] Con lable Time: 10:45:00 AM Mile rasheed [facility] 17:28:44 Blood leukocyt e number above referenc e range [id number] Completed 201801/23/2021 Elevated white blood cell count, unspecif ied;Prac marco ID: 0001 Mile Praedes [facility] 17:28:45 Acute vaginiti s [id number] Completed 201801/23/2021 Acute vaginiti s;Record ed Elsewher e: No Locat ion: [facility] S ource: EHR Composition Weatherboard Installer junior: N Practi ce ID: [id number] Con lable Time: 10:45:00 AM Mile Paredes [facility] 17:28:21 Increase d frequenc y of urinatio n [id number] Completed 201801/23/2021 Urinary frequenc y;Record ed Elsewher e: No Locat ion: [facility] S ource: EHR Composition Weatherboard Installer junior: N Practi ce ID: [id number] Con lable Time: 10:45:00 AM Mile Paredes [facility] 17:27:54 Uses combined oral contrace ption [id number] Completed 201801/23/2021 Encounte r for initial prescrip tion of contrace ptive pills;Pr actice ID: 0001 Mile Paredes [facility] 17:28:27 Removal of intraute rine device Completed 201801/23/2021 Encounte r for removal of intraute rine contrace ptive device;P ractice ID: 0001 Mile rasheed, [facility] 1 17:28:48 Pregnanc y [id number] Completed 202404/15/2025 Zainab Weston [facility], [facility] 5 14:35:49 Gestatio nal diabetes mellitus [id number] Completed 2024 Checking bs QID , serial growth us - DT referral faxed to [facility] 01/24 Randi Aguiar [facility], [facility] 5 13:08:13 Breech presenta tion [id number] Completed 2024 Jama Moreno MD [address], [place], [address], [facility] 5 12:37:19 Problem Notes None recorded. Procedures Surgical History Date Name Laterality Status Provider Name and Address Organization Details Recorded Time 5 SECTION (SURG) completed Not Available [facility]ly [facility], [facility] 04/08/2025 13:53:03 4 Date of Last Pap Smear completed Zainab Weston [facility] 09/06/2024 12:53:25 1 extraction of wisdom tooth completed Leida Duenas [facility] 08/19/2023 16:44:18 Imaging Results None [...] Elsewher e: Yes Loca tion: Hilaria javier [facility] M odify By: [email or web address] Encount er DateTime : 09/10/19 18 03:30:00 [...] ed Elsewher e: No [facility] By: nadia archuleta DateTime : 12/09/19 18 11:49:30 AM Not Available Not Available Not Available Metrogel Vaginal 0.75 % (37.5 mg/5 gram) insert 1 applicat orful by vaginal route for 5 nights at bedtime 09/09 completed Prescrib ed Elsewher e: No Locat ion: [facility] odify By: katelynn hernandez DateTime : 05/19/19 [...] Prescrib ed Elsewher e: Yes Loca tion: [facility] odify By: serenity Javier ncounter DateTime : [...] Prescrib ed Elsewher e: No Locat ion: [facility] odify By: [email or web address] Juan Miguel ncounter DateTime [...] Updated DateTime 02/04/2025 161.29 cm 34.9 kg/m2 91320.47 g 112/80 mm[Hg] Lizett Huston [facility] 02/04/2025 13:08:55 Social History Question Answer Notes LastModified by Organizat ion Details LastModified Time Tobacco Smoking Status Never Smoker Zainab rasheed, [facility] 10/31/2022 17:02:19 Do You Have [...] Or The Highest Degree You Have Received? [id number] [email or web address] Information not available 02/17/2024 Are There Any Guns Present In Your Home? Yes Information not available 02/17/2024 Do You Use Protection During Sex? No [email or web address] Information not available 02/17/2024 Do You Use Your Seat Belt Or Car Seat Routinely? Yes Information not available 08/15/2021 Are You Sexually Active? Yes [email or web address] Information not available 02/04/2025 Do You Have Smoke And Carbon Monoxide Detectors In Your Home? Yes Information not available 08/15/2021 How Much Tobacco Do You Smoke? No Information not available 09/11/2021 Do You Use Sunscreen Routinely? Yes Information not available 08/15/2021 Has Tobacco Cessation Counseling Been Provided? No [email or web address] Information not available 02/04/2025 Have You Used [...] other forms of tobacco or nicotine? No [email or web address] Information not available 02/04/2025 What is your level of alcohol consumption? None [email or web address] Information not available 02/17/2024 Are you currently employed? Yes [email or web address] Information not available 02/04/2025 Are you able to walk independently without assistance or assistive devices? [email or web address] Information not available 08/15/2021 Are you able to care for yourself independently? 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 No Information not available 10/31/2022 What is your exercise level? Occasional [email or web address] Information not available 12/08/2019 Mental Status Question Answer Note LastModified by Organization D etails LastModified Time Do you feel stressed (tense, restless, nervous, or anxious, or unable to sleep at night)? [id number] Information not available 08/15/2021 Family History Relationship Description Onset Age of this Age Resolved Age Notes LastModified by Organization Details LastModified Time Maternal Grandmother Congenital heart disease [email or web address] Not available 2019 14:32:40 Medical History Condition [...] mL dose, filippo-sucrose 06/05/2021 completed Olamide Shafer [facility] 08/15/2021 12:28:36 Past Encounters Encounter ID Performer Location Encounter Start Date Encounter Closed Date Diagnosis/Indication Diagnosis SNOMED-CT Code Diagnosis ICD10 Code Diagnosis IMO Codes Diagnosis Note [id number] Jama Moreno MD [facility] [address],[place] [address] 01/21/2025 10:41:10 01/21/2025 15:27:22 Third trimester 48053400 Z34.03 [id number] Jama Moreno MD [facility] [address],[place] [address] 02/04/2025 12:11:20 02/04/2025 12:58:53 Gestational diabetes mellitus 35815225 O24.410 Z3A.30 [id number] Bertha Alfonso CNM [facility] [address],[place] [address] 02/04/2025 12:12:03 02/04/2025 14:24:39 Gestation period, 30 weeks 57836756 Z3A.30 [id number] Health Concerns Section Related Observation LastModified by Organization Detai ls LastModified Time None Recorded Concern Status LastModified by Organization Details LastModified Time None Recorded Payers Encounter Date Sequence Insurance Name Policy Number Policy Young Covered Member ID Young Member ID Guarantor Name 02/04/[address] [facility] [id number] Norma Hunter [id number] Ninoska Hunter 02/04/[address] [facility] [id number] Ninoska Hunter [id number] Ninoska Hunter Notes Date Note Type Note Provider Name and Address Organization Details Recorded Time 02/04/2025 text/html Generic HPI TemplateReported by Patient Bertha Alfonso CNM [address], [place], [address], [facility] 02/04/2025 14:16:34 OBGyn Episode Ob Episode Information Episode Created Date Number of Fetuses Patient Bloodtype Patient rh Status Prepregnancy Weight lbs Domestic Partner Domestic Partner Phone Father Name Inspector Floor Status 10/09/19 25 1 A Positive 203 Adilson Wheat son CLOSED Fetus Data First Name Last Name Admitted to NICU Weight (g) Sex Living Outcome Pediatric Complications Fetus ID Race Codes Race Delivery Type true 3288.54 2 M true Full Term [id number] Primary Problems Problem Notes Problem Name Start Date End Date Resolution Snomed Code Not e Gestational diabetes mellitus 01/24/2025 34616538 Checking bs QID , serial growth us - DT referral faxed to [facility] 01/24 Breech presentation 03/03/2025 [id number] Bao Calculation Initial Bao Date Initial Exam [...] Weight in lbs Pre/Post Dialysis Refused Weight 195.464675537714 BP Diastolic BP Location Tested BP Systolic BP Type 86 L arm 122 sitting Fetus Heart Rate Present A Present Fetus Movement Comments Patient [facility]. otherwise uncomplicated. No nausea or cramping. NT/NB wnl today, desires NIPT. Will draw today with new OB labs. RTC 4 weeks for routine care. Flowsheet Date 11/05/2024 Brown Score Blood Edema Fundus Height Fundus Units Glucose Ketones Leukocytes Nitrite Labor Signs Protein Cervic Dilation Cervic Effacement Cervic Station Type Weight in lbs Pre/Post Dialysis Refused 196.725165265639 BP Diastolic BP Location Tested BP Systolic [...] Type Weight in lbs Pre/Post Dialysis Refused 198.722729861270 BP Diastolic BP Location Tested BP Systolic [...] Weight in lbs Pre/Post Dialysis Refused Weight 202.642150579523 BP Diastolic BP Location Tested BP Systolic [...] Type Weight in lbs Pre/Post Dialysis Refused 207.297652701807 BP Diastolic BP Location Tested BP Systolic [...] Weight in lbs Pre/Post Dialysis Refused Weight 200.063539812967 BP Diastolic BP Location Tested BP Systolic [...] Weight in lbs Pre/Post Dialysis Refused Weight 204.250948978724 BP Diastolic BP Location Tested BP Systolic [...] Type Weight in lbs Pre/Post Dialysis Refused 207.545170551579 BP Diastolic BP Location Tested BP Systolic [...] Weight in lbs Pre/Post Dialysis Refused Weight 208.626006768757 BP Diastolic BP Location Tested BP Systolic [...] Weight in lbs Pre/Post Dialysis Refused Weight 210.829489870021 BP Diastolic BP Location Tested BP Systolic [...] Weight in lbs Pre/Post Dialysis Refused Weight 208.581260872960 BP Diastolic BP Location Tested BP Systolic BP Type 89 L arm 135 sitting Fetus Heart Rate Present Fetus Movement A Yes Comments Flowsheet Date 03/23/2025 Brown Score Blood Edema Fundus Height Fundus Units Glucose Ketones Leukocytes Nitrite Labor Signs Protein Cervic Dilation Cervic Effacement Cervic Station Type Weight in lbs Pre/Post Dialysis Refused Weight 208.515664689122 BP Diastolic BP Location Tested BP Systolic [...] Weight in lbs Pre/Post Dialysis Refused Weight 209.973957860058 BP Diastolic BP Location Tested BP Systolic BP Type 83 L arm 134 sitting Fetus Heart Rate Present Fetus Movement A Yes Comments Flowsheet Date 04/01/2025 Brown Score Blood Edema Fundus Height Fundus Units Glucose Ketones Leukocytes Nitrite Labor Signs Protein Cervic Dilation Cervic Effacement Cervic Station Type Weight in lbs Pre/Post Dialysis Refused 209.326232059688 BP Diastolic BP Location Tested BP Systolic [...] Weight in lbs Pre/Post Dialysis Refused Weight 201.371879452043 BP Diastolic BP Location Tested BP Systolic [...]
--- OUTSIDE RECORDS SUMMARY | 2025-04-15 19:42 | XMS_ITS | Continuity of Care Document ---
Author Organization [facility] [place], [facility] Address [address] [place] [address] Care Team Providers Care Resident Inspector Name Role Phone BERNYSAULOHONORIO Brooks Primary Care Provider [phone] Assessment No assessment recorded. 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 in 10,000 normal Not Available [facility] [address], [place], [address], 10/14/2024 19:59:38 10/15/19 25 10/14/2024 [UNIT Y] ANEUP LOIDY NIPT trisomy 13 LOW RISK <1 in 10,000 normal Not Available [facility] [address], [place], [address], 10/14/2024 19:59:38 10/15/19 25 10/14/2024 [UNIT Y] ANEUP LOIDY NIPT trisomy 18 LOW RISK <1 in 10,000 normal Not Available [facility] [address], [place], [address], 10/14/2024 19:59:38 10/15/19 25 10/14/2024 [UNIT Y] ANEUP LOIDY NIPT trisomy 21 LOW RISK <1 in 10,000 normal Not Available [facility] [address], [place], [address], 10/14/2024 19:59:38 10/15/19 25 10/14/2024 [UNIT Y] ANEUP LOIDY NIPT sex MALE normal Not Available [facility] [address], [place], [address], 10/14/2024 19:59:38 10/15/19 25 10/14/2024 [UNIT Y] ANEUP LOIDY NIPT gestation SINGLE TON normal Not Available [facility] [address], [place], [address], 10/14/2024 19:59:38 10/15/19 25 10/14/2024 [UNIT Y] ANEUP MARSHALLY NIPT for detailed report, see pdf See PDF normal Not Available [facility] [address], [place], [address], 10/14/2024 19:59:38 10/20/19 25 10/19/2024 [UNIT Y] ESPINOZA [place] sickle cell disease/beta -thalassemia /hemoglobino pathies carrier screen NEGATI VE normal Not Available [facility] [address], [place], [address], 10/19/2024 14:09:36 10/20/19 25 10/19/2024 [UNIT Y] ESPINOZA [place] alpha-thalas semia carrier screen NEGATI VE normal Not Available [facility] [address], [place], [address], 10/19/2024 14:09:36 10/20/19 25 10/19/2024 [UNIT Y] ESPINOZA [place] cystic fibrosis carrier screen NEGATI VE normal Not Available [facility] [address], [place], [address], 10/19/2024 14:09:36 10/20/19 25 10/19/2024 [UNIT Y] ESPINOZA [place] spinal muscular atrophy carrier screen NEGATI VE 2 SMN1 copies , SNP not presen t normal Not Available [facility] [address], [place], [address], 10/19/2024 14:09:36 10/20/19 25 10/19/2024 [UNIT Y] ESPINOZA [place] for detailed report, see pdf See PDF normal Not Available [facility] [address], [place], [address], 10/19/2024 14:09:36 10/09/19 25 10/08/2024 CULTU RE: URINE result report SEE RESULT S BELOW Test: Cultu re: Urine Speci men Sourc e: Urine Voide d Speci men Type: Urine Speci men Date: 2024 1320 Resul t Date: 2024 0400 Resul t Statu s: Final resul t Abnor mal: No Resul priscag Lab: [facility] [address] [facility] [address] Tel: CULTU RE ----- ----- ----- --- No growt h in 1 day (dete ction level of 10,00 0 colon ies / ml.) Not Available [facility] (Lab) [address] [facility], [place], [address], 10/10/2024 05:04:31 10/09/1910/08/2024 CBC W/DIF F WBC 9.1 10'3/ uL 3.5-10 .5 Not Available [facility] (Lab) [address] [place], [address], 10/11/2024 20:50:49 10/09/19 25 10/08/2024 CBC W/DIF F RBC 5.20 10'6/ uL (based on docume nted legal sex) 3.80-5 .20 Not Available [facility] (Lab) [address] [place], [address], 10/11/2024 20:50:49 10/09/19 25 10/08/2024 CBC W/DIF F HGB 14.7 g/dL (based on docume nted legal sex) 11.6-1 5.4 Not Available [facility] (Lab) [address] [place], [address], 10/11/2024 20:50:49 10/09/19 25 10/08/2024 CBC W/DIF F HCT 45.2 % (based on docume nted legal sex) 34.0-4 5.0 high Not Available [facility] (Lab) [address] [place], [address], 10/11/2024 20:50:49 10/09/19 25 10/08/2024 CBC W/DIF F MCV 86.9 fL 80.0-9 9.0 Not Available [facility] (Lab) [address], [place], [address], 10/11/2024 20:50:49 10/09/19 25 10/08/2024 CBC W/DIF F MCH 28.3 pg 27.0-3 4.0 Not Available [facility] (Lab) [address], [place], [address], 10/11/2024 20:50:49 10/09/19 25 10/08/2024 CBC W/DIF F MCHC 32.5 g/dL 32.0-3 5.5 Not Available [facility] (Lab) [address], [place], [address], 10/11/2024 20:50:49 10/09/19 25 10/08/2024 CBC W/DIF F RDW 13.2 % 11.0-1 5.0 Not Available [facility] (Lab) [address], [place], [address], 10/11/2024 20:50:49 10/09/19 25 10/08/2024 CBC W/DIF F plt 286 10'3/ uL 150-40 0 Not Available [facility] (Lab) [address], [place], [address], 10/11/2024 20:50:49 10/09/19 25 10/08/2024 CBC W/DIF F MPV 11.7 fL 8.8-12 .1 Not Available [facility] (Lab) [address], [place], [address], 10/11/2024 20:50:49 10/09/19 25 10/08/2024 CBC W/DIF F NRBC's 0.0 % 0.0 Not Available [facility] (Lab) [address], [place], [address], 10/11/2024 20:50:49 10/09/19 25 10/08/2024 CBC W/DIF F absolute NRBCs 0.0 10'3/ uL no refere nce range establ ished Not Available [facility] (Lab) [address] [facility], [place], [address], 10/11/2024 20:50:49 10/09/19 25 10/08/2024 CBC W/DIF F neutrophils 67.1 % 34.0-7 3.0 Not Available [facility] (Lab) [address] [facility], [place], [address], 10/11/2024 20:50:49 10/09/19 25 10/08/2024 CBC W/DIF F lymphocytes 25.1 % 15.0-5 0.0 Not Available [facility] (Lab) [address] [facility], [place], [address], 10/11/2024 20:50:49 10/09/19 25 10/08/2024 CBC W/DIF F monocytes 6.4 % 1.0-15 .0 Not Available [facility] (Lab) [address] [facility], [place], [address], 10/11/2024 20:50:49 10/09/19 25 10/08/2024 CBC W/DIF F eosinophils 0.9 % 0.0-8. 0 Not Available [facility] (Lab) [address] [place], [address], 10/11/2024 20:50:49 10/09/19 25 10/08/2024 CBC W/DIF F basophils 0.3 % 0.0-2. 0 Not Available [facility] (Lab) [address] [facility], [place], [address], 10/11/2024 20:50:49 10/09/19 25 10/08/2024 CBC W/DIF [...] separ ately if prese nt. Not Available [facility] (Lab) [address] [facility], [place], [address], 10/11/2024 20:50:49 10/09/19 25 10/08/2024 CBC W/DIF F absolute neutrophils 6.1 10'3/ uL 1.5-8. 0 Not Available [facility] (Lab) [address] [facility], [place], [address], 10/11/2024 20:50:49 10/09/19 25 10/08/2024 CBC W/DIF F absolute lymphocytes 2.3 10'3/ uL 1.0-4. 0 Not Available [facility] (Lab) [address] [facility], [place], [address], 10/11/2024 20:50:49 10/09/19 25 10/08/2024 CBC W/DIF F absolute monocytes 0.6 10'3/ uL 0.2-1. 0 Not Available [facility] (Lab) [address] [facility], [place], [address], 10/11/2024 20:50:49 10/09/19 25 10/08/2024 CBC W/DIF F absolute eosinophils 0.1 10'3/ uL 0.0-0. 6 Not Available [facility] (Lab) [address] [facility], [place], [address], 10/11/2024 20:50:49 10/09/19 25 10/08/2024 CBC W/DIF F absolute basophils 0.0 10'3/ uL 0.0-0. 3 Not Available [facility] (Lab) [address] [facility], [place], [address], 10/11/2024 20:50:49 10/09/19 25 10/08/2024 CBC W/DIF F absolute immature granulocytes 0.0 10'3/ uL 0.00-0 .10 Refer ence range s for nonbi nary/ inter sex or unspe cifie d gende r patie nts have not been estab lishe d. Yael e [facility] for range s estab lishe d for cisge nder patie nts and evalu ate in the clini hussein ej xt of the indiv idual patie nt: https ://la bhand book. nm.or g/gen derx Not Available [facility] (Lab) [address], [place], [address], 10/11/2024 20:50:49 10/09/1910/08/2024 HIV 1/2 ANTIG EN/AN TIBOD Y, REFLE X CONFI RMATI ON HIV antigen/anti body Nonrea ctive nonrea ctive HIV-1 antig en and HIV-1 /HIV- 2 antib odies were not detec adela. No labor atory evide nce of HIV infec tion. Not Available [facility] (Lab) [address], [place], [address], 10/11/2024 20:50:49 10/09/1910/08/2024 HEPAT ITIS B SURFA CE ANTIG EN hepatitis B surface antigen Non-re active non-re active This assay was perfo rmed using [employer] ratio n reage nts and test kits. Value s obtai charles with other assay metho ds or kits canno t be used inter emanuel eably . Not Available [facility] (Lab) [address], [place], [address], 10/11/2024 20:50:50 10/09/1910/08/2024 HEPAT ITIS C ANTIB NITA SCREE N, REFLE X TO CONFI RMATI ON hepatitis C antibody Non-re active non-re active Antib odies to HCV Not Detec adela, does not exclu de the possi bilit y of expos ure to HCV. Not Available [facility] (Lab) [address], [place], [address], 10/11/2024 20:50:50 10/09/19 25 10/08/2024 RUBEL LA IGG ANTIB NITA, QUANT rubella antibodies, IgG Reacti ve reacti ve Not Available [facility] (Lab) [address] [facility], [place], [address], 10/11/2024 20:50:50 10/09/19 25 10/08/2024 RUBEL LA IGG ANTIB NITA, QUANT rubella antibodies, IgG quant 24.1 IU/mL >=10 Non-r eacti ve (Non- Immun e) <10 IU/mL React alejandra (Immu ne) > or = 10 IU/mL Not Available [facility] (Lab) [address] [facility], [place], [address], 10/11/2024 20:50:50 10/09/19 25 10/08/2024 TYPE/ RH/SC REEN ABO/Rh type A POS Not Available [facility] (Lab) [address] [facility], [place], [address], 10/11/2024 20:50:51 10/09/19 25 10/08/2024 TYPE/ RH/SC REEN antibody screen NEG Not Available [facility] (Lab) [address] [facility], [place], [address], 10/11/2024 20:50:51 10/09/19 25 10/08/2024 TYPE/ RH/SC REEN exp date 2024 23:59 Not Available [facility] (Lab) [address] [facility], [place], [address], 10/11/2024 20:50:51 10/09/19 25 10/08/2024 HEMOG LOBIN A1C hemoglobin A1C 5.2 % 4.0-5. 6 The Ameri can [employer]i [employer] iatio n recom mends that a prima ry goal of darshan brooks be a HBA1C of < 7% and that physi renetta brooks reeva luate the treat ment regim en in patie nts with HBA1C value s consi stent ly > 8%. <5.7% Khloe l 5.7 - 6.4% Incre ased risk for diabe yenni >=6.5 % Diagn ostic of diabe yenni <7.0% Goal of thera py >8.0% Actio n sugge sted Not Available [facility] (Lab) [address] [facility], [place], [address], 10/11/2024 20:50:51 10/09/19 25 10/08/2024 RPR SCREE N, REFLE X TITER /CONF IRMAT ION RPR qualitative Nonrea ctive nonrea ctive Not Available [facility] (Lab) [address], [place], [address], 10/11/2024 20:50:51 10/09/19 25 10/08/2024 drug scree n, urine Amphetamines : negati ve Not Available [place] [address], [place], [address], 10/08/2024 13:34:18 10/09/19 25 10/08/2024 drug scree n, urine Cannabinoids : negati ve Not Available [place] [address], [place], [address], 10/08/2024 13:34:18 10/09/19 25 10/08/2024 drug scree n, urine Cocaine: negati ve Not Available [place] [address], [place], [address], 10/08/2024 13:34:18 10/09/19 25 10/08/2024 drug scree n, urine Opiates: negati ve Not Available [place] [address], [place], [address], 10/08/2024 13:34:18 10/09/19 25 10/08/2024 drug scree n, urine Barbiturates : negati ve Not Available [place] [address], [place], [address], 10/08/2024 13:34:18 10/09/1910/08/2024 drug scree n, urine Benzodiazepi dino: negati ve Not Available [place] [address], [place], [address], 10/08/2024 13:34:18 01/22/2001/21/2025 GTT - GESTA MARYANA L SCREE N, ACOG OB glucose, 1 hour screen 210 mg/dL 70-135 high Not Available [facility] (Lab) [address], [place], [address], 01/22/2025 12:46:27 01/22/2001/21/2025 HIV 1/2 ANTIG EN/AN TIBOD Y, REFLE X CONFI RMATI ON HIV antigen/anti body Nonrea ctive nonrea ctive HIV-1 antig en and HIV-1 /HIV- 2 antib odies were not detec adela. No labor atory evide nce of HIV infec tion. Not Available [facility] (Lab) [address], [place], [address], 01/22/2025 12:46:28 01/22/20 25 01/21/2025 HEMOG LOBIN (HGB) HGB 13.3 g/dL (based on docume nted legal sex) 11.6-1 5.4 Not Available [facility] (Lab) [address], [place], [address], 01/22/2025 12:46:28 01/22/20 25 01/21/2025 HEMAT OCRIT (HCT) HCT 40.3 % (based on docume nted legal sex) 34.0-4 5.0 Not Available [facility] (Lab) [address], [place], [address], 01/22/2025 12:46:28 01/22/20 25 01/21/2025 RPR SCREE N, REFLE X TITER /CONF IRMAT ION RPR qualitative Nonrea ctive nonrea ctive Not Available [facility] (Lab) [address], [place], [address], 01/22/2025 12:46:28 10/09/19 25 10/08/2024 US, obste tric, nucha l trans lucen cy No observ ation record ed. [facility] [address], [place], [address], 10/08/2024 18:39:08 10/09/19 25 10/08/2024 US, obste tric, nucha l trans lucen cy No observ ation record ed. [email or web address] [address] [address], [place], [address], 10/09/2024 23:09:07 11/25/19 25 11/24/2024 US, obste tric, 2nd or 3rd trime ster No observ ation record ed. [email or web address] [facility] [address], [place], [address], 12/01/2024 11:58:43 11/25/19 25 11/25/2024 US, obste tric, 2nd or 3rd trime ster No observ ation record ed. [email or web address] [place] [address], [place], [address], 11/25/2024 12:49:42 12/25/19 25 12/24/2024 US, obste tric, follo w-up No observ ation record ed. ELIN [facility] [address], [place], [address], 01/01/2025 17:08:59 12/25/19 25 12/24/2024 US, obste tric, follo w-up No observ ation record ed. [facility] [address], [place], [address], 12/24/2024 13:46:21 02/05/2002/04/2025 US, obste tric, follo w-up No observ ation record ed. [email or web address] [address], [place], [address], 02/04/2025 13:02:03 02/05/2002/04/2025 US, obste tric, follo w-up No observ ation record ed. [email or web address] [facility] [address], [place], [address], 02/07/2025 16:14:11 03/03/20 25 03/03/2025 US, obste tric, follo w-up No observ ation record ed. [email or web address] [place] [address], [place], [address], 03/03/2025 15:11:00 03/03/20 25 03/03/2025 US, obste tric, follo w-up No observ ation record ed. [email or web address] [facility] [address], [place], [address], 03/04/2025 12:00:47 03/10/20 25 03/10/2025 non-s tress test No observ ation record ed. [facility] [address] [facility] [address], [place], [address], 03/14/2025 11:36:31 03/10/20 25 03/10/2025 US, obste tric, follo w-up No observ ation record ed. [email or web address] [facility] [address], [place], [address], 03/11/2025 08:40:14 03/18/20 25 03/18/2025 non-s tress test No observ ation record ed. [email or web address] [place] [address], [place], [address], 03/28/2025 10:44:01 03/18/20 25 03/18/2025 non-s tress test No observ ation record ed. [address], [place], [address], 04/15/2025 10:36:55 03/18/20 25 03/18/2025 US, obste tric, bioph ysica l profi le No observ ation record ed. [address], [place], [address], 03/23/2025 16:26:00 03/18/20 25 03/18/2025 US, obste tric, bioph ysica l profi le No observ ation record ed. [address] [facility], [place], [address], 03/23/2025 16:25:42 03/18/20 25 03/18/2025 non-s tress test No observ ation record ed. [address], [place], [address], 03/28/2025 11:00:24 03/23/20 25 03/23/2025 US, obste tric, bioph ysica l profi le + non-s tress test No observ ation record ed. [email or web address] [place] [address], [place], [address], 03/23/2025 18:22:09 03/23/20 25 03/23/2025 US, obste tric, bioph ysica l profi le + non-s tress test No observ ation record ed. [email or web address] [facility] [address], [place], [address], 03/30/2025 11:20:06 03/23/20 25 03/23/2025 non-s tress test No observ ation record ed. [email or web address] [place] [address], [place], [address], 03/23/2025 17:56:30 03/23/20 non-s tress test No observ ation record ed. [address], [place], [address], 03/23/2025 17:23:26 04/01/20 25 04/01/2025 US, obste tric, follo w-up No observ ation record ed. [facility] [address], [place], [address], 04/01/2025 14:56:59 04/01/20 25 04/01/2025 US, obste tric, bioph ysica l profi le + non-s tress test No observ ation record ed. [facility] [address], [place], [address], 04/01/2025 14:57:12 04/01/20 25 04/01/2025 US, obste tric, follo w-up No observ ation record ed. [email or web address] [address], [place], [address], 04/04/2025 12:34:31 04/01/20 25 04/01/2025 non-s tress test No observ ation record ed. [address], [place], [address], 04/01/2025 16:35:28 04/01/20 non-s tress test No observ ation record ed. [address], [place], [address], 04/01/2025 16:40:02 Result Notes None recorded. Problems Name Problem SNOMED Code Status Onset Date Resolution Date Notes Provider Name and Address Organization Details Recorded Time SNOMED CT Concept Completed 201701/23/2021 Encntr for md psychiatry exam (general ) (routine ) w/o abn findings ;Practic e ID: 0001 Mile rasheed [facility] 17:28:[address] Concept Completed 201701/23/2021 Encntr for routine child health exam w/o abnormal findings ;Recorde d Elsewher e: No Locat ion: [facility] S ource: EHR Biostatistics Professor junior: N Practi ce ID: [id number] Con lable Time: 01:00:00 PM Mile rasheed [facility] 17:28:33 Surveill ance of contrace ption Completed 201701/23/2021 Encounte r for surveill ance of contrace ptives, unspecif ied;Quincy rded Elsewher e: No Locat ion: [facility] S ource: EHR Biostatistics Professor junior: N Practi ce ID: [id number] Con lable Time: 02:00:00 PM Mile rasheed [facility] 17:28:49 Clinical finding Completed 201701/23/2021 Presence of (intraut erine) contrace ptive device;R ecorded Elsewher e: No Locat ion: [facility] S ource: EHR Biostatistics Professor junior: N Practi ce ID: [id number] Con lable Time: 08:00:00 AM Mile rasheed [facility] 17:28:39 Insertio n of intraute rine contrace ptive device Completed 201701/23/2021 Encounte r for insertio n of intraute rine contrace ptive device;R ecorded Elsewher e: No Locat ion: [facility] S ource: EHR Biostatistics Professor junior: N Practi ce ID: [id number] Con lable Time: 08:00:00 AM Mile rasheed [facility] 17:28:46 Pregnanc y test negative [id number] Completed 201701/23/2021 Encounte r for pregnanc y test, result negative ;Practic e ID: 0001 Mile rasheed [facility] 17:28:25 Contrace ptive sheath status [id number] Completed 201701/23/2021 Encounte r for routine checking of intraute rine contrace p dev;Prac marco ID: 0001 Mile rasheed [facility] 17:28:19 Pelvic and perineal pain [id number] Completed 201701/23/2021 Pelvic pain;Rec orded Elsewher e: No Locat ion: [facility] S ource: EHR Biostatistics Professor junior: N Practi ce ID: [id number] Con lable Time: 04:00:00 PM Mile rasheed [facility] 17:28:31 Syphilis test finding [id number] Completed 201701/23/2021 Encntr screen for infectio ns w sexl mode of transmis s;Practi ce ID: 0001 Mile rasheed [facility] 17:28:42 Infectio n screenin g Completed 201701/23/2021 Encounte r for screenin g for oth infec/pa rastc diseases ;Practic e ID: 0001 Mile rasheed, [facility] 17:27:55 Contrace ption care manageme nt Completed 201801/23/2021 Encounte r for contrace ptive manageme nt, unspecif ied;Quincy rded Elsewher e: No Locat ion: [facility] S ource: EHR Biostatistics Professor junior: N Practi ce ID: [id number] Con lable Time: 10:45:00 AM Mile rasheed [facility] 17:28:44 Blood leukocyt e number above referenc e range [id number] Completed 201801/23/2021 Elevated white blood cell count, unspecif ied;Prac marco ID: 0001 Mile rasheed [facility] 17:28:45 Acute vaginiti s [id number] Completed 201801/23/2021 Acute vaginiti s;Record ed Elsewher e: No Locat ion: [facility] S ource: EHR Biostatistics Professor junior: N Practi ce ID: [id number] Con lable Time: 10:45:00 AM Mile rasheed [facility] 17:28:21 Increase d frequenc y of urinatio n [id number] Completed 201801/23/2021 Urinary frequenc y;Record ed Elsewher e: No Locat ion: [facility] S ource: EHR Biostatistics Professor jnuior: N Practi ce ID: [id number] Con lable Time: 10:45:00 AM Mile rasheed [facility] 17:27:54 Uses combined oral contrace ption [id number] Completed 201801/23/2021 Encounte r for initial prescrip tion of contrace ptive pills;Pr actice ID: 0001 [facility] 17:28:27 Removal of intraute rine device Completed 201801/23/2021 Encounte r for removal of intraute rine contrace ptive device;P ractice ID: 0001 Mile Paredes [facility] 17:28:48 Pregnanc y [id number] Completed 202404/15/2025 Zainab Weston [facility] 5 14:35:49 Gestatio nal diabetes mellitus [id number] Completed 2024 Checking bs QID , serial growth us - DT referral faxed to [facility] 01/24 Randi Cosme rasheed, [facility] 5 13:08:13 Breech presenta tion [id number] Completed 2024 Jama Moreno MD [address], [place], [address], [facility] 5 12:37:19 Problem Notes None recorded. Procedures Surgical History Date Name Laterality Status Provider Name and Address Organization Details Recorded Time 5 SECTION (SURG) [facility] 13:53:03 4 Date of Last Pap Smear completed Zainab Weston [facility] 09/06/2024 12:53:25 1 extraction of wisdom tooth completed Leida Duenas [facility] 08/19/2023 16:44:18 Imaging Results [...] e: Yes Loca tion: [facility] [facility] odify By: [email or web address] Encount er DateTime : 09/10/19 18 03:30:00 [...] Prescrib ed Elsewher e: No Locat ion: [facility] odify By: nadia archuleta DateTime : 12/09/19 18 11:49:30 AM Not Available Not Available Not Available Metrogel Vaginal 0.75 % (37.5 mg/5 gram) insert 1 applicat orful by vaginal route for 5 nights at bedtime 09/09 completed Prescrib ed Elsewher e: No Locat ion: [facility] odify By: [email or web address] hernandez DateTime : 05/19/19 [...] Prescrib ed Elsewher e: Yes Loca tion: [facility] odify By: [email or web address] E ncounter DateTime : 05/14/19 18 01:00:00 PM [...] Prescrib ed Andrea e: No Locat ion: [facility] yaya [facility] odify By: [email or web address] Javier ncounter DateTime : 05/14/19 18 01:00:00 [...] NOW COVID-19 Test Kit TEST DIRECTED TODAY 02/02 /2024 completed Not Available Not Available Not Available Nextstell is 3 mg-14.2 mg (28) tablet Take 1 tablet every day by oral route with meal(s) for 90 days. 03/23 completed Not Available Not Available Not Available Vitals Date Recorded Body height Body mass index (BMI) Body weight Systolic And Diastolic Provider Name and Address Organization Details Last Updated DateTime 03/18/2025 161.29 cm 36.6 kg/m2 85698.4 g 142/82 mm[Hg] Bibi Buckner [facility] 03/18/2025 16:13:19 Social History Question Answer Notes LastModified by Organizat ion Details LastModified Time Tobacco Smoking Status Never Smoker Zainab rasheed, [facility] 10/31/2022 17:02:19 Do You [...] Or The Highest Degree You Have Received? [id number] [email or web address] Information not available 02/17/2024 Are There Any Guns Present In Your Home? Yes [email or web address] Information not available 02/17/2024 Do You Use Protection During Sex? No [email or web address] Information not available 02/17/2024 Do You Use Your Seat Belt Or Car Seat Routinely? Yes Information not available 08/15/2021 Are You Sexually Active? Yes [email or web address] Information not available 02/04/2025 Do You Have Smoke And Carbon Monoxide Detectors In Your Home? Yes Information not available 08/15/2021 How Much Tobacco Do You Smoke? No Information not available 09/11/2021 Do You Use Sunscreen Routinely? Yes Information not available 08/15/2021 Has Tobacco Cessation Counseling Been Provided? No [email or web address] Information not available 02/04/2025 Have You Used [...] other forms of tobacco or nicotine? No [email or web address] Information not available 02/04/2025 What is your level of alcohol consumption? None [email or web address] Information not available 02/17/2024 Are you currently employed? Yes [email or web address] Information not available 02/04/2025 Are you able to walk independently without assistance or assistive devices? [email or web address] Information not available 08/15/2021 Are you able to care for yourself independently? Yes Information not available 10/31/2022 What is your occupation? [employer] [email or web address] Information not available 02/17/2024 Do you have difficulty dressing, bathing, grooming, or toileting? No Information not available 10/31/2022 What is your exercise level? Occasional [email or web address] Information not available 12/08/2019 Mental Status Question Answer Note LastModified by Organization D etails LastModified Time Do you feel stressed (tense, restless, nervous, or anxious, or unable to sleep at night)? [id number] Information not available 08/15/2021 Family History Relationship [...] mcg/0.3 mL dose, filippo-sucrose 06/05/2021 completed Olamide [facility] 08/15/2021 12:28:36 Past Encounters Encounter ID Performer Location Encounter Start Date Encounter Closed Date Diagnosis/Indication Diagnosis SNOMED-CT Code Diagnosis ICD10 Code Diagnosis IMO Codes Diagnosis Note [id number] Bertha Alfonso CNM [place] [address] [address] 02/18/2025 09:18:35 02/18/2025 09:53:48 Gestation period, 32 weeks 8421474 Z3A.32 [id number] Jama Moreno MD [place] [address],[place] [address] 03/03/2025 11:27:34 03/03/2025 12:15:05 Gestational diabetes mellitus 55440539 O24.410 Z3A.34 [id number] Jama Moreno MD [place] [address],[place] [address] 03/03/2025 11:28:18 03/03/2025 13:32:46 Third trimester 35203637 Z34.03 [id number] Jama Moreno MD [place] [address],[place] [address] 03/10/2025 17:29:33 03/11/2025 08:32:23 Third trimester 45726201 Z34.03 [id number] Bertha Alfonso [facility] [address],[place] [address] 03/18/2025 15:08:37 03/18/2025 16:25:03 Breech presentation 7812211 O32.1XX0 [id number] Bertha Alfonso [facility] [address],[place] [address] 03/18/2025 15:09:06 03/18/2025 16:00:32 Gestation period, 36 weeks 63711170 Z3A.36 [id number] Health Concerns Section Related Observation LastModified by Organization Detai ls LastModified Time None Recorded Concern Status LastModified by Organization Details LastModified Time None Recorded Payers Encounter Date Sequence Insurance Name Policy Number Policy Young Covered Member ID Young Member ID Guarantor Name 03/18/2025 1 [employer] [id number] Norma Hunter [id number] Ninoska Hunter 03/18/2025 2 [employer] [id number] Ninoska Hunter [id number] Ninoska Hunter OBGyn Episode Ob Episode Information Episode Created Date Number of Fetuses Patient Bloodtype Patient rh Status Prepregnancy Weight lbs Domestic Partner Domestic Partner Phone Father Name Director Career Status 10/09/19 25 1 A Positive 203 Adilson Wheat son CLOSED Fetus Data First Name Last Name Admitted to NICU Weight (g) Sex Living Outcome Pediatric Complications Fetus ID Race Codes Race Delivery Type true 3288.54 2 M true Full Term [id number] Primary Problems Problem Notes Problem Name Start Date End Date Resolution Snomed Code Not e Gestational diabetes mellitus 01/24/2025 [id number] Checking bs QID , serial growth us - DT referral faxed to [facility] 01/24 Breech presentation 03/03/2025 [id number] Bao Calculation Initial Bao Date Initial Exam [...] Weight in lbs Pre/Post Dialysis Refused Weight 195.026814316052 BP Diastolic BP Location Tested BP Systolic BP Type 86 L arm 122 sitting Fetus Heart Rate Present A Present Fetus Movement Comments Patient presents to [facility] care. otherwise uncomplicated. No nausea or cramping. NT/NB wnl today, desires NIPT. Will draw today with new OB labs. RTC 4 weeks for routine care. Flowsheet Date 11/05/2024 Brown Score Blood Edema Fundus Height Fundus Units Glucose Ketones Leukocytes Nitrite Labor Signs Protein Cervic Dilation Cervic Effacement Cervic Station Type Weight in lbs Pre/Post Dialysis Refused 196.945881697156 BP Diastolic BP Location Tested BP Systolic [...] Type Weight in lbs Pre/Post Dialysis Refused 198.552201239900 BP Diastolic BP Location Tested BP Systolic [...] Present Fetus Movement Comments Flowsheet Date 12/24/2024 Borwn Score Blood Edema Fundus Height Fundus Units Glucose Ketones Leukocytes Nitrite Labor Signs Protein Cervic Dilation Cervic Effacement Cervic Station Type Weight in lbs Pre/Post Dialysis Refused Weight 202.995933250584 BP Diastolic BP Location Tested BP Systolic [...] Type Weight in lbs Pre/Post Dialysis Refused 207.873727610599 BP Diastolic BP Location Tested BP Systolic [...] Weight in lbs Pre/Post Dialysis Refused Weight 200.580402564573 BP Diastolic BP Location Tested BP Systolic [...] Weight in lbs Pre/Post Dialysis Refused Weight 204.449849577689 BP Diastolic BP Location Tested BP Systolic [...] Type Weight in lbs Pre/Post Dialysis Refused 207.024053237731 BP Diastolic BP Location Tested BP Systolic [...] Weight in lbs Pre/Post Dialysis Refused Weight 208.362110480017 BP Diastolic BP Location Tested BP Systolic [...] Weight in lbs Pre/Post Dialysis Refused Weight 210.873258240964 BP Diastolic BP Location Tested BP Systolic [...] Weight in lbs Pre/Post Dialysis Refused Weight 208.592977736209 BP Diastolic BP Location Tested BP Systolic BP Type 89 L arm 135 sitting Fetus Heart Rate Present Fetus Movement A Yes Comments Flowsheet Date 03/23/2025 Brown Score Blood Edema Fundus Height Fundus Units Glucose Ketones Leukocytes Nitrite Labor Signs Protein Cervic Dilation Cervic Effacement Cervic Station Type Weight in lbs Pre/Post Dialysis Refused Weight 208.357478506960 BP Diastolic BP Location Tested BP Systolic [...] Weight in lbs Pre/Post Dialysis Refused Weight 209.434569284245 BP Diastolic BP Location Tested BP Systolic BP Type 83 L arm 134 sitting Fetus Heart Rate Present Fetus Movement A Yes Comments Flowsheet Date 04/01/2025 Brown Score Blood Edema Fundus Height Fundus Units Glucose Ketones Leukocytes Nitrite Labor Signs Protein Cervic Dilation Cervic Effacement Cervic Station Type Weight in lbs Pre/Post Dialysis Refused 209.611014586504 BP Diastolic BP Location Tested BP Systolic [...] Weight in lbs Pre/Post Dialysis Refused Weight 201.245700443155 BP Diastolic BP Location Tested BP Systolic [...]
--- OUTSIDE RECORDS SUMMARY | 2025-04-15 19:42 | XMS_ITS | Clinical Summary ---
Author Organization [facility] Address [address] [place] [address] Care Team Providers Care Water Supply Technician Name Role Phone Unavailable Primary Care Provider Unavailabl e Source Comments [facility],non-owned Affiliates and Associated Physician Practices is amultiple site organization consisting of ambulatory clinics and hospital sitesin [place], [place], [place] and [place]. This disclosure is being madepursuant to the Care Everywhere program and may not contain all information available regarding this patient. Last updated 18.[facility] Allergies No known active allergies Medications * Be aware that medications may not be up to date on this document. Alwaysverify current medications with the patient. levonorgestrel-e thinyl estradiol (LEVLEN; NORDETTE; LEVORA; LILY;) 0.15-30 MG-MCG tablet Take 1 tablet by mouth once daily Active Active Problems Problem Noted Date Diagnosed Date Vasovagal near-syncope 10/31/2016 Pain in both knees Left hand pain Family History Medical History Relation Name Comments CAD (Coronary Artery Disease) Father Relation Name Status Comments Father Father has diane nary artery disease and received internal defibrillator at age 56. 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 Gender Identity Not on file Sexual Orientation Not on file Last Filed Vital Signs Vital Sign Reading Time Taken Comments Blood Pressure 112/68 05/17/2019 4:51 PM SCIENCE AND OPERATIONS OFFICER Pulse 97 05/17/2019 4:51 PM SCIENCE AND OPERATIONS OFFICER Temperature 36.9 C (98.4 F) 05/17/2019 4:51 PM SCIENCE AND OPERATIONS OFFICER Respiratory Rate 16 05/17/2019 4:51 PM SCIENCE AND OPERATIONS OFFICER Oxygen Saturation 98% 05/17/2019 4:51 PM SCIENCE AND OPERATIONS OFFICER Inhaled Oxygen Concentration - - Weight 77.1 kg (170 lb) 05/17/2019 4:51 PM SCIENCE AND OPERATIONS OFFICER Height 162.6 cm (5' 4) 05/17/2019 4:51 PM SCIENCE AND OPERATIONS OFFICER Body Mass Index 29.18 05/17/2019 4:51 PM SCIENCE AND OPERATIONS OFFICER Plan of Treatment Health Maintenance Due Date Last Done Comments HIV SCREENING 2016 HPV VACCINE (1 - 3-dose series) 2016 CHLAMYDIA/GONORRHEA SCREENING 2017 MENINGOCOCCAL (Group B) VACC INE SHARED DECISION-MAKING (1 of 2 - Standard) 2017 HEPATITIS C SCREENING 11/18/2019 DTAP/TDAP/TD VACCINES (1 - Tdap) 2020 HEPATITIS B VACCINE (1 of 3 - 19+ 3-dose series) 2020 DEPRESSION SCREENING 04/28/2024 COVID-19 VACCINE (1 - 2024-2 6 season) 2024 INFLUENZA VACCINE (#1) 2024 ZOSTER VACCINE (1 of 2) 11/23/2051 HIB VACCINE Aged Out No longer eligi ble based on patient's age to complete this topic MENINGOCOCCAL GROUPS A/C/Y/W VACCINE Aged Out No longer eligible b ased on patient's age to complete this topic PNEUMOCOCCAL VACCINE Aged Out No long er eligible based on patient's age to complete this topic Insurance [employer]
--- OUTSIDE RECORDS SUMMARY | 2025-04-15 19:42 | XMS_ITS | Continuity of Care Document ---
Author Organization [facility] Address [address] [place] [address] Care Team Providers Care R&D Engineer Name Role Phone HONORIO SCHUMACHER Primary Care Provider [phone] Assessment Encounter Date Assessment Date Assessment LastModified [...] Not Available Ruperto girard [address], [place], [address], 10/14/2024 19:59:38 10/15/19 25 10/14/2024 [UNIT Y] ANEUP LOIDY NIPT 22Q11.2 microdeletio n LOW RISK <1 in 10,000 normal Not Available [facility] [address], [place], [address], 10/14/2024 19:59:38 10/15/19 25 10/14/2024 [UNIT Y] ANEUP LOIDY NIPT sex chromosome aneuploidy NOT DETECT ED normal Not Available [facility] [address], [place], [address], 10/14/2024 19:59:38 10/15/19 25 10/14/2024 [UNIT Y] 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 in 10,000 normal Not Available [facility] [address], [place], [address], 10/14/2024 19:59:38 10/15/19 25 10/14/2024 [UNIT Y] ANEUP LOIDY NIPT trisomy 13 LOW RISK <1 in 10,000 normal Not Available [facility] [address], [place], [address], 10/14/2024 19:59:38 10/15/19 25 10/14/2024 [UNIT Y] ANEUP LOIDY NIPT trisomy 18 LOW RISK <1 in 10,000 normal Not Available [facility] [address], [place], [address], 10/14/2024 19:59:38 10/15/19 25 10/14/2024 [UNIT Y] ANEUP LOIDY NIPT trisomy 21 LOW RISK <1 in 10,000 normal Not Available [facility] [address], [place], [address], 10/14/2024 19:59:38 10/15/19 25 10/14/2024 [UNIT Y] ANEUP LOIDY NIPT sex MALE normal Not Available [facility] [address], [place], [address], 10/14/2024 19:59:38 10/15/19 25 10/14/2024 [UNIT Y] ANEUP LOIDY NIPT gestation SINGLE TON normal Not Available [facility] [address], [place], [address], 10/14/2024 19:59:38 10/15/19 25 10/14/2024 [UNIT Y] ANEUP LOIDY NIPT for detailed report, see pdf See PDF normal Not Available [facility] [address], [place], [address], 10/14/2024 19:59:38 10/20/19 25 10/19/2024 [UNIT Y] ESPINOZA [place] sickle cell disease/beta -thalassemia /hemoglobino pathies carrier screen NEGATI VE normal Not Available [facility] [address], [place], [address], 10/19/2024 14:09:36 10/20/19 25 10/19/2024 [UNIT Y] ESPINOZA [place] alpha-thalas semia carrier screen NEGATI VE normal Not Available [facility] [address], [place], [address], 10/19/2024 14:09:36 10/20/19 25 10/19/2024 [UNIT Y] ESPINOZA [place] cystic fibrosis carrier screen NEGATI VE normal Not Available [facility] [address], [place], [address], 10/19/2024 14:09:36 10/20/19 25 10/19/2024 [UNIT Y] ESPINOZA [place] spinal muscular atrophy carrier screen NEGATI VE 2 SMN1 copies , SNP not presen t normal Not Available [facility] [address], [place], [address], 10/19/2024 14:09:36 10/20/19 25 10/19/2024 [UNIT Y] ESPINOZA [place] for detailed report, see pdf See PDF normal Not Available [facility] [address], [place], [address], 10/19/2024 14:09:36 10/09/1910/08/2024 CULTU RE: URINE result report SEE RESULT S BELOW Test: Cultu re: Urine Speci men Sourc e: Urine Voide d Speci men Type: Urine Speci men Date: 2024 1320 Resul t Date: 2024 0400 Resul t Statu s: Final resul t Abnor mal: No Resul ting Lab: [facility] [address] [facility] [address] Tel: CULTU RE ----- ----- ----- --- No growt h in 1 day (dete ction level of 10,00 0 colon ies / ml.) Not Available [facility] (Lab) [address] [facility], [place], [address], 10/10/2024 05:04:31 10/09/1910/08/2024 CBC W/DIF F WBC 9.1 10'3/ uL 3.5-10 .5 Not Available [facility] (Lab) [address] [facility], [place], [address], 10/11/2024 20:50:49 10/09/19 25 10/08/2024 CBC W/DIF F RBC 5.20 10'6/ uL (based on docume nted legal sex) 3.80-5 .20 Not Available [facility] (Lab) [address] [place], [address], 10/11/2024 20:50:49 10/09/19 25 10/08/2024 CBC W/DIF F HGB 14.7 g/dL (based on docume nted legal sex) 11.6-1 5.4 Not Available [facility] (Lab) [address] [place], [address], 10/11/2024 20:50:49 10/09/19 25 10/08/2024 CBC W/DIF F HCT 45.2 % (based on docume nted legal sex) 34.0-4 5.0 high Not Available [facility] (Lab) [address] [facility], [place], [address], 10/11/2024 20:50:49 10/09/19 25 10/08/2024 CBC W/DIF F MCV 86.9 fL 80.0-9 9.0 Not Available [facility] (Lab) [address] [facility], [place], [address], 10/11/2024 20:50:49 10/09/19 25 10/08/2024 CBC W/DIF F MCH 28.3 pg 27.0-3 4.0 Not Available [facility] (Lab) [address] [facility], [place], [address], 10/11/2024 20:50:49 10/09/19 25 10/08/2024 CBC W/DIF F MCHC 32.5 g/dL 32.0-3 5.5 Not Available [facility] (Lab) [address] [facility], [place], [address], 10/11/2024 20:50:49 10/09/19 25 10/08/2024 CBC W/DIF F RDW 13.2 % 11.0-1 5.0 Not Available [facility] (Lab) [address] [facility], [place], [address], 10/11/2024 20:50:49 10/09/19 25 10/08/2024 CBC W/DIF F plt 286 10'3/ uL 150-40 0 Not Available [facility] (Lab) [address] [facility], [place], [address], 10/11/2024 20:50:49 10/09/19 25 10/08/2024 CBC W/DIF F MPV 11.7 fL 8.8-12 .1 Not Available [facility] (Lab) [address] [facility], [place], [address], 10/11/2024 20:50:49 10/09/19 25 10/08/2024 CBC W/DIF F NRBC's 0.0 % 0.0 Not Available [facility] (Lab) [address] [facility], [place], [address], 10/11/2024 20:50:49 10/09/19 25 10/08/2024 CBC W/DIF F absolute NRBCs 0.0 10'3/ uL no refere nce range establ ished Not Available [facility] (Lab) [address], [place], [address], 10/11/2024 20:50:49 10/09/19 25 10/08/2024 CBC W/DIF F neutrophils 67.1 % 34.0-7 3.0 Not Available [facility] (Lab) [address], [place], [address], 10/11/2024 20:50:49 10/09/19 25 10/08/2024 CBC W/DIF F lymphocytes 25.1 % 15.0-5 0.0 Not Available [facility] (Lab) [address], [place], [address], 10/11/2024 20:50:49 10/09/19 25 10/08/2024 CBC W/DIF F monocytes 6.4 % 1.0-15 .0 Not Available [facility] (Lab) [address] [facility], [place], [address], 10/11/2024 20:50:49 10/09/19 25 10/08/2024 CBC W/DIF F eosinophils 0.9 % 0.0-8. 0 Not Available [facility] (Lab) [address], [place], [address], 10/11/2024 20:50:49 10/09/19 25 10/08/2024 CBC W/DIF F basophils 0.3 % 0.0-2. 0 Not Available [facility] (Lab) [address] [facility], [place], [address], 10/11/2024 20:50:49 10/09/19 25 10/08/2024 CBC W/DIF F immature granulocytes 0.2 % no define d refere nce range Immat ure Granu locyt es (IG) repre sents autom ated enume ratio n of Metam yeloc ytes, Myelo cytes and Promy elocy yenni when IG is < 5%. Blast s are not inclu ded in IG and repor aedla separ ately if prese nt. Not Available [facility] (Lab) [address] [facility], [place], [address], 10/11/2024 20:50:49 10/09/19 25 10/08/2024 CBC W/DIF F absolute neutrophils 6.1 10'3/ uL 1.5-8. 0 Not Available [facility] (Lab) [address], [place], [address], 10/11/2024 20:50:49 10/09/19 25 10/08/2024 CBC W/DIF F absolute lymphocytes 2.3 10'3/ uL 1.0-4. 0 Not Available [facility] (Lab) [address], [place], [address], 10/11/2024 20:50:49 10/09/19 25 10/08/2024 CBC W/DIF F absolute monocytes 0.6 10'3/ uL 0.2-1. 0 Not Available [facility] (Lab) [address], [place], [address], 10/11/2024 20:50:49 10/09/19 25 10/08/2024 CBC W/DIF F absolute eosinophils 0.1 10'3/ uL 0.0-0. 6 Not Available [facility] (Lab) [address], [place], [address], 10/11/2024 20:50:49 10/09/19 25 10/08/2024 CBC W/DIF F absolute basophils 0.0 10'3/ uL 0.0-0. 3 Not Available [facility] (Lab) [address], [place], [address], 10/11/2024 20:50:49 10/09/19 25 10/08/2024 CBC W/DIF [...] ki book. nm.or g/gen derx Not Available [facility] (Lab) [address], [place], [address], 10/11/2024 20:50:49 10/09/1910/08/2024 HIV 1/2 ANTIG EN/AN TIBOD Y, REFLE X CONFI RMATI ON HIV antigen/anti body Nonrea ctive nonrea ctive HIV-1 antig en and HIV-1 /HIV- 2 antib odies were not detec adela. No labor atory evide nce of HIV infec tion. Not Available [facility] (Lab) [address], [place], [address], 10/11/2024 20:50:49 10/09/1910/08/2024 HEPAT ITIS B SURFA CE ANTIG EN hepatitis B surface antigen Non-re active non-re active This assay was perfo rmed using [employer] ratio n reage nts and test kits. Value s obtai charles with other assay metho ds or kits canno t be used inter emanuel eably . Not Available [facility] (Lab) [address], [place], [address], 10/11/2024 20:50:50 10/09/19 25 10/08/2024 HEPAT ITIS C ANTIB NITA SCREE N, REFLE X TO CONFI RMATI ON hepatitis C antibody Non-re active non-re active Antib odies to HCV Not Detec adela, does not exclu de the possi bilit y of expos ure to HCV. Not Available [facility] (Lab) [address], [place], [address], 10/11/2024 20:50:50 10/09/19 25 10/08/2024 RUBEL LA IGG ANTIB NITA, QUANT rubella antibodies, IgG Reacti ve reacti ve Not Available [facility] (Lab) [address], [place], [address], 10/11/2024 20:50:50 10/09/19 25 10/08/2024 RUBEL LA IGG ANTIB NITA, QUANT rubella antibodies, IgG quant 24.1 IU/mL >=10 Non-r eacti ve (Non- Immun e) <10 IU/mL React alejandra (Immu ne) > or = 10 IU/mL Not Available [facility] (Lab) [address], [place], [address], 10/11/2024 20:50:50 10/09/19 25 10/08/2024 TYPE/ RH/SC REEN ABO/Rh type A POS Not Available [facility] (Lab) [address], [place], [address], 10/11/2024 20:50:51 10/09/19 25 10/08/2024 TYPE/ RH/SC REEN antibody screen NEG Not Available [facility] (Lab) [address], [place], [address], 10/11/2024 20:50:51 10/09/19 25 10/08/2024 TYPE/ RH/SC REEN exp date 2024 23:59 Not Available [facility] (Lab) [address], [place], [address], 10/11/2024 20:50:51 10/09/19 25 10/08/2024 HEMOG LOBIN [...] >8.0% Actio n sugge sted Not Available [facility] (Lab) [address], [place], [address], 10/11/2024 20:50:51 10/09/19 25 10/08/2024 RPR SCREE N, REFLE X TITER /CONF IRMAT ION RPR qualitative Nonrea ctive nonrea ctive Not Available [facility] (Lab) [address], [place], [address], 10/11/2024 20:50:51 10/09/19 25 10/08/2024 drug scree n, urine Amphetamines : negati ve Not Available [place] [facility] [address], [place], [address], 10/08/2024 13:34:18 10/09/19 25 10/08/2024 drug scree n, urine Cannabinoids : negati ve Not Available [place] [facility] [address], [place], [address], 10/08/2024 13:34:18 10/09/19 25 10/08/2024 drug scree n, urine Cocaine: negati ve Not Available [facility] [facility] [address], [place], [address], 10/08/2024 13:34:18 10/09/19 25 10/08/2024 drug scree n, urine Opiates: negati ve Not Available [facility] [facility] [address], [place], [address], 10/08/2024 13:34:18 10/09/19 25 10/08/2024 drug scree n, urine Barbiturates : negati ve Not Available [place] [address], [place], [address], 10/08/2024 13:34:18 10/09/19 25 10/08/2024 drug scree n, urine Benzodiazepi dino: negati ve Not Available [place] [facility] [address], [place], [address], 10/08/2024 13:34:18 01/22/20 25 01/21/2025 GTT - GESTA MARYANA L SCREE N, ACOG OB glucose, 1 hour screen 210 mg/dL 70-135 high Not Available [facility] (Lab) [address], [place], [address], 01/22/2025 12:46:27 01/22/20 25 01/21/2025 HIV 1/2 ANTIG EN/AN TIBOD Y, REFLE X CONFI RMATI ON HIV antigen/anti body Nonrea ctive nonrea ctive HIV-1 antig en and HIV-1 /HIV- 2 antib odies were not detec adela. No labor atory evide nce of HIV infec tion. Not Available [facility] (Lab) [address], [place], [address], 01/22/2025 12:46:28 01/22/20 25 01/21/2025 HEMOG LOBIN (HGB) HGB 13.3 g/dL (based on docume nted legal sex) 11.6-1 5.4 Not Available [facility] (Lab) [address], [place], [address], 01/22/2025 12:46:28 01/22/20 25 01/21/2025 HEMAT OCRIT (HCT) HCT 40.3 % (based on docume nted legal sex) 34.0-4 5.0 Not Available [facility] (Lab) [address], [place], [address], 01/22/2025 12:46:28 01/22/20 25 01/21/2025 RPR SCREE N, REFLE X TITER /CONF IRMAT ION RPR qualitative Nonrea ctive nonrea ctive Not Available [facility] (Lab) [address], [place], [address], 01/22/2025 12:46:28 03/23/20 25 03/23/2025 CULTU RE: [...] Resul ting Lab: [facility] [address] [facility] [address] Tel: CULTU RE ----- ----- ----- --- No Group B strep isola adela at 2 days (byron ctive broth enhan cemen t) Not Available [facility] (Lab) [address], [place], [address], 03/26/2025 14:10:51 10/09/19 25 10/08/2024 US, obste tric, nucha l trans lucen cy No observ ation record ed. [facility] [address], [place], [address], 10/08/2024 18:39:08 10/09/19 25 10/08/2024 US, obste tric, nucha l trans lucen cy No observ ation record ed. [email or web address] [address], [place], [address], 10/09/2024 23:09:07 11/25/19 25 11/24/2024 US, obste tric, 2nd or 3rd trime ster No observ ation record ed. [email or web address] V[address]ana [address], [place], [address], 12/01/2024 11:58:43 11/25/19 25 11/25/2024 US, obste tric, 2nd or 3rd trime ster No observ ation record ed. [email or web address] [place] [address], [place], [address], 11/25/2024 12:49:42 12/25/19 25 12/24/2024 US, obste tric, follo w-up No observ ation record ed. ELIN V[address], [place], [address], 01/01/2025 17:08:59 12/25/19 25 12/24/2024 US, obste tric, follo w-up No observ ation record ed. [facility] [address], [place], [address], 12/24/2024 13:46:21 02/05/20 25 02/04/2025 US, obste tric, follo w-up No observ ation record ed. [facility] [address], [place], [address], 02/04/2025 13:02:03 02/05/20 25 02/04/2025 US, obste tric, follo w-up No observ ation record ed. [email or web address] V[address]ana [address], [place], [address], 02/07/2025 16:14:11 03/03/20 25 03/03/2025 US, obste tric, follo w-up No observ ation record ed. [email or web address] [place] [address], [place], [address], 03/03/2025 15:11:00 03/03/20 25 03/03/2025 US, obste tric, follo w-up No observ ation record ed. [email or web address] [address], [place], [address], 03/04/2025 12:00:47 03/10/20 25 03/10/2025 non-s tress test No observ ation record ed. [email or web address] [facility], [place], [address], 03/14/2025 11:36:31 03/10/20 25 03/10/2025 US, obste tric, follo w-up No observ ation record ed. [address] [facility], [place], [address], 03/11/2025 08:40:14 03/18/20 25 03/18/2025 non-s tress test No observ ation record ed. [place] [address], [place], [address], 03/28/2025 10:44:01 03/18/20 25 03/18/2025 non-s tress test No observ ation record ed. [email or web address] [address] [facility], [place], [address], 04/15/2025 10:36:55 03/18/20 25 03/18/2025 US, paige guerrero, bioph ysica l profi le No observ ation record ed. [address] [facility], [place], [address], 03/23/2025 16:26:00 03/18/20 25 03/18/2025 US, paige guerrero, bioph ysica l profi le No observ ation record ed. [address], [place], [address], 03/23/2025 16:25:42 03/18/20 25 03/18/2025 non-s tress test No observ ation record ed. [facility] [address], [place], [address], 03/28/2025 11:00:24 03/23/20 25 03/23/2025 US, obste tric, bioph ysica l profi le + non-s tress test No observ ation record ed. [email or web address] [place] [address], [place], [address], 03/23/2025 18:22:09 03/23/20 25 03/23/2025 US, obste tric, bioph ysica l profi le + non-s tress test No observ ation record ed. [email or web address] Vandana [address], [place], [address], 03/30/2025 11:20:06 03/23/20 25 03/23/2025 non-s tress test No observ ation record ed. [email or web address] [place] [address], [place], [address], 03/23/2025 17:56:30 03/23/20 non-s tress test No observ ation record ed. [place] [address], [place], [address], 03/23/2025 17:23:26 04/01/20 25 04/01/2025 US, paige guerrero, follo w-up No observ ation record ed. [facility] [address], [place], [address], 04/01/2025 14:56:59 12/05/04/01/2025 US, obste tric, bioph ysica l profi le + non-s tress test No observ ation record ed. [email or web address] [place] [address], [place], [address], 04/01/2025 14:57:12 04/01/20 25 04/01/2025 US, obste tric, follo w-up No observ ation record ed. [email or web address] [address], [place], [address], 04/04/2025 12:34:31 04/01/20 25 04/01/2025 non-s tress test No observ ation record ed. [address], [place], [address], 04/01/2025 16:35:28 04/01/20 non-s tress test No observ ation record ed. [email or web address] [place] [address], [place], [address], 04/01/2025 16:40:02 Result Notes None recorded. 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 17:28:[address] Concept Completed 201701/23/2021 Encntr for routine child health exam w/o abnormal findings ;Recorde d Elsewher e: No Locat ion: Hilaria javier [facility] S ource: EHR Lift Slab Operator junoir: N Practi ce ID: [id number] Con lable Time: 01:00:00 PM Mile rasheed [facility] 17:28:33 Surveill ance of contrace ption Completed 201701/23/2021 Encounte r for surveill ance of contrace ptives, unspecif ied;Quincy rded Elsewher e: No Locat ion: [facility] S ource: EHR Lift Slab Operator junior: N Marissati ce ID: [id number] Con lable Time: 02:00:00 PM Mile rasheed, [facility] 17:28:49 Clinical finding Completed 201701/23/2021 Presence of (intraut erine) contrace ptive device;R ecorded Elsewher e: No Locat ion: [facility] S ource: EHR Lift Slab Operator junior: N Practi ce ID: [id number] Con lable Time: 08:00:00 AM Mile rasheed, [facility] 17:28:39 Insertio n of intraute rine contrace ptive device Completed 201701/23/2021 Encounte r for insertio n of intraute rine contrace ptive device;R ecorded Elsewher e: No Locat ion: [facility] S ource: EHR Lift Slab Operator junior: N Practi ce ID: [id number] Con lable Time: 08:00:00 AM Mile rasheed, [facility] 17:28:46 Pregnanc y test negative [id number] Completed 201701/23/2021 Encounte r for pregnanc y test, result negative ;Practic e ID: 0001 Mile rasheed, [facility] 17:28:25 Contrace ptive sheath status [id number] Completed 201701/23/2021 Encounte r for routine checking of intraute rine contrace p dev;Prac marco ID: 0001 Mile Paredes [facility], [facility] 17:28:19 Pelvic and perineal pain [id number] Completed 201701/23/2021 Pelvic pain;Rec orded Elsewher e: No Locat ion: Hilaria yaya [facility] S ource: EHR Lift Slab Operator junior: N Practi ce ID: [id number] Con lable Time: 04:00:00 PM Mile rasheed [facility] 17:28:31 Syphilis test finding [id number] Completed 201701/23/2021 Encntr screen for infectio ns w sexl mode of transmis s;Practi ce ID: 0001 Mile rasheed, [facility] 17:28:42 Infectio n screenin g Completed 201701/23/2021 Encounte r for screenin g for oth infec/pa rastc diseases ;Practic e ID: 0001 Mile rasheed, [facility] 17:27:55 Contrace ption care manageme nt Completed 201801/23/2021 Encounte r for contrace ptive manageme nt, unspecif ied;Quincy rded Elsewher e: No [facility] S ource: EHR Lift Slab Operator junior: N Practi ce ID: [id number] Con lable Time: 10:45:00 AM Mile rasheed [facility] 17:28:44 Blood leukocyt e number above referenc e range [id number] Completed 201801/23/2021 Elevated white blood cell count, unspecif ied;Prac marco ID: 0001 Mile rasheed [facility] 17:28:45 Acute vaginiti s [id number] Completed 201801/23/2021 Acute vaginiti s;Record ed Elsewher e: No [facility] Lift Slab Operator junior: N Practi ce ID: [id number] Con lable Time: 10:45:00 AM Mile rasheed [facility] 17:28:21 Increase d frequenc y of urinatio n [id number] Completed 201801/23/2021 Urinary frequenc y;Record ed Elsewher e: No Locat ion: Kathleenvitaly javier [facility] S ource: EHR Lift Slab Operator junior: N Francesco ce ID: [id number] Con lable Time: 10:45:00 AM Mile rasheed [facility] 17:27:54 Uses combined oral contrace ption [id number] Completed 201801/23/2021 Encounte r for initial prescrip tion of contrace ptive pills;Pr actice ID: 0001 Mile Paredes [facility] 17:28:27 Removal of intraute rine device Completed 201801/23/2021 Encounte r for removal of intraute rine contrace ptive device;P ractice ID: 0001 Mile Paredes [facility], [facility] 17:28:48 Pregnanc y [id number] Completed 202404/15/2025 Zainab Weston [facility] 14:35:49 Gestatio nal diabetes mellitus [id number] Completed 2024 Checking bs QID , serial growth us - DT referral faxed to [facility] 01/24 Randi Aguiar [facility] 13:08:13 Breech presenta tion [id number] Completed 2024 Jama Moreno MD [address], [place], [id number], [facility] 12:37:19 Problem Notes None recorded. Procedures Surgical History Date Name Laterality Status Provider Name and Address Organization Details Recorded Time 5 SECTION (SURG) completed Not Available [facility] 04/08/2025 13:53:03 4 Date of Last Pap Smear completed Zainab Weston [facility] 09/06/2024 12:53:25 1 extraction of wisdom tooth completed Leida Duenas [facility] 08/19/2023 16:44:18 Imaging Results None [...] Prescrib ed Elsewher e: Yes [facility] By: [email or web address] Encount er DateTime : 09/10/19 03:30:00 PM [...] Prescrib ed Elsewher e: No [facility] By: nadia archuleta DateTime : 12/09/19 11:49:30 AM Not Available Not Available Not Available Metrogel Vaginal 0.75 % (37.5 mg/5 gram) insert 1 applicat orful by vaginal route for 5 nights at bedtime 09/09 completed Prescrib ed Elsewher e: No [facility] By: [email or web address] Yaya ncohoraceer DateTime : [...] Prescrib ed Elsewher e: Yes Loca tion: [facility] odify By: serenity Javier ncohoraceer DateTime : [...] Mendez e: No Locat ion: Hilaria javier [facility] odify By: [email or web address] Javier ncounter DateTime [...] Address Organization Details Last Updated DateTime 5 63463.8 0533 g 36.4 kg/m2 161.29 cm 161.29 cm 36.4 kg/m2 77203.8 1 g 134/83 mm[Hg] 134/83 mm[Hg] Bibi Buckner [facility] 5 16:27:23 Social History Question Answer Notes LastModified by Organizat ion Details LastModified Time Tobacco Smoking Status Never Smoker Zainab Weston [facility] 10/31/2022 17:02:19 Do You Have An [...] Or The Highest Degree You Have Received? IP75237-5 [email or web address] Information not available 02/17/2024 Are There Any Guns Present In Your Home? Yes [email or web address] Information not available 02/17/2024 Do You Use Protection During Sex? No [email or web address] Information not available 02/17/2024 Do You Use Your Seat Belt Or Car Seat Routinely? Yes Information not available 08/15/2021 Are You Sexually Active? Yes [email or web address] Information not available 02/04/2025 Do You Have Smoke And Carbon Monoxide Detectors In Your Home? Yes Information not available 08/15/2021 How Much Tobacco Do You Smoke? No Information not available 09/11/2021 Do You Use Sunscreen Routinely? Yes Information not available 08/15/2021 Has Tobacco Cessation Counseling Been Provided? No [email or web address] Information not available 02/04/2025 Have You Used [...] other forms of tobacco or nicotine? No [email or web address] Information not available 02/04/2025 What is your level of alcohol consumption? None [email or web address] Information not available 02/17/2024 Are you currently employed? Yes [email or web address] Information not available 02/04/2025 Are you able to walk independently without assistance or assistive devices? [email or web address] Information not available 08/15/2021 Are you able to care for yourself independently? Yes Information not available 10/31/2022 What is your occupation? [employer] Information not available 02/17/2024 Do you have difficulty dressing, bathing, grooming, or toileting? No Information not available 10/31/2022 What is your exercise level? Occasional [email or web address] Information not available 12/08/2019 Mental Status Question Answer Note LastModified by Organization D etails LastModified Time Do you feel stressed (tense, restless, nervous, or anxious, or unable to sleep at night)? [id number] Information not available 08/15/2021 Family History Relationship [...] 30 mcg/0.3 mL dose, filippo-sucrose 06/05/2021 completed [facility] 08/15/2021 12:28:36 Past Encounters Encounter ID Performer Location Encounter Start Date Encounter Closed Date Diagnosis/Indication Diagnosis SNOMED-CT Code Diagnosis ICD10 Code Diagnosis IMO Codes Diagnosis Note [id number] Jama Moreno MD [facility] [facility] [address],[place] [address] 03/03/2025 11:27:34 03/03/2025 12:15:05 Gestational diabetes mellitus 70269132 O24.410 Z3A.34 41692652 [id number] Jama Moreno MD [facility] [address],[place] [address] 03/03/2025 11:28:18 03/03/2025 13:32:46 Third trimester 38384938 Z34.03 [id number] Jama Moreno MD [place] [address],[place] [address] 03/10/2025 17:29:33 03/11/2025 08:32:23 Third trimester 84328090 Z34.[id number] [facility] [address],[place] [address] 03/18/2025 15:08:37 03/18/2025 16:25:03 Breech presentation 6374758 O32.1XX0 [id number] Bertha Alfonso [facility] [address],[place] [address] 03/18/2025 15:09:06 03/18/2025 16:00:32 Gestation period, 36 weeks 61668832 Z3A.36 6718951 [id number] Jama Moreno MD [place] [facility] [address],[place] [address] 03/23/2025 14:18:49 03/23/2025 15:00:55 Gestational diabetes mellitus 63595586 O24.410 Z3A.[id number]so [facility] [address],[place] [address] 03/23/2025 14:19:55 03/23/2025 17:36:35 Breech presentation 5969011 O32.1XX0 [id number] Bertha Alfonso [facility] [address],[place] [address] 03/23/2025 14:20:05 03/23/2025 16:00:30 Gestation period, 36 weeks 63825888 Z3A.36 6592210 Breech presentation 6096 002 O32.1XX0 20593202 [id number] Jama Moreno MD [place] [address],[place] [address] 04/01/2025 14:12:43 04/01/2025 15:22:59 Gestational diabetes mellitus 69064854 O24.410 Z3A.[id number]so [facility] [address],[place] [address] 04/01/2025 14:14:05 04/01/2025 16:37:02 Breech presentation 2636542 O32.1XX0 [id number] Bertha Alfonso CNM [place] [address] [address] 04/01/2025 14:14:19 04/01/2025 16:22:31 Gestation period, 38 weeks 31627009 Z3A.38 [id number] Health Concerns Section Related Observation LastModified by Organization Detai ls LastModified Time None Recorded Concern Status LastModified by Organization Details LastModified Time None Recorded Payers Encounter Date Sequence Insurance Name Policy Number Policy Young Covered Member ID Young Member ID Guarantor Name 04/01/2025 1 [facility] [id number] Norma Hunter [id number] Ninoska Hunter 04/01/2025 2 [facility] [id number] Ninoska Hunter [id number] Ninoska Hunter Notes Date Note Type Note Provider Name and Address Organization Details Recorded Time 04/01/2025 text/html Generic HPI TemplateReported by Patient Bertha Alfonso CNM [address], [place], [address], [facility] 04/01/2025 15:49:51 OBGyn Episode Ob Episode Information Episode Created Date Number of Fetuses Patient Bloodtype Patient rh Status Prepregnancy Weight lbs Domestic Partner Domestic Partner Phone Father Name Die Cast Operator Status 10/09/19 25 1 A Positive 203 Adilson Wheat son CLOSED Fetus Data First Name Last Name Admitted to NICU Weight (g) Sex Living Outcome Pediatric Complications Fetus ID Race Codes Race Delivery Type true 3288.54 2 M true Full Term [id number] Primary Problems Problem Notes Problem Name Start Date End Date Resolution Snomed Code Not e Gestational diabetes mellitus 01/24/2025 54485385 Checking bs QID , serial growth us - DT referral faxed to [facility] 01/24 Breech presentation 03/03/2025 [id number] Bao Calculation Initial Bao Date Initial Exam [...] Weight in lbs Pre/Post Dialysis Refused Weight 195.387891469276 BP Diastolic BP Location Tested BP Systolic BP Type 86 L arm 122 sitting Fetus Heart Rate Present A Present Fetus Movement Comments Patient presents to [facility] care. otherwise uncomplicated. No nausea or cramping. NT/NB wnl today, desires NIPT. Will draw today with new OB labs. RTC 4 weeks for routine care. Flowsheet Date 11/05/2024 Brown Score Blood Edema Fundus Height Fundus Units Glucose Ketones Leukocytes Nitrite Labor Signs Protein Cervic Dilation Cervic Effacement Cervic Station Type Weight in lbs Pre/Post Dialysis Refused 196.708781604101 BP Diastolic BP Location Tested BP Systolic [...] Type Weight in lbs Pre/Post Dialysis Refused 198.871019656115 BP Diastolic BP Location Tested BP Systolic [...] Weight in lbs Pre/Post Dialysis Refused Weight 202.807406324604 BP Diastolic BP Location Tested BP Systolic [...] Type Weight in lbs Pre/Post Dialysis Refused 207.667110745893 BP Diastolic BP Location Tested BP Systolic [...] Weight in lbs Pre/Post Dialysis Refused Weight 200.843959441099 BP Diastolic BP Location Tested BP Systolic [...] Weight in lbs Pre/Post Dialysis Refused Weight 204.881346496544 BP Diastolic BP Location Tested BP Systolic [...] Type Weight in lbs Pre/Post Dialysis Refused 207.582218331277 BP Diastolic BP Location Tested BP Systolic [...] Weight in lbs Pre/Post Dialysis Refused Weight 208.198262133030 BP Diastolic BP Location Tested BP Systolic [...] Weight in lbs Pre/Post Dialysis Refused Weight 210.664965189663 BP Diastolic BP Location Tested BP Systolic [...] Weight in lbs Pre/Post Dialysis Refused Weight 208.091592253250 BP Diastolic BP Location Tested BP Systolic BP Type 89 L arm 135 sitting Fetus Heart Rate Present Fetus Movement A Yes Comments Flowsheet Date 03/23/2025 Brown Score Blood Edema Fundus Height Fundus Units Glucose Ketones Leukocytes Nitrite Labor Signs Protein Cervic Dilation Cervic Effacement Cervic Station Type Weight in lbs Pre/Post Dialysis Refused Weight 208.522101934006 BP Diastolic BP Location Tested BP Systolic [...] Weight in lbs Pre/Post Dialysis Refused Weight 209.478655922877 BP Diastolic BP Location Tested BP Systolic BP Type 83 L arm 134 sitting Fetus Heart Rate Present Fetus Movement A Yes Comments Flowsheet Date 04/01/2025 Brown Score Blood Edema Fundus Height Fundus Units Glucose Ketones Leukocytes Nitrite Labor Signs Protein Cervic Dilation Cervic Effacement Cervic Station Type Weight in lbs Pre/Post Dialysis Refused 209.363815147510 BP Diastolic BP Location Tested BP Systolic [...] Weight in lbs Pre/Post Dialysis Refused Weight 201.709535527104 BP Diastolic BP Location Tested BP Systolic [...]
--- OUTSIDE RECORDS SUMMARY | 2025-04-15 19:42 | XMS_ITS | Continuity of Care Document ---
Author Organization [facility], [facility] Address [address] [place] [address] [place] [address] Care Team Providers Care [facility] Nursery Worker Name Role Phone BERNYSAULOHONORIO Santizo Primary Care Provider [phone] Assessment No assessment recorded. Plan of Treatment [...] recorded . Surgeries None recorded . Imaging non-stre ss test 2024 025 [email or web address] 2 [place], [facility] [address], [address], [place], [address], 04/01/2025 16:37:02 Medication Orders None recorded . Patient TargetsNo targets recorded. Patient InstructionsNo instructions recorded. Reason for Referral None Reported. Results Created Date Observation Date Name Description Value Unit Range Abnormal Flag Note LastModifiedBy Organization Detail LastModifiedTime 10/15/1910/14/2024 [UNIT Y] ANEUP LOIDY NIPT fraction 7.0% normal Not Available [facility] [address], [place], [address], 10/14/2024 19:59:38 10/15/19 25 10/14/2024 [UNIT Y] ANEUP LOIDY NIPT 22Q11.2 microdeletio n LOW RISK <1 in 10,000 normal Not Available [facility] [address], [place], [address], 10/14/2024 19:59:38 10/15/19 25 10/14/2024 [UNIT Y] ANEUP LOIDY NIPT sex chromosome aneuploidy NOT DETECT ED normal Not Available [facility] [address], [place], [address], 10/14/2024 19:59:38 10/15/19 25 10/14/2024 [UNIT Y] 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 in 10,000 normal Not Available [facility] [address], [place], [address], 10/14/2024 19:59:38 10/15/19 25 10/14/2024 [UNIT Y] ANEUP LOIDY NIPT trisomy 13 LOW RISK <1 in 10,000 normal Not Available [facility] [address], [place], [address], 10/14/2024 19:59:38 10/15/19 25 10/14/2024 [UNIT Y] ANEUP LOIDY NIPT trisomy 18 LOW RISK <1 in 10,000 normal Not Available [facility] [address], [place], [address], 10/14/2024 19:59:38 10/15/19 25 10/14/2024 [UNIT Y] ANEUP LOIDY NIPT trisomy 21 LOW RISK <1 in 10,000 normal Not Available [facility] [address], [place], [address], 10/14/2024 19:59:38 10/15/19 25 10/14/2024 [UNIT Y] ANEUP LOIDY NIPT sex MALE normal Not Available [facility] [address], [place], [address], 10/14/2024 19:59:38 10/15/19 25 10/14/2024 [UNIT Y] ANEUP LOIDY NIPT gestation SINGLE TON normal Not Available [facility] [address], [place], [address], 10/14/2024 19:59:38 10/15/19 25 10/14/2024 [UNIT Y] ANEUP LOIDY NIPT for detailed report, see pdf See PDF normal Not Available [facility] [address], [place], [address], 10/14/2024 19:59:38 10/20/19 25 10/19/2024 [UNIT Y] ESPINOZA [place] sickle cell disease/beta -thalassemia /hemoglobino pathies carrier screen NEGATI VE normal Not Available [facility] [address], [place], [address], 10/19/2024 14:09:36 10/20/19 25 10/19/2024 [UNIT Y] ESPINOZA [place] alpha-thalas semia carrier screen NEGATI VE normal Not Available [facility] [address], [place], [address], 10/19/2024 14:09:36 10/20/19 25 10/19/2024 [UNIT Y] ESPINOZA [place] cystic fibrosis carrier screen NEGATI VE normal Not Available [facility] [address], [place], [address], 10/19/2024 14:09:36 10/20/19 25 10/19/2024 [UNIT Y] ESP[place] spinal muscular atrophy carrier screen NEGATI VE 2 SMN1 copies , SNP not presen t normal Not Available [facility] [address], [place], [address], 10/19/2024 14:09:36 10/20/19 25 10/19/2024 [UNIT Y] ESPINO[place] for detailed report, see pdf See PDF normal Not Available [facility] [address] [place], [address], 10/19/2024 14:09:36 10/09/1910/08/2024 CULTU RE: URINE result report SEE RESULT S BELOW Test: Cultu re: Urine Speci men Sourc e: Urine Voide d Speci men Type: Urine Speci men Date: 2024 1320 Resul t Date: 2024 0400 Resul t Statu s: Final resul t Abnor mal: No Resul ting Lab: [facility] [address] [facility] [place] [address] Tel: CULTU RE ----- ----- ----- --- No growt h in 1 day (dete ction level of 10,00 0 colon ies / ml.) Not Available [facility] (Lab) [address] [place], [address], 10/10/2024 05:04:31 10/09/1910/08/2024 CBC W/DIF F WBC 9.1 10'3/ uL 3.5-10 .5 Not Available [facility] (Lab) [address] [place], [address], 10/11/2024 20:50:49 10/09/19 25 10/08/2024 CBC W/DIF F RBC 5.20 10'6/ uL (based on docume nted legal sex) 3.80-5 .20 Not Available [facility] (Lab) [address] [place], [address], 10/11/2024 20:50:49 10/09/19 25 10/08/2024 CBC W/DIF F HGB 14.7 g/dL (based on docume nted legal sex) 11.6-1 5.4 Not Available [facility] (Lab) [address] [place], [address], 10/11/2024 20:50:49 10/09/19 25 10/08/2024 CBC W/DIF F HCT 45.2 % (based on docume nted legal sex) 34.0-4 5.0 high Not Available [facility] (Lab) [address], [place], [address], 10/11/2024 20:50:49 10/09/19 25 10/08/2024 CBC W/DIF F MCV 86.9 fL 80.0-9 9.0 Not Available [facility] (Lab) [address], [place], [address], 10/11/2024 20:50:49 10/09/19 25 10/08/2024 CBC W/DIF F MCH 28.3 pg 27.0-3 4.0 Not Available [facility] (Lab) [address], [place], [address], 10/11/2024 20:50:49 10/09/19 25 10/08/2024 CBC W/DIF F MCHC 32.5 g/dL 32.0-3 5.5 Not Available [facility] (Lab) [address], [place], [address], 10/11/2024 20:50:49 10/09/19 25 10/08/2024 CBC W/DIF F RDW 13.2 % 11.0-1 5.0 Not Available [facility] (Lab) [address], [place], [address], 10/11/2024 20:50:49 10/09/19 25 10/08/2024 CBC W/DIF F plt 286 10'3/ uL 150-40 0 Not Available [facility] (Lab) [address], [place], [address], 10/11/2024 20:50:49 10/09/19 25 10/08/2024 CBC W/DIF F MPV 11.7 fL 8.8-12 .1 Not Available [facility] (Lab) [address], [place], [address], 10/11/2024 20:50:49 10/09/19 25 10/08/2024 CBC W/DIF F NRBC's 0.0 % 0.0 Not Available [facility] (Lab) [address] [facility], [place], [address], 10/11/2024 20:50:49 10/09/19 25 10/08/2024 CBC W/DIF F absolute NRBCs 0.0 10'3/ uL no refere nce range establ ished Not Available [facility] (Lab) [address] [facility], [place], [address], 10/11/2024 20:50:49 10/09/19 25 10/08/2024 CBC W/DIF F neutrophils 67.1 % 34.0-7 3.0 Not Available [facility] (Lab) [address] [facility], [place], [address], 10/11/2024 20:50:49 10/09/19 25 10/08/2024 CBC W/DIF F lymphocytes 25.1 % 15.0-5 0.0 Not Available [facility] (Lab) [address] [facility], [place], [address], 10/11/2024 20:50:49 10/09/19 25 10/08/2024 CBC W/DIF F monocytes 6.4 % 1.0-15 .0 Not Available [facility] (Lab) [address] [place], [address], 10/11/2024 20:50:49 10/09/19 25 10/08/2024 CBC W/DIF F eosinophils 0.9 % 0.0-8. 0 Not Available [facility] (Lab) [address] [place], [address], 10/11/2024 20:50:49 10/09/19 25 10/08/2024 CBC W/DIF F basophils 0.3 % 0.0-2. 0 Not Available [facility] (Lab) [address] [place], [address], 10/11/2024 20:50:49 10/09/19 25 10/08/2024 CBC W/DIF [...] separ ately if prese nt. Not Available [facility] (Lab) [address] [facility], [place], [address], 10/11/2024 20:50:49 10/09/19 25 10/08/2024 CBC W/DIF F absolute neutrophils 6.1 10'3/ uL 1.5-8. 0 Not Available [facility] (Lab) [address] [facility], [place], [address], 10/11/2024 20:50:49 10/09/19 25 10/08/2024 CBC W/DIF F absolute lymphocytes 2.3 10'3/ uL 1.0-4. 0 Not Available [facility] (Lab) [address] [facility], [place], [address], 10/11/2024 20:50:49 10/09/19 25 10/08/2024 CBC W/DIF F absolute monocytes 0.6 10'3/ uL 0.2-1. 0 Not Available [facility] (Lab) [address] [facility], [place], [address], 10/11/2024 20:50:49 10/09/19 25 10/08/2024 CBC W/DIF F absolute eosinophils 0.1 10'3/ uL 0.0-0. 6 Not Available [facility] (Lab) [address] [facility], [place], [address], 10/11/2024 20:50:49 10/09/19 25 10/08/2024 CBC W/DIF F absolute basophils 0.0 10'3/ uL 0.0-0. 3 Not Available [facility] (Lab) [address] [facility], [place], [address], 10/11/2024 20:50:49 10/09/1910/08/2024 CBC W/DIF F absolute [...] the indiv idual patie nt: [email or web address] :[email or web address] [email or web address].or g/gen [email or web address] Not Available [facility] (Lab) [address] [facility], [place], [address], 10/11/2024 20:50:49 10/09/1910/08/2024 HIV 1/2 ANTIG EN/AN TIBOD Y, REFLE X CONFI RMATI ON HIV antigen/anti body Nonrea ctive nonrea ctive HIV-1 antig en and HIV-1 /HIV- 2 antib odies were not detec adela. No labor atory evide nce of HIV infec tion. Not Available [facility] (Lab) [address] [facility], [place], [address], 10/11/2024 20:50:49 10/09/1910/08/2024 HEPAT ITIS B SURFA CE ANTIG EN hepatitis B surface antigen Non-re active non-re active This assay was perfo rmed using [employer] ratio n reage nts and test kits. Value s obtai charles with other assay metho ds or kits canno t be used inter emanuel eably . Not Available [facility] (Lab) [address] [facility], [place], [address], 10/11/2024 20:50:50 10/09/1910/08/2024 HEPAT ITIS C ANTIB NITA SCREE N, REFLE X TO CONFI RMATI ON hepatitis C antibody Non-re active non-re active Antib odies to HCV Not Detec adela, does not exclu de the possi bilit y of expos ure to HCV. Not Available [facility] (Lab) [address] [facility], [place], [address], 10/11/2024 20:50:50 10/09/19 25 10/08/2024 RUBEL LA IGG ANTIB NITA, QUANT rubella antibodies, IgG Reacti ve reacti ve Not Available [facility] (Lab) [address] [facility], [place], [address], 10/11/2024 20:50:50 10/09/19 25 10/08/2024 RUBEL LA IGG ANTIB NITA, QUANT rubella antibodies, IgG quant 24.1 IU/mL >=10 Non-r eacti ve (Non- Immun e) <10 IU/mL React alejandra (Immu ne) > or = 10 IU/mL Not Available [facility] (Lab) [address] [facility], [place], [address], 10/11/2024 20:50:50 10/09/19 25 10/08/2024 TYPE/ RH/SC REEN ABO/Rh type A POS Not Available [facility] (Lab) [address] [facility], [place], [address], 10/11/2024 20:50:51 10/09/19 25 10/08/2024 TYPE/ RH/SC REEN antibody screen NEG Not Available [facility] (Lab) [address] [facility], [place], [address], 10/11/2024 20:50:51 10/09/19 25 10/08/2024 TYPE/ RH/SC REEN exp date 2024 23:59 Not Available [facility] (Lab) [address] [facility], [place], [address], 10/11/2024 20:50:51 10/09/19 25 10/08/2024 HEMOG LOBIN [...] >8.0% Actio n sugge sted Not Available [facility] (Lab) [address], [place], [address], 10/11/2024 20:50:51 10/09/19 25 10/08/2024 RPR SCREE N, REFLE X TITER /CONF IRMAT ION RPR qualitative Nonrea ctive nonrea ctive Not Available [facility] (Lab) [address], [place], [address], 10/11/2024 20:50:51 10/09/19 25 10/08/2024 drug scree n, urine Amphetamines : negati ve Not Available [facility] [address], [place], [address], 10/08/2024 13:34:18 10/09/19 25 10/08/2024 drug scree n, urine Cannabinoids : negati ve Not Available [facility] [address], [place], [address], 10/08/2024 13:34:18 10/09/19 25 10/08/2024 drug scree n, urine Cocaine: negati ve Not Available [facility] [address], [place], [address], 10/08/2024 13:34:18 10/09/19 25 10/08/2024 drug scree n, urine Opiates: negati ve Not Available [facility] [address], [place], [address], 10/08/2024 13:34:18 10/09/1910/08/2024 drug scree n, urine Barbiturates : negati ve Not Available [facility] [address], [place], [address], 10/08/2024 13:34:18 10/09/19 25 10/08/2024 drug scree n, urine Benzodiazepi dino: negati ve Not Available [facility] [address], [place], [address], 10/08/2024 13:34:18 01/22/20 25 01/21/2025 GTT - GESTA MARYANA L SCREE N, ACOG OB glucose, 1 hour screen 210 mg/dL 70-[address] [facility] (Lab) [address], [place], [address], 01/22/2025 12:46:27 01/22/20 25 01/21/2025 HIV 1/2 ANTIG EN/AN TIBOD Y, REFLE X CONFI RMATI ON HIV antigen/anti body Nonrea ctive nonrea ctive HIV-1 antig en and HIV-1 /HIV- 2 antib odies were not detec adela. No labor atory evide nce of HIV infec tion. Not Available [facility] (Lab) [address], [place], [address], 01/22/2025 12:46:28 01/22/20 25 01/21/2025 HEMOG LOBIN (HGB) HGB 13.3 g/dL (based on docume nted legal sex) 11.6-1 5.4 Not Available [facility] (Lab) [address], [place], [address], 01/22/2025 12:46:28 01/22/20 25 01/21/2025 HEMAT OCRIT (HCT) HCT 40.3 % (based on docume nted legal sex) 34.0-4 5.0 Not Available [facility] (Lab) [address] [facility], [place], [address], 01/22/2025 12:46:28 01/22/20 25 01/21/2025 RPR SCREE N, REFLE X TITER /CONF IRMAT ION RPR qualitative Nonrea ctive nonrea ctive Not Available [facility] (Lab) [address] [facility], [place], [address], 01/22/2025 12:46:28 03/23/20 25 03/23/2025 CULTU RE: [...] t Abnor mal: No Resul ting Lab: [facility] [address] [facility] [address] Tel: CULTU RE ----- ----- ----- --- No Group B strep isola adela at 2 days (byron ctive broth enhan cemen t) Not Available [facility] (Lab) [address] [facility], [place], [address], 03/26/2025 14:10:51 10/09/19 25 10/08/2024 US, obste tric, nucha l trans lucen cy No observ ation record ed. [facility] [address], [place], [address], 10/08/2024 18:39:08 10/09/19 25 10/08/2024 US, obste tric, nucha l trans lucen cy No observ ation record ed. [email or web address] V[address], [place], [address], 10/09/2024 23:09:07 11/25/19 25 11/24/2024 US, obste tric, 2nd or 3rd trime ster No observ ation record ed. [email or web address] V[address], [place], [address], 12/01/2024 11:58:43 11/25/19 25 11/25/2024 US, obste tric, 2nd or 3rd trime ster No observ ation record ed. [email or web address] [facility] [address], [place], [address], 11/25/2024 12:49:42 12/25/19 25 12/24/2024 US, obste tric, follo w-up No observ ation record ed. ELIN [address], [place], [address], 01/01/2025 17:08:59 12/25/19 25 12/24/2024 US, obste tric, follo w-up No observ ation record ed. [facility] [address], [place], [address], 12/24/2024 13:46:21 02/05/20 25 02/04/2025 US, obste tric, follo w-up No observ ation record ed. [facility] [address], [place], [address], 02/04/2025 13:02:03 02/05/2002/04/2025 US, obste tric, follo w-up No observ ation record ed. [email or web address] V[address]ana [address], [place], [address], 02/07/2025 16:14:11 03/03/20 25 03/03/2025 US, obste tric, follo w-up No observ ation record ed. [email or web address] [facility] [address], [place], [address], 03/03/2025 15:11:00 03/03/20 25 03/03/2025 US, obste tric, follo w-up No observ ation record ed. [email or web address] V[address], [place], [address], 03/04/2025 12:00:47 03/10/2003/10/2025 non-s tress test No observ ation record ed. [address], [place], [address], 03/14/2025 11:36:31 03/10/20 25 03/10/2025 US, obste tric, follo w-up No observ ation record ed. [email or web address], [place], [address], 03/11/2025 08:40:14 03/18/20 25 03/18/2025 non-s tress test No observ ation record ed. [email or web address] [facility] [address], [place], [address], 03/28/2025 10:44:01 03/18/20 25 03/18/2025 non-s tress test No observ ation record ed. [place] [id number] [facility] [address], [place], [address], 04/15/2025 10:36:55 03/18/20 25 03/18/2025 US, paige guerrreo, bioph ysica l profi le No observ ation record ed. [address] [facility] [address], [place], [address], 03/23/2025 16:26:00 03/18/20 25 03/18/2025 US, obste tric, bioph ysica l profi le No observ ation record ed. [address], [place], [address], 03/23/2025 16:25:42 03/18/20 25 03/18/2025 non-s tress test No observ ation record ed. [facility] [address], [place], [address], 03/28/2025 11:00:24 03/23/20 25 03/23/2025 US, obste tric, bioph ysica l profi le + non-s tress test No observ ation record ed. [email or web address] [facility] [address], [place], [address], 03/23/2025 18:22:09 03/23/20 25 03/23/2025 US, paige tric, bioph ysica l profi le + non-s tress test No observ ation record ed. [email or web address] V[address], [place], [address], 03/30/2025 11:20:06 03/23/20 25 03/23/2025 non-s tress test No observ ation record ed. [email or web address] [facility] [address], [place], [address], 03/23/2025 17:56:30 03/23/20 non-s tress test No observ ation record ed. [facility] [address], [place], [address], 03/23/2025 17:23:26 04/01/20 25 04/01/2025 US, paige guerrero, follo w-up No observ ation record ed. [email or web address] [facility] [address], [place], [address], 04/01/2025 14:56:59 04/01/20 25 04/01/2025 US, obste tric, bioph ysica l profi le + non-s tress test No observ ation record ed. [email or web address] [facility] [address], [place], [address], 04/01/2025 14:57:12 04/01/20 25 04/01/2025 US, obste tric, follo w-up No observ ation record ed. [email or web address] V[address], [place], [address], 04/04/2025 12:34:31 04/01/20 25 04/01/2025 non-s tress test No observ ation record ed. [address], [place], [address], 04/01/2025 16:35:28 04/01/20 non-s tress test No observ ation record ed. [email or web address] [place] [address] [address], [place], [address], 04/01/2025 16:40:02 Result Notes None recorded. Problems Name Problem SNOMED Code Status Onset Date Resolution Date Notes Provider Name and Address Organization Details Recorded Time SNOMED CT Concept Completed 201701/23/2021 Encntr for pool lifeguard exam (general ) (routine ) w/o abn findings ;Practic e ID: 0001 Mile rasheed [facility] 17:28:[address] Concept Completed 201701/23/2021 Encntr for routine child health exam w/o abnormal findings ;Recorde d Elsewher e: No Locat ion: Hilaria javier [facility] S ource: EHR Training And Documentation Specialist junior: N Practi ce ID: [id number] Con lable Time: 01:00:00 PM Mile rasheed [facility] 17:28:33 Surveill ance of contrace ption Completed 201701/23/2021 Encounte r for surveill ance of contrace ptives, unspecif ied;[place] rded Elsewher e: No Locat ion: [facility] S ource: EHR Training And Documentation Specialist junior: N Practi ce ID: [id number] Con lable Time: 02:00:00 PM [facility] 17:28:49 Clinical finding Completed 201701/23/2021 Presence of (intraut erine) contrace ptive device;R ecorded Elsewher e: No Locat ion: [facility] S ource: EHR Training And Documentation Specialist junior: N Practi ce ID: [id number] Con lable Time: 08:00:00 AM Mile rasheed, [facility] 17:28:39 Insertio n of intraute rine contrace ptive device Completed 201701/23/2021 Encounte r for insertio n of intraute rine contrace ptive device;R ecorded Elsewher e: No Locat ion: [facility] S ource: EHR Training And Documentation Specialist junior: N Practi ce ID: [id number] Con lable Time: 08:00:00 AM Mile rasheed, [facility] 17:28:46 Pregnanc y test negative [id number] Completed 201701/23/2021 Encounte r for pregnanc y test, result negative ;Practic e ID: 0001 Mile rasheed, [facility] 17:28:25 Contrace ptive sheath status [id number] Completed 201701/23/2021 Encounte r for routine checking of intraute rine contrace p dev;Prac marco ID: 0001 Mile rasheed, [facility] 17:28:19 Pelvic and perineal pain [id number] Completed 201701/23/2021 Pelvic pain;Rec orded Elsewher e: No [facility]: EHR Training And Documentation Specialist junior: N Practi ce ID: [id number] Con lable Time: 04:00:00 PM Mile rasheed [facility] 17:28:31 Syphilis test finding [id number] Completed 201701/23/2021 Encntr screen for infectio ns w sexl mode of transmis s;Practi ce ID: 0001 Mile rasheed, [facility] 17:28:42 Infectio n screenin g Completed 201701/23/2021 Encounte r for screenin g for oth infec/pa rastc diseases ;Practic e ID: 0001 Mile Paredes [facility] 17:27:55 Contrace ption care manageme nt Completed 201801/23/2021 Encounte r for contrace ptive manageme nt, unspecif ied;Quincy rded Elsewher e: No [facility]: EHR Training And Documentation Specialist junior: N Practi ce ID: [id number] Con lable Time: 10:45:00 AM Mile rasheed [facility] 17:28:44 Blood leukocyt e number above referenc e range [id number] Completed 201801/23/2021 Elevated white blood cell count, unspecif ied;Prac marco ID: 0001 Mile rasheed [facility] 17:28:45 Acute vaginiti s [id number] Completed 201801/23/2021 Acute vaginiti s;Record ed Elsewher e: No [facility] our[facility]: EHR Training And Documentation Specialist junior: N Practi ce ID: [id number] Con lable Time: 10:45:[address] [facility] 17:28:21 Increase d frequenc y of urinatio n [id number] Completed 201801/23/2021 Urinary frequenc y;Record ed Elsewher e: No Locat ion: Kathleenvitaly yaya [facility] S ource: EHR Training And Documentation Specialist junior: N Practi ce ID: [id number] Con lable Time: 10:45:[address] [facility] 17:27:54 Uses combined oral contrace ption [id number] Completed 201801/23/2021 Encounte r for initial prescrip tion of contrace ptive pills;Pr actice ID: [address] [facility] 17:28:27 Removal of intraute rine device Completed 201801/23/2021 Encounte r for removal of intraute rine contrace ptive device;P ractice ID: [address] [facility] 17:28:48 Pregnanc y [id number] Completed 202404/15/[address] [facility] 14:35:49 Gestatio nal diabetes mellitus [id number] Completed 2024 Checking bs QID , serial growth us - DT referral faxed to [facility] 01/[address] [facility] 13:08:13 Breech presenta tion [id number] Completed 2024 Jama Moreno MD [address], [place], [id number], [facility] 12:37:19 Problem Notes None recorded. Procedures Surgical History Date Name Laterality Status Provider Name and Address Organization Details Recorded Time SECTION (SURG) completed Not Available [facility] 04/08/2025 13:53:03 4 Date of Last Pap Smear completed Zainabba Weston [facility] 09/06/2024 12:53:25 1 extraction of wisdom tooth completed Leida Duenas [facility] 08/19/2023 16:44:18 Imaging Results None [...] Prescrib ed Elsewher e: Yes Loca tion: [facility] odify By: [email or web address] Encount er DateTime : 09/10/19 03:30:00 PM [...] Prescrib ed Elsewher e: No Locat ion: [facility] odify By: nadia archuleta DateTime : 12/09/19 18 11:49:30 AM Not Available Not Available Not Available [employer] Vaginal 0.75 % (37.5 mg/5 gram) insert 1 applicat orful by vaginal route for 5 nights at bedtime 09/09 completed Prescrib ed Elsewher e: No Locat ion: [facility] odify By: amkuhl E ncounter DateTime : 05/19/19 18 10:59:56 AM [...] Prescrib ed Elsewher e: Yes Loca tion: [facility] odify By: serenity Javier ncounter DateTime [...] ed Elsewher e: No Locat ion: Hilaria javier [facility] odify By: katelynn Javier ncounter DateTime [...] Address Organization Details Last Updated DateTime 5 35543.8 0533 g 36.4 kg/m2 161.29 cm 161.29 cm 36.4 kg/m2 90624.8 1 g 134/83 mm[Hg] 134/83 mm[Hg] Bibi Buckner [facility] 5 16:27:23 Social History Question Answer Notes LastModified by Organizat ion Details LastModified Time Tobacco Smoking Status Never Smoker Zainab [facility], [facility] 10/31/2022 17:02:19 Do You Have [...] Or The Highest Degree You Have Received? [id number] [email or web address] Information not available 02/17/2024 Are There Any Guns Present In Your Home? Yes [email or web address] Information not available 02/17/2024 Do You Use Protection During Sex? No Information not available 02/17/2024 Do You Use Your Seat Belt Or Car Seat Routinely? Yes Information not available 08/15/2021 Are You Sexually Active? Yes [email or web address] Information not available 02/04/2025 Do You Have Smoke And Carbon Monoxide Detectors In Your Home? Yes Information not available 08/15/2021 How Much Tobacco Do You Smoke? No Information not available 09/11/2021 Do You Use Sunscreen Routinely? Yes Information not available 08/15/2021 Has Tobacco Cessation Counseling Been Provided? No [email or web address] Information not available 02/04/2025 Have You Used [...] other forms of tobacco or nicotine? No [email or web address] Information not available 02/04/2025 What is your level of alcohol consumption? None [email or web address] Information not available 02/17/2024 Are you currently employed? Yes Information not available 02/04/2025 Are you able to walk independently without assistance or assistive devices? [email or web address] Information not available 08/15/2021 Are you able to care for yourself independently? 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 No Information not available 10/31/2022 What is your exercise level? Occasional [email or web address] Information not available 12/08/2019 Mental Status Question Answer Note LastModified by Organization D etails LastModified Time Do you feel stressed (tense, restless, nervous, or anxious, or unable to sleep at night)? [id number] Information not available 08/15/2021 Family History Relationship [...] dose, filippo-sucrose 06/05/2021 completed Olamide Shafer [facility] 08/15/2021 12:28:36 Past Encounters Encounter ID Performer Location Encounter Start Date Encounter Closed Date Diagnosis/Indication Diagnosis SNOMED-CT Code Diagnosis ICD10 Code Diagnosis IMO Codes Diagnosis Note [id number] Jama Moreno MD [facility] [address],[place] [address] 03/03/2025 11:27:34 03/03/2025 12:15:05 Gestational diabetes mellitus 54010258 O24.410 Z3A.34 93640310 [id number] Jama Moreno MD [facility] [address],[facility] [place] [address] 03/03/2025 11:28:18 03/03/2025 13:32:46 Third trimester 24208817 Z34.03 [id number] Jama Moreno MD [facility] [address],[facility] [place] [address] 03/10/2025 17:29:33 03/11/2025 08:32:23 Third trimester 82276498 Z34.03 [id number] Bertha Alfonso [facility] [address],[place] [address] 03/18/2025 15:08:37 03/18/2025 16:25:03 Breech presentation 8816291 O32.1XX0 [id number] Bertha Alfonso [facility] [address],[place] [address] 03/18/2025 15:09:06 03/18/2025 16:00:32 Gestation period, 36 weeks 06880175 Z3A.36 3132057 [id number] Jama Moreno MD [facility] [address],[place] [address] 03/23/2025 14:18:49 03/23/2025 15:00:55 Gestational diabetes mellitus 00352057 O24.410 Z3A.36 87363186 [id number] Bertha Alfonso [facility] [address],[place] [address] 03/23/2025 14:19:55 03/23/2025 17:36:35 Breech presentation 5337019 O32.1XX0 [id number] Bertha Alfonso [facility] [address],[place] [address] 03/23/2025 14:20:05 03/23/2025 16:00:30 Gestation period, 36 weeks 69372263 Z3A.36 9837000 Breech presentation 6096 002 O32.1XX0 [id number] Jama Moreno MD [facility] [address],[place] [address] 04/01/2025 14:12:43 04/01/2025 15:22:59 Gestational diabetes mellitus 68753735 O24.410 Z3A.38 36428538 [id number] Bertha Alfonso [facility] [address],[place] [address] 04/01/2025 14:14:05 04/01/2025 16:37:02 Breech presentation 2463679 O32.1XX0 [id number] Bertha Alfonso CNM [facility] [address] [address] 04/01/2025 14:14:19 04/01/2025 16:22:31 Gestation period, 38 weeks 40138017 Z3A.38 5538822 Health Concerns Section Related Observation LastModified by Organization Detai ls LastModified Time None Recorded Concern Status LastModified by Organization Details LastModified Time None Recorded Payers Encounter Date Sequence Insurance Name Policy Number Policy Young Covered Member ID Young Member ID Guarantor Name 04/01/2025 1 [facility] [id number] Norma Hunter [id number] Ninoska Hunter 04/01/2025 2 [facility] [id number] Ninoska Hunter [id number] Ninoska Hunter Notes Date Note Type Note Provider Name and Address Organization Details Recorded Time 04/01/2025 text/html Generic HPI TemplateReported by Patient Bertha Alfonso CNM [address], [place], [address], [facility] 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 Status 10/09/19 25 1 A Positive 203 Adilson Wheat son CLOSED Fetus Data First Name Last Name Admitted to NICU Weight (g) Sex Living Outcome Pediatric Complications Fetus ID Race Codes Race Delivery Type true 3288.54 2 M true Full Term [id number] Primary Problems Problem Notes Problem Name Start Date End Date Resolution Snomed Code Not e Gestational diabetes mellitus 01/24/2025 42319232 Checking bs QID , serial growth us - DT referral faxed to [facility] 01/24 Breech presentation 03/03/2025 [id number] Bao Calculation Initial Bao Date Initial Exam [...] Weight in lbs Pre/Post Dialysis Refused Weight 195.791471316820 BP Diastolic BP Location Tested BP Systolic BP Type 86 L arm 122 sitting Fetus Heart Rate Present A Present Fetus Movement Comments Patient presents to [facility] care. otherwise uncomplicated. No nausea or cramping. NT/NB wnl today, desires NIPT. Will draw today with new OB labs. RTC 4 weeks for routine care. Flowsheet Date 11/05/2024 Brown Score Blood Edema Fundus Height Fundus Units Glucose Ketones Leukocytes Nitrite Labor Signs Protein Cervic Dilation Cervic Effacement Cervic Station Type Weight in lbs Pre/Post Dialysis Refused 196.649329466099 BP Diastolic BP Location Tested BP Systolic [...] Type Weight in lbs Pre/Post Dialysis Refused 198.595489756571 BP Diastolic BP Location Tested BP Systolic [...] Weight in lbs Pre/Post Dialysis Refused Weight 202.486017137191 BP Diastolic BP Location Tested BP Systolic [...] Type Weight in lbs Pre/Post Dialysis Refused 207.935599901837 BP Diastolic BP Location Tested BP Systolic [...] Weight in lbs Pre/Post Dialysis Refused Weight 200.271428576694 BP Diastolic BP Location Tested BP Systolic [...] Weight in lbs Pre/Post Dialysis Refused Weight 204.689786019013 BP Diastolic BP Location Tested BP Systolic [...] Type Weight in lbs Pre/Post Dialysis Refused 207.401020665378 BP Diastolic BP Location Tested BP Systolic [...] Weight in lbs Pre/Post Dialysis Refused Weight 208.637049627939 BP Diastolic BP Location Tested BP Systolic [...] Weight in lbs Pre/Post Dialysis Refused Weight 210.620764153272 BP Diastolic BP Location Tested BP Systolic [...] Weight in lbs Pre/Post Dialysis Refused Weight 208.185857902016 BP Diastolic BP Location Tested BP Systolic BP Type 89 L arm 135 sitting Fetus Heart Rate Present Fetus Movement A Yes Comments Flowsheet Date 03/23/2025 Brown Score Blood Edema Fundus Height Fundus Units Glucose Ketones Leukocytes Nitrite Labor Signs Protein Cervic Dilation Cervic Effacement Cervic Station Type Weight in lbs Pre/Post Dialysis Refused Weight 208.846749612743 BP Diastolic BP Location Tested BP Systolic [...] Weight in lbs Pre/Post Dialysis Refused Weight 209.142665799891 BP Diastolic BP Location Tested BP Systolic BP Type 83 L arm 134 sitting Fetus Heart Rate Present Fetus Movement A Yes Comments Flowsheet Date 04/01/2025 Brown Score Blood Edema Fundus Height Fundus Units Glucose Ketones Leukocytes Nitrite Labor Signs Protein Cervic Dilation Cervic Effacement Cervic Station Type Weight in lbs Pre/Post Dialysis Refused 209.376800064965 BP Diastolic BP Location Tested BP Systolic [...] Weight in lbs Pre/Post Dialysis Refused Weight 201.475948404921 BP Diastolic BP Location Tested BP Systolic [...]
--- OUTSIDE RECORDS SUMMARY | 2025-04-15 19:43 | XMS_ITS | Continuity of Care Document ---
Author Organization [facility] Address [address] [place] [address] [place] [address] Care Team Providers Care Performance Management Consultant Name Role Phone DEANDREHONORIO Brooks Primary Care Provider [phone] Assessment No assessment recorded. Plan of Treatment [...] . Imaging non-stre ss test 2024 025 [email or web address] [facility] [address], [address], [place], [address], 03/23/2025 17:36:35 Medication Orders None recorded . Patient TargetsNo targets recorded. Patient InstructionsNo instructions recorded. Reason for Referral None Reported. Results Created Date Observation Date Name Description Value Unit Range Abnormal Flag Note LastModifiedBy Organization Detail LastModifiedTime 10/15/1910/14/2024 [UNIT Y] ANEUP LOIDY NIPT fraction 7.0% normal Not Available [facility] [address], [place], [address], 10/14/2024 19:59:38 10/15/19 25 10/14/2024 [UNIT Y] ANEUP LOIDY NIPT 22Q11.2 microdeletio n LOW RISK <1 in 10,000 normal Not Available [facility] [address], [place], [address], 10/14/2024 19:59:38 10/15/19 25 10/14/2024 [UNIT Y] ANEUP LOIDY NIPT sex chromosome aneuploidy NOT DETECT ED normal Not Available [facility] [address], [place], [address], 10/14/2024 19:59:38 10/15/19 25 10/14/2024 [UNIT Y] 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 in 10,000 normal Not Available [facility] [address], [place], [address], 10/14/2024 19:59:38 10/15/19 25 10/14/2024 [UNIT Y] ANEUP LOIDY NIPT trisomy 13 LOW RISK <1 in 10,000 normal Not Available [facility] [address], [place], [address], 10/14/2024 19:59:38 10/15/19 25 10/14/2024 [UNIT Y] ANEUP LOIDY NIPT trisomy 18 LOW RISK <1 in 10,000 normal Not Available [facility] [address], [place], [address], 10/14/2024 19:59:38 10/15/19 25 10/14/2024 [UNIT Y] ANEUP LOIDY NIPT trisomy 21 LOW RISK <1 in 10,000 normal Not Available [facility] [address], [place], [address], 10/14/2024 19:59:38 10/15/19 25 10/14/2024 [UNIT Y] ANEUP LOIDY NIPT sex MALE normal Not Available [facility] [address], [place], [address], 10/14/2024 19:59:38 10/15/19 25 10/14/2024 [UNIT Y] ANEUP LOIDY NIPT gestation SINGLE TON normal Not Available [facility] [address], [place], [address], 10/14/2024 19:59:38 10/15/19 25 10/14/2024 [UNIT Y] ANEUP LOIDY NIPT for detailed report, see pdf See PDF normal Not Available [facility] [address], [place], [address], 10/14/2024 19:59:38 10/20/19 25 10/19/2024 [UNIT Y] ESPINO[place] sickle cell disease/beta -thalassemia /hemoglobino pathies carrier screen NEGATI VE normal Not Available [facility] [address], [place], [address], 10/19/2024 14:09:36 10/20/19 25 10/19/2024 [UNIT Y] ESPINOZA [place] alpha-thalas semia carrier screen NEGATI VE normal Not Available [facility] [address], [place], [address], 10/19/2024 14:09:36 10/20/19 25 10/19/2024 [UNIT Y] ESPINO[place] cystic fibrosis carrier screen NEGATI VE normal Not Available [facility] [address], [place], [address], 10/19/2024 14:09:36 10/20/19 25 10/19/2024 [UNIT Y] ESP[place] spinal muscular atrophy carrier screen NEGATI VE 2 SMN1 copies , SNP not presen t normal Not Available [facility] [address], [place], [address], 10/19/2024 14:09:36 10/20/19 25 10/19/2024 [UNIT Y] ESPINO[place] for detailed report, see pdf See PDF normal Not Available [facility] [address], [place], [address], 10/19/2024 14:09:36 10/09/1910/08/2024 CULTU RE: URINE result report SEE RESULT S BELOW Test: Cultu re: Urine Speci men Sourc e: Urine Voide d Speci men Type: Urine Speci men Date: 2024 1320 Resul t Date: 2024 0400 Resul t Statu s: Final resul t Abnor mal: No Resul ting Lab: [facility] [address] [facility] [address] Tel: CULTU RE ----- ----- ----- --- No growt h in 1 day (dete ction level of 10,00 0 colon ies / ml.) Not Available [facility] (Lab) [address] [facility], [place], [address], 10/10/2024 05:04:31 10/09/1910/08/2024 CBC W/DIF F WBC 9.1 10'3/ uL 3.5-10 .5 Not Available [facility] (Lab) [address] [facility], [place], [address], 10/11/2024 20:50:49 10/09/19 25 10/08/2024 CBC W/DIF F RBC 5.20 10'6/ uL (based on docume nted legal sex) 3.80-5 .20 Not Available [facility] (Lab) [address] [place], [address], 10/11/2024 20:50:49 10/09/19 25 10/08/2024 CBC W/DIF F HGB 14.7 g/dL (based on docume nted legal sex) 11.6-1 5.4 Not Available [facility] (Lab) [address] [place], [address], 10/11/2024 20:50:49 10/09/19 25 10/08/2024 CBC W/DIF F HCT 45.2 % (based on docume nted legal sex) 34.0-4 5.0 high Not Available [facility] (Lab) [address], [place], [address], 10/11/2024 20:50:49 10/09/19 25 10/08/2024 CBC W/DIF F MCV 86.9 fL 80.0-9 9.0 Not Available [facility] (Lab) [address], [place], [address], 10/11/2024 20:50:49 10/09/19 25 10/08/2024 CBC W/DIF F MCH 28.3 pg 27.0-3 4.0 Not Available [facility] (Lab) [address], [place], [address], 10/11/2024 20:50:49 10/09/19 25 10/08/2024 CBC W/DIF F MCHC 32.5 g/dL 32.0-3 5.5 Not Available [facility] (Lab) [address], [place], [address], 10/11/2024 20:50:49 10/09/19 25 10/08/2024 CBC W/DIF F RDW 13.2 % 11.0-1 5.0 Not Available [facility] (Lab) [address], [place], [address], 10/11/2024 20:50:49 10/09/19 25 10/08/2024 CBC W/DIF F plt 286 10'3/ uL 150-40 0 Not Available [facility] (Lab) [address], [place], [address], 10/11/2024 20:50:49 10/09/19 25 10/08/2024 CBC W/DIF F MPV 11.7 fL 8.8-12 .1 Not Available [facility] (Lab) [address], [place], [address], 10/11/2024 20:50:49 10/09/19 25 10/08/2024 CBC W/DIF F NRBC's 0.0 % 0.0 Not Available [facility] (Lab) [address] [facility], [place], [address], 10/11/2024 20:50:49 10/09/19 25 10/08/2024 CBC W/DIF F absolute NRBCs 0.0 10'3/ uL no refere nce range establ ished Not Available [facility] (Lab) [address] [facility], [place], [address], 10/11/2024 20:50:49 10/09/19 25 10/08/2024 CBC W/DIF F neutrophils 67.1 % 34.0-7 3.0 Not Available [facility] (Lab) [address] [facility], [place], [address], 10/11/2024 20:50:49 10/09/19 25 10/08/2024 CBC W/DIF F lymphocytes 25.1 % 15.0-5 0.0 Not Available [facility] (Lab) [address] [facility], [place], [address], 10/11/2024 20:50:49 10/09/19 25 10/08/2024 CBC W/DIF F monocytes 6.4 % 1.0-15 .0 Not Available [facility] (Lab) [address] [facility], [place], [address], 10/11/2024 20:50:49 10/09/19 25 10/08/2024 CBC W/DIF F eosinophils 0.9 % 0.0-8. 0 Not Available [facility] (Lab) [address] [place], [address], 10/11/2024 20:50:49 10/09/19 25 10/08/2024 CBC W/DIF F basophils 0.3 % 0.0-2. 0 Not Available [facility] (Lab) [address] [place], [address], 10/11/2024 20:50:49 10/09/19 25 10/08/2024 CBC W/DIF [...] separ ately if prese nt. Not Available [facility] (Lab) [address] [facility], [place], [address], 10/11/2024 20:50:49 10/09/19 25 10/08/2024 CBC W/DIF F absolute neutrophils 6.1 10'3/ uL 1.5-8. 0 Not Available [facility] (Lab) [address] [facility], [place], [address], 10/11/2024 20:50:49 10/09/19 25 10/08/2024 CBC W/DIF F absolute lymphocytes 2.3 10'3/ uL 1.0-4. 0 Not Available [facility] (Lab) [address] [facility], [place], [address], 10/11/2024 20:50:49 10/09/19 25 10/08/2024 CBC W/DIF F absolute monocytes 0.6 10'3/ uL 0.2-1. 0 Not Available [facility] (Lab) [address] [facility], [place], [address], 10/11/2024 20:50:49 10/09/19 25 10/08/2024 CBC W/DIF F absolute eosinophils 0.1 10'3/ uL 0.0-0. 6 Not Available [facility] (Lab) [address] [facility], [place], [address], 10/11/2024 20:50:49 10/09/19 25 10/08/2024 CBC W/DIF F absolute basophils 0.0 10'3/ uL 0.0-0. 3 Not Available [facility] (Lab) [address] [facility], [place], [address], 10/11/2024 20:50:49 10/09/1910/08/2024 CBC W/DIF F absolute [...] bhand book. nm.or g/gen derx Not Available [facility] (Lab) [address] [facility], [place], [address], 10/11/2024 20:50:49 10/09/1910/08/2024 HIV 1/2 ANTIG EN/AN TIBOD Y, REFLE X CONFI RMATI ON HIV antigen/anti body Nonrea ctive nonrea ctive HIV-1 antig en and HIV-1 /HIV- 2 antib odies were not detec adela. No labor atory evide nce of HIV infec tion. Not Available [facility] (Lab) [address] [facility], [place], [address], 10/11/2024 20:50:49 10/09/1910/08/2024 HEPAT ITIS B SURFA CE ANTIG EN hepatitis B surface antigen Non-re active non-re active This assay was perfo rmed using [employer] ratio n reage nts and test kits. Value s obtai charles with other assay metho ds or kits canno t be used inter emanuel eably . Not Available [facility] (Lab) [address] [facility], [place], [address], 10/11/2024 20:50:50 10/09/1910/08/2024 HEPAT ITIS C ANTIB NITA SCREE N, REFLE X TO CONFI RMATI ON hepatitis C antibody Non-re active non-re active Antib odies to HCV Not Detec adela, does not exclu de the possi bilit y of expos ure to HCV. Not Available [facility] (Lab) [address] [facility], [place], [address], 10/11/2024 20:50:50 10/09/19 25 10/08/2024 RUBEL LA IGG ANTIB NITA, QUANT rubella antibodies, IgG Reacti ve reacti ve Not Available [facility] (Lab) [address] [facility], [place], [address], 10/11/2024 20:50:50 10/09/19 25 10/08/2024 RUBEL LA IGG ANTIB NITA, QUANT rubella antibodies, IgG quant 24.1 IU/mL >=10 Non-r eacti ve (Non- Immun e) <10 IU/mL React alejandra (Immu ne) > or = 10 IU/mL Not Available [facility] (Lab) [address] [facility], [place], [address], 10/11/2024 20:50:50 10/09/19 25 10/08/2024 TYPE/ RH/SC REEN ABO/Rh type A POS Not Available [facility] (Lab) [address], [place], [address], 10/11/2024 20:50:51 10/09/19 25 10/08/2024 TYPE/ RH/SC REEN antibody screen NEG Not Available [facility] (Lab) [address] [facility], [place], [address], 10/11/2024 20:50:51 10/09/19 25 10/08/2024 TYPE/ RH/SC REEN exp date 2024 23:59 Not Available [facility] (Lab) [address] [facility], [place], [address], 10/11/2024 20:50:51 10/09/19 25 10/08/2024 HEMOG LOBIN [...] >8.0% Actio n sugge sted Not Available [facility] (Lab) [address], [place], [address], 10/11/2024 20:50:51 10/09/19 25 10/08/2024 RPR SCREE N, REFLE X TITER /CONF IRMAT ION RPR qualitative Nonrea ctive nonrea ctive Not Available [facility] (Lab) [address], [place], [address], 10/11/2024 20:50:51 10/09/19 25 10/08/2024 drug scree n, urine Amphetamines : negati ve Not Available [facility] [address], [place], [address], 10/08/2024 13:34:18 10/09/19 25 10/08/2024 drug scree n, urine Cannabinoids : negati ve Not Available [facility] [address], [place], [address], 10/08/2024 13:34:18 10/09/19 25 10/08/2024 drug scree n, urine Cocaine: negati ve Not Available [facility] [address], [place], [address], 10/08/2024 13:34:18 10/09/19 25 10/08/2024 drug scree n, urine Opiates: negati ve Not Available [facility] [address], [place], [address], 10/08/2024 13:34:18 10/09/19 25 10/08/2024 drug scree n, urine Barbiturates : negati ve Not Available [facility] [address], [place], [address], 10/08/2024 13:34:18 10/09/19 25 10/08/2024 drug scree n, urine Benzodiazepi dino: negati ve Not Available [facility] [address], [place], [address], 10/08/2024 13:34:18 01/22/20 25 01/21/2025 GTT - GESTA MARYANA L SCREE N, ACOG OB glucose, 1 hour screen 210 mg/dL 70-135 high Not Available [facility] (Lab) [address], [place], [address], 01/22/2025 12:46:27 01/22/20 25 01/21/2025 HIV 1/2 ANTIG EN/AN TIBOD Y, REFLE X CONFI RMATI ON HIV antigen/anti body Nonrea ctive nonrea ctive HIV-1 antig en and HIV-1 /HIV- 2 antib odies were not detec adela. No labor atory evide nce of HIV infec tion. Not Available [facility] (Lab) [address], [place], [address], 01/22/2025 12:46:28 01/22/20 25 01/21/2025 HEMOG LOBIN (HGB) HGB 13.3 g/dL (based on docume nted legal sex) 11.6-1 5.4 Not Available [facility] (Lab) [address], [place], [address], 01/22/2025 12:46:28 01/22/20 25 01/21/2025 HEMAT OCRIT (HCT) HCT 40.3 % (based on docume nted legal sex) 34.0-4 5.0 Not Available [facility] (Lab) [address] [facility], [place], [address], 01/22/2025 12:46:28 01/22/20 25 01/21/2025 RPR SCREE N, REFLE X TITER /CONF IRMAT ION RPR qualitative Nonrea ctive nonrea ctive Not Available [facility] (Lab) [address] [facility], [place], [address], 01/22/2025 12:46:28 03/23/20 25 03/23/2025 CULTU RE: [...] Resul ting Lab: [facility] [address] [facility] [address] Tel: CULTU RE ----- ----- ----- --- No Group B strep isola adela at 2 days (byron ctive broth enhan cemen t) Not Available [facility] (Lab) [address] [facility], [place], [address], 03/26/2025 14:10:51 10/09/19 25 10/08/2024 US, obste tric, nucha l trans lucen cy No observ ation [facility] ed. [facility] [address], [place], [address], 10/08/2024 18:39:08 10/09/19 25 10/08/2024 US, obste tric, nucha l trans lucen cy No observ ation record ed. [email or web address] Vandana [address], [place], [address], 10/09/2024 23:09:07 11/25/19 25 11/24/2024 US, obste tric, 2nd or 3rd trime ster No observ ation record ed. [email or web address] V[facility]ana [address], [place], [address], 12/01/2024 11:58:43 11/25/19 25 11/25/2024 US, obste tric, 2nd or 3rd trime ster No observ ation record ed. [email or web address] [place] [address] [address], [place], [address], 11/25/2024 12:49:42 12/25/19 25 12/24/2024 US, obste tric, follo w-up No observ ation record ed. ELIN [facility] [address], [place], [address], 01/01/2025 17:08:59 12/25/19 25 12/24/2024 US, obste tric, follo w-up No observ ation record ed. [facility] [address], [place], [address], 12/24/2024 13:46:21 02/05/20 25 02/04/2025 US, obste tric, follo w-up No observ ation record ed. [facility] [address], [place], [address], 02/04/2025 13:02:03 02/05/20 25 02/04/2025 US, obste tric, follo w-up No observ ation record ed. Vandana [address], [place], [address], 02/07/2025 16:14:11 03/03/20 25 03/03/2025 US, obste tric, follo w-up No observ ation record ed. [email or web address] [facility] [address], [place], [address], 03/03/2025 15:11:00 03/03/20 25 03/03/2025 US, obste tric, follo w-up No observ ation record ed. [email or web address] V[facility]ana [address], [place], [address], 03/04/2025 12:00:47 03/10/2003/10/2025 non-s tress test No observ ation record ed. [address], [place], [address], 03/14/2025 11:36:31 03/10/20 25 03/10/2025 US, obste tric, follo w-up No observ ation record ed. [email or web address], [place], [address], 03/11/2025 08:40:14 03/18/2003/18/2025 non-s tress test No observ ation record ed. [email or web address] [facility] [address], [place], [address], 03/28/2025 10:44:01 03/18/20 25 03/18/2025 non-s tress test No observ ation record ed. [email or web address] [id number] [facility] [address], [place], [address], 04/15/2025 10:36:55 03/18/20 25 03/18/2025 US, paige guerrero, bioph ysica l i le No observ ation record ed. [place] [id number] [facility] [address], [place], [address], 03/23/2025 16:26:00 03/18/20 25 03/18/2025 US, obste tric, bioph ysica l profi le No observ ation record ed. [address], [place], [address], 03/23/2025 16:25:42 03/18/20 25 03/18/2025 non-s tress test No observ ation record ed. [facility] [address], [place], [address], 03/28/2025 11:00:24 03/23/20 25 03/23/2025 US, obste tric, bioph ysica l profi le + non-s tress test No observ ation record ed. [email or web address] [facility] [address], [place], [address], 03/23/2025 18:22:09 03/23/20 25 03/23/2025 US, obste tric, bioph ysica l profi le + non-s tress test No observ ation record ed. [email or web address] Vandana [address], [place], [address], 03/30/2025 11:20:06 03/23/20 25 03/23/2025 non-s tress test No observ ation record ed. [email or web address] [facility] [address], [place], [address], 03/23/2025 17:56:30 03/23/20 non-s tress test No observ ation record ed. [facility] [address], [place], [address], 03/23/2025 17:23:26 04/01/20 25 04/01/2025 US, paige guerrero, follo w-up No observ ation record ed. [email or web address] [facility] [address], [place], [address], 04/01/2025 14:56:59 04/01/20 25 04/01/2025 US, obste tric, bioph ysica l profi le + non-s tress test No observ ation record ed. [email or web address] [facility] [address], [place], [address], 04/01/2025 14:57:12 04/01/20 25 04/01/2025 US, obste tric, follo w-up No observ ation record ed. [email or web address] V[address], [place], [address], 04/04/2025 12:34:31 04/01/20 25 04/01/2025 non-s tress test No observ ation record ed. [address], [place], [address], 04/01/2025 16:35:28 04/01/20 non-s tress test No observ ation record ed. [email or web address], [place], [address], 04/01/2025 16:40:02 Result Notes None recorded. Problems Name Problem SNOMED Code Status Onset Date Resolution Date Notes Provider Name and Address Organization Details Recorded Time SNOMED CT Concept Completed 201701/23/2021 Encntr for project scientist exam (general ) (routine ) w/o abn findings ;Practic e ID: 0001 Mile rasheed [facility] 17:28:[address] Concept Completed 201701/23/2021 Encntr for routine child health exam w/o abnormal findings ;Recorde d Elsewher e: No Locat ion: Hilaria javier [facility] S ource: EHR Chute Loader junior: N Practi ce ID: [id number] Con lable Time: 01:00:00 PM Mile rasheed [facility] 17:28:33 Surveill ance of contrace ption Completed 201701/23/2021 Encounte r for surveill ance of contrace ptives, unspecif ied;Quincy rded Elsewher e: No Locat ion: [facility] S ource: EHR Chute Loader junior: N Practi ce ID: [id number] Con lable Time: 02:00:00 PM [facility] 17:28:49 Clinical finding Completed 201701/23/2021 Presence of (intraut erine) contrace ptive device;R ecorded Elsewher e: No Locat ion: [facility] S ource: EHR Chute Loader junior: N Practi ce ID: [id number] Con lable Time: 08:00:00 AM Mile rasheed, [facility] 17:28:39 Insertio n of intraute rine contrace ptive device Completed 201701/23/2021 Encounte r for insertio n of intraute rine contrace ptive device;R ecorded Elsewher e: No Locat ion: [facility] S ource: EHR Chute Loader junior: N Practi ce ID: [id number] Con lable Time: 08:00:00 AM Mile rasheed, [facility] 17:28:46 Pregnanc y test negative [id number] Completed 201701/23/2021 Encounte r for pregnanc y test, result negative ;Practic e ID: 0001 Mile rasheed, [facility] 17:28:25 Contrace ptive sheath status [id number] Completed 201701/23/2021 Encounte r for routine checking of intraute rine contrace p dev;Prac marco ID: 0001 Mile rasheed, [facility] 17:28:19 Pelvic and perineal pain [id number] Completed 201701/23/2021 Pelvic pain;Rec orded Elsewher e: No [facility] Chute Loader junior: N Practi ce ID: [id number] Con lable Time: 04:00:00 PM Mile rasheed [facility] 17:28:31 Syphilis test finding [id number] Completed 201701/23/2021 Encntr screen for infectio ns w sexl mode of transmis s;Practi ce ID: 0001 Mile rasheed, [facility] 17:28:42 Infectio n screenin g Completed 201701/23/2021 Encounte r for screenin g for oth infec/pa rastc diseases ;Practic e ID: 0001 Mile rasheed, [facility] 17:27:55 Contrace ption care manageme nt Completed 201801/23/2021 Encounte r for contrace ptive manageme nt, unspecif ied;Quincy rded Elsewher e: No Locat ion: [facility]io javier [facility] S ource: EHR Chute Loader junior: N Practi ce ID: [id number] Con lable Time: 10:45:00 AM Mile rasheed [facility] 17:28:44 Blood leukocyt e number above referenc e range [id number] Completed 201801/23/2021 Elevated white blood cell count, unspecif ied;Prac marco ID: 0001 Mile rasheed [facility] 17:28:45 Acute vaginiti s [id number] Completed 201801/23/2021 Acute vaginiti s;Record ed Elsewher e: No Locat ion: Rigoberto yaya [facility] S ource: EHR Chute Loader junior: N Practi ce ID: [id number] Con lable Time: 10:45:00 AM Mile rasheed [facility] 17:28:21 Increase d frequenc y of urinatio n [id number] Completed 201801/23/2021 Urinary frequenc y;Record ed Elsewher e: No Locat ion: Hilaria javier [facility] S ource: EHR Chute Loader junior: N Practi ce ID: [id number] Con lable Time: 10:45:00 AM Mile rasheed, [facility] 17:27:54 Uses combined oral contrace ption [id number] Completed 201801/23/2021 Encounte r for initial prescrip tion of contrace ptive pills;Pr actice ID: 0001 Mile Paredes [facility] 17:28:27 Removal of intraute rine device Completed 201801/23/2021 Encounte r for removal of intraute rine contrace ptive device;P ractice ID: [id number] Mile Praedes [facility], [facility] 17:28:48 Pregnanc y [id number] Completed 202404/15/2025 Zainab Weston [facility], [facility] 14:35:49 Gestatio nal diabetes mellitus [id number] Completed 2024 Checking bs QID , serial growth us - DT referral faxed to [facility] 01/24 Randi Cosme [facility] 13:08:13 Breech presenta tion [id number] Completed 2024 Jama Moreno MD [address], [place], [address], , [facility] 12:37:19 Problem Notes None recorded. Procedures Surgical History Date Name Laterality Status Provider Name and Address Organization Details Recorded Time SECTION (SURG) completed Not Available [facility] 04/08/2025 13:53:03 11/26/202 4 Date of Last Pap Smear completed Zainabba Weston [facility] 09/06/2024 12:53:25 1 extraction of wisdom tooth completed Leida Duenas [facility] 08/19/2023 16:44:18 Imaging Results None recorded. [...] Prescrib ed Elsewher e: Yes Loca tion: [facility] odify By: [email or web address] Encount er DateTime : 09/10/19 03:30:00 PM [...] Prescrib ed Elsewher e: No Locat ion: [facility] odify By: nadia archuleta DateTime : 12/09/19 18 11:49:30 AM Not Available Not Available Not Available Metrogel Vaginal 0.75 % (37.5 mg/5 gram) insert 1 applicat orful by vaginal route for 5 nights at bedtime 09/09 completed Prescrib ed Elsewher e: No Locat ion: [facility] odify By: [email or web address] E ncounter [...] Prescrib ed Elsewher e: Yes Loca tion: [facility] odify By: serenity Javier ncounter [...] Elsewher e: No Locat ion: Hilaria javier [facility] odify By: [email or web address] Javier ncounter DateTime : 05/14/19 01:00:00 PM [...] Updated DateTime 03/23/2025 161.29 cm 36.3 kg/m2 32227.21 g 135/89 mm[Hg] Bibi Buckner [facility] 03/23/2025 17:21:30 Date Recorded Body height Body mass index (BMI) Body weight Systolic And Diastolic Provider Name and Address Organization Details Last Updated DateTime 03/23/2025 161.29 cm 36.3 kg/m2 43745.21 g 135/84 mm[Hg] RUSTAM DANIELS [facility] 03/23/2025 15:41:45 Social History Question Answer Notes LastModified by Organizat ion Details LastModified Time Tobacco Smoking Status Never Smoker Zainab Weston kathya, [facility] 10/31/2022 17:02:19 Do You Have An [...] Or The Highest Degree You Have Received? DC71205-5 [email or web address] Information not available 02/17/2024 Are There Any Guns Present In Your Home? Yes [email or web address] Information not available 02/17/2024 Do You Use Protection During Sex? No [email or web address] Information not available 02/17/2024 Do You Use Your Seat Belt Or Car Seat Routinely? Yes Information not available 08/15/2021 Are You Sexually Active? Yes [email or web address] Information not available 02/04/2025 Do You Have Smoke And Carbon Monoxide Detectors In Your Home? Yes Information not available 08/15/2021 How Much Tobacco Do You Smoke? No Information not available 09/11/2021 Do You Use Sunscreen Routinely? Yes Information not available 08/15/2021 Has Tobacco Cessation Counseling Been Provided? No [email or web address] Information not available 02/04/2025 Have You Used [...] other forms of tobacco or nicotine? No [email or web address] Information not available 02/04/2025 What is your level of alcohol consumption? None [email or web address] Information not available 02/17/2024 Are you currently employed? Yes [email or web address] Information not available 02/04/2025 Are you able to walk independently without assistance or assistive devices? [email or web address] Information not available 08/15/2021 Are you able to care for yourself independently? 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 No Information not available 10/31/2022 What is your exercise level? Occasional [email or web address] Information not available 12/08/2019 Mental Status Question Answer Note LastModified by Organization D etails LastModified Time Do you feel stressed (tense, restless, nervous, or anxious, or unable to sleep at night)? [id number] Information not available 08/15/2021 Family History Relationship Description Onset Age of this Age Resolved Age Notes LastModified by Organization Details LastModified Time Maternal Grandmother Congenital heart disease [email or web address] Not available 2019 14:32:40 Medical History Condition Response Allergies (Food, seasonal, environmental ) N Other N Breast Cancer N Drug/Latex Allergies/Reactions N Blood Transfusion N Dermatologic Disorders N Lung Disease N Defects or Inherited Disease N Breast Problem N Gestational Diabetes N Hematologic disorders N Anesthesia Complications N History of STI N Deep Vein Thrombosis N Polycystic ovary syndrome N Anxiety Disorder N Autoimmune disease N Arthritis N Infertility N Polyps N Acid Reflux (GERD) N History of abnormal pap N Cancer N Stroke N Varicosities N Neurologic/Epilepsy N Endometriosis N High Cholesterol [...] mcg/0.3 mL dose, filippo-sucrose 06/05/2021 completed Olamide [facility] 08/15/2021 12:28:36 Past Encounters Encounter ID Performer Location Encounter Start Date Encounter Closed Date Diagnosis/Indication Diagnosis SNOMED-CT Code Diagnosis ICD10 Code Diagnosis IMO Codes Diagnosis Note [id number] Jama Moreno MD [facility] [address] [place] [address] 03/03/2025 11:27:34 03/03/2025 12:15:05 Gestational diabetes mellitus 95340319 O24.410 Z3A.34 [id number] Jama Moreno MD [facility] [address] [place] [address] 03/03/2025 11:28:18 03/03/2025 13:32:46 Third trimester 06059854 Z34.03 [id number] Jama Moreno MD [facility] [address] [place] [address] 03/10/2025 17:29:33 03/11/2025 08:32:23 Third trimester 46561767 Z34.03 [id number] Bertha Alfonso [facility] [address] [address] 03/18/2025 15:08:37 03/18/2025 16:25:03 Breech presentation 6059523 O32.1XX0 [id number] Bertha Alfonso [facility] [address] [address] 03/18/2025 15:09:06 03/18/2025 16:00:32 Gestation period, 36 weeks 44079499 Z3A.36 5371646 [id number] Jama Moreno MD [facility] [address],[place] [address] 03/23/2025 14:18:49 03/23/2025 15:00:55 Gestational diabetes mellitus 18100663 O24.410 Z3A.36 71073184 [id number] Bertha Alfonso [facility] [address],[place] [address] 03/23/2025 14:19:55 03/23/2025 17:36:35 Breech presentation [id number] O32.1XX0 [id number] Bertha Alfonso [facility] [address],[place] [address] 03/23/2025 14:20:05 03/23/2025 16:00:30 Gestation period, 36 weeks 80645009 Z3A.36 [id number] Breech presentation 6096 002 O32.1XX0 [id number] Health Concerns Section Related Observation LastModified by Organization Detai ls LastModified Time None Recorded Concern Status LastModified by Organization Details LastModified Time None Recorded Payers Encounter Date Sequence Insurance Name Policy Number Policy Young Covered Member ID Young Member ID Guarantor Name 03/23/2025 1 [facility] [id number] Norma Hunter [id number] Ninoska Hunter 03/23/[address] [place] [address] [id number] Ninoska Hunter [id number] Ninoska Hunter Notes Date Note Type Note Provider Name and Address Organization Details Recorded Time 03/23/2025 text/html Generic HPI TemplateReported by Patient RUSTAM FRANCES rasheed, [facility] 03/23/2025 17:54:07 OBGyn Episode Ob Episode Information Episode Created Date Number of Fetuses Patient Bloodtype Patient rh Status Prepregnancy Weight lbs Domestic Partner Domestic Partner Phone Father Name Integrity Analyst Status 10/09/19 25 1 A Positive 203 Adilson Wheat son CLOSED Fetus Data First Name Last Name Admitted to NICU Weight (g) Sex Living Outcome Pediatric Complications Fetus ID Race Codes Race Delivery Type true 3288.54 2 M true Full Term [id number] Primary Problems Problem Notes Problem Name Start Date End Date Resolution Snomed Code Not e Gestational diabetes mellitus 01/24/2025 89714899 Checking bs QID , serial growth us - DT referral faxed to [facility] 01/24 Breech presentation 03/03/2025 [id number] Bao Calculation Initial Bao Date Initial Exam [...] Weight in lbs Pre/Post Dialysis Refused Weight 195.484375950942 BP Diastolic BP Location Tested BP Systolic BP Type 86 L arm 122 sitting Fetus Heart Rate Present A Present Fetus Movement Comments Patient presents to [facility] care. otherwise uncomplicated. No nausea or cramping. NT/NB wnl today, desires NIPT. Will draw today with new OB labs. RTC 4 weeks for routine care. Flowsheet Date 11/05/2024 Brown Score Blood Edema Fundus Height Fundus Units Glucose Ketones Leukocytes Nitrite Labor Signs Protein Cervic Dilation Cervic Effacement Cervic Station Type Weight in lbs Pre/Post Dialysis Refused 196.182821721325 BP Diastolic BP Location Tested BP Systolic [...] Type Weight in lbs Pre/Post Dialysis Refused 198.039089189231 BP Diastolic BP Location Tested BP Systolic [...] Weight in lbs Pre/Post Dialysis Refused Weight 202.655084325010 BP Diastolic BP Location Tested BP Systolic [...] Type Weight in lbs Pre/Post Dialysis Refused 207.632375737554 BP Diastolic BP Location Tested BP Systolic [...] Weight in lbs Pre/Post Dialysis Refused Weight 200.157091983755 BP Diastolic BP Location Tested BP Systolic [...] Weight in lbs Pre/Post Dialysis Refused Weight 204.421796319285 BP Diastolic BP Location Tested BP Systolic [...] Type Weight in lbs Pre/Post Dialysis Refused 207.530166401175 BP Diastolic BP Location Tested BP Systolic [...] Weight in lbs Pre/Post Dialysis Refused Weight 208.301398087225 BP Diastolic BP Location Tested BP Systolic [...] Weight in lbs Pre/Post Dialysis Refused Weight 210.456538297711 BP Diastolic BP Location Tested BP Systolic [...] Weight in lbs Pre/Post Dialysis Refused Weight 208.143695783553 BP Diastolic BP Location Tested BP Systolic BP Type 89 L arm 135 sitting Fetus Heart Rate Present Fetus Movement A Yes Comments Flowsheet Date 03/23/2025 Brown Score Blood Edema Fundus Height Fundus Units Glucose Ketones Leukocytes Nitrite Labor Signs Protein Cervic Dilation Cervic Effacement Cervic Station Type Weight in lbs Pre/Post Dialysis Refused Weight 208.641866041653 BP Diastolic BP Location Tested BP Systolic [...] Weight in lbs Pre/Post Dialysis Refused Weight 209.691206953344 BP Diastolic BP Location Tested BP Systolic BP Type 83 L arm 134 sitting Fetus Heart Rate Present Fetus Movement A Yes Comments Flowsheet Date 04/01/2025 Brown Score Blood Edema Fundus Height Fundus Units Glucose Ketones Leukocytes Nitrite Labor Signs Protein Cervic Dilation Cervic Effacement Cervic Station Type Weight in lbs Pre/Post Dialysis Refused 209.626283587160 BP Diastolic BP Location Tested BP Systolic [...] Weight in lbs Pre/Post Dialysis Refused Weight 201.952800245628 BP Diastolic BP Location Tested BP Systolic [...]
--- OUTSIDE RECORDS SUMMARY | 2025-04-15 19:43 | XMS_ITS | Continuity of Care Document ---
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 Plan of Treatment [...] Not Available [facility] [address], [place], [address], 10/14/2024 19:59:38 10/15/19 25 10/14/2024 [UNIT Y] ANEUP LOIDY NIPT 22Q11.2 microdeletio n LOW RISK <1 in 10,000 normal Not Available [facility] [address], [place], [address], 10/14/2024 19:59:38 10/15/19 25 10/14/2024 [UNIT Y] ANEUP LOIDY NIPT sex chromosome aneuploidy NOT DETECT ED normal Not Available [facility] [address], [place], [address], 10/14/2024 19:59:38 10/15/19 25 10/14/2024 [UNIT Y] 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 in 10,000 normal Not Available [facility] [address], [place], [address], 10/14/2024 19:59:38 10/15/19 25 10/14/2024 [UNIT Y] ANEUP LOIDY NIPT trisomy 13 LOW RISK <1 in 10,000 normal Not Available [facility] [address], [place], [address], 10/14/2024 19:59:38 10/15/19 25 10/14/2024 [UNIT Y] ANEUP LOIDY NIPT trisomy 18 LOW RISK <1 in 10,000 normal Not Available [facility] [address], [place], [address], 10/14/2024 19:59:38 10/15/19 25 10/14/2024 [UNIT Y] ANEUP LOIDY NIPT trisomy 21 LOW RISK <1 in 10,000 normal Not Available [facility] [address], [place], [address], 10/14/2024 19:59:38 10/15/19 25 10/14/2024 [UNIT Y] ANEUP LOIDY NIPT sex MALE normal Not Available [facility] [address], [place], [address], 10/14/2024 19:59:38 10/15/19 25 10/14/2024 [UNIT Y] ANEUP LOIDY NIPT gestation SINGLE TON normal Not Available [facility] [address], [place], [address], 10/14/2024 19:59:38 10/15/19 25 10/14/2024 [UNIT Y] ANEUP MARSHALLY NIPT for detailed report, see pdf See PDF normal Not Available [facility] [address], [place], [address], 10/14/2024 19:59:38 10/20/19 25 10/19/2024 [UNIT Y] ESPINOZA [place] sickle cell disease/beta -thalassemia /hemoglobino pathies carrier screen NEGATI VE normal Not Available [facility] [address], [place], [address], 10/19/2024 14:09:36 10/20/19 25 10/19/2024 [UNIT Y] ESPINOZA [place] alpha-thalas semia carrier screen NEGATI VE normal Not Available [facility] [address], [place], [address], 10/19/2024 14:09:36 10/20/19 25 10/19/2024 [UNIT Y] ESPINO[place] cystic fibrosis carrier screen NEGATI VE normal Not Available [facility] [address], [place], [address], 10/19/2024 14:09:36 10/20/19 25 10/19/2024 [UNIT Y] ESP[place] spinal muscular atrophy carrier screen NEGATI VE 2 SMN1 copies , SNP not presen t normal Not Available [facility] [address], [place], [address], 10/19/2024 14:09:36 10/20/19 25 10/19/2024 [UNIT Y] ESPINOZA [place] for detailed report, see pdf See PDF normal Not Available [facility] [address], [place], [address], 10/19/2024 14:09:36 10/09/19 25 10/08/2024 CULTU RE: URINE result report SEE RESULT S BELOW Test: Cultu re: Urine Speci men Sourc e: Urine Voide d Speci men Type: Urine Speci men Date: 2024 1320 Resul t Date: 2024 0400 Resul t Statu s: Final resul t Abnor mal: No Resul priscag Lab: [facility] [address] [facility] [address] Tel: CULTU RE ----- ----- ----- --- No growt h in 1 day (dete ction level of 10,00 0 colon ies / ml.) Not Available [facility] (Lab) [address] [facility], [place], [address], 10/10/2024 05:04:31 10/09/1910/08/2024 CBC W/DIF F WBC 9.1 10'3/ uL 3.5-10 .5 Not Available [facility] (Lab) [address] [place], [address], 10/11/2024 20:50:49 10/09/19 25 10/08/2024 CBC W/DIF F RBC 5.20 10'6/ uL (based on docume nted legal sex) 3.80-5 .20 Not Available [facility] (Lab) [address] [place], [address], 10/11/2024 20:50:49 10/09/19 25 10/08/2024 CBC W/DIF F HGB 14.7 g/dL (based on docume nted legal sex) 11.6-1 5.4 Not Available [facility] (Lab) [address] [place], [address], 10/11/2024 20:50:49 10/09/19 25 10/08/2024 CBC W/DIF F HCT 45.2 % (based on docume nted legal sex) 34.0-4 5.0 high Not Available [facility] (Lab) [address] [place], [address], 10/11/2024 20:50:49 10/09/19 25 10/08/2024 CBC W/DIF F MCV 86.9 fL 80.0-9 9.0 Not Available [facility] (Lab) [address], [place], [address], 10/11/2024 20:50:49 10/09/19 25 10/08/2024 CBC W/DIF F MCH 28.3 pg 27.0-3 4.0 Not Available [facility] (Lab) [address], [place], [address], 10/11/2024 20:50:49 10/09/19 25 10/08/2024 CBC W/DIF F MCHC 32.5 g/dL 32.0-3 5.5 Not Available [facility] (Lab) [address], [place], [address], 10/11/2024 20:50:49 10/09/19 25 10/08/2024 CBC W/DIF F RDW 13.2 % 11.0-1 5.0 Not Available [facility] (Lab) [address], [place], [address], 10/11/2024 20:50:49 10/09/19 25 10/08/2024 CBC W/DIF F plt 286 10'3/ uL 150-40 0 Not Available [facility] (Lab) [address], [place], [address], 10/11/2024 20:50:49 10/09/19 25 10/08/2024 CBC W/DIF F MPV 11.7 fL 8.8-12 .1 Not Available [facility] (Lab) [address], [place], [address], 10/11/2024 20:50:49 10/09/19 25 10/08/2024 CBC W/DIF F NRBC's 0.0 % 0.0 Not Available [facility] (Lab) [address], [place], [address], 10/11/2024 20:50:49 10/09/19 25 10/08/2024 CBC W/DIF F absolute NRBCs 0.0 10'3/ uL no refere nce range establ ished Not Available [facility] (Lab) [address] [facility] [facility], [place], [address], 10/11/2024 20:50:49 10/09/19 25 10/08/2024 CBC W/DIF F neutrophils 67.1 % 34.0-7 3.0 Not Available [facility] (Lab) [address] [facility], [place], [address], 10/11/2024 20:50:49 10/09/19 25 10/08/2024 CBC W/DIF F lymphocytes 25.1 % 15.0-5 0.0 Not Available [facility] (Lab) [address] [facility], [place], [address], 10/11/2024 20:50:49 10/09/19 25 10/08/2024 CBC W/DIF F monocytes 6.4 % 1.0-15 .0 Not Available [facility] (Lab) [address] [facility], [place], [address], 10/11/2024 20:50:49 10/09/19 25 10/08/2024 CBC W/DIF F eosinophils 0.9 % 0.0-8. 0 Not Available [facility] (Lab) [address] [place], [address], 10/11/2024 20:50:49 10/09/19 25 10/08/2024 CBC W/DIF F basophils 0.3 % 0.0-2. 0 Not Available [facility] (Lab) [address] [facility], [place], [address], 10/11/2024 20:50:49 10/09/19 25 10/08/2024 CBC W/DIF [...] separ ately if prese nt. Not Available [facility] (Lab) [address] [facility], [place], [address], 10/11/2024 20:50:49 10/09/19 25 10/08/2024 CBC W/DIF F absolute neutrophils 6.1 10'3/ uL 1.5-8. 0 Not Available [facility] (Lab) [address] [facility], [place], [address], 10/11/2024 20:50:49 10/09/19 25 10/08/2024 CBC W/DIF F absolute lymphocytes 2.3 10'3/ uL 1.0-4. 0 Not Available [facility] (Lab) [address] [facility], [place], [address], 10/11/2024 20:50:49 10/09/19 25 10/08/2024 CBC W/DIF F absolute monocytes 0.6 10'3/ uL 0.2-1. 0 Not Available [facility] (Lab) [address] [facility], [place], [address], 10/11/2024 20:50:49 10/09/19 25 10/08/2024 CBC W/DIF F absolute eosinophils 0.1 10'3/ uL 0.0-0. 6 Not Available [facility] (Lab) [address] [facility], [place], [address], 10/11/2024 20:50:49 10/09/19 25 10/08/2024 CBC W/DIF F absolute basophils 0.0 10'3/ uL 0.0-0. 3 Not Available [facility] (Lab) [address] [facility], [place], [address], 10/11/2024 20:50:49 10/09/19 25 10/08/2024 CBC W/DIF F absolute immature granulocytes 0.0 10'3/ uL 0.00-0 .10 Refer ence range s for nonbi nary/ inter sex or unspe cifie d gende r patie nts have not been estab lishe d. Yael e [facility] for range s estab lishe d for cisge nder patie nts and evalu ate in the clini hussein ej xt of the indiv idual patie nt: https ://la bhand book. nm.or g/gen derx Not Available [facility] (Lab) [address], [place], [address], 10/11/2024 20:50:49 10/09/1910/08/2024 HIV 1/2 ANTIG EN/AN TIBOD Y, REFLE X CONFI RMATI ON HIV antigen/anti body Nonrea ctive nonrea ctive HIV-1 antig en and HIV-1 /HIV- 2 antib odies were not detec adela. No labor atory evide nce of HIV infec tion. Not Available [facility] (Lab) [address], [place], [address], 10/11/2024 20:50:49 10/09/1910/08/2024 HEPAT ITIS B SURFA CE ANTIG EN hepatitis B surface antigen Non-re active non-re active This assay was perfo rmed using [employer] ratio n reage nts and test kits. Value s obtai charles with other assay metho ds or kits canno t be used inter emanuel eably . Not Available [facility] (Lab) [address], [place], [address], 10/11/2024 20:50:50 10/09/1910/08/2024 HEPAT ITIS C ANTIB NITA SCREE N, REFLE X TO CONFI RMATI ON hepatitis C antibody Non-re active non-re active Antib odies to HCV Not Detec adela, does not exclu de the possi bilit y of expos ure to HCV. Not Available [facility] (Lab) [address], [place], [address], 10/11/2024 20:50:50 10/09/19 25 10/08/2024 RUBEL LA IGG ANTIB NITA, QUANT rubella antibodies, IgG Reacti ve reacti ve Not Available [facility] (Lab) [address] [facility], [place], [address], 10/11/2024 20:50:50 10/09/19 25 10/08/2024 RUBEL LA IGG ANTIB NITA, QUANT rubella antibodies, IgG quant 24.1 IU/mL >=10 Non-r eacti ve (Non- Immun e) <10 IU/mL React alejandra (Immu ne) > or = 10 IU/mL Not Available [facility] (Lab) [address] [facility], [place], [address], 10/11/2024 20:50:50 10/09/19 25 10/08/2024 TYPE/ RH/SC REEN ABO/Rh type A POS Not Available [facility] (Lab) [address], [place], [address], 10/11/2024 20:50:51 10/09/19 25 10/08/2024 TYPE/ RH/SC REEN antibody screen NEG Not Available [facility] (Lab) [address] [facility], [place], [address], 10/11/2024 20:50:51 10/09/19 25 10/08/2024 TYPE/ RH/SC REEN exp date 2024 23:59 Not Available [facility] (Lab) [address] [facility], [place], [address], 10/11/2024 20:50:51 10/09/19 25 10/08/2024 HEMOG LOBIN [...] >8.0% Actio n sugge sted Not Available [facility] (Lab) [address] [facility], [place], [address], 10/11/2024 20:50:51 10/09/19 25 10/08/2024 RPR SCREE N, REFLE X TITER /CONF IRMAT ION RPR qualitative Nonrea ctive nonrea ctive Not Available [facility] (Lab) [address], [place], [address], 10/11/2024 20:50:51 10/09/19 25 10/08/2024 drug scree n, urine Amphetamines : negati ve Not Available [facility] [address], [place], [address], 10/08/2024 13:34:18 10/09/19 25 10/08/2024 drug scree n, urine Cannabinoids : negati ve Not Available [facility] [address], [place], [address], 10/08/2024 13:34:18 10/09/19 25 10/08/2024 drug scree n, urine Cocaine: negati ve Not Available [facility] [address], [place], [address], 10/08/2024 13:34:18 10/09/19 25 10/08/2024 drug scree n, urine Opiates: negati ve Not Available [facility] [address], [place], [address], 10/08/2024 13:34:18 10/09/19 25 10/08/2024 drug scree n, urine Barbiturates : negati ve Not Available [facility] [address], [place], [address], 10/08/2024 13:34:18 10/09/1910/08/2024 drug scree n, urine Benzodiazepi dino: negati ve Not Available [facility] [address], [place], [address], 10/08/2024 13:34:18 01/22/2001/21/2025 GTT - GESTA MARYANA L SCREE N, ACOG OB glucose, 1 hour screen 210 mg/dL 70-135 high Not Available [facility] (Lab) [address], [place], [address], 01/22/2025 12:46:27 01/22/2001/21/2025 HIV 1/2 ANTIG EN/AN TIBOD Y, REFLE X CONFI RMATI ON HIV antigen/anti body Nonrea ctive nonrea ctive HIV-1 antig en and HIV-1 /HIV- 2 antib odies were not detec adela. No labor atory evide nce of HIV infec tion. Not Available [facility] (Lab) [address], [place], [address], 01/22/2025 12:46:28 01/22/20 25 01/21/2025 HEMOG LOBIN (HGB) HGB 13.3 g/dL (based on docume nted legal sex) 11.6-1 5.4 Not Available [facility] (Lab) [address], [place], [address], 01/22/2025 12:46:28 01/22/20 25 01/21/2025 HEMAT OCRIT (HCT) HCT 40.3 % (based on docume nted legal sex) 34.0-4 5.0 Not Available [facility] (Lab) [address], [place], [address], 01/22/2025 12:46:28 01/22/20 25 01/21/2025 RPR SCREE N, REFLE X TITER /CONF IRMAT ION RPR qualitative Nonrea ctive nonrea ctive Not Available [facility] (Lab) [address] [facility], [place], [address], 01/22/2025 12:46:28 03/23/20 25 03/23/2025 CULTU RE: [...] t Abnor mal: No Resul ting Lab: [facility] [address] [facility] [address] Tel: CULTU RE ----- ----- ----- --- No Group B strep isola adela at 2 days (byron ctive broth enhan cemen t) Not Available [facility] (Lab) [address] [facility], [place], [address], 03/26/2025 14:10:51 10/09/19 25 10/08/2024 US, obste tric, nucha l trans lucen cy No observ ation record ed. [facility] [address], [place], [address], 10/08/2024 18:39:08 10/09/19 25 10/08/2024 US, obstyaya tric, nucha l trans lucen cy No observ ation record ed. [email or web address] [facility] [address], [place], [address], 10/09/2024 23:09:07 11/25/19 25 11/24/2024 US, obste tric, 2nd or 3rd trime ster No observ ation record ed. [email or web address] [facility] [address], [place], [address], 12/01/2024 11:58:43 11/25/19 25 11/25/2024 US, obste tric, 2nd or 3rd trime ster No observ ation record ed. [email or web address] [place] [address] [address], [place], [address], 11/25/2024 12:49:42 12/25/19 25 12/24/2024 US, obste tric, follo w-up No observ ation record ed. ELIN [facility] [address], [place], [address], 01/01/2025 17:08:59 12/25/19 25 12/24/2024 US, obste tric, follo w-up No observ ation record ed. [facility] [address], [place], [address], 12/24/2024 13:46:21 02/05/2002/04/2025 US, obste tric, follo w-up No observ ation record ed. [facility] [address], [place], [address], 02/04/2025 13:02:03 02/05/2002/04/2025 US, obste tric, follo w-up No observ ation record ed. [facility] [address], [place], [address], 02/07/2025 16:14:11 03/03/20 25 03/03/2025 US, obste tric, follo w-up No observ ation record ed. [email or web address] [place] [address] [address], [place], [address], 03/03/2025 15:11:00 03/03/20 25 03/03/2025 US, obste tric, follo w-up No observ ation record ed. king Benoite [address], [place], [address], 03/04/2025 12:00:47 03/10/2003/10/2025 non-s tress test No observ ation record ed. [email or web address] [id number] [facility] [address] [facility], [place], [address], 03/14/2025 11:36:31 03/10/2003/10/2025 US, obste tric, follo w-up No observ ation record ed. [email or web address] [facility], [place], [address], 03/11/2025 08:40:14 03/18/2003/18/2025 non-s tress test No observ ation record ed. [email or web address] [facility] [address], [place], [address], 03/28/2025 10:44:01 03/18/2003/18/2025 non-s tress test No observ ation record ed. [address] [facility], [place], [address], 04/15/2025 10:36:55 03/18/2003/18/2025 US, paige tric, bioph ysica l profi le No observ ation record ed. [address], [place], [address], 03/23/2025 16:26:00 03/18/20 25 03/18/2025 US, obste tric, bioph ysica l profi le No observ ation record ed. [address] [facility], [place], [address], 03/23/2025 16:25:42 03/18/20 25 03/18/2025 non-s tress test No observ ation record ed. [facility] [address], [place], [address], 03/28/2025 11:00:24 03/23/20 25 03/23/2025 US, obste tric, bioph ysica l profi le + non-s tress test No observ ation record ed. [email or web address] [facility] [address], [place], [address], 03/23/2025 18:22:09 03/23/20 25 03/23/2025 US, obste tric, bioph ysica l profi le + non-s tress test No observ ation record ed. [email or web address] [facility] [address], [place], [address], 03/30/2025 11:20:06 03/23/20 25 03/23/2025 non-s tress test No observ ation record ed. [email or web address] [facility] [address], [place], [address], 03/23/2025 17:56:30 03/23/20 non-s tress test No observ ation record ed. [email or web address] [facility] [address], [place], [address], 03/23/2025 17:23:26 04/01/20 25 04/01/2025 US, obste tric, follo w-up No observ ation record ed. [facility] [address], [place], [address], 04/01/2025 14:56:59 04/01/20 25 04/01/2025 US, obste tric, bioph ysica l profi le + non-s tress test No observ ation record ed. [facility] [address], [place], [address], 04/01/2025 14:57:12 04/01/20 25 04/01/2025 US, obste tric, follo w-up No observ ation record ed. [email or web address] [facility] [address], [place], [address], 04/04/2025 12:34:31 04/01/20 25 04/01/2025 non-s tress test No observ ation record ed. [email or web address] [facility] [address], [place], [address], 04/01/2025 16:35:28 04/01/20 non-s tress test No observ ation record ed. [email or web address] [facility] [address], [place], [address], 04/01/2025 16:40:02 Result Notes None recorded. Problems Name Problem SNOMED Code Status Onset Date Resolution Date Notes Provider Name and Address Organization Details Recorded Time SNOMED CT Concept Completed 201701/23/2021 Encntr for physician gynecologist exam (general ) (routine ) w/o abn findings ;Practic e ID: 0001 Mile rasheed [facility] 17:28:[address] Concept Completed 201701/23/2021 Encntr for routine child health exam w/o abnormal findings ;Recorde d Elsewher e: No Locat ion: [facility] S ource: EHR Commissioning Editor junior: N Practi ce ID: [id number] Con lable Time: 01:00:00 PM Mile rasheed [facility] 17:28:33 Surveill ance of contrace ption Completed 201701/23/2021 Encounte r for surveill ance of contrace ptives, unspecif ied;Quincy rded Elsewher e: No Locat ion: [facility] S ource: EHR Commissioning Editor junior: N Practi ce ID: [id number] Con lable Time: 02:00:00 PM Mile rasheed, [facility] 17:28:49 Clinical finding Completed 201701/23/2021 Presence of (intraut erine) contrace ptive device;R ecorded Elsewher e: No Locat ion: [facility] N Practi ce ID: [id number] Con lable Time: 08:00:00 AM Mile rasheed, [facility] 17:28:39 Insertio n of intraute rine contrace ptive device Completed 201701/23/2021 Encounte r for insertio n of intraute rine contrace ptive device;R ecorded Elsewher e: No Locat ion: [facility] junior: N Practi ce ID: [id number] Con lable Time: 08:00:00 AM Mile rasheed, [facility] 17:28:46 Pregnanc y test negative [id number] Completed 201701/23/2021 Encounte r for pregnanc y test, result negative ;Practic e ID: 0001 Mile rasheed, [facility] 17:28:25 Contrace ptive sheath status [id number] Completed 201701/23/2021 Encounte r for routine checking of intraute rine contrace p dev;Prac marco ID: 0001 Mile rasheed, [facility] 17:28:19 Pelvic and perineal pain [id number] Completed 201701/23/2021 Pelvic pain;Rec orded Elsewher e: No Locat ion: [facility] junior: N Practi ce ID: [id number] Con lable Time: 04:00:00 PM Mile rasheed, [facility] 17:28:31 Syphilis test finding [id number] Completed 201701/23/2021 Encntr screen for infectio ns w sexl mode of transmis s;Practi ce ID: 0001 Mile rasheed [facility] 17:28:42 Infectio n screenin g Completed 201701/23/2021 Encounte r for screenin g for oth infec/pa rastc diseases ;Practic e ID: 0001 Mile rasheed [facility] 17:27:55 Contrace ption care manageme nt Completed 201801/23/2021 Encounte r for contrace ptive manageme nt, unspecif ied;Quincy rded Elsewher e: No Locat ion: Hilaria javier [facility] S ource: EHR Commissioning Editor junior: N Practi ce ID: [id number] Con lable Time: 10:45:00 AM Mile rasheed [facility] 17:28:44 Blood leukocyt e number above referenc e range [id number] Completed 201801/23/2021 Elevated white blood cell count, unspecif ied;Prac marco ID: 0001 Mile rasheed [facility] 17:28:45 Acute vaginiti s [id number] Completed 201801/23/2021 Acute vaginiti s;Record ed Elsewher e: No Locat ion: [facility]ilaria [facility] S ource: EHR Commissioning Editor junior: N Practi ce ID: [id number] Con lable Time: 10:45:00 AM Mile rasheed [facility] 17:28:21 Increase d frequenc y of urinatio n [id number] Completed 201801/23/2021 Urinary frequenc y;Record ed Elsewher e: No Locat ion: Hilaria javier [facility] S ource: EHR Commissioning Editor junior: N Practi ce ID: [id number] Con lable Time: 10:45:00 AM Mile Paredes [facility] 17:27:54 Uses combined oral contrace ption [id number] Completed 201801/23/2021 Encounte r for initial prescrip tion of contrace ptive pills;Pr actice ID: [id number] Mile Paredes [facility] 17:28:27 Removal of intraute rine device Completed 201801/23/2021 Encounte r for removal of intraute rine contrace ptive device;P ractice ID: [id number] Mile Doran [facility] 17:28:48 Pregnanc y [id number] Completed 202404/15/2025 Zainab Weston [facility] 14:35:49 Gestatio nal diabetes mellitus [id number] Completed 2024 Checking bs QID , serial growth us - DT referral faxed to [facility] 01/24 Randi Aguiar [facility] 13:08:13 Breech presenta tion [id number] Completed 2024 Jama Moreno MD [address], [place], [address], [facility] 12:37:19 Problem Notes None recorded. Procedures Surgical History Date Name Laterality Status Provider Name and Address Organization Details Recorded Time 5 SECTION (SURG) completed Not Available [facility] 04/08/2025 13:53:03 4 Date of Last Pap Smear completed Zainab Weston [facility] 09/06/2024 12:53:25 1 extraction of wisdom tooth completed Leida Duenas [facility] 08/19/2023 16:44:18 Imaging Results None recorded. [...] Prescrib ed Elsewher e: Yes Loca tion: [facility] odify By: [email or web address] Encount er DateTime : 09/10/19 03:30:00 PM [...] Prescrib ed Elsewher e: No Locat ion: [facility] odify By: nadia archuleta DateTime : 12/09/19 11:49:30 AM Not Available Not Available Not Available [employer] Vaginal 0.75 % (37.5 mg/5 gram) insert 1 applicat orful by vaginal route for 5 nights at bedtime 09/09 completed Prescrib ed Elsewher e: No Locat ion: [facility] odify By: katelynn hernandez DateTime : 05/19/19 [...] oral route every day 01/23 completed Prescrib jennifer Mendez e: Yes Loca tion: [facility] odify By: serenity hernandez DateTime : 05/14/19 18 01:00:00 PM Not [...] estrad 0.15 mg-30 mcg (84)/10 mcg(7) tabs,3mos 09/30/ 2021 04/20 /2022 completed Not Available Not Available Not Available Lo Loestrin Fe 1 mg-10 mcg (24)/10 mcg (2) tablet take 1 tablet by oral route every day 09/09 completed Prescrib jennifer Mendez e: No Locat ion: Kathleenvitaly yaya [facility] M odify By: [email or web address] Yaya ncounter DateTime : 05/14/19 01:00:00 PM Not [...] Updated DateTime 04/15/2025 161.29 cm 35 kg/m2 01112.07 g 141/94 mm[Hg] Zainab Weston [facility] 04/15/2025 14:36:11 Social History Question Answer Notes LastModified by Organizat ion Details LastModified Time Tobacco Smoking Status Never Smoker Zainab rasheed [facility] 10/31/2022 17:02:19 Do You Have An [...] Or The Highest Degree You Have Received? XV83307-2 [email or web address] Information not available 02/17/2024 Are There Any Guns Present In Your Home? Yes [email or web address] Information not available 02/17/2024 Do You Use Protection During Sex? No [email or web address] Information not available 02/17/2024 Do You Use [...] Has Tobacco Cessation Counseling Been Provided? No [email or web address] Information not available 02/04/2025 Have You Used [...] other forms of tobacco or nicotine? No [email or web address] Information not available 02/04/2025 What is your level of alcohol consumption? None Information not available 02/17/2024 Are you currently employed? Yes [email or web address] Information not available 02/04/2025 Are you able to walk independently without assistance or assistive devices? [email or web address] Information not available 08/15/2021 Are you able to care for yourself independently? 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 No Information not available 10/31/2022 What is your exercise level? Occasional [email or web address] Information not available 12/08/2019 Mental Status Question Answer Note LastModified by Organization D etails LastModified Time Do you feel stressed (tense, restless, nervous, or anxious, or unable to sleep at night)? [id number] Information not available 08/15/2021 Family History Relationship Description Onset Age of this Age Resolved Age Notes LastModified by Organization Details LastModified Time Maternal Grandmother Congenital heart disease [email or web address] Not available 2019 14:32:40 Medical History Condition Response Allergies (Food, seasonal, environmental ) N Other N Blood Transfusion N Drug/Latex Allergies/Reactions N Breast Cancer N Dermatologic Disorders N [...] filippo-sucrose 06/05/2021 completed Olamide [facility]fer [facility] 08/15/2021 12:28:36 Past Encounters Encounter ID Performer Location Encounter Start Date Encounter Closed Date Diagnosis/Indication Diagnosis SNOMED-CT Code Diagnosis ICD10 Code Diagnosis IMO Codes Diagnosis Note [id number] Bertha Alfonso [place] [address] [address] 03/18/2025 15:08:37 03/18/2025 16:25:03 Breech presentation 0485462 O32.1XX0 [id number] [facility] [address] [place] [address] 03/18/2025 15:09:06 03/18/2025 16:00:32 Gestation period, 36 weeks 36441653 Z3A.36 [id number] Jama Moreno MD [facility] [address] [place] [address] 03/23/2025 14:18:49 03/23/2025 15:00:55 Gestational diabetes mellitus 52932288 O24.410 Z3A.36 [id number] [facility] [address] [place] [address] 03/23/2025 14:19:55 03/23/2025 17:36:35 Breech presentation 9040013 O32.1XX0 [id number] [facility] [address] [place] [address] 03/23/2025 14:20:05 03/23/2025 16:00:30 Gestation period, 36 weeks 03573207 Z3A.36 [id number] Breech presentation 6096 002 O32.1XX0 [id number] Jama Moreno MD [facility] [address],[place] [address] 04/01/2025 14:12:43 04/01/2025 15:22:59 Gestational diabetes mellitus 76653346 O24.410 Z3A.38 [id number] [facility] [address] [address] 04/01/2025 14:14:05 04/01/2025 16:37:02 Breech presentation 8327266 O32.1XX0 [id number] Bertha Alfonso [facility] [address],[place] [address] 04/01/2025 14:14:19 04/01/2025 16:22:31 Gestation period, 38 weeks 45117327 Z3A.38 6019526 [id number] Jama Moreno MD [facility] [address],[place] [address] 04/15/2025 14:08:25 04/15/2025 15:21:11 Postoperative state 22249022 Z98.890 [id number] This patient is a 24-year-ol d female [...] Young Member ID Guarantor Name 04/15/2025 1 [facility] [id number] Norma Hutner [id number] Ninoska Dale 04/15/[address] [place] [address] [id number] Ninoska Hunter [id number] Ninoska Hunter Notes Date Note Type Note Provider Name and Address Organization Details Recorded Time 04/15/2025 text/html This patient is a 24-year-old [...] good. Jama Moreno MD [address], [place], [address], [facility] 04/15/2025 15:18:31 OBGyn Episode Ob Episode Information Episode Created Date Number of Fetuses Patient Bloodtype Patient rh Status Prepregnancy Weight lbs Domestic Partner Domestic Partner Phone Father Name Surgical Scrub Technician Status 10/09/19 25 1 A Positive 203 Adilson Wheat son CLOSED Fetus Data First Name Last Name Admitted to NICU Weight (g) Sex Living Outcome Pediatric Complications Fetus ID Race Codes Race Delivery Type true 3288.54 2 M true Full Term [id number] Primary Problems Problem Notes Problem Name Start Date End Date Resolution Snomed Code Not e Gestational diabetes mellitus 01/24/2025 [id number] Checking bs QID , serial growth us - DT referral faxed to [facility] 01/24 Breech presentation 03/03/2025 [id number] Bao Calculation Initial Bao Date Initial Exam [...] Weight in lbs Pre/Post Dialysis Refused Weight 195.450099500212 BP Diastolic BP Location Tested BP Systolic BP Type 86 L arm 122 sitting Fetus Heart Rate Present A Present Fetus Movement Comments Patient presents to [facility] care. otherwise uncomplicated. No nausea or cramping. NT/NB wnl today, desires NIPT. Will draw today with new OB labs. RTC 4 weeks for routine care. Flowsheet Date 11/05/2024 Brown Score Blood Edema Fundus Height Fundus Units Glucose Ketones Leukocytes Nitrite Labor Signs Protein Cervic Dilation Cervic Effacement Cervic Station Type Weight in lbs Pre/Post Dialysis Refused 196.117888657793 BP Diastolic BP Location Tested BP Systolic [...] Type Weight in lbs Pre/Post Dialysis Refused 198.519551497730 BP Diastolic BP Location Tested BP Systolic [...] Weight in lbs Pre/Post Dialysis Refused Weight 202.822273188890 BP Diastolic BP Location Tested BP Systolic [...] Type Weight in lbs Pre/Post Dialysis Refused 207.718977901063 BP Diastolic BP Location Tested BP Systolic [...] Weight in lbs Pre/Post Dialysis Refused Weight 200.835895548315 BP Diastolic BP Location Tested BP Systolic [...] Weight in lbs Pre/Post Dialysis Refused Weight 204.377497663679 BP Diastolic BP Location Tested BP Systolic [...] Type Weight in lbs Pre/Post Dialysis Refused 207.343224382628 BP Diastolic BP Location Tested BP Systolic [...] Weight in lbs Pre/Post Dialysis Refused Weight 208.026321143723 BP Diastolic BP Location Tested BP Systolic [...] Weight in lbs Pre/Post Dialysis Refused Weight 210.370969153492 BP Diastolic BP Location Tested BP Systolic [...] Weight in lbs Pre/Post Dialysis Refused Weight 208.813723804952 BP Diastolic BP Location Tested BP Systolic BP Type 89 L arm 135 sitting Fetus Heart Rate Present Fetus Movement A Yes Comments Flowsheet Date 03/23/2025 Brown Score Blood Edema Fundus Height Fundus Units Glucose Ketones Leukocytes Nitrite Labor Signs Protein Cervic Dilation Cervic Effacement Cervic Station Type Weight in lbs Pre/Post Dialysis Refused Weight 208.265794303153 BP Diastolic BP Location Tested BP Systolic [...] Weight in lbs Pre/Post Dialysis Refused Weight 209.702142311504 BP Diastolic BP Location Tested BP Systolic BP Type 83 L arm 134 sitting Fetus Heart Rate Present Fetus Movement A Yes Comments Flowsheet Date 04/01/2025 Brown Score Blood Edema Fundus Height Fundus Units Glucose Ketones Leukocytes Nitrite Labor Signs Protein Cervic Dilation Cervic Effacement Cervic Station Type Weight in lbs Pre/Post Dialysis Refused 209.625968221747 BP Diastolic BP Location Tested BP Systolic [...] Weight in lbs Pre/Post Dialysis Refused Weight 201.843389582511 BP Diastolic BP Location Tested BP Systolic [...]
--- OUTSIDE RECORDS SUMMARY | 2025-04-15 19:43 | XMS_ITS | Continuity of Care Document ---
Author Organization [facility] Address [address] [place] [address] Care Team Providers Care Hospitality Job Titles Name Role Phone HONORIO SCHUMACHER Primary Care Provider [phone] Assessment Encounter Date Assessment Date Assessment LastModified by Organization Details LastModified Time 03/03/2025 03/03/2025 Patient is ___weeks . Discussed plan. Not available 03/03/2025 12:20:59 Plan of Treatment Reminders Order Date Submit [...] Not Available [facility] [address], [place], [address], 10/14/2024 19:59:38 10/15/19 25 10/14/2024 [UNIT Y] ANEUP LOIDY NIPT 22Q11.2 microdeletio n LOW RISK <1 in 10,000 normal Not Available [facility] [address], [place], [address], 10/14/2024 19:59:38 10/15/19 25 10/14/2024 [UNIT Y] ANEUP LOIDY NIPT sex chromosome aneuploidy NOT DETECT ED normal Not Available [facility] [address], [place], [address], 10/14/2024 19:59:38 10/15/19 25 10/14/2024 [UNIT Y] 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 in 10,000 normal Not Available [facility] [address], [place], [address], 10/14/2024 19:59:38 10/15/19 25 10/14/2024 [UNIT Y] ANEUP LOIDY NIPT trisomy 13 LOW RISK <1 in 10,000 normal Not Available [facility] [address], [place], [address], 10/14/2024 19:59:38 10/15/19 25 10/14/2024 [UNIT Y] ANEUP LOIDY NIPT trisomy 18 LOW RISK <1 in 10,000 normal Not Available [facility] [address], [place], [address], 10/14/2024 19:59:38 10/15/19 25 10/14/2024 [UNIT Y] ANEUP LOIDY NIPT trisomy 21 LOW RISK <1 in 10,000 normal Not Available [facility] [address], [place], [address], 10/14/2024 19:59:38 10/15/19 25 10/14/2024 [UNIT Y] ANEUP LOIDY NIPT sex MALE normal Not Available [facility] [address], [place], [address], 10/14/2024 19:59:38 10/15/19 25 10/14/2024 [UNIT Y] ANEUP LOIDY NIPT gestation SINGLE TON normal Not Available [facility] [address], [place], [address], 10/14/2024 19:59:38 10/15/19 25 10/14/2024 [UNIT Y] ANEUP LOIDY NIPT for detailed report, see pdf See PDF normal Not Available [facility] [address], [place], [address], 10/14/2024 19:59:38 10/20/19 25 10/19/2024 [UNIT Y] ESPINOZA [place] sickle cell disease/beta -thalassemia /hemoglobino pathies carrier screen NEGATI VE normal Not Available [facility] [address], [place], [address], 10/19/2024 14:09:36 10/20/19 25 10/19/2024 [UNIT Y] ESPINOZA [place] alpha-thalas semia carrier screen NEGATI VE normal Not Available [facility] [address], [place], [address], 10/19/2024 14:09:36 10/20/19 25 10/19/2024 [UNIT Y] ESPINO[place] cystic fibrosis carrier screen NEGATI VE normal Not Available [facility] [address], [place], [address], 10/19/2024 14:09:36 10/20/19 25 10/19/2024 [UNIT Y] ESP[place] spinal muscular atrophy carrier screen NEGATI VE 2 SMN1 copies , SNP not presen t normal Not Available [facility] [address], [place], [address], 10/19/2024 14:09:36 10/20/19 25 10/19/2024 [UNIT Y] ESPINOZA [place] for detailed report, see pdf See PDF normal Not Available [facility] [address], [place], [address], 10/19/2024 14:09:36 10/09/1910/08/2024 CULTU RE: URINE result report SEE RESULT S BELOW Test: Cultu re: Urine Speci men Sourc e: Urine Voide d Speci men Type: Urine Speci men Date: 2024 1320 Resul t Date: 2024 0400 Resul t Statu s: Final resul t Abnor mal: No Resul ting Lab: [facility] [address] [facility] [address] Tel: CULTU RE ----- ----- ----- --- No growt h in 1 day (dete ction level of 10,00 0 colon ies / ml.) Not Available [facility] (Lab) [address], [place], [address], 10/10/2024 05:04:31 10/09/1910/08/2024 CBC W/DIF F WBC 9.1 10'3/ uL 3.5-10 .5 Not Available [facility] (Lab) [address], [place], [address], 10/11/2024 20:50:49 10/09/19 25 10/08/2024 CBC W/DIF F RBC 5.20 10'6/ uL (based on docume nted legal sex) 3.80-5 .20 Not Available [facility] (Lab) [address] [place], [address], 10/11/2024 20:50:49 10/09/19 25 10/08/2024 CBC W/DIF F HGB 14.7 g/dL (based on docume nted legal sex) 11.6-1 5.4 Not Available [facility] (Lab) [address] [place], [address], 10/11/2024 20:50:49 10/09/19 25 10/08/2024 CBC W/DIF F HCT 45.2 % (based on docume nted legal sex) 34.0-4 5.0 high Not Available [facility] (Lab) [address], [place], [address], 10/11/2024 20:50:49 10/09/19 25 10/08/2024 CBC W/DIF F MCV 86.9 fL 80.0-9 9.0 Not Available [facility] (Lab) [address], [place], [address], 10/11/2024 20:50:49 10/09/19 25 10/08/2024 CBC W/DIF F MCH 28.3 pg 27.0-3 4.0 Not Available [facility] (Lab) [address], [place], [address], 10/11/2024 20:50:49 10/09/19 25 10/08/2024 CBC W/DIF F MCHC 32.5 g/dL 32.0-3 5.5 Not Available [facility] (Lab) [address], [place], [address], 10/11/2024 20:50:49 10/09/19 25 10/08/2024 CBC W/DIF F RDW 13.2 % 11.0-1 5.0 Not Available [facility] (Lab) [address], [place], [address], 10/11/2024 20:50:49 10/09/19 25 10/08/2024 CBC W/DIF F plt 286 10'3/ uL 150-40 0 Not Available [facility] (Lab) [address], [place], [address], 10/11/2024 20:50:49 10/09/19 25 10/08/2024 CBC W/DIF F MPV 11.7 fL 8.8-12 .1 Not Available [facility] (Lab) [address], [place], [address], 10/11/2024 20:50:49 10/09/19 25 10/08/2024 CBC W/DIF F NRBC's 0.0 % 0.0 Not Available [facility] (Lab) [address], [place], [address], 10/11/2024 20:50:49 10/09/19 25 10/08/2024 CBC W/DIF F absolute NRBCs 0.0 10'3/ uL no refere nce range establ ished Not Available [facility] (Lab) [address], [place], [address], 10/11/2024 20:50:49 10/09/19 25 10/08/2024 CBC W/DIF F neutrophils 67.1 % 34.0-7 3.0 Not Available [facility] (Lab) [address], [place], [address], 10/11/2024 20:50:49 10/09/19 25 10/08/2024 CBC W/DIF F lymphocytes 25.1 % 15.0-5 0.0 Not Available [facility] (Lab) [address], [place], [address], 10/11/2024 20:50:49 10/09/19 25 10/08/2024 CBC W/DIF F monocytes 6.4 % 1.0-15 .0 Not Available [facility] (Lab) [address], [place], [address], 10/11/2024 20:50:49 10/09/19 25 10/08/2024 CBC W/DIF F eosinophils 0.9 % 0.0-8. 0 Not Available [facility] (Lab) [address], [place], [address], 10/11/2024 20:50:49 10/09/19 25 10/08/2024 CBC W/DIF F basophils 0.3 % 0.0-2. 0 Not Available [facility] (Lab) [address], [place], [address], 10/11/2024 20:50:49 10/09/19 25 10/08/2024 CBC W/DIF [...] separ ately if prese nt. Not Available [facility] (Lab) [address], [place], [address], 10/11/2024 20:50:49 10/09/19 25 10/08/2024 CBC W/DIF F absolute neutrophils 6.1 10'3/ uL 1.5-8. 0 Not Available [facility] (Lab) [address], [place], [address], 10/11/2024 20:50:49 10/09/19 25 10/08/2024 CBC W/DIF F absolute lymphocytes 2.3 10'3/ uL 1.0-4. 0 Not Available [facility] (Lab) [address], [place], [address], 10/11/2024 20:50:49 10/09/19 25 10/08/2024 CBC W/DIF F absolute monocytes 0.6 10'3/ uL 0.2-1. 0 Not Available [facility] (Lab) [address], [place], [address], 10/11/2024 20:50:49 10/09/19 25 10/08/2024 CBC W/DIF F absolute eosinophils 0.1 10'3/ uL 0.0-0. 6 Not Available [facility] (Lab) [address], [place], [address], 10/11/2024 20:50:49 10/09/19 25 10/08/2024 CBC W/DIF F absolute basophils 0.0 10'3/ uL 0.0-0. 3 Not Available [facility] (Lab) [address], [place], [address], 10/11/2024 20:50:49 10/09/19 25 10/08/2024 CBC W/DIF [...] ki book. nm.or g/gen derx Not Available [facility] (Lab) [address], [place], [address], 10/11/2024 20:50:49 10/09/1910/08/2024 HIV 1/2 ANTIG EN/AN TIBOD Y, REFLE X CONFI RMATI ON HIV antigen/anti body Nonrea ctive nonrea ctive HIV-1 antig en and HIV-1 /HIV- 2 antib odies were not detec adela. No labor atory evide nce of HIV infec tion. Not Available [facility] (Lab) [address], [place], [address], 10/11/2024 20:50:49 10/09/1910/08/2024 HEPAT ITIS B SURFA CE ANTIG EN hepatitis B surface antigen Non-re active non-re active This assay was perfo rmed using [employer] ratio n reage nts and test kits. Value s obtai charles with other assay metho ds or kits canno t be used inter emanuel eably . Not Available [facility] (Lab) [address], [place], [address], 10/11/2024 20:50:50 10/09/19 25 10/08/2024 HEPAT ITIS C ANTIB NITA SCREE N, REFLE X TO CONFI RMATI ON hepatitis C antibody Non-re active non-re active Antib odies to HCV Not Detec adela, does not exclu de the possi bilit y of expos ure to HCV. Not Available [facility] (Lab) [address], [place], [address], 10/11/2024 20:50:50 10/09/19 25 10/08/2024 RUBEL LA IGG ANTIB NITA, QUANT rubella antibodies, IgG Reacti ve reacti ve Not Available [facility] (Lab) [address], [place], [address], 10/11/2024 20:50:50 10/09/19 25 10/08/2024 RUBEL LA IGG ANTIB NITA, QUANT rubella antibodies, IgG quant 24.1 IU/mL >=10 Non-r eacti ve (Non- Immun e) <10 IU/mL React alejandra (Immu ne) > or = 10 IU/mL Not Available [facility] (Lab) [address], [place], [address], 10/11/2024 20:50:50 10/09/19 25 10/08/2024 TYPE/ RH/SC REEN ABO/Rh type A POS Not Available [facility] (Lab) [address], [place], [address], 10/11/2024 20:50:51 10/09/19 25 10/08/2024 TYPE/ RH/SC REEN antibody screen NEG Not Available [facility] (Lab) [address], [place], [address], 10/11/2024 20:50:51 10/09/19 25 10/08/2024 TYPE/ RH/SC REEN exp date 2024 23:59 Not Available [facility] (Lab) [address], [place], [address], 10/11/2024 20:50:51 10/09/19 25 10/08/2024 HEMOG LOBIN [...] >8.0% Actio n sugge sted Not Available [facility] (Lab) [address], [place], [address], 10/11/2024 20:50:51 10/09/19 25 10/08/2024 RPR SCREE N, REFLE X TITER /CONF IRMAT ION RPR qualitative Nonrea ctive nonrea ctive Not Available [facility] (Lab) [address], [place], [address], 10/11/2024 20:50:51 10/09/19 25 10/08/2024 drug scree n, urine Amphetamines : negati ve Not Available [facility] [address], [place], [address], 10/08/2024 13:34:18 10/09/19 25 10/08/2024 drug scree n, urine Cannabinoids : negati ve Not Available [facility] [address], [place], [address], 10/08/2024 13:34:18 10/09/19 25 10/08/2024 drug scree n, urine Cocaine: negati ve Not Available [facility] [address], [place], [address], 10/08/2024 13:34:18 10/09/19 25 10/08/2024 drug scree n, urine Opiates: negati ve Not Available [facility] [address], [place], [address], 10/08/2024 13:34:18 10/09/19 25 10/08/2024 drug scree n, urine Barbiturates : negati ve Not Available [facility] [address], [place], [address], 10/08/2024 13:34:18 10/09/19 25 10/08/2024 drug scree n, urine Benzodiazepi dino: negati ve Not Available [facility] [address], [place], [address], 10/08/2024 13:34:18 01/22/20 25 01/21/2025 GTT - GESTA MARYANA L SCREE N, ACOG OB glucose, 1 hour screen 210 mg/dL 70-135 high Not Available [facility] (Lab) [address], [place], [address], 01/22/2025 12:46:27 01/22/20 25 01/21/2025 HIV 1/2 ANTIG EN/AN TIBOD Y, REFLE X CONFI RMATI ON HIV antigen/anti body Nonrea ctive nonrea ctive HIV-1 antig en and HIV-1 /HIV- 2 antib odies were not detec adela. No labor atory evide nce of HIV infec tion. Not Available [facility] (Lab) [address], [place], [address], 01/22/2025 12:46:28 01/22/20 25 01/21/2025 HEMOG LOBIN (HGB) HGB 13.3 g/dL (based on docume nted legal sex) 11.6-1 5.4 Not Available [facility] (Lab) [address], [place], [address], 01/22/2025 12:46:28 01/22/20 25 01/21/2025 HEMAT OCRIT (HCT) HCT 40.3 % (based on docume nted legal sex) 34.0-4 5.0 Not Available [facility] (Lab) [address], [place], [address], 01/22/2025 12:46:28 01/22/20 25 01/21/2025 RPR SCREE N, REFLE X TITER /CONF IRMAT ION RPR qualitative Nonrea ctive nonrea ctive Not Available [facility] (Lab) [address], [place], [address], 01/22/2025 12:46:28 10/09/19 25 10/08/2024 US, obste tric, nucha l trans lucen cy No observ ation record ed. [email or web address] [place] [address], [place], [address], 10/08/2024 18:39:08 10/09/19 25 10/08/2024 US, obste tric, nucha l trans lucen cy No observ ation record ed. [email or web address] [address], [place], [address], 10/09/2024 23:09:07 11/25/19 25 11/24/2024 US, obste tric, 2nd or 3rd trime ster No observ ation record ed. [email or web address] [address], [place], [address], 12/01/2024 11:58:43 11/25/19 25 11/25/2024 US, obste tric, 2nd or 3rd trime ster No observ ation record ed. [email or web address] [place] [address], [place], [address], 11/25/2024 12:49:42 12/25/19 25 12/24/2024 US, obste tric, follo w-up No observ ation record ed. ELIN [address], [place], [address], 01/01/2025 17:08:59 12/25/19 25 12/24/2024 US, obste tric, follo w-up No observ ation record ed. [facility] [address], [place], [address], 12/24/2024 13:46:21 02/05/20 25 02/04/2025 US, obste tric, follo w-up No observ ation record ed. [facility] [address], [place], [address], 02/04/2025 13:02:03 02/05/2002/04/2025 US, obste tric, follo w-up No observ ation record ed. [email or web address] [address], [place], [address], 02/07/2025 16:14:11 03/03/20 25 03/03/2025 US, obste tric, follo w-up No observ ation record ed. [email or web address] [place] [address], [place], [address], 03/03/2025 15:11:00 03/03/20 25 03/03/2025 US, obste tric, follo w-up No observ ation record ed. [email or web address] [address], [place], [address], 03/04/2025 12:00:47 03/10/20 25 03/10/2025 non-s tress test No observ ation record ed. [place] [id number] [facility] [address] [facility], [place], [address], 03/14/2025 11:36:31 03/10/20 25 03/10/2025 US, obste tric, follo w-up No observ ation record ed. [email or web address] [facility] [address], [place], [address], 03/11/2025 08:40:14 03/18/20 25 03/18/2025 non-s tress test No observ ation record ed. [email or web address] [place] [address], [place], [address], 03/28/2025 10:44:01 03/18/20 25 03/18/2025 non-s tress test No observ ation record ed. [address], [place], [address], 04/15/2025 10:36:55 03/18/20 25 03/18/2025 US, obste tric, bioph ysica l profi le No observ ation record ed. [address] [facility], [place], [address], 03/23/2025 16:26:00 03/18/20 25 03/18/2025 US, obste tric, bioph ysica l profi le No observ ation record ed. [address] [facility], [place], [address], 03/23/2025 16:25:42 03/18/20 25 03/18/2025 non-s tress test No observ ation record ed. [address] [facility], [place], [address], 03/28/2025 11:00:24 03/23/20 25 03/23/2025 US, obste tric, bioph ysica l profi le + non-s tress test No observ ation record ed. [email or web address] [place] [address], [place], [address], 03/23/2025 18:22:09 03/23/20 25 03/23/2025 US, obste tric, bioph ysica l profi le + non-s tress test No observ ation record ed. [email or web address] [address], [place], [address], 03/30/2025 11:20:06 03/23/20 25 03/23/2025 non-s tress test No observ ation record ed. [address], [place], [address], 03/23/2025 17:56:30 03/23/20 non-s tress test No observ ation record ed. [address], [place], [address], 03/23/2025 17:23:26 04/01/2004/01/2025 US, obstyaya tric, follo w-up No observ ation record ed. [facility] [address], [place], [address], 04/01/2025 14:56:59 04/01/20 25 04/01/2025 US, paige guerrero, bioph ysica l profi le + non-s tress test No observ ation record ed. [facility] [address], [place], [address], 04/01/2025 14:57:12 04/01/20 25 04/01/2025 US, obste tric, follo w-up No observ ation record ed. [email or web address] [address], [place], [address], 04/04/2025 12:34:31 04/01/20 25 04/01/2025 non-s tress test No observ ation record ed. [address], [place], [address], 04/01/2025 16:35:28 04/01/20 non-s tress test No observ ation record ed. [address], [place], [address], 04/01/2025 16:40:02 Result Notes None recorded. Problems Name Problem SNOMED Code Status Onset Date Resolution Date Notes Provider Name and Address Organization Details Recorded Time SNOMED CT Concept Completed 201701/23/2021 Encntr for spanish medical interpreter exam (general ) (routine ) w/o abn findings ;Practic e ID: 0001 Mile rasheed [facility] 17:28:[address] Concept Completed 201701/23/2021 Encntr for routine child health exam w/o abnormal findings ;Recorde d Elsewher e: No Locat ion: [facility] ource: EHR Home Teaching Grades 9 Thru 12 Teacher junior: N Practi ce ID: [id number] Con lable Time: 01:00:00 PM Mile Paredes [facility] 17:28:33 Surveill ance of contrace ption Completed 201701/23/2021 Encounte r for surveill ance of contrace ptives, unspecif ied;Quincy rded Elsewher e: No Locat ion: [facility] ource: EHR Home Teaching Grades 9 Thru 12 Teacher junior: N Practi ce ID: [id number] Con lable Time: 02:00:00 PM Mile rasheed [facility] 17:28:49 Clinical finding Completed 201701/23/2021 Presence of (intraut erine) contrace ptive device;R ecorded Elsewher e: No Locat ion: [facility] S ource: EHR Home Teaching Grades 9 Thru 12 Teacher junior: N Practi ce ID: [id number] Con lable Time: 08:00:00 AM [facility] 17:28:39 Insertio n of intraute rine contrace ptive device Completed 201701/23/2021 Encounte r for insertio n of intraute rine contrace ptive device;R ecorded Elsewher e: No Locat ion: [facility] ource: EHR Home Teaching Grades 9 Thru 12 Teacher junior: N Practi ce ID: [id number] Con lable Time: 08:00:00 AM Mile rasheed, [facility] 17:28:46 Pregnanc y test negative [id number] Completed 201701/23/2021 Encounte r for pregnanc y test, result negative ;Practic e ID: 0001 Mile rasheed, [facility] 17:28:25 Contrace ptive sheath status [id number] Completed 201701/23/2021 Encounte r for routine checking of intraute rine contrace p dev;Prac marco ID: 0001 Mile rasheed, [facility] 17:28:19 Pelvic and perineal pain [id number] Completed 201701/23/2021 Pelvic pain;Rec orded Elsewher e: No Locat ion: [facility] S ource: EHR Home Teaching Grades 9 Thru 12 Teacher junior: N Practi ce ID: [id number] Con lable Time: 04:00:00 PM Mile rasheed, [facility] 17:28:31 Syphilis test finding [id number] Completed 201701/23/2021 Encntr screen for infectio ns w sexl mode of transmis s;Practi ce ID: 0001 Mile rasheed, [facility] 17:28:42 Infectio n screenin g Completed 201701/23/2021 Encounte r for screenin g for oth infec/pa rastc diseases ;Practic e ID: 0001 Mile rasheed, [facility] 17:27:55 Contrace ption care manageme nt Completed 201801/23/2021 Encounte r for contrace ptive manageme nt, unspecif ied;Quincy rded Elsewher e: No Locat ion: [facility] ource: EHR Home Teaching Grades 9 Thru 12 Teacher junior: N Practi ce ID: [id number] Con lable Time: 10:45:00 AM Mile rasheed [facility] 17:28:44 Blood leukocyt e number above referenc e range [id number] Completed 201801/23/2021 Elevated white blood cell count, unspecif ied;Prac marco ID: 0001 Mile Paredes [facility] 17:28:45 Acute vaginiti s [id number] Completed 201801/23/2021 Acute vaginiti s;Record ed Elsewher e: No Locat ion: [facility] ource: EHR Home Teaching Grades 9 Thru 12 Teacher junior: N Practi ce ID: [id number] Con lable Time: 10:45:00 AM Mile rasheed [facility] 17:28:21 Increase d frequenc y of urinatio n [id number] Completed 201801/23/2021 Urinary frequenc y;Record ed Elsewher e: No Locat ion: [facility] ource: EHR Home Teaching Grades 9 Thru 12 Teacher junior: N Practi ce ID: [id number] Con lable Time: 10:45:00 AM Mile rasheed [facility] 17:27:54 Uses combined oral contrace ption [id number] Completed 201801/23/2021 Encounte r for initial prescrip tion of contrace ptive pills;Pr actice ID: 0001 Mile Paredes [facility] 17:28:27 Removal of intraute rine device Completed 201801/23/2021 Encounte r for removal of intraute rine contrace ptive device;P ractice ID: 0001 Mile Paredes [facility] 1 17:28:48 Pregnanc y [id number] Completed 202404/15/2025 Zainab rasheed, [facility] 5 14:35:49 Gestatio nal diabetes mellitus [id number] Completed 2024 Checking bs QID , serial growth us - DT referral faxed to [facility] 01/24 Randi Cosme rasheed, [facility] 5 13:08:13 Breech presenta tion [id number] Completed 2024 Jama Moreno MD [address], [place], [address], [facility] 5 12:37:19 Problem Notes None recorded. Procedures Surgical History Date Name Laterality Status Provider Name and Address Organization Details Recorded Time 5 SECTION (SURG) completed Not Available [facility] 04/08/2025 13:53:03 4 Date of Last Pap Smear completed Zainab Weston [facility] 09/06/2024 12:53:25 1 extraction of wisdom tooth completed Leida Duenas [facility] 08/19/2023 16:44:18 Imaging Results None [...] Elsewher e: Yes Loca tion: Hilaria javier [facility] odify By: [email or web address] Encount er DateTime : 09/10/19 18 03:30:00 [...] Prescrib ed Elsewher e: No [facility] By: nadia archuleta DateTime : 12/09/19 18 11:49:30 AM Not Available Not Available Not Available Metrogel Vaginal 0.75 % (37.5 mg/5 gram) insert 1 applicat orful by vaginal route for 5 nights at bedtime 09/09 completed Prescrib ed Elsewher e: No Locat ion: [facility] odify By: [email or web address] hernandez DateTime : [...] Elsewher e: Yes Loca tion: Hilaria javier [facility] odify By: serenity Javier ncounter [...] ed Elsewher e: No Locat ion: [facility]ilar[facility] odify By: [email or web address] Yaya ncounter DateTime [...] Address Organization Details Last Updated DateTime 03/03/2025 12129.04559 g 126/83 mm[Hg] Zainab Weston [facility] 03/03/2025 12:21:26 Social History Question Answer Notes LastModified by Organizat ion Details LastModified Time Tobacco Smoking Status Never Smoker Zainab Weston [facility], [facility] 10/31/2022 17:02:19 Do You Have [...] Or The Highest Degree You Have Received? [id number] Information not available 02/17/2024 Are There Any Guns Present In Your Home? Yes [email or web address] Information not available 02/17/2024 Do You Use Protection During Sex? No [email or web address] Information not available 02/17/2024 Do You Use Your Seat Belt Or Car Seat Routinely? Yes Information not available 08/15/2021 Are You Sexually Active? Yes [email or web address] Information not available 02/04/2025 Do You Have Smoke And Carbon Monoxide Detectors In Your Home? Yes Information not available 08/15/2021 How Much Tobacco Do You Smoke? No Information not available 09/11/2021 Do You Use Sunscreen Routinely? Yes Information not available 08/15/2021 Has Tobacco Cessation Counseling Been Provided? No [email or web address] Information not available 02/04/2025 Have You Used [...] other forms of tobacco or nicotine? No [email or web address] Information not available 02/04/2025 What is your level of alcohol consumption? None Information not available 02/17/2024 Are you currently employed? Yes Information not available 02/04/2025 Are you able to walk independently without assistance or assistive devices? [email or web address] Information not available 08/15/2021 Are you able to care for yourself independently? 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 No Information not available 10/31/2022 What is your exercise level? Occasional [email or web address] Information not available 12/08/2019 Mental Status Question Answer Note LastModified by Organization D etails LastModified Time Do you feel stressed (tense, restless, nervous, or anxious, or unable to sleep at night)? [id number] Information not available 08/15/2021 Family History Relationship [...] mL dose, filippo-sucrose 06/05/2021 completed Olamide Shafer [facility] 08/15/2021 12:28:36 Past Encounters Encounter ID Performer Location Encounter Start Date Encounter Closed Date Diagnosis/Indication Diagnosis SNOMED-CT Code Diagnosis ICD10 Code Diagnosis IMO Codes Diagnosis Note [id number] Jama Moreno MD [facility] [address],[place] [address] 02/04/2025 12:11:20 02/04/2025 12:58:53 Gestational diabetes mellitus 38420771 O24.410 Z3A.30 [id number] Bertha Alfon[facility] [address],[place] [address] 02/04/2025 12:12:03 02/04/2025 14:24:39 Gestation period, 30 weeks 18720921 Z3A.30 [id number] Bertha Alfonso [facility] [address],[place] [address] 02/18/2025 09:18:35 02/18/2025 09:53:48 Gestation period, 32 weeks 8206467 Z3A.32 4833104 [id number] Jama Moreno MD [facility] [address],[place] [address] 03/03/2025 11:27:34 03/03/2025 12:15:05 Gestational diabetes mellitus 78955341 O24.410 Z3A.34 16528388 [id number] Jama Moreno MD [facility] [address],[place] [address] 03/03/2025 11:28:18 03/03/2025 13:32:46 Third trimester 42713777 Z34.03 [id number] Health Concerns Section Related Observation LastModified by Organization Detai ls LastModified Time None Recorded Concern Status LastModified by Organization Details LastModified Time None Recorded Payers Encounter Date Sequence Insurance Name Policy Number Policy Young Covered Member ID Young Member ID Guarantor Name 03/03/2025 1 [employer] [id number] Norma Hunter [id number] Ninoska Hunter 03/03/2025 2 [employer] [id number] Ninoska Hunter [id number] Ninoska Hunter Notes Date Note Type Note Provider Name and Address Organization Details Recorded Time 03/03/2025 text/html Generic HPI TemplateReported by Patient Jama Moreno MD [address], [place], [address], [facility] 03/03/2025 13:19:35 OBGyn Episode Ob Episode Information Episode Created Date Number of Fetuses Patient Bloodtype Patient rh Status Prepregnancy Weight lbs Domestic Partner Domestic Partner Phone Father Name Compliance Field Technician Status 10/09/19 25 1 A Positive 203 Adilson Wheat son CLOSED Fetus Data First Name Last Name Admitted to NICU Weight (g) Sex Living Outcome Pediatric Complications Fetus ID Race Codes Race Delivery Type true 3288.54 2 M true Full Term [id number] Primary Problems Problem Notes Problem Name Start Date End Date Resolution Snomed Code Not e Gestational diabetes mellitus 01/24/2025 [id number] Checking bs QID , serial growth us - DT referral faxed to [facility] 01/24 Breech presentation 03/03/2025 [id number] Bao Calculation Initial Bao Date Initial Exam [...] Weight in lbs Pre/Post Dialysis Refused Weight 195.916335621362 BP Diastolic BP Location Tested BP Systolic BP Type 86 L arm 122 sitting Fetus Heart Rate Present A Present Fetus Movement Comments Patient presents to [facility] care. otherwise uncomplicated. No nausea or cramping. NT/NB wnl today, desires NIPT. Will draw today with new OB labs. RTC 4 weeks for routine care. Flowsheet Date 11/05/2024 Brown Score Blood Edema Fundus Height Fundus Units Glucose Ketones Leukocytes Nitrite Labor Signs Protein Cervic Dilation Cervic Effacement Cervic Station Type Weight in lbs Pre/Post Dialysis Refused 196.375596152002 BP Diastolic BP Location Tested BP Systolic [...] Type Weight in lbs Pre/Post Dialysis Refused 198.882599223227 BP Diastolic BP Location Tested BP Systolic [...] Weight in lbs Pre/Post Dialysis Refused Weight 202.819182763988 BP Diastolic BP Location Tested BP Systolic [...] Type Weight in lbs Pre/Post Dialysis Refused 207.340951013040 BP Diastolic BP Location Tested BP Systolic [...] Weight in lbs Pre/Post Dialysis Refused Weight 200.647584873221 BP Diastolic BP Location Tested BP Systolic [...] Weight in lbs Pre/Post Dialysis Refused Weight 204.018260257952 BP Diastolic BP Location Tested BP Systolic [...] Type Weight in lbs Pre/Post Dialysis Refused 207.530800530846 BP Diastolic BP Location Tested BP Systolic [...] Weight in lbs Pre/Post Dialysis Refused Weight 208.939831496179 BP Diastolic BP Location Tested BP Systolic [...] Weight in lbs Pre/Post Dialysis Refused Weight 210.418217510538 BP Diastolic BP Location Tested BP Systolic [...] Weight in lbs Pre/Post Dialysis Refused Weight 208.810486925016 BP Diastolic BP Location Tested BP Systolic BP Type 89 L arm 135 sitting Fetus Heart Rate Present Fetus Movement A Yes Comments Flowsheet Date 03/23/2025 Brown Score Blood Edema Fundus Height Fundus Units Glucose Ketones Leukocytes Nitrite Labor Signs Protein Cervic Dilation Cervic Effacement Cervic Station Type Weight in lbs Pre/Post Dialysis Refused Weight 208.244521431304 BP Diastolic BP Location Tested BP Systolic [...] Weight in lbs Pre/Post Dialysis Refused Weight 209.127205891097 BP Diastolic BP Location Tested BP Systolic BP Type 83 L arm 134 sitting Fetus Heart Rate Present Fetus Movement A Yes Comments Flowsheet Date 04/01/2025 Brown Score Blood Edema Fundus Height Fundus Units Glucose Ketones Leukocytes Nitrite Labor Signs Protein Cervic Dilation Cervic Effacement Cervic Station Type Weight in lbs Pre/Post Dialysis Refused 209.006685094406 BP Diastolic BP Location Tested BP Systolic [...] Weight in lbs Pre/Post Dialysis Refused Weight 201.103135501735 BP Diastolic BP Location Tested BP Systolic [...]
[2025-04-15 21:18] LABS: Hematocrit 37.2 % (37.0-47.0); Hemoglobin 12.3 g/dL (12.0-15.0); Immature Granulocyte Percent A 0.4 % (0-0.5); Lymphocytes Absolute Auto 2.88 K/mm3 (0.9-3.2); Mean Corpuscular HGB Conc 33.1 g/dl (32-36); Mean Corpuscular Hemoglobin 28.5 pg (26-34); Mean Corpuscular Volume 86.3 fl (80-100); Nucleated Red Blood Cells Absolute Auto 0.000 K/mm3 (0.0-0.012); Nucleated Red Blood Cells Perc 0.0 % (0.0-0.2); Platelet Count Result 275 k/mm3 (150-375); Red Blood Count 4.31 M/mm3 (4.2-5.4); White Blood Count 8.5 K/mm3 (4.5-10.0)
[2025-04-15 21:32] LABS: Alanine Aminotransferase 72 U/L (6-35); Albumin Level 3.4 g/dL (3.5-5.1); Alkaline Phosphatase 115 U/L (38-126); Anion Gap 5 mmol/L (4-12); Aspartate Amino Transferase 30 U/L (14-36); Bilirubin,Total 0.4 mg/dL (0.2-1.3); Blood Urea Nitrogen 11 mg/dL (7-17); Calcium 9.0 mg/dL (8.4-10.2); Carbon Dioxide 22 mmol/L (22-30); Chloride 112 mmol/L (98-107); Estimated Glomerular Filt Rate > 60; Glucose 85 mg/dL (65-110); Potassium 3.4 mmol/L (3.4-5.0); Sodium 139 mmol/L (137-145); Total Protein 6.7 g/dL (6.3-8.2); Uric Acid 5.2 mg/dL (2.5-7.5)
--- NOTE | 2025-04-15 21:38 | PC.NURSE ---
Addendum entered by Alecia Fuentes RN 04/16/25 07:13: Pt arrives to unit at 1933. Original Note: Pt arrives to unit with high blood pressure at home, foggy, and headache 5 out of 10.
--- NOTE | 2025-04-15 21:38 | PC.NURSE ---
Called Dr. Park, update on high blood pressure at home, [place], headache 5 out of 10, blood pressure on unit, and labs. Orders received to discharge pt with instructions to take Tylenol 1000 mg every six hours as needed for headache and call the office to make an appointment next week.
--- NOTE | 2025-04-15 21:54 | PC.NURSE ---
Pt discharged with instructions to take Tylenol 1000 mg every six hours as needed for headache and call the office to make an appointment next week, pt verbalizes understanding.
== END 2025-04-15 21:54 | disposition home or self-care (01) ==
LOC: ANHOBOP 19:39 → ANHOBPP 19:43
PROVIDERS: Visit Provider Obstetrics & Gynecology
DX: O13.9 Gestational [pregnancy-induced] hypertension without significant proteinuria, unspecified trimester (principal); Z3A.00 Weeks of gestation of pregnancy not specified
CPT/HCPCS: 36415; 80053; 84550; 85025; 99199